=== PATIENT | male | born 1970 | race Hispanic/Latino ===

== ENCOUNTER 2018-06-24 00:13 | Emergency (ER) | payer MEDICARE ==
[~2018-06-24] VITALS: Ht 188 cm; Wt 86.2 kg
--- OUTSIDE RECORDS SUMMARY | 2018-06-24 00:16 | XMS REPORT | Clinical Summary ---
Author Author HUGH [facility] Address Unknown Phone Unavailable Care Team Providers Care Nutritionist Public Health Name Role Phone Guanakito Stone PCP Krishna Grubbs 24 Allergies No Known Allergies Medications End Date Status Medication Sig Dispensed Refills Start Date Active losartan (COZAAR) 100 MG Take 25 mg by 0 tablet mouth daily. 6 Active furosemide (LASIX) 20 MG Take 40 mg by 0 tablet mouth daily . 6 Active glimepiride (AMARYL) 2 MG Take 1 tablet 0 tablet by mouth 6 daily. Active clopidogrel (PLAVIX) 75 Take 1 tablet 0 mg tablet by mouth 6 daily. Active escitalopram oxalate Take 1 tablet 0 (LEXAPRO) 10 MG tablet by mouth 6 daily. Active DIGOX 125 mcg tablet Take 1 tablet 0 by mouth 6 every evening Every other day. Active carvedilol (COREG) 6.25 Take 50 mg by 0 MG tablet mouth 2 (two) 6 times daily . Active TRADJENTA 5 mg Tab Take 1 tablet 0 by mouth 6 daily. Active atorvastatin (LIPITOR) 10 Take 1 tablet 0 MG tablet by mouth 6 daily. Active TANZEUM 30 mg/0.5 mL PnIj Inject 1 each 0 subcutaneousl 6 y once a week. Active gabapentin (NEURONTIN) Take 300 mg 0 300 MG capsule by mouth 2 (two) times daily. Active lisinopril Take 10 mg by 0 (PRINIVIL,ZESTRIL) 5 MG mouth daily . tablet Active aspirin 81 MG EC tablet Take 81 mg by 0 mouth daily. Active amLODIPine (NORVASC) 2.5 Take 2.5 mg 0 MG tablet by mouth daily. Active potassium chloride SA Take 20 mEq 0 (K-DUR,KLOR-CON) 20 MEQ by mouth tablet daily. Active calcium carbonate (TUMS) Take 2 0 500 mg chewable tablet tablets by mouth 3 (three) times daily with meals. 12/14/2017 Discontinued metolazone (ZAROXOLYN) 5 Take 1 tablet 0 MG tablet by mouth Once 6 a week. 12/14/2017 Discontinued BUTRANS 7.5 mcg/hour PTWK Apply 1 patch 0 topically 6 once a week fridays. 01/28/2018 Discontinued rosuvastatin (CRESTOR) 40 Take 40 mg by 0 MG tablet mouth daily. Active Problems Problem Noted Date CAD (coronary artery disease) 01/28/2018 Abnormal cardiovascular stress test 12/14/2017 ESRD (end stage renal disease) on dialysis 02/03/2017 Patient awaiting renal transplant 02/03/2017 Proliferative diabetic retinopathy of both eyes without macular edema 02/03/2017 associated with type 2 diabetes mellitus CKD (chronic kidney disease), stage 5 11/28/2015 Pre-transplant evaluation for chronic kidney disease 11/28/2015 Diabetic nephropathy associated with type 2 diabetes mellitus 11/28/2015 Essential hypertension 11/28/2015 Proliferative diabetic retinopathy without macular edema associated with 11/28/2015 type 2 diabetes mellitus Diabetic polyneuropathy associated with type 2 diabetes mellitus 11/28/2015 Coronary artery disease involving standing rock coronary artery of standing rock heart 11/28/2015 without angina pectoris S/P CABG x 4 11/28/2015 Hyperlipidemia 11/28/2015 Paroxysmal atrial fibrillation 11/28/2015 Encounters Care Team Description Date Type Specialty Christie Abraham Appointment (Reschedule Updates Appt) 05/28/2018 Telephone Transplant Jaquelin Reyna RN Waitlist Maintenance 05/20/2018 Telephone Transplant Christie Abraham Appointment (Updates) 03/20/2018 Telephone Transplant Yu Chacon MD PCI & STENT 01/28/2018 Surgery Yu Chacon MD Abnormal cardiovascular stress test; Coronary artery disease involving standing rock coronary artery of standing rock heart without angina pectoris; ESRD (end stage renal disease) on dialysis (HCC); Paroxysmal atrial fibrillation (HCC); Pre-transplant evaluation for chronic kidney disease; Claudication in peripheral vascular disease (HCC) 01/28/2018 Hospital Cardiology - Encounter 01/29/2018 01/28/2018 Orders Only General Internal Medicine Yu Chacon MD L CATH & PCI 12/14/2017 Surgery Yu Chacon MD Abnormal cardiovascular stress test; Coronary artery disease involving standing rock coronary artery of standing rock heart without angina pectoris; ESRD (end stage renal disease) on dialysis (HCC); Patient awaiting renal transplant; S/P CABG x 4 12/14/2017 Hospital Encounter 12/14/2017 Orders Only General Internal Medicine Mili Varghese MD ESRD (end stage renal disease) on dialysis (HCC); Patient awaiting renal transplant 12/04/2017 Orders Only Transplant Hepatology Jd France MD ESRD (end stage renal disease) on dialysis (HCC); Pre-transplant evaluation for chronic kidney disease; Diabetic nephropathy associated with type 2 diabetes mellitus (HCC); Essential hypertension; S/P CABG x 4; Hyperlipidemia, unspecified hyperlipidemia type; Paroxysmal atrial fibrillation (HCC); Mitral valve insufficiency, unspecified etiology; Coronary artery disease involving standing rock coronary artery of standing rock heart with angina pectoris (HCC) 12/04/2017 Hospital Cardiology Encounter Jd France MD ESRD (end stage renal disease) on dialysis (HCC); Pre-transplant evaluation for chronic kidney disease; Diabetic nephropathy associated with type 2 diabetes mellitus (HCC); Essential hypertension; S/P CABG x 4; Hyperlipidemia, unspecified hyperlipidemia type; Paroxysmal atrial fibrillation (HCC); Mitral valve insufficiency, unspecified etiology; Coronary artery disease involving standing rock coronary artery of standing rock heart with angina pectoris (HCC) 12/04/2017 Hospital Cardiology Encounter Christie Abraham 10/04/2017 Documentation Transplant Christie Abraham 10/03/2017 Documentation Transplant Christie Abraham Appointment (Reschedule Tests) 10/01/2017 Telephone Transplant Jaquelin Reyna RN ESRD (end stage renal disease) on dialysis (HCC) (Primary Dx); Pre-transplant evaluation for chronic kidney disease; Diabetic nephropathy associated with type 2 diabetes mellitus (HCC); Essential hypertension; S/P CABG x 4; Hyperlipidemia, unspecified hyperlipidemia type; Paroxysmal atrial fibrillation (HCC); Mitral valve insufficiency, unspecified etiology; Coronary artery disease involving standing rock coronary artery of standing rock heart with angina pectoris (HCC) 09/26/2017 Orders Only Transplant Jaquelin Reyna RN ESRD (end stage renal disease) on dialysis (HCC) (Primary Dx); Patient awaiting renal transplant 08/21/2017 Orders Only Transplant Yu Chacon MD Canceled (Patient) 07/27/2017 Hospital Cardiology Encounter Jaquelin Reyna RN Waitlist Maintenance 07/25/2017 Telephone Transplant after 06/23/2017 Family History Medical History Relation Name Comments Diabetes Brother Unremarkable Brother Diabetes Father Heart disease Father Hypertension Father Diabetes Mother Heart disease Mother Hypertension Mother Stroke Mother Diabetes Sister Diabetes Sister Relation Name Status Comments Brother Alive Brother Alive Daughter Alive Father Heart attack (Age 63) Mother ESRD, stroke (Age 57) Sister Alive Sister Alive Social History Date Tobacco Use Types Packs/Day Years Used Former Smoker Cigarettes 0.5 30 Smokeless Tobacco: Never Used Comments: 09/28 Alcohol Use Drinks/Week oz/Week Comments No Sex Assigned at Date Recorded Not on file Industry Job Start Date Occupation Not on file Not on file Not on file Travel End Travel History Travel Start No recent travel history available. Last Filed Vital Signs Time Taken Vital Sign Reading 01/29/2018 11:22 AM CDT Blood Pressure 156/78 01/29/2018 11:22 AM CDT Pulse 89 01/29/2018 11:22 AM CDT Temperature 36.8 C (98.3 F) 01/29/2018 4:28 AM CDT Respiratory Rate 18 01/29/2018 4:28 AM CDT Oxygen Saturation 96% - Inhaled Oxygen - Concentration 01/28/2018 7:14 AM CDT Weight 89.2 kg (196 lb 9.6 oz) 01/28/2018 7:14 AM CDT Height 188 cm (6' 2") 01/28/2018 7:14 AM CDT Body Mass Index 25.24 Plan of Treatment Care Team Description Date Type Specialty Mili Varghese MD [address] [address] [phone] 07/18/2018 Orders Only Transplant Hepatology Mili Varghese MD [address] [address] [phone] Jd France MD [address] [place] [address] [phone] 07/18/2018 Evaluation Transplant Health Maintenance Due Date Last Done Comments INFLUENZA VACCINE 05/13/2018 Procedures Comments Procedure Name Priority Date/Time Associated Diagnosis VASCULAR DIAGRAM -SCAN 04/30/2018 12:01 PM CDT VASCULAR DIAGRAM -SCAN 02/07/2018 12:03 PM CDT VASCULAR DIAGRAM -SCAN 02/07/2018 12:03 PM CDT CARDIAC CATH REPORT - 02/01/2018 SCAN 5:20 PM CDT RHYTHM STRIP - SCAN 01/30/2018 11:00 AM CDT VASCULAR DIAGRAM -SCAN 01/30/2018 11:00 AM CDT VASCULAR DIAGRAM -SCAN 01/30/2018 11:00 AM CDT POCT-GLUCOSE METER Routine 01/29/2018 9:33 AM CDT POCT-ACT Routine 01/29/2018 4:28 AM CDT CBC (HEMOGRAM ONLY) Routine 01/29/2018 3:06 AM CDT BASIC METABOLIC PANEL (7) Routine 01/29/2018 3:06 AM CDT POCT-ACT Routine 01/29/2018 3:04 AM CDT POCT-ACT Routine 01/29/2018 1:56 AM CDT POCT-ACT Routine 01/29/2018 12:15 AM CDT POCT-ACT Routine 01/28/2018 10:46 PM CDT POCT-GLUCOSE METER Routine 01/28/2018 9:49 PM CDT POCT-ACT Routine 01/28/2018 8:13 PM CDT POCT-ACT Routine 01/28/2018 7:52 PM CDT POCT-ACT Routine 01/28/2018 6:52 PM CDT PERIPHERAL ANGIOS & IVUS 01/28/2018 Disease of cardiovascular 2:46 PM CDT system PAD (peripheral artery disease) (HCC) Case Notes 5CASE POP6 FFR TO PERALTA/LAD/N O IVUS PCI & STENT 01/28/2018 Disease of cardiovascular 2:46 PM CDT system PAD (peripheral artery disease) (HCC) Case Notes 5CASE POP6 FFR TO PERALTA/LAD/N O IVUS CBC (HEMOGRAM ONLY) Routine 01/28/2018 8:04 AM CDT BASIC METABOLIC PANEL (7) Routine 01/28/2018 8:04 AM CDT ECG 12-LEAD Routine 01/28/2018 7:50 AM CDT Procedure Note - Interface, External Ris In - 01/28/2018 9:01 AM CDT Ventricula r Rate 94 BPM Atrial Rate 94 BPM P-R Interval 172 ms QRS Duration 100 ms Q-T Interval 414 ms QTC Calculatio n(Bazett) 517 ms P Amelia 64 degrees R Amelia 21 degrees T Amelia 153 degrees Normal sinus rhythm Moderate voltage criteria for LVH, may be normal variant ST & T wave abnormalit y, consider inferolate ral ischemia Prolonged QT Abnormal ECG When compared with ECG of 11:51, Premature ventricula r complexes are no longer Present T wave inversion less evident in Anterior leads ECG 12-LEAD Routine 01/28/2018 7:50 AM CDT CARDIAC CATH REPORT - 12/18/2017 SCAN 2:10 PM CDT CARDIAC CATH REPORT - 12/17/2017 SCAN 2:31 PM CDT VASCULAR DIAGRAM -SCAN 12/17/2017 2:31 PM CDT L CATH & PCI 12/14/2017 Abnormal cardiovascular 1:15 PM CDT stress test Case Notes 6T OP, WITH CORONARY ANGIOS ECG 12-LEAD Routine 12/14/2017 11:51 AM CDT Procedure Note - Interface, External Ris In - 12/14/2017 12:18 PM CDT Ventricula r Rate 82 BPM Atrial Rate 82 BPM P-R Interval 178 ms QRS Duration 104 ms Q-T Interval 436 ms QTC Calculatio n(Bazett) 509 ms P Amelia 49 degrees R Amelia 18 degrees T Amelia 199 degrees Sinus rhythm with occasional Premature ventricula r complexes ST & T wave abnormalit y, consider inferior ischemia ST & T wave abnormalit y, consider anterolate ral ischemia Prolonged QT Abnormal ECG When compared with ECG of 6 09:03, Premature ventricula r complexes are now Present Minimal criteria for Septal infarct are no longer Present Borderline criteria for Inferior infarct are no longer Present T wave inversion now evident in Inferior leads ECG 12-LEAD Routine 12/14/2017 11:51 AM CDT PROTHROMBIN TIME/INR STAT 12/14/2017 11:19 AM CDT APTT STAT 12/14/2017 11:19 AM CDT CBC (HEMOGRAM ONLY) STAT 12/14/2017 11:19 AM CDT BASIC METABOLIC PANEL (7) STAT 12/14/2017 11:19 AM CDT ECHOCARDIOGRAM REPORT - 12/04/2017 SCAN 12:20 PM CDT ECHOCARDIOGRAM REPORT - 12/04/2017 SCAN 12:03 PM CDT AB SPECIFICITY CLASS II Routine 12/04/2017 ESRD (end stage renal 10:04 AM CDT disease) on dialysis ([facility]) Patient awaiting renal transplant FLOW PRA CLASS II WITH Routine 12/04/2017 ESRD (end stage renal REFLEX TO ANTIBODY 10:04 AM CDT disease) on dialysis SPECIFICITY ([facility]) Patient awaiting renal transplant FLOW PRA CLASS I WITH Routine 12/04/2017 ESRD (end stage renal REFLEX TO ANTIBODY 10:04 AM CDT disease) on dialysis SPECIFICITY ([facility]) Patient awaiting renal transplant STRESS ECHO Routine 12/04/2017 ESRD (end stage renal 8:50 AM CDT disease) on dialysis ([facility]) Pre-transplant evaluation for chronic kidney disease Diabetic nephropathy associated with type 2 diabetes mellitus ([facility]) Essential hypertension S/P CABG x 4 Hyperlipidemia, unspecified hyperlipidemia type Paroxysmal atrial fibrillation ([facility]) Mitral valve insufficiency, unspecified etiology Coronary artery disease involving standing rock coronary artery of standing rock heart with angina pectoris ([facility]) 2D ECHO W/ DOPPLER Routine 12/04/2017 ESRD (end stage renal (CW/PW/COLOR) 7:57 AM CDT disease) on dialysis (HCC) Pre-transplant evaluation for chronic kidney disease Diabetic nephropathy associated with type 2 diabetes mellitus (HCC) Essential hypertension S/P CABG x 4 Hyperlipidemia, unspecified hyperlipidemia type Paroxysmal atrial fibrillation (HCC) Mitral valve insufficiency, unspecified etiology Coronary artery disease involving standing rock coronary artery of standing rock heart with angina pectoris (HCC) after 06/23/2017 Results * VASCULAR DIAGRAM -SCAN (04/30/2018 12:01 PM CDT) Only the most recent of 6 results within the time period is included. Narrative Performed At * CARDIAC CATH REPORT - SCAN (02/01/2018 5:20 PM CDT) Narrative Performed At * RHYTHM STRIP - SCAN (01/30/2018 11:00 AM CDT) Narrative Performed At * POC-Glucose meter (01/29/2018 9:33 AM CDT) Only the most recent of 2 results within the time period is included. POC-Glucose Meter 214 (H)Comment: TESTED AT 70 - 110 mg/dL [address] [id number] Specimen Blood Performing Organization Address City/[facility]/[place] [address] [facility] * POC ACTIVATED CLOTTING TIME (01/29/2018 4:28 AM CDT) Only the most recent of 8 results within the time period is included. Activated Clotting Time 147Comment: TESTED AT [facility] sec [address] Specimen Blood Performing Organization Address City/State/[place] [address] [facility] * CBC (Hemogram only) (01/29/2018 3:06 AM CDT) Only the most recent of 3 results within the time period is included. WBC 14.1 (H) 3.5 - 10.5 K/L [facility] RBC 3.27 (L) 4.63 - 6.08 M/L [facility] Hemoglobin 9.6 (L) 13.7 - 17.5 GM/DL [facility] Hematocrit 30.3 (L) 40.1 - 51.0 % [facility] MCV 92.7 (H) 79.0 - 92.2 fL [facility] MCH 29.4 25.7 - 32.2 pg [facility] MCHC 31.7 (L) 32.3 - 36.5 GM/DL [facility] RDW 17.0 (H) 11.6 - 14.4 % [facility] Platelets 274 150 - 450 K/CU MM [facility] MPV 10.1 9.4 - 12.4 fL [facility] nRBC 0 0 - 0 /100 WBC [facility] Specimen Blood - Line, Arterial Performing Organization Address City/State/Zipcode Phone Number [facility] [address] [place] [address] [facility] * Basic metabolic panel (01/29/2018 3:06 AM CDT) Only the most recent of 3 results within the time period is included. Sodium 135 (L) 136 - 145 meq/L [facility] Potassium 4.0 3.5 - 5.1 meq/L [facility] Chloride 102 98 - 107 meq/L [facility] CO2 20 (L) 22 - 29 meq/L [facility] BUN 52 (H) 7 - 21 mg/dL [facility] Creatinine 12.47 (H) 0.57 - 1.25 mg/dL [facility] Glucose 213 (H) 70 - 105 mg/dL [facility] Calcium 7.3 (L) 8.4 - 10.2 mg/dL [facility] EGFR Comment: INSUFFICIENT CLINICAL mL/min/1.73 sq m [facility] DATA TO CALCULATE ESTIMATED [facility] GFR. Specimen Blood - Line, Arterial Performing Organization Address City/[facility]/Zipcode Phone Number [facility] [address] [place] [address] [facility] * ECG 12 lead (01/28/2018 7:50 AM CDT) Only the most recent of 2 results within the time period is included. Narrative Performed At Ventricular Rate 94 BPM GE MUSE Atrial Rate 94 BPM P-R Interval 172 ms QRS Duration 100 ms Q-T Interval 414 ms QTC Calculation(Bazett) 517 ms P Amelia 64 degrees R Amelia 21 degrees T Amelia 153 degrees Normal sinus rhythm Moderate voltage criteria for LVH, may be normal variant ST & T wave abnormality, consider inferolateral ischemia Prolonged QT Abnormal ECG When compared with ECG of 14-DEC-2017 11:51, Premature ventricular complexes are no longer Present T wave inversion less evident in Anterior leads Confirmed by Fabian Grover ([id number]) on 01/28/2018 2:01:19 PM Procedure Note Interface, External Ris In - 01/28/2018 2:01 PM CDT Ventricular Rate 94 BPM Atrial Rate 94 BPM P-R Interval 172 ms QRS Duration 100 ms Q-T Interval 414 ms QTC Calculation(Bazett) 517 ms P Amelia 64 degrees R Amelia 21 degrees T Amelia 153 degrees Normal sinus rhythm Moderate voltage criteria for LVH, may be normal variant ST & T wave abnormality, consider inferolateral ischemia Prolonged QT Abnormal ECG When compared with ECG of 14-DEC-2017 11:51, Premature ventricular complexes are no longer Present T wave inversion less evident in Anterior leads Confirmed by Fabian Grover ([id number]) on 01/28/2018 2:01:19 PM Performing Organization Address City/State/Zipcode Phone Number [employer] [facility] * CARDIAC CATH REPORT - SCAN (12/18/2017 2:10 PM CDT) Narrative Performed At * CARDIAC CATH REPORT - SCAN (12/17/2017 2:31 PM CDT) Narrative Performed At * aPTT (12/14/2017 11:19 AM CDT) PTT 35.9 22.5 - 36.0 seconds [facility] Specimen Blood Performing Organization Address City/[facility] Phone Number [facility] [address] [place] [address] [facility] * Prothrombin time/INR (12/14/2017 11:19 AM CDT) Protime 14.8 (H) 11.7 - 14.7 seconds [facility] INR 1.2 <=5.9 [facility] Specimen Blood Narrative Performed At RECOMMENDED COUMADIN/WARFARIN INR THERAPY RANGES [facility] STANDARD DOSE: 2.0 - 3.0 Includes: PROPHYLAXIS for venous thrombosis, [facility] systemic embolization; TREATMENT for venous thrombosis and/or pulmonary embolus. HIGH RISK: Target INR is 2.5-3.5 for patients with mechanical heart valves. Performing Organization Address [facility] Center[facility]n Phone Number [facility] [address] [place] [address] [facility] * ECHOCARDIOGRAM REPORT - SCAN (12/04/2017 12:20 PM CDT) Narrative Performed At * ECHOCARDIOGRAM REPORT - SCAN (12/04/2017 12:03 PM CDT) Narrative Performed At * FLOW PRA CLASS II WITH REFLEX TO ANTIBODY SPECIFICITY (12/04/2017 10:04 AM CDT) Flow Class II Percent 15 [facility] Positive Flow Class Report [facility] Comments Specimen Blood Performing Organization Address [facility] Phone Number [facility] [place], [place]: [id number], [place] [address] CLIA#[id number] CAP#[id number] UNOS#[id number] [facility] [address] [facility] [place], [place]: [id number] [place] [address] * FLOW PRA CLASS I WITH REFLEX TO ANTIBODY SPECIFICITY (12/04/2017 10:04 AM CDT) Flow Class I Percent 0 [facility] Positive Flow Class Report [facility] Comments Specimen Blood Performing Organization Address [facility] Cent[facility] Phone Number [facility] ONE [place] [address], [place]: [id number], [place] [address] CLIA#[id number] CAP#[id number] UNOS#[id number] [facility] [address] [facility] [place], [place]: [id number] [place] [address] * AB SPECIFICITY CLASS II (12/04/2017 10:04 AM CDT) AB Specificity Class II NO CLASS II ANTIBODY DETECTED [facility] WITH MFIs > 4000 AB Specificity Titr Class [facility] Report Specimen Blood Performing Organization Address City/State/Zipcode Phone Number [facility] [address] [facility] [place], [place]: [id number], [place] [address] CLIA#[id number] CAP#[id number] UNOS#[id number] [facility] [place], [place]: [id number] [place] [address] * Stress Echo With Tracing (12/04/2017 8:50 AM CDT) Ejection Fraction [facility] MKCKESSON CPA Narrative Performed At Stress Echocardiography Report [facility] Demographics MKCKESSON CPA Patient NameRICHAR HICKEY of Study12/04/2017 Gender Male Visit [id number] Race Unknown Number Number Date of 1970 ReferringMurtSelect [facility]emg[facility] Physician Gerald Age 47 year(s) SonographerRod SULTANA Interpreting Elizabeth Chase MD Physician FellowADRIANA Rahman Procedure Type of Study Stress procedure:STRESS(TMT)ECHO W/TMT TRACING (Routine) Indications:Pre-surgical evaluation of organ transplant. Clinical History Anemia Coronary Artery Disease Congestive Heart Failure Diabetes ESRD Edema Hypertension Hyperlipidemia Myocardial Infarction S/P CABG 11/13/14 S/P Coronary stent 07/27 S/P Coronary stent 07/28 Contrast Medium: Definity. Height: 72 inches Weight: 88.9 kg (196 lbs) BSA: 2.11 m^2 BMI: 26.58 kg/m^2 HR: 78 bpm BP: 153/86 mmHg Rest ECG Normal sinus rhythm with diffuse T wave inversions. Standing HR:80 bpmStanding BP:153/86 mmHg Stress Peak HR: 153 bpmHR Response: Normal Peak BP: 213/114 mmHg HR BP Product: [id number] Predicted HR: 171 bpm % of predicted HR: 89 Stress EF: 30 % Test Duration: 15:40 min Reason for Termination: Target heart rate Stress Interpretation Indication for test: Pre-transplant evaluation Patient underwent dobutamine stress lasting 15:40 and achieved 89% of maximum predicted heart rate. Resting echo shows akinetic basal and mid inferoseptum, akinetic basal and mid inferior wall. LVEF of 42.9%. Images at peak stress shows akinesis of the basal and mid inferior, basal and mid inferoseptal suggesting scar in this area. With stress, there are new wall motion abnormalties seen in the anterior, anterolateral segments suggesting presence of inducible ischemia in the LAD territory. At peak infusion, the LVEF decreases to 25-29%. Results Global LVEF (rest): Mildly depressed (LVEF 40-50%) Global LVEF (stress): Severely depressed (LVEF <30%) ECG Sinus tachycardia with diffuse T wave inversions and 1-2mm ST depressions in the inferior, anterior and lateral leads . Arrhythmias Occasional PVCs during stress which resolved in recovery Symptoms Mild nausea without chest pain Summary Impression: Dobutamine Stress Echo shows inducible ischemia in the LAD territory. Also suggestion of scar in the RCA territory ( basal and mid inferoseptum/basal and mid inferior segments ). Critical findings communicated with referring provider Dr Oswaldo EID. Previous Study Compared to the prior stud dated 05/24/2016, inducible ischemia in the LAD territory and the suggestion of scar in the RCA territory are both new. Signature Procedure Note Interface, External Ris In - 12/04/2017 11:18 AM CDT Stress Echocardiography Report Demographics Patient Name RICHAR HICKEY Date of Study 12/04/2017 Gender Male Visit Number [id number] Race Unknown Room Number Number Date of 1970 Referring Román Miles Physician Gerald Age 47 year(s) Recruit Instructor Rod Jolly [facility] Interpreting Elizabeth Chase MD Physician Fellow ADRIANA Rahman Procedure Type of Study Stress procedure:STRESS(TMT)ECHO W/TMT TRACING (Routine) Indications:Pre-surgical evaluation of organ transplant. Clinical History Anemia Coronary Artery Disease Congestive Heart Failure Diabetes ESRD Edema Hypertension Hyperlipidemia Myocardial Infarction S/P CABG 11/13/14 S/P Coronary stent 07/27 S/P Coronary stent 07/28 Contrast Medium: Definity. Height: 72 inches Weight: 88.9 kg (196 lbs) BSA: 2.11 m^2 BMI: 26.58 kg/m^2 HR: 78 bpm BP: 153/86 mmHg Rest ECG Normal sinus rhythm with diffuse T wave inversions. Standing HR:80 bpmStanding BP:153/86 mmHg Stress Peak HR: 153 bpm HR Response: Normal Peak BP: 213/114 mmHg HR BP Product: [id number] Predicted HR: 171 bpm % of predicted HR: 89 Stress EF: 30 % Test Duration: 15:40 min Reason for Termination: Target heart rate Stress Interpretation Indication for test: Pre-transplant evaluation Patient underwent dobutamine stress lasting 15:40 and achieved 89% of maximum predicted heart rate. Resting echo shows akinetic basal and mid inferoseptum, akinetic basal and mid inferior wall. LVEF of 42.9%. Images at peak stress shows akinesis of the basal and mid inferior, basal and mid inferoseptal suggesting scar in this area. With stress, there are new wall motion abnormalties seen in the anterior, anterolateral segments suggesting presence of inducible ischemia in the LAD territory. At peak infusion, the LVEF decreases to 25-29%. Results Global LVEF (rest): Mildly depressed (LVEF 40-50%) Global LVEF (stress): Severely depressed (LVEF <30%) ECG Sinus tachycardia with diffuse T wave inversions and 1-2mm ST depressions in the inferior, anterior and lateral leads . Arrhythmias Occasional PVCs during stress which resolved in recovery Symptoms Mild nausea without chest pain Summary Impression: Dobutamine Stress Echo shows inducible ischemia in the LAD territory. Also suggestion of scar in the RCA territory ( basal and mid inferoseptum/basal and mid inferior segments ). Critical findings communicated with referring provider Dr Oswaldo EID. Previous Study Compared to the prior stud dated 05/24/2016, inducible ischemia in the LAD territory and the suggestion of scar in the RCA territory are both new. Signature Performing Organization Address City/State/Zipcode Phone Number [facility] [employer] [email or web address] * 2D Echo W/Doppler(CW/PW/Color) (12/04/2017 7:57 AM CDT) Ejection Fraction [email or web address] Narrative Performed At Transthoracic Echocardiography Report (TTE) [facility] [employer] [facility] Demographics [employer] Patient NameRICHAR HICKEY of Study12/04/2017 Gender Male Visit [id number] Race Unknown Number Number Date of 1970 ReferringMuivet Miles Physician Gerald Age 47 year(s) SonographerRod Jolly [facility] Interpreting Elizabeth Chase MD Physician FellowADRIANA Rahman Procedure Type of Study TTE procedure:2DECHO W DOPPLER(CW/PW/COLOR) (Routine) Indications:Pre-surgical evaluation of organ transplant. Clinical History Anemia Coronary Artery Disease Congestive Heart Failure Diabetes ESRD Edema Hypertension Hyperlipidemia Myocardial Infarction S/P CABG 11/13/14 S/P Coronary stent 07/27 S/P Coronary stent 07/28 Contrast Medium: Definity. Height: 72 inches Weight: 88.9 kg (196 lbs) BSA: 2.11 m^2 BMI: 26.58 kg/m^2 HR: 78 bpm BP: 153/86 mmHg Summary 1. Left ventricular endocardium is incompletely visualized with IV contrast. LV chamber size is mildly enlarged (male - LVED vol 75-89ml/m2). There is no LV hypertrophy. Akinetic basal and mid inferoseptum, basal and mid inferior wall noted. LV systolic function is mildly reduced. Calculated ejection fraction by Escalante's biplane method is mildly reduced (40-44%). Diastolic dysfunction is grade 3 (restrictive). 2. Normal RV size. There is mild systolic dysfunction of the right ventricle. 3. LA size is severely enlarged (>48 ml/m2) . Right atrial size is normal. 4. Mild to moderate posteriorly directed mitral regurgitation. 5. Trace tricuspid regurgitation. Incomplete TR jet. The Pulmonary artery systolic pressure is estimated to be atleast 35-40 mmHg. Estimated right atrial pressure is 5-10 mmHg. 6. No pericardial effusion is visualized. Previous Study In comparison with the prior exam on 05/24/16 the following changes are noted: LVEF is slightly lower. Signature Findings Rhythm/BPNormal sinus rhythm during the exam. Left Ventricle Left ventricular endocardium is incompletely visualized with IV contrast. LV chamber size is mildly enlarged (male - LVED vol 75-89ml/m2). There is no LV hypertrophy. Akinetic basal and mid inferoseptum, basal and mid inferior wall noted. LV systolic function is mildly reduced. Calculated ejection fraction by Escalante's biplane method is mildly reduced (40-44%). Diastolic dysfunction is grade 3 (restrictive). Left AtriumLA is well visualized. LA size is severely enlarged (>48 ml/m2) . Right VentricleNormal RV size. There is mild systolic dysfunction of the right ventricle. RVS' is 7 cm/s. TAPSE is 1.4 cm. FAC is 47%. RV MPI is 0.63. Right Atrium Right atrial size is normal. Atrial SeptumNormal intraatrial septum by available views. Aortic Valve Aortic annulus appears calcified. No aortic stenosis. No aortic regurgitation. Mitral Valve Mild thickening of the mitral leaflets noted. Mild to moderate posteriorly directed mitral regurgitation. Tricuspid ValveTricuspid structure is normal. Trace tricuspid regurgitation. Incomplete TR jet. The Pulmonary artery systolic pressure is estimated to be atleast 35-40 mmHg. Pulmonic Valve Normal pulmonic valve structure. No pulmonic regurgitation. AortaAortic root size (sinus of Valsalva diameter) is normal. Visualized aortic arch is normal. PericardiumNo pericardial effusion is visualized. IVC/SVC/PA/PV/PleuralThe inferior vena cava is adequately visualized. The IVC size is normal without respiratory variation. Estimated right atrial pressure is 5-10 mmHg. Chambers/Structures Left Atrium LA Volume: 108.64 ml LA Area: 27.4 cm^2 LA Vol. Index: 51 ml/m^2 Left Ventricle LVIDd: 5.04 cm LVIDs: 4.18 cm LV Septum Diastolic: 0.97 cm LV Septum Systolic: 1.36 cm LV FS: 17.1 % LV PW Diastolic: 1.44 cm LV PW Systolic: 1.67 cm LVEDVI: 71 ml/m^2 LVEDV Escalante's:149.29 ml LVESVI: 38 ml/m^2 LVESV Escalante's:80.81 ml LVEF Escalante's: 43.5 % LVOT Diameter: 2.08 cm Right Ventricle RV Area Diastolic: 25.83 cm^2 RV Area Systolic: 13.58 cm^2 TAPSE: 1.42 cm Doppler/Quantitative Measurements Mitral Valve MV Peak E-Wave: 1.29 m/s MV Peak A-Wave: 0.38 m/s E/A Ratio: 3.37 Peak Gradient: 6.67 mmHg Deceleration Time: 126 msec MV Angel. Peak: Tissue Doppler E' Septal Velocity: 0.08 m/s E/E': 12 E' Lateral Velocity: 0.11 m/s Aortic Valve Peak Velocity: 1.14 m/sMean Velocity: 0.83 m/s Peak Gradient: 5.19 mmHg Mean Gradient: 3.07 mmHg AV Area (continuity): 2.69 cm^2 AV VTI: 22.77 cm AV DVI: 0.79 LVOT Peak Velocity: 0.94 m/s Peak Gradient: 3.56 mmHg Mean Velocity: 0.63 m/s Mean Gradient: 1.86 mmHg LVOT Diameter: 2.08 cmLVOT VTI: 18.04 cm LVOT Area: 3.4 cm^2 LVOT SV:61.27 ml LVOT CO: 4.78 l/min LVOT CI: 2.27 l/min/m^2 Tricuspid Valve TR Velocity: 2.71 m/s TR Gradient: 29.29 mmHg Procedure Note Interface, External Ris In - 12/04/2017 11:42 AM CDT Transthoracic Echocardiography Report (TTE) Demographics Patient Name RICHAR HICKEY Date of Study 12/04/2017 Gender Male Visit Number [id number] Race Unknown Room Number Number Date of 1970 Referring Román Miles Physician Gerald Age 47 year(s) Recruit Instructor Rod Jolly [employer] Interpreting Elizabeth Chase MD Physician Fellow ADRIANA Rahman Procedure Type of Study TTE procedure:2DECHO W DOPPLER(CW/PW/COLOR) (Routine) Indications:Pre-surgical evaluation of organ transplant. Clinical History Anemia Coronary Artery Disease Congestive Heart Failure Diabetes ESRD Edema Hypertension Hyperlipidemia Myocardial Infarction S/P CABG 11/13/14 S/P Coronary stent 07/27 S/P Coronary stent 07/28 Contrast Medium: Definity. Height: 72 inches Weight: 88.9 kg (196 lbs) BSA: 2.11 m^2 BMI: 26.58 kg/m^2 HR: 78 bpm BP: 153/86 mmHg Summary 1. Left ventricular endocardium is incompletely visualized with IV contrast. LV chamber size is mildly enlarged (male - LVED vol 75-89ml/m2). There is no LV hypertrophy. Akinetic basal and mid inferoseptum, basal and mid inferior wall noted. LV systolic function is mildly reduced. Calculated ejection fraction by Escalante's biplane method is mildly reduced (40-44%). Diastolic dysfunction is grade 3 (restrictive). 2. Normal RV size. There is mild systolic dysfunction of the right ventricle. 3. LA size is severely enlarged (>48 ml/m2) . Right atrial size is normal. 4. Mild to moderate posteriorly directed mitral regurgitation. 5. Trace tricuspid regurgitation. Incomplete TR jet. The Pulmonary artery systolic pressure is estimated to be atleast 35-40 mmHg. Estimated right atrial pressure is 5-10 mmHg. 6. No pericardial effusion is visualized. Previous Study In comparison with the prior exam on 05/24/16 the following changes are noted: LVEF is slightly lower. Signature Findings Rhythm/BP Normal sinus rhythm during the exam. Left Ventricle Left ventricular endocardium is incompletely visualized with IV contrast. LV chamber size is mildly enlarged (male - LVED vol 75-89ml/m2). There is no LV hypertrophy. Akinetic basal and mid inferoseptum, basal and mid inferior wall noted. LV systolic function is mildly reduced. Calculated ejection fraction by Escalante's biplane method is mildly reduced (40-44%). Diastolic dysfunction is grade 3 (restrictive). Left Atrium LA is well visualized. LA size is severely enlarged (>48 ml/m2) . Right Ventricle Normal RV size. There is mild systolic dysfunction of the right ventricle. RVS' is 7 cm/s. TAPSE is 1.4 cm. FAC is 47%. RV MPI is 0.63. Right Atrium Right atrial size is normal. Atrial Septum Normal intraatrial septum by available views. Aortic Valve Aortic annulus appears calcified. No aortic stenosis. No aortic regurgitation. Mitral Valve Mild thickening of the mitral leaflets noted. Mild to moderate posteriorly directed mitral regurgitation. Tricuspid Valve Tricuspid structure is normal. Trace tricuspid regurgitation. Incomplete TR jet. The Pulmonary artery systolic pressure is estimated to be atleast 35-40 mmHg. Pulmonic Valve Normal pulmonic valve structure. No pulmonic regurgitation. Aorta Aortic root size (sinus of Valsalva diameter) is normal. Visualized aortic arch is normal. Pericardium No pericardial effusion is visualized. IVC/SVC/PA/PV/Pleural The inferior vena cava is adequately visualized. The IVC size is normal without respiratory variation. Estimated right atrial pressure is 5-10 mmHg. Chambers/Structures Left Atrium LA Volume: 108.64 ml LA Area: 27.4 cm^2 LA Vol. Index: 51 ml/m^2 Left Ventricle LVIDd: 5.04 cm LVIDs: 4.18 cm LV Septum Diastolic: 0.97 cm LV Septum Systolic: 1.36 cm LV FS: 17.1 % LV PW Diastolic: 1.44 cm LV PW Systolic: 1.67 cm LVEDVI: 71 ml/m^2 LVEDV Escalante's:149.29 ml LVESVI: 38 ml/m^2 LVESV Escalante's:80.81 ml LVEF Escalante's: 43.5 % LVOT Diameter: 2.08 cm Right Ventricle RV Area Diastolic: 25.83 cm^2 RV Area Systolic: 13.58 cm^2 TAPSE: 1.42 cm Doppler/Quantitative Measurements Mitral Valve MV Peak E-Wave: 1.29 m/s MV Peak A-Wave: 0.38 m/s E/A Ratio: 3.37 Peak Gradient: 6.67 mmHg Deceleration Time: 126 msec MV Angel. Peak: Tissue Doppler E' Septal Velocity: 0.08 m/s E/E': 12 E' Lateral Velocity: 0.11 m/s Aortic Valve Peak Velocity: 1.14 m/s Mean Velocity: 0.83 m/s Peak Gradient: 5.19 mmHg Mean Gradient: 3.07 mmHg AV Area (continuity): 2.69 cm^2 AV VTI: 22.77 cm AV DVI: 0.79 LVOT Peak Velocity: 0.94 m/s Peak Gradient: 3.56 mmHg Mean Velocity: 0.63 m/s Mean Gradient: 1.86 mmHg LVOT Diameter: 2.08 cm LVOT VTI: 18.04 cm LVOT Area: 3.4 cm^2 LVOT SV:61.27 ml LVOT CO: 4.78 l/min LVOT CI: 2.27 l/min/m^2 Tricuspid Valve TR Velocity: 2.71 m/s TR Gradient: 29.29 mmHg Performing Organization Address City/State/Zipcode Phone Number [facility] after 06/23/2017 Insurance Payer Benefit Subscriber ID Type Phone Address Plan / Group HUMANA - MEDICARE MGD HUMANA xxxxxxxxx [facility] MEDICARE Contracted ADV Advance Directives For more information, please contact: [facility] [address] [place] [phone] Date Inactivated Comments Code Status Date Activated 01/28/2018 8:42 PM Full Code 01/28/2018 7:36 AM This code status was determined by: Patient 12/14/2017 9:00 PM Full Code 12/14/2017 2:06 PM This code status was determined by: Patient
--- OUTSIDE RECORDS SUMMARY | 2018-06-24 00:16 | XMS REPORT | Continuity of Care Document ---
Author Author [facility] Interface Address Unknown Phone Unavailable Problems Problem Status Onset Date Classification Date Reported Comments Source CHEST PAIN Active 06/15/2018 [facility] SOB Active 08/13/2017 [facility] DYSPNEA Active 10/11/2016 [facility] CAD (<span ID="[id number]">Confirmed</span>) Active Problem 08/19/2017 [facility] CHF (<span ID="[id number]">Confirmed</span>) Active Problem 08/19/2017 [facility] Diabetes Active Problem 08/19/2017 [facility] HTN (<span ID="[id number]">Confirmed</span>) Active Problem 08/19/2017 [facility] Kidney failure Active Problem 08/19/2017 [facility] CHEST PAIN, UNSPECIFIED Active [facility] Medications Medication Details Route Status Patient Instructions Ordering Provider Order Date Source Allergies, Adverse Reactions, Alerts Substance Category Reaction Severity Reaction type Status Date Reported Comments Source Immunizations Immunization Date Given Site Status Last Updated Comments Source influenza virus vaccine, inactivated 07/17/2015 Left deltoid completed English [facility] influenza virus vaccine, inactivated 07/15/2015 Not Given [facility] pneumococcal 23-valent vaccine 10/01/2014 Left deltoid completed Jenniffer [facility] influenza virus vaccine, inactivated 10/01/2014 Left deltoid completed Jenniffer [facility] pneumococcal 23-valent vaccine 02/08/2006 Right arm completed White [facility] Results Order Name Results Value Reference Range Date Interpretation Comments Source Ext Lower Arterial Doppler unilat US Ext Lower Arterial Doppler unilat US PROCEDURE: Right groin ultrasound with Doppler. INDICATION: Clinical concern for possible pseudoaneurysm in the right groin at cardiac catheterization access site. Patient complains of pain in the right groin COMPARISON: None. FINDINGS: No pseudoaneurysm identified. Normal arterial waveform of the right common femoral artery. Normal compressibility the right common femoral vein. No significant fluid collection. IMPRESSION: Negative study. SL: RONALD 06/18/2018 - - Read by: Jose Bueno MD Dictated Date/time: 06/18/18 17:21 Electronically Signed by: Jose Bueno MD 06/18/18 17:26 FINAL REPORT [facility] Brain wo contrast MRI Brain wo contrast MRI Clinical Indication: - confusion, abnormal CT Comparison: CT head dated 06/18/2018, MRI brain dated 09/30/2014 TECHNIQUE: Multiplanar noncontrast enhanced MRI of the brain is performed on a 1.5 Jillian magnet. Contrast: None. FINDINGS: BRAIN PARENCHYMA: The brain parenchyma has normal signal with normal forrest-white junction, sulci, and gyri. A few scattered subcentimeter T2/FLAIR hyperintense foci are noted in the supratentorial white matter, likely representing normal aging white matter changes. There is no mass effect or midline shift. There is no extra-axial fluid collection or intraparenchymal hemorrhage. The corpus callosum appears normal. There is no diffusion weighted imaging or ADC map abnormality to suggest acute/subacute ischemia. There is no magnetic susceptibility to suggest recent or remote intracranial hemorrhage. CEREBELLOPONTINE REGIONS AND SKULL BASE: The cerebellopontine angles appear unremarkable. The skull base, craniocervical junction, and brainstem are normal. The optic chiasm is normal. The sellar and pineal regions are unremarkable. VENTRICLES: The ventricles are normal in size and configuration for age. The basilar cisterns are normal. VESSELS: The venous sinuses are grossly unremarkable. The expected intracranial flow voids are present. ORBITS, VISUALIZED PARANASAL SINUSES AND MASTOIDS: The visualized orbits and paranasal sinuses are unremarkable. Nonspecific mild mucosal thickening in the right mastoid air cells; normal posterior nasopharynx. IMPRESSION: Unremarkable noncontrast MRI of the brain without stroke, hemorrhage or mass. SL: JOSIE 06/18/2018 - - Read by: Braxton Campbell MD Dictated Date/time: 06/19/18 15:47 Electronically Signed by: Braxton Campbell MD 06/19/18 15:50 FINAL REPORT [facility] Brain Stroke wo contrast CT Brain Stroke wo contrast CT Clinical Indication: Confusion - AMS Comparison: CT head dated 09/30/2014 TECHNIQUE: CT images were obtained from the foramen magnum to the vertex without the use of intravenous contrast on a multidetector CT. Coronal and sagittal reconstructions were obtained. CT imaging performed at this location utilizes radiation dose optimization techniques which include one or more of the following: -Automated exposure control -Adjustment of the mA and/or kV according to patient size -Use of iterative reconstruction technique CT Radiation Dose DLP 1873 mGy-cm FINDINGS: BRAIN PARENCHYMA: There is a subtle small wedge-shaped region of hypodensity with possible forrest-white matter junction effacement in the right frontal lobe. No evidence of hemorrhage. Prominence of the arterial vasculature in the venous sinuses is likely related to recent IV contrast administration from heart catheterization. No significant mass effect. Intracranial vascular calcifications are noted. VENTRICLES: The lateral ventricles, third and fourth ventricles appear unremarkable for age. The basilar cisterns are normal. ORBITS, MASTOIDS AND PARANASAL SINUSES: The visualized orbits and paranasal sinuses are unremarkable. The mastoid air cells are clear. SKULL: There are no osseous abnormalities. If there is further concern for intracranial pathology or acute stroke, MRI of the brain may be performed for complete assessment. IMPRESSION: 1. Subtle small region of hypodensity in the right frontal lobe, differential includes artifact from beam hardening (favored) versus infarct. 2. No hemorrhage. 3. Hyperdensity of the arterial vasculature and venous sinuses, likely related to recent IV contrast administration. These findings were discussed with the ordering physician at 9:57 AM on 06/18/2018; she expressed understanding. ----- SL: JOSIE 06/18/2018 - - Read by: Braxton Campbell MD Dictated Date/time: 06/18/18 09:45 Electronically Signed by: Braxton Campbell MD 06/18/18 09:59 FINAL REPORT [facility] 1view DX Chest 1view DX CHEST RADIOGRAPH SINGLE VIEW INDICATION: Chest pain COMPARISON: Chest radiograph 10/23/2016 IMPRESSION: Lungs are underinflated. There are postoperative changes of the cardiomediastinal silhouette and sternum. Cardiac silhouette is grossly normal in size. There appears to be potential mild pulmonary vascular congestion and interstitial pulmonary edema. No consolidation, pleural effusion, or pneumothorax are visible. SL:16 06/16/2018 - - Read by: Robert Boateng MD Dictated Date/time: 06/16/18 01:18 Electronically Signed by: Robert Boateng MD 06/16/18 01:19 FINAL REPORT [facility] 2 views DX Chest 2 views DX Patient Name: RICHAR POTTS : 1970; Age: 46 years Male MR: [id number] Study: Chest 2 views DX Order Time: 10/23/2016 4:47 PM CDT Clinical Indication: dyspnea COMPARISON: None FINDINGS: 2 views of the chest are submitted for evaluation. The sternal wires are intact. The cardiac silhouette is mildly prominent. There is mild edema present. No consolidation. There is a tiny left effusion. No pneumothorax. Visualized osseous structures are unremarkable. IMPRESSION: 1. Mildly prominent cardiac silhouette with some mild edema. 2. Tiny left effusion with no superimposed consolidation. SL: WR1-M 10/23/2016 - - Read by: Jose Hopson MD Dictated Date/time: 10/23/16 16:58 Electronically Signed by: Jose Hopson MD 10/23/16 17:02 FINAL REPORT [facility] Vital Signs Vital Sign Value Date Comments Source Weight 88.636 08/16/2017 [facility] Systolic (mm Hg) 133 08/16/2017 [facility] Diastolic (mm Hg) 73 08/16/2017 [facility] Respitory Rate 18 08/16/2017 [facility] Heart Rate 89 08/16/2017 [facility] Height 187.96 cm 08/16/2017 [facility] BMI Calculated 25.09 08/16/2017 [facility] Temperature Oral (F) 99.9 F 08/16/2017 [facility] Encounters Location Location Details Encounter Type Encounter Number Reason For Visit Attending Provider ADM Date DC Date Status Source [facility] [id number] Ihsanjoyce Rodriguez 10/23/2016 10/24/2016 [facility] [id number] Danyel Machado 08/16/2017 08/17/2017 [facility] Procedures Procedure Code Date Perfomer Comments Source CABG x 4 - Coronary artery bypass grafts x 4 [id number] 10/20/2014 [facility] Bypass [id number] [facility]
--- OUTSIDE RECORDS SUMMARY | 2018-06-24 00:16 | XMS REPORT | Summary of Care ---
Author Author [facility] Organization [facility] Address Unknown Phone Unavailable Encounter HQ Mikal(FIN) [id number] Date(s): 10/23/16 - 10/23/16 [facility] [address] [place] [address]- Discharge Disposition: Home or Self Care Attending Physician: Ihsan Rodriguez MD Vital Signs No data available for this section Problem List Condition Effective Dates Status Health Status Informant CAD (coronary artery Active disease)(Confirmed) CHF (congestive Active heart failure)(Confirmed) Diabetes(Confirmed) Active HTN Active (hypertension)(Confi rmed) Kidney Active failure(Confirmed) Allergies, Adverse Reactions, Alerts Substance Reaction Severity Status NKDA Active Medications No data available for this section Results No data available for this section Immunizations Given and Recorded Vaccine Date Status Refusal Reason influenza virus vaccine, inactivated 07/17/15 Given influenza virus vaccine, inactivated 10/01/14 Given pneumococcal 23-valent vaccine 10/01/14 Given pneumococcal 23-valent vaccine 02/08/06 Given Not Given Vaccine Date Status Refusal Reason influenza virus vaccine, inactivated 07/15/15 Not Given Patient Refuses Procedures Procedure Date Related Diagnosis Body Site CABG x 4 - Coronary artery bypass grafts x 4 10/20/14 Bypass Social History Social History Type Response Substance Abuse Use: None. Alcohol Past Smoking Status Former smoker; Type: Cigarettes; Lives with someone who smokes; Cigarette Smoking Last 365 Days Yes; Reg Smoking Cessation Counseling Yes Assessment and Plan No data available for this section
--- OUTSIDE RECORDS SUMMARY | 2018-06-24 00:16 | XMS REPORT | Summary of Care ---
Author Author [facility] Organization [facility] Address Unknown Phone Unavailable Encounter HQ Mikal(SAHIL) [id number] Date(s): 08/16/17 - 08/16/17 [facility] [address] [place] [address]- Discharge Disposition: [facility] Left B4 Treatment Cmplt-MSE Cmplt Attending Physician: Danyel Machado MD Vital Signs Most recent to 1 oldest [Reference Range]: Height 187.96 cm (08/16/17 4:07 PM) Temperature Oral 99.9 DegF [96.4-99.1 DegF] *HI* (08/16/17 4:07 PM) Blood Pressure 133/73 mmHg [90-140/60-90 mmHg] (08/16/17 4:07 PM) Respiratory Rate 18 BRMIN [14-20 BRMIN] (08/16/17 4:07 PM) Peripheral Pulse 89 bpm Rate [60-100 bpm] (08/16/17 4:07 PM) Weight 88.636 kg (08/16/17 4:07 PM) Body Mass Index 25.09 m2 (08/16/17 4:07 PM) Problem List Condition Effective Dates Status Health [...]
--- OUTSIDE RECORDS SUMMARY | 2018-06-24 00:17 | XMS REPORT ---
Author Author [facility] Address Unknown Phone Unavailable Care Team Providers [facility] Director Name Role Phone HUNG GRANDA Unavailable Unavailable ASHLEYJOANN BHAMIDIPATI Unavailable Unavailable Problems This patient has no known problems. Allergies, Adverse Reactions, Alerts This patient has no known allergies or adverse reactions. Medications This patient has no known medications. Results Test Description Test Time Test Comments Text Results Atomic Results Result Comments POCT-GLUCOSE METER 2018-01-29 11:03:00 POC-GLUCOSE METER (BEAKER) (test puve=6542) 214 mg/dL 70-[address] [facility] [address] [facility] [address] [id number] 04:35:00* Test Item Value Reference Range Comments ACTIVATED CLOTTING TIME (BEAKER) (test buwp=910) [address] [facility] [address] [facility] [address] BASIC METABOLIC [id number] 03:38:00* Test Item Value Reference Range Comments SODIUM (BEAKER) (test desp=008) 135 meq/L 136-145 POTASSIUM (BEAKER) (test kyhc=651) 4.0 meq/L 3.5-5.1 CHLORIDE (BEAKER) (test erks=392) 102 meq/L 98-107 CO2 (BEAKER) (test yuqc=571) 20 meq/L 22-29 BLOOD UREA NITROGEN (BEAKER) (test dmgl=664) 52 mg/dL 7-21 CREATININE (BEAKER) (test wqdk=806) 12.47 mg/dL 0.57-1.25 GLUCOSE RANDOM (BEAKER) (test ykor=664) 213 mg/dL 70-105 CALCIUM (BEAKER) (test vxhs=825) 7.3 mg/dL 8.4-10.2 EGFR (BEAKER) (test rlae=6967) mL/min/1.73 sq m INSUFFICIENT CLINICAL DATA TO CALCULATE ESTIMATED GFR. CBC (HEMOGRAM ONLY)2018-01-29 03:16:00* Test Item Value Reference Range Comments WHITE BLOOD CELL COUNT (BEAKER) (test hrgv=434) 14.1 K/ L 3.5-10.5 RED BLOOD CELL COUNT (BEAKER) (test qcbr=790) 3.27 M/ L 4.63-6.08 HEMOGLOBIN (BEAKER) (test bblx=589) 9.6 GM/DL 13.7-17.5 HEMATOCRIT (BEAKER) (test dyrd=987) 30.3 % 40.1-51.0 MEAN CORPUSCULAR VOLUME (BEAKER) (test rkhb=834) 92.7 fL 79.0-92.2 MEAN CORPUSCULAR HEMOGLOBIN (BEAKER) (test fmnx=398) 29.4 pg 25.7-32.2 MEAN CORPUSCULAR HEMOGLOBIN CONC (BEAKER) (test fylw=224) 31.7 GM/DL 32.3-36.5 RED CELL DISTRIBUTION WIDTH (BEAKER) (test nors=466) 17.0 % 11.6-14.4 PLATELET COUNT (BEAKER) (test amsa=063) 274 K/CU MM 150-450 MEAN PLATELET VOLUME (BEAKER) (test ogph=391) 10.1 fL 9.4-12.4 NUCLEATED RED BLOOD CELLS (BEAKER) (test gyba=523) 0 /100 WBC 0-0 [id number] 03:10:00* Test Item Value Reference Range Comments ACTIVATED CLOTTING TIME (BEAKER) (test lqgt=535) 142 sec TESTED AT [place] [address] [id number] 02:01:00* Test Item Value Reference Range Comments ACTIVATED CLOTTING TIME (BEAKER) (test kvjt=858) 153 sec TESTED AT [place] [id number] 00:24:00* Test Item Value Reference Range Comments ACTIVATED CLOTTING TIME (BEAKER) (test kjlf=245) 153 sec TESTED AT [place] [address] [id number] 22:56:00* Test Item Value Reference Range Comments ACTIVATED CLOTTING TIME (BEAKER) (test xvbu=801) 186 sec TESTED AT [place] [address] POCT-GLUCOSE [id number] 21:50:00* Test Item Value Reference Range Comments POC-GLUCOSE METER (BEAKER) (test vefv=0013) 140 mg/dL 70-110 TESTED AT [place] [id number] 20:34:00* Test Item Value Reference Range Comments ACTIVATED CLOTTING TIME (BEAKER) (test ykww=690) 230 sec TESTED AT [address] [address] [id number] 20:34:00* Test Item Value Reference Range Comments ACTIVATED CLOTTING TIME (BEAKER) (test rvvs=509) 186 sec TESTED AT [place] [address] [id number] 20:34:00* Test Item Value Reference Range Comments ACTIVATED CLOTTING TIME (BEAKER) (test icbs=259) 384 sec TESTED AT [address] [address] BASIC METABOLIC [id number] 08:56:00* Test Item Value Reference Range Comments SODIUM (BEAKER) (test lfwn=988) 137 meq/L 136-145 POTASSIUM (BEAKER) (test rrcu=460) 3.8 meq/L 3.5-5.1 CHLORIDE (BEAKER) (test azra=657) 97 meq/L 98-107 CO2 (BEAKER) (test pghc=933) 27 meq/L 22-29 BLOOD UREA NITROGEN (BEAKER) (test itva=051) 44 mg/dL 7-21 CREATININE (BEAKER) (test ecuc=276) 12.38 mg/dL 0.57-1.25 GLUCOSE RANDOM (BEAKER) (test zwof=640) 283 mg/dL 70-105 CALCIUM (BEAKER) (test wnkz=228) 7.7 mg/dL 8.4-10.2 EGFR (BEAKER) (test zavf=0332) mL/min/1.73 sq m INSUFFICIENT CLINICAL DATA TO CALCULATE ESTIMATED GFR. CBC (HEMOGRAM ONLY)2018-01-28 08:13:00* Test Item Value Reference Range Comments WHITE BLOOD CELL COUNT (BEAKER) (test zwdv=951) 14.9 K/ L 3.5-10.5 RED BLOOD CELL COUNT (BEAKER) (test dtur=872) 3.74 M/ L 4.63-6.08 HEMOGLOBIN (BEAKER) (test kwjj=023) 11.0 GM/DL 13.7-17.5 HEMATOCRIT (BEAKER) (test aala=793) 35.9 % 40.1-51.0 MEAN CORPUSCULAR VOLUME (BEAKER) (test wsns=951) 96.0 fL 79.0-92.2 MEAN CORPUSCULAR HEMOGLOBIN (BEAKER) (test stap=648) 29.4 pg 25.7-32.2 MEAN CORPUSCULAR HEMOGLOBIN CONC (BEAKER) (test jmnb=552) 30.6 GM/DL 32.3-36.5 RED CELL DISTRIBUTION WIDTH (BEAKER) (test focw=336) 17.1 % 11.6-14.4 PLATELET COUNT (BEAKER) (test wtqn=542) 312 K/CU MM 150-450 MEAN PLATELET VOLUME (BEAKER) (test eigh=426) 9.9 fL 9.4-12.4 NUCLEATED RED BLOOD CELLS (BEAKER) (test wokw=872) 0 /100 WBC 0-0 BASIC METABOLIC [id number] 12:14:00* Test Item Value Reference Range Comments SODIUM (BEAKER) (test uasl=864) 140 meq/L 136-145 POTASSIUM (BEAKER) (test iiee=287) 2.9 meq/L 3.5-5.1 CHLORIDE (BEAKER) (test addj=167) 100 meq/L 98-107 CO2 (BEAKER) (test xosf=134) 27 meq/L 22-29 BLOOD UREA NITROGEN (BEAKER) (test rsaz=555) 47 mg/dL 7-21 CREATININE (BEAKER) (test lrhm=494) 10.36 mg/dL 0.57-1.25 GLUCOSE RANDOM (BEAKER) (test wrjl=819) 225 mg/dL 70-105 CALCIUM (BEAKER) (test kjxg=027) 7.6 mg/dL 8.4-10.2 EGFR (BEAKER) (test lcto=7224) mL/min/1.73 sq m INSUFFICIENT CLINICAL DATA TO CALCULATE ESTIMATED GFR. [id number] 11:40:00* Test Item Value Reference Range Comments PARTIAL THROMBOPLASTIN TIME (BEAKER) (test dsyh=744) 35.9 seconds 22.5-36.0 PROTHROMBIN TIME/[id number] 11:38:00* Test Item Value Reference Range Comments PROTIME (BEAKER) (test nkxe=397) 14.8 seconds 11.7-14.7 INR (BEAKER) (test yaey=356) 1.2 <=5.9 RECOMMENDED COUMADIN/WARFARIN INR THERAPY RANGESSTANDARD DOSE: 2.0 - 3.0 Inclu opal: PROPHYLAXIS for venous thrombosis, systemic embolization; TREATMENT for manuel ous thrombosis and/or pulmonary embolus.HIGH RISK: Target INR is 2.5-3.5 for pat ients with mechanical heart valves.CBC (HEMOGRAM ONLY)2017-12-14 11:31:00* Test Item Value Reference Range Comments WHITE BLOOD CELL COUNT (BEAKER) (test ifse=886) 13.6 K/ L 3.5-10.5 RED BLOOD CELL COUNT (BEAKER) (test gzsn=426) 3.51 M/ L 4.63-6.08 HEMOGLOBIN (BEAKER) (test kncm=653) 10.1 GM/DL 13.7-17.5 HEMATOCRIT (BEAKER) (test ryps=642) 31.9 % 40.1-51.0 MEAN CORPUSCULAR VOLUME (BEAKER) (test sfut=877) 90.9 fL 79.0-92.2 MEAN CORPUSCULAR HEMOGLOBIN (BEAKER) (test iqsx=983) 28.8 pg 25.7-32.2 MEAN CORPUSCULAR HEMOGLOBIN CONC (BEAKER) (test pwno=282) 31.7 GM/DL 32.3-36.5 RED CELL DISTRIBUTION WIDTH (BEAKER) (test toyj=247) 15.4 % 11.6-14.4 PLATELET COUNT (BEAKER) (test vmwv=535) 255 K/CU MM 150-450 MEAN PLATELET VOLUME (BEAKER) (test xhjw=818) 9.8 fL 9.4-12.4 NUCLEATED RED BLOOD CELLS (BEAKER) (test gjsq=542) 0 /100 WBC 0-0 AB SPECIFICITY CLASS [id number] 09:26:00* Test Item Value Reference Range Comments DATE OF SERUM (BEAKER) (test ztnl=1670) [id number] SERUM # (BEAKER) (test kdrv=6482) [id number] AB SPECIFICITY CLASS II (BEAKER) (test ggyw=9105) See Scanned Report AB SPECIFICITY CLASS [id number] 09:26:00* Test Item Value Reference Range Comments DATE OF SERUM (BEAKER) (test bfar=6242) [id number] SERUM # (BEAKER) (test sxxk=7978) [id number] AB SPECIFICITY CLASS I (BEAKER) (test bofn=5867) FLOW PRA CLASS I AND [id number] 13:05:00* Test Item Value Reference Range Comments DATE OF SERUM (BEAKER) (test jwip=2124) [id number] SERUM # (BEAKER) (test rncf=3504) [id number] FLOW PRA CLASS I AND II (test eomi=6909) See Scanned Report AB SPECIFICITY CLASS [id number] 13:19:00* Test Item Value Reference Range Comments DATE OF SERUM (BEAKER) (test mruk=2459) [id number] SERUM # (BEAKER) (test yprs=6893) [id number] AB SPECIFICITY CLASS I (BEAKER) (test kohg=6987) See Scanned Report FLOW PRA CLASS I AND [id number] 15:51:00* Test Item Value Reference Range Comments DATE OF SERUM (BEAKER) (test kcqt=0925) [id number] SERUM # (BEAKER) (test uirz=1171) [id number] FLOW PRA CLASS I AND II (test cenw=9003) See Scanned Report AB SPECIFICITY CLASS [id number] 12:29:00* Test Item Value Reference Range Comments DATE OF SERUM (BEAKER) (test hudg=3155) [id number] SERUM # (BEAKER) (test fpcu=1476) [id number] AB SPECIFICITY CLASS II (BEAKER) (test fjtz=7038) See Scanned Report AB SPECIFICITY CLASS [id number] 12:29:00* Test Item Value Reference Range Comments DATE OF SERUM (BEAKER) (test vcis=2354) [id number] SERUM # (BEAKER) (test huvq=6540) [id number] AB SPECIFICITY CLASS I (BEAKER) (test marb=4488) HEPATITIS B SURFACE [id number] 15:23:00* Test Item Value Reference Range Comments HEPATITIS B SURFACE ANTIBODY (BEAKER) (test mnom=861) < mIU/mL <8.0 FLOW PRA CLASS I AND [id number] 11:49:00* Test Item Value Reference Range Comments DATE OF SERUM (BEAKER) (test jnqv=0345) [id number] SERUM # (BEAKER) (test auoj=2957) [id number] FLOW PRA CLASS I AND II (test zbyi=2531) See Scanned Report AB SPECIFICITY CLASS [id number] 10:51:00* Test Item Value Reference Range Comments AB SPECIFICITY CLASS II (BEAKER) (test hqlc=6749) See Scanned Report AB SPECIFICITY CLASS [id number] 10:51:00* Test Item Value Reference Range Comments AB SPECIFICITY CLASS I (BEAKER) (test pawx=3968) See Scanned Report FLOW PRA CLASS I AND [id number] 12:48:00* Test Item Value Reference Range Comments DATE OF SERUM (BEAKER) (test tjjx=9552) [id number] SERUM # (BEAKER) (test yimc=6906) 88164 FLOW PRA CLASS I AND II (test whmu=1620) See Scanned Report FLOW PRA CLASS I AND [id number] 15:31:00* Test Item Value Reference Range Comments DATE OF SERUM (BEAKER) (test fppf=9534) [id number] SERUM # (BEAKER) (test ablc=8384) [id number] FLOW PRA CLASS I AND II (test mvlt=7557) See Scanned Report
[2018-06-24] MEDS ORDERED: ONDANSETRON HCL INJ 2 MG/ML VIAL IV STA (00:49)
[2018-06-24] MEDS ORDERED: SODIUM CHLORIDE 0.9% 500ML 500 ML IV ONE (01:00)
[2018-06-24 01:54] LABS: BASOPHILS # (AUTO) 0.1 (0.0-0.1); BASOPHILS % 0.6 % (0.0-1.0); EOSINOPHILS # (AUTO) 0.7 (0.0-0.4); EOSINOPHILS % 6.9 % (0.0-6.0); HEMATOCRIT 36.2 % (38.2-49.6); HEMOGLOBIN 11.7 g/dL (14.0-18.0); LYMPHOCYTES # (AUTO) 1.4 (1.0-3.2); LYMPHOCYTES % 13.1 % (18.0-39.1); MEAN CORPUSCULAR HGB CONC 32.3 g/dL (31-35); MEAN CORPUSCULAR VOLUME 89.6 fL (81-99); MONOCYTES # (AUTO) 0.7 (0.2-0.8); MONOCYTES % 6.8 % (4.4-11.3); NEUTROPHILS # (AUTO) 7.8 (2.1-6.9); NEUTROPHILS % 72.1 % (38.7-80.0); PLATELET COUNT 386 x10e3/uL (140-360); RED BLOOD COUNT 4.04 x10e6/uL (4.3-5.7); RED CELL DISTRIBUTION WIDTH 16.4 % (11.7-14.4)
[2018-06-24 02:08] LABS: CLARITY,URINE HAZY (CLEAR); COLOR,URINE YELLOW (YELLOW); LEUKOCYTE ESTERASE ,URINE NEGATIVE (NEGATIVE)
[2018-06-24 02:09] LABS: BILIRUBIN,URINE NEGATIVE (NEGATIVE); KETONES,URINE NEGATIVE (NEGATIVE); NITRITE,URINE NEGATIVE (NEGATIVE); PROTEIN,URINE DIPSTICK 2+ (NEGATIVE); URINE UROBILINOGEN 0.2 mg/dL (0.2 - 1)
[2018-06-24 02:16] LABS: ALBUMIN/GLOBULIN RATIO 0.6 (0.8-2.0); ANION GAP 24.1 mmol/L (8-16); CALCIUM 8.7 mg/dL (8.4-10.2); CREATININE, SERUM 18.48 mg/dL (0.72-1.25); POTASSIUM 3.1 mmol/L (3.5-5.1)
[2018-06-24 02:18] LABS: BACTERIA,URINE MANY /HPF; EPITHELIAL CELLS,URINE FEW /LPF; TRANSITIONAL EPI CELLS,URINE FEW; WBC,URINE (MAN) 21-50 /HPF (0-5)
--- NOTE | 2018-06-24 02:20 | Diagnostic Imaging Report ---
EXAMINATION: CHEST SINGLE (PORTABLE) INDICATION: Weakness. COMPARISON: None FINDINGS: AP view TUBES and LINES: None. LUNGS: Lungs are well inflated. Lungs are clear. There is no evidence of pneumonia or pulmonary edema. PLEURA: No pleural effusion or pneumothorax. HEART AND MEDIASTINUM: The cardiomediastinal silhouette is unremarkable. CABG clips. BONES AND SOFT TISSUES: No acute osseous lesion. Median sternotomy wires. Soft tissues are unremarkable. UPPER ABDOMEN: No free air under the diaphragm. IMPRESSION: No acute thoracic abnormality. Signed by: DR. Chris Lowry MD on 06/24/2018 2:17 AM
[2018-06-24 02:41] LABS: CREATINE KINASE MB 2.8 ng/mL (0-5.0)
[2018-06-24] MEDS ORDERED: CEFTRIAXONE SOD 1 GM VIAL IV ONE (02:45)
[2018-06-24 03:28] VITALS: BP 132/68
== END 2018-06-24 03:40 | disposition home or self-care (01) ==
LOC: ER 00:13
DX: R11.2 Nausea with vomiting, unspecified (principal); N30.90 Cystitis, unspecified without hematuria; F17.210 Nicotine dependence, cigarettes, uncomplicated
CPT/HCPCS: 36415; 71045; 80053; 81001; 82550; 82553; 83880; 84484; 85025; 87086; 93005; 99283; J0696; J2405; J7040

== ENCOUNTER 2020-06-11 16:18 | Inpatient (IN) | payer MEDICARE ==
[~2020-06-11] VITALS: Ht 188 cm; Wt 83.3 kg
--- NOTE | 2020-06-11 16:56 | Emergency Department Note ---
History of Present Illnes History of Present Illness Chief Complaint: Extremity Trauma/Pain History of Present Illness This is a 49 year old male here for 2 week infected right toe. Patient is also peritoneal dialysis patient. Patient has been treated with doxycycline over the last week, patient went to see Dr. Regan with podiatry and was told to come here for IV antibiotics since he was not improving Historian: Patient Arrival Mode: Car Onset (how long ago): week(s) (2) Location: R toe Quality: none Radiation: Reports non-radiation Onset quality: gradual Duration (how long): week(s) (2) Timing of current episode: constant Progression: worsening Chronicity: new Context: Reports recent illness Relieving factors: none Exacerbating factors: none Associated symptoms: Reports denies other symptoms Treatments prior to arrival: none Past Medical/Family History Physician Review I have reviewed the patient's past medical and family history. Any updates have been documented here. Past Medical History Recent Fever: No Clinical Suspicion of Infectio: No New/Unexplained Change in Ment: No Past Medical History: Hypertension, Diabetes, CHF, VA, ESRD, Hyperlipedemia, Chronic Back Pain Other Medical History: PD DIALYSIS DIABETIC NEUROPATHY VA X5 CARDIAC ARREST Past Surgical History: CABG, PCI Other Surgery: STENTS X 4 Other Last Tetanus: UNKNOWN Review of Systems Review of Systems Constitutional: Reports no symptoms EENTM: Reports no symptoms Cardiovascular: Reports no symptoms Respiratory: Reports no symptoms Gastrointestinal: Reports no symptoms Genitourinary: Reports no symptoms Musculoskeletal: Reports no symptoms Integumentary: Reports as per HPI Neurological: Reports no symptoms Psychological: Reports no symptoms Endocrine: Reports no symptoms Hematological/Lymphatic: Reports no symptoms Physical Exam Related Data Allergies: Coded Allergies: No Known Allergies (Unverified , 06/24/18) Triage Vital Signs Vital Signs Date Time Temp Pulse Resp B/P (MAP) Pulse Ox O2 Delivery O2 Flow Rate FiO2 06/11/20 16:35 97.8 97 20 123/83 100 Room Air Physical Exam CONSTITUTIONAL Constitutional: Present well-developed, Present well-nourished HENT HENT: Present normocephalic, Present atraumatic, Present oropharynx clear/moist, Present nose normal HENT L/R: Present left ext ear normal, Present right ext ear normal EYES Eyes: Reports PERRL, Reports conjunctivae normal NECK Neck: Present ROM normal PULMONARY Pulmonary: Present effort normal, Present breath sounds normal CARDIOVASCULAR Cardiovascular: Present regular rhythm, Present heart sounds normal, Present capillary refill normal, Present normal rate GASTROINTESTINAL Abdominal: Present soft, Present nontender, Present bowel sounds normal, Present other (PD dialysis ) GENITOURINARY Genitourinary: Present exam deferred SKIN Skin: Present warm, Present dry, Present other (patient with no epidermis from his DIP joint over to the end of his right toe, streaking erythema into his mid foot dorsal aspect.) MUSCULOSKELETAL Musculoskeletal: Present ROM normal NEUROLOGICAL Neurological: Present alert, Present oriented x 3, Present no gross motor or sensory deficits PSYCHOLOGICAL Psychological: Present mood/affect normal, Present judgement normal Assessment & Plan Medical Decision Making MDM Patient's a 49-year-old sent here for IV antibiotics, admission by his skatesman. Assessment & Plan Final Impression: (1) Wound infection (2) Cellulitis Depart Disposition: ADMITTED Last Vital Signs Date Time Temp Pulse Resp B/P (MAP) Pulse Ox O2 Delivery O2 Flow Rate FiO2 10/30/20 16:35 97.8 97 20 123/83 100 Room Air BRIAN BRENNAN MD Jun 11, 2020 16:56
[2020-06-11 17:20] LABS: BASOPHILS # (AUTO) 0.1 (0.0-0.1); BASOPHILS % 0.9 % (0.0-1.0); EOSINOPHILS # (AUTO) 0.3 (0.0-0.4); EOSINOPHILS % 2.8 % (0.0-6.0); HEMATOCRIT 50.2 % (38.2-49.6); HEMOGLOBIN 15.4 g/dL (14.0-18.0); LYMPHOCYTES # (AUTO) 1.1 (1.0-3.2); LYMPHOCYTES % 10.7 % (18.0-39.1); MEAN CORPUSCULAR HEMOGLOBIN 26.8 pg (28-32); MEAN CORPUSCULAR HGB CONC 30.7 g/dL (31-35); MEAN CORPUSCULAR VOLUME 87.5 fL (81-99); MONOCYTES # (AUTO) 0.6 (0.2-0.8); MONOCYTES % 5.6 % (4.4-11.3); NEUTROPHILS # (AUTO) 8.1 (2.1-6.9); NEUTROPHILS % 79.5 % (38.7-80.0); PLATELET COUNT 223 x10e3/uL (140-360); RED BLOOD COUNT 5.74 x10e6/uL (4.3-5.7); RED CELL DISTRIBUTION WIDTH 17.7 % (11.7-14.4)
--- NOTE | 2020-06-11 17:36 | Diagnostic Imaging Report ---
Exam: TOES RIGHT MIN 2 VIEWS History: Infected toe Comparison: None. Findings: No displaced fractures. No acute osseous abnormality, specifically no focal osseous destruction or periosteal reaction. No joint malalignment or dislocation. Mild degenerative changes at the first MTP joint. Diffuse soft tissue swelling of the great toe with subcutaneous emphysema along the plantar surface, may represent wound/ulcer. Impression: 1. No acute osseous abnormality to suggest osteomyelitis. 2. Diffuse soft tissue swelling of the great toe with subcutaneous emphysema along the plantar surface, may represent wound/ulcer. Signed by: Dr. Ruben Gresham M.D. on 06/11/2020 5:33 PM
[2020-06-11 17:39] LABS: ALBUMIN 2.7 g/dL (3.5-5.0); ALBUMIN/GLOBULIN RATIO 0.5 (0.8-2.0); ANION GAP 21.4 mmol/L (8-16); CALCIUM 8.9 mg/dL (8.4-10.2); CREATININE, SERUM 12.33 mg/dL (0.72-1.25); POTASSIUM 5.4 mmol/L (3.5-5.1)
[2020-06-11] MEDS ORDERED: SODIUM CHLORIDE 0.9% IV STA (18:10)
[2020-06-11] MEDS ORDERED: VANCOMYCIN HCL IV STA (18:10)
[2020-06-11] MEDS ORDERED: CEFEPIME HCL 1 GM VIAL IV STA (18:10)
[2020-06-11] MEDS ORDERED: CEFEPIME HCL IV ONE (18:30)
[2020-06-11] MEDS ORDERED: VANCOMYCIN HCL 2 GM in SODIUM CHLORIDE 0.9% 500ML 500 ML IV ONE (18:30)
[2020-06-11] MEDS ORDERED: SODIUM CHLORIDE 0.9% IV ONE (18:30)
[2020-06-11 20:30] VITALS: BP 134/89
[2020-06-11 20:48] VITALS: BP 134/89
[2020-06-11 21:05] VITALS: BP 134/89
[2020-06-11] MEDS ORDERED: ELIQUIS2.5 MG PO (21:18)
[2020-06-11] MEDS ORDERED: LEVEMIR FL100 UNIT/1 SC (21:18)
[2020-06-11] MEDS ORDERED: LYRICA75 MG PO (21:18)
[2020-06-11] MEDS ORDERED: AMIODARONE HCL200 MG PO (21:18)
[2020-06-11] MEDS ORDERED: STOOL SOFTENER50 MG PO (21:18)
[2020-06-11] MEDS ORDERED: PLAVIX75 MG PO (21:18)
[2020-06-11] MEDS ORDERED: DOXYCYCLINE HY100 MG PO (21:18)
[2020-06-11] MEDS ORDERED: FUROSEMIDE40 MG PO (21:18)
[2020-06-11] MEDS ORDERED: RENVELA0.8 GM PO (21:18)
[2020-06-11] MEDS ORDERED: POTASSIUM CHLO10 ME1 PO (21:18)
[2020-06-11] MEDS ORDERED: DEXTROSE 50% SYRINGE 50 ML IV PRN (22:15)
[2020-06-11] MEDS ORDERED: SODIUM CHLORIDE 0.9% 500ML 500 ML ONE (22:39)
[2020-06-11] MEDS: MORPHINE SULFATE 2 MG/ML SYR 1ML IV PRN (22:49)
[2020-06-11] MEDS: PREGABALIN 75 MG CAP PO SCH (22:52)
[2020-06-12] VITALS (8 sets, daily range): BP systolic 99–120; BP diastolic 64–83
[2020-06-12] MEDS: MORPHINE SULFATE 2 MG/ML SYR 1ML IV PRN ×4 (05:34→19:11)
--- NOTE | 2020-06-12 07:43 | NUR ---
Spoke to Dr. Young regarding status. He gave order for inpatient status
[2020-06-12] MEDS ORDERED: INSULIN DETEMIR SC SCH (08:00)
[2020-06-12] MEDS ORDERED: SEVELAMER CARBONATE 800 MG TAB PO SCH (08:00)
[2020-06-12 08:07] LABS: CHOL/HDL RATIO 3.7 (3.9-4.7)
[2020-06-12] MEDS: INSULIN REGULAR, HUMAN 100 UNIT/1 ML 3ML VIAL SQ SCH ×4 (08:07→20:10)
[2020-06-12] MEDS: AMIODARONE HCL 200 MG TAB PO SCH (08:12)
[2020-06-12] MEDS: APIXAB 2.5 MG TABLET PO SCH ×2 (08:13→17:29)
[2020-06-12] MEDS: CLOPIDOGREL BISULFATE 75 MG TAB PO SCH (08:14)
[2020-06-12] MEDS: DOXYCYCLINE HYCLATE TABLET 100 MG TAB PO SCH (08:14)
[2020-06-12] MEDS: INSULIN GLARGINE 100 UNITS/ML VIAL SC SCH ×3 (08:21→17:32)
[2020-06-12] MEDS: FUROSEMIDE 40 MG TAB PO SCH (08:22)
[2020-06-12] MEDS ORDERED: POTASSIUM CHLORIDE 10MEQ EA PO SCH (09:00)
[2020-06-12] MEDS ORDERED: SOD POLYSTYRENE SULFONATE SUSP 15 GM/60 ML BTL PO NR (09:15)
--- NOTE | 2020-06-12 10:58 | NUR ---
Verbal order by Dr. Young to keep holding potassium 10 meq, PO.
--- NOTE | 2020-06-12 11:15 | History and Physical ---
CHIEF COMPLAINT: Right lower extremity pain and tenderness. HISTORY OF PRESENT ILLNESS: This is a 49-year-old gentleman with a history of end-stage renal disease, diabetes with neuropathy, nephropathy, retinopathy and dialysis peritoneal, who was in usual state of health until the patient started to have some right lower extremity pain and erythema, was seen by the nickel plant operator one week course of antibiotic was prescribed. The patient was put on doxycycline. The patient came back and the patient was noted to have some streaking string extending all the way to the mid calf area and ochoa area and the patient was sent to the ER for possible IV antibiotics. The patient arrived and was admitted to hospital with cellulitis of the great toe and lymphangitis. PAST MEDICAL HISTORY: History of diabetes mellitus with end-stage renal disease with nephropathy with retinopathy with neuropathy. The patient also has history of hypertension, hyperlipidemia, chronic back pain, history of coronary artery disease, and history of peripheral arterial disease. PAST SURGICAL HISTORY: History of CABG, quadruple vessel; history of multiple PCIs including a recent balloon in the right lower extremity. The patient also had a stent in the left lower extremity. The patient has a history of cardiac arrest and history of permanent AED placement. The patient also was evaluated recently for a kidney transplant and also heart transplant at which point, the patient apparently coded and rested. The patient was then revived in the ED put in. PAST SURGICAL HISTORY: The patient's surgical history as mentioned above. SOCIAL HISTORY: No EtOH. No IV drug abuse. No history of smoking. No history of IV drug abuse. MEDICATIONS: At home, the patient takes amiodarone 200 mg daily, apixaban 2.5 mg daily, clopidogrel 75 mg daily, docusate 50 mg daily, Lasix 80 mg daily, insulin detemir 3 units subcutaneously t.i.d., potassium chloride 10 mEq daily, pregabalin 75 mg, and Renvela 3 times a day. FAMILY HISTORY: Noncontributory except for diabetes and hypertension and coronary artery disease. REVIEW OF SYSTEMS: Negative for chest pain. No shortness of breath. No nausea, vomiting, or diarrhea. No PND, orthopnea. At this time, positive for tenderness in pain in the right lower extremities. PHYSICAL EXAMINATION: VITAL SIGNS: On arrival, the patient's temperature is 97.7, pulse of 95, respirations of 20, and pulse oximetry of 100% on room air. HEENT: Normocephalic and atraumatic. Pupils are reactive. CVS: S1 and S2. Regular rate. ABDOMEN: Soft and nontender. PD catheter in place. No signs of SBP. EXTREMITIES: Right lower extremity with eschar on the great toe with spreading lymphangitis and chronic venous changes all the way extending to the mid ochoa area and also in the calf area. Positive also eschar on the 2nd toe. Decreased pulses on bilateral lower extremity, especially less on the right lower extremities. LABORATORY VALUES: White count is 10,000, hemoglobin 15.4, and hematocrit 50.2. Chemistry shows sodium 136, potassium 5.4, BUN of 44, creatinine of 12.32 with a glucose of 129. C-reactive protein is pending. Serology; coronavirus is pending. Microbiology is pending. IMAGING STUDIES: Toe x-ray shows no acute osseous abnormalities suggestive of osteomyelitis. Diffuse soft tissue swelling of the great toe subcutaneous emphysema along with plantar surface, may represent wound ulcer. ASSESSMENT: This is Mr. Rivera Hickey with; 1. Lymphangitis and also of the great toe diabetic foot ulcer. 2. PAD. 3. Hypertension. 4. Hyperlipidemia. 5. End-stage renal disease. 6. CAD. 7. History of cardiac arrest. PLAN: 1. Continue telemonitoring. The patient is currently on doxycycline. 2. The patient was given 1 g of vancomycin and cefepime. The patient will be continued on vancomycin on a daily basis. Consult with Dr. Orozco will be done and also consult with Dr. Gentile will be done. We will continue his home medication keep him anticoagulated. Further recommendation per clinical course. Pain medicine will be increased to every 4 hours for pain control and an arterial Doppler of the lower extremities. MD LUIS Olivares/MODL /[id number]
--- NOTE | 2020-06-12 11:25 | Consultation ---
DATE OF CONSULTATION: Renal Consultation HISTORY OF PRESENT ILLNESS: Mr. Hickey is a pleasant 49-year-old male, patient of mine, with end-stage renal disease, on peritoneal dialysis. He is a patient of mine at [facility] under my care. The patient also has a prior history of complicated by diabetes mellitus, previous history of hypertension, although he has been more hypotensive recently, also prior history of peritonitis related to PD catheter, also prior history of coronary artery disease. He is also status post CABG. The patient was admitted to the hospital, looks like cellulitis and subsequently is getting IV antibiotics. He was seen in the PD clinic last week and there was concern that this might be calciphylaxis on his lower part of his leg around his ochoa area. The patient currently has no fever, no chills, no nausea, no vomiting, no diarrhea, no abdominal pain, no other symptoms. Renal consultation has been asked for the management of his dialysis to provide his peritoneal dialysis. PAST MEDICAL HISTORY: As outlined above. MEDICATIONS: He has been on amiodarone, Eliquis, Plavix, furosemide, insulin, sevelamer. REVIEW OF SYSTEMS: See HPI. Otherwise, all systems negative. ALLERGIES: NO KNOWN DRUG ALLERGIES. SOCIAL HISTORY: No tobacco. No alcohol use. FAMILY HISTORY: Noncontributory. PHYSICAL EXAMINATION: VITAL SIGNS: Blood pressure is 118/79, 85 pulse, afebrile, 17 respirations. HEENT: No cervical lymphadenopathy. NECK: Supple without masses. No obvious JVD. Moist appearing oral mucosa. SKIN: Moist with good skin turgor. CHEST WALL: Good expansion. No chest wall tenderness. LUNGS: Clear to auscultation bilaterally. CARDIOVASCULAR: S1 and S2. No obvious gallop, rub, or murmur. ABDOMEN: Soft. Positive bowel sounds. Nontender. EXTREMITIES: No evidence of lower extremity edema. No clubbing. No cyanosis. The patient does have evidence of cellulitis and possibly calciphylactic ulceration and discoloration on his lower leg ochoa area. NEUROLOGICAL: He is awake, alert, and oriented x3. Grossly nonfocal exam. LABORATORY WORKUP: H and H are 15 and 50.2. Sodium 136, potassium 5.4, chloride 93, carbon dioxide 27, BUN 44, creatinine . IMPRESSION AND PLAN: 1. End-stage renal disease. We will continue to provide peritoneal dialysis while he is here and we will continue to monitor closely. 2. Hypertension. Blood pressure is on low side of normal. 3. Anemia of chronic disease. Hemoglobin and hematocrit are actually higher than expected. 4. Mild hyperkalemia. We will give one dose of Kayexalate. 5. We will also start him on the peritoneal dialysis. Leave off any potassium supplementation for now. 6. Cellulitis versus high suspicion for calciphylaxis. The patient has had uncontrolled phosphorus levels in the outpatient setting secondary to noncompliance with phosphorus binders. I will order a skin punch biopsy and I will start him empirically on sodium thiosulfate, which is the appropriate treatment for calciphylactic ulcers. Also, we would recommend to cover him with IV antibiotics for probable cellulitis. Thank you once again for the consultation. We will follow the patient closely and make further recommendation. Krishna Grubbs MD /MODL /[id number] cc: Josemanuel Young MD
--- NOTE | 2020-06-12 12:12 | NUR ---
IMM letter discussed with pt, signed copy placed in chart, original given to the pt
[2020-06-12] MEDS: ONDANSETRON HCL INJ 2MG/ML 2ML 2 MG/ML VIAL IV PRN ×2 (12:19→21:03)
[2020-06-12] MEDS: SEVELAMER CARBONATE 800 MG TAB PO SCH ×2 (12:19→17:29)
--- NOTE | 2020-06-12 13:49 | NUR ---
Mr. Hickey is a pleasant 49-year-old male, patient of mine, with end-stage renal disease, on peritoneal dialysis. He is a patient of mine at [facility] under my care. The patient also has a prior history of complicated by diabetes mellitus, previous history of hypertension, although he has been more hypotensive recently, also prior history of peritonitis related to PD catheter, also prior history of coronary artery disease. He is also status post CABG. The patient was admitted to the hospital, looks like cellulitis and subsequently is getting IV antibiotics. He was seen in the PD clinic last week and there was concern that this might be calciphylaxis on his lower part of his leg around his ochoa area. The patient currently has no fever, no chills, no nausea, no vomiting, no diarrhea, no abdominal pain, no other symptoms. Renal consultation has been asked for the management of his dialysis to provide his peritoneal dialysis. PAST MEDICAL HISTORY: As outlined above. MEDICATIONS: He has been on amiodarone, Eliquis, Plavix, furosemide, insulin, sevelamer. REVIEW OF SYSTEMS: See HPI. Otherwise, all systems negative. ALLERGIES: NO KNOWN DRUG ALLERGIES. SOCIAL HISTORY: No tobacco. No alcohol use. FAMILY HISTORY: Noncontributory.
[2020-06-12] MEDS ORDERED: SODIUM CHLORIDE 0.9% IV SCH (16:00)
[2020-06-12] MEDS ORDERED: SODIUM THIOSULFATE IV SCH (16:00)
[2020-06-12] MEDS: CEFTRIAXONE SOD 1 GM/NS 50 ML 50 ML IV SCH (16:17)
[2020-06-12] MEDS ORDERED: SODIUM CHLORIDE 0.9% 250ML 250 ML ONE (16:21)
[2020-06-12] MEDS: DOCUSATE SODIUM 100 MG CAP PO SCH (18:04)
--- NOTE | 2020-06-12 18:12 | Consultation ---
DATE OF CONSULTATION: REASON FOR CONSULTATION: Osteomyelitis of the right foot. HISTORY OF PRESENT ILLNESS: This patient, who is a 49-year-old very pleasant, who has history of end-stage renal disease on hemodialysis, peritoneal dialysis, congestive heart failure, coronary artery disease, status post CABG, peripheral vascular disease, atherosclerotic disease, on peritoneal dialysis, comes in with redness and swelling of his right foot. The patient does have a black eschar on the big toe, so he came here. PAST MEDICAL HISTORY: As above. PAST SURGICAL HISTORY: As above. ALLERGIES: NKA. SOCIAL HISTORY: There is no smoking, drug abuse, or alcohol abuse. FAMILY HISTORY: Hypertension. LABORATORY DATA: White count 10.19. His creatinine is 12. MEDICATIONS: He is currently on morphine, Renvela, Lasix, . PHYSICAL EXAMINATION: GENERAL: Currently alert and oriented. Does not seem to be in acute distress. VITAL SIGNS: Stable, currently afebrile. HEENT: He is not icteric. NECK: Supple. CHEST: Clear. HEART: S1 and S2. ABDOMEN: Soft. EXTREMITIES: The right big toe, there is gangrene on the dorsal aspect of the toe. IMPRESSION: Cellulitis of the foot, gangrene, concern osteo. The patient has end-stage renal disease, on hemodialysis. We will put the patient on Rocephin 1 g daily. Vancomycin was given for 4 days. Vascular workup is in progress. We will follow. MD CHRISTOFER Trinidad/DEBORAH /[id number]
[2020-06-12] MEDS: PREGABALIN 75 MG CAP PO SCH (20:09)
[2020-06-12] MEDS ORDERED: PREGABALIN 75 MG CAP PO SCH (21:00)
[2020-06-12] MEDS ORDERED: PNEUMOCOCCAL VACCINE POLYVALENT 23 MCG/0.5 ML VIAL IM SCH (21:07)
[2020-06-13] VITALS (8 sets, daily range): BP systolic 109–128; BP diastolic 75–84
[2020-06-13] MEDS: MORPHINE SULFATE 2 MG/ML SYR 1ML IV PRN ×4 (00:06→17:09)
[2020-06-13] MEDS: ONDANSETRON HCL INJ 2MG/ML 2ML 2 MG/ML VIAL IV PRN ×2 (05:58→11:16)
[2020-06-13 06:43] LABS: BASOPHILS # (AUTO) 0.1 (0.0-0.1); BASOPHILS % 1.4 % (0.0-1.0); EOSINOPHILS # (AUTO) 0.5 (0.0-0.4); EOSINOPHILS % 5.4 % (0.0-6.0); HEMATOCRIT 45.7 % (38.2-49.6); HEMOGLOBIN 13.9 g/dL (14.0-18.0); LYMPHOCYTES # (AUTO) 1.4 (1.0-3.2); LYMPHOCYTES % 15.3 % (18.0-39.1); MEAN CORPUSCULAR HEMOGLOBIN 26.9 pg (28-32); MEAN CORPUSCULAR HGB CONC 30.4 g/dL (31-35); MEAN CORPUSCULAR VOLUME 88.4 fL (81-99); MONOCYTES # (AUTO) 0.6 (0.2-0.8); MONOCYTES % 6.1 % (4.4-11.3); NEUTROPHILS # (AUTO) 6.4 (2.1-6.9); NEUTROPHILS % 71.5 % (38.7-80.0); PLATELET COUNT 147 x10e3/uL (140-360); RED BLOOD COUNT 5.17 x10e6/uL (4.3-5.7); RED CELL DISTRIBUTION WIDTH 17.5 % (11.7-14.4)
[2020-06-13 06:54] LABS: INR 1.18; PROTHROMBIN TIME 15.6 seconds (11.9-14.5)
--- NOTE | 2020-06-13 07:02 | NUR ---
Message left to Dr. Emerson for the consult cancellation.
--- NOTE | 2020-06-13 07:10 | NUR ---
Spoke with Dr. Young regarding the biopsy Dr. Grubbs ordered. Dr. Young stated to cancel the biopsy and continue giving Eliquis and to cancel Dr. Emerson consultation.
[2020-06-13 07:13] LABS: ALBUMIN 2.4 g/dL (3.5-5.0); ALBUMIN/GLOBULIN RATIO 0.5 (0.8-2.0); ANION GAP 18.3 mmol/L (8-16); CALCIUM 8.6 mg/dL (8.4-10.2); CREATININE, SERUM 13.01 mg/dL (0.72-1.25); MAGNESIUM 1.8 MG/DL (1.3-2.1); POTASSIUM 3.3 mmol/L (3.5-5.1)
[2020-06-13] MEDS: INSULIN REGULAR, HUMAN 100 UNIT/1 ML 3ML VIAL SQ SCH ×4 (07:30→20:00)
--- NOTE | 2020-06-13 07:32 | NUR ---
LEFT MESSAGE TO ANSWERING SERVICE FOR DR. CARRANZA REGARDING THIS NEW CONSULT.
--- NOTE | 2020-06-13 07:38 | NUR ---
Spoke with Dr. Alegria and acknowledge the consultation.
[2020-06-13] MEDS: SEVELAMER CARBONATE 800 MG TAB PO SCH ×3 (08:00→17:04)
[2020-06-13] MEDS: AMIODARONE HCL 200 MG TAB PO SCH (08:00)
[2020-06-13] MEDS: APIXAB 2.5 MG TABLET PO SCH ×2 (08:00→17:04)
[2020-06-13] MEDS: DOCUSATE SODIUM 100 MG CAP PO SCH ×2 (08:00→17:04)
[2020-06-13] MEDS: INSULIN GLARGINE 100 UNITS/ML VIAL SC SCH ×3 (08:00→17:00)
[2020-06-13] MEDS: DOXYCYCLINE HYCLATE TABLET 100 MG TAB PO SCH (08:01)
[2020-06-13] MEDS: CLOPIDOGREL BISULFATE 75 MG TAB PO SCH (08:01)
[2020-06-13] MEDS ORDERED: POTASSIUM CHLORIDE 20 MEQ TAB CR PO STA (08:28)
[2020-06-13] MEDS: FUROSEMIDE 40 MG TAB PO SCH (08:48)
[2020-06-13] MEDS ORDERED: DOCUSATE SODIUM 100 MG CAP PO SCH (09:00)
[2020-06-13 09:13] LABS: PHOSPHORUS 7.5 MG/DL (2.3-4.7)
--- NOTE | 2020-06-13 09:14 | Progress Note ---
DATE: SUBJECTIVE: The patient is a 49-year-old gentleman who came in with right foot cellulitis and also with history of coronary artery disease and also peripheral arterial disease. The patient is on Apixaban and clopidogrel. Dr. Grubbs wants a biopsy to rule out calcinosis. Currently, the patient is on antibiotic. No chest pain. No shortness of breath. Pain is monitored at this time. OBJECTIVE: VITAL SIGNS: Temperature is 97.3, pulse of 78, respirations of 18, blood pressure is 109/78, pulse oximetry 95% on room air. The patient's pain scale was about 8/10 at this time with morphine pending as of now. HEENT: Normocephalic, atraumatic. Pupils reactive to light and accommodation. CVS: S1 and S2 normal. Regular rate and rhythm. ABDOMEN: Soft, nontender, nondistended. EXTREMITIES: Right lower extremity with decreased pulses. Positive for gangrene. CURRENT MEDICATIONS: Include Rocephin and doxycycline 100 mg p.o. daily. PLAN: 1. Plan is to continue current medication. We will hold back on the biopsy secondary to current infection. 2. We will get a Cardiology consult for iliac disease that was apparently discovered on arterial Doppler. Further recommendation per clinical course. We will continue to monitor the patient. The patient continues to be on PD or peritoneal dialysis for end-stage renal disease. All medicines reviewed. Continue with and end-stage renal disease. Medications include phosphate binders. MD LUIS Olivares/MODL /[id number]
--- NOTE | 2020-06-13 11:05 | Progress Note ---
DATE: 06/13/2020 Renal Progress Note. SUBJECTIVE: Followed for end-stage renal disease, tolerating peritoneal dialysis, has a left foot and lower leg ochoa wound had cellulitis, possible calciphylaxis. No nausea, no vomiting, no shortness of breath, getting IV antibiotics. Tolerating peritoneal dialysis. OBJECTIVE: VITAL SIGNS: Have been noted and are stable. Blood pressure is 112/83, pulse 78 and afebrile. LUNGS: Clear to auscultation bilaterally . CARDIOVASCULAR: S1, S2. No rub. ABDOMEN: Soft and nontender. EXTREMITIES: No edema. LABS: Hemoglobin is 13.9, hematocrit 45.7. Sodium 133, potassium 3.3, CO2 is 24, BUN 52, creatinine 13.0. IMPRESSION AND PLAN: 1. End-stage renal disease, we will continue to provide peritoneal dialysis per his orders. 2. Hypertension, blood pressure is controlled. 3. Mild hypokalemia, replace with 20 mEq of potassium chloride x1. 4. Left foot wound cellulitis versus possible calciphylaxis. Continue IV sodium thiosulfate. The patient tells me that he has had dermatological biopsy done as an outpatient. We will also order another biopsy of his tissue to see whether or not has calciphylaxis. For now empirically, we will cover with sodium thiosulfate, also getting IV antibiotic. MD ILANA Dominguez/MODL /[id number]
--- NOTE | 2020-06-13 13:00 | Consultation ---
DATE OF CONSULTATION: Cardiology Consultation HISTORY OF PRESENT ILLNESS: The patient is seen in the room, examined. Reviewed the chart. Thank you, Dr. Josemanuel Young for this consultation. IMPRESSION: 1. Right toe infection, treated by a asp net mvc developer and the ID. 2. History of a PAD. The patient had a left leg stent put in September of 2019 at [facility]. 3. Type 2 diabetes mellitus. 4. Chronic renal failure on peritoneal dialysis. 5. Hypertension. 6. Coronary artery disease, bypass surgery x4 done at [facility] 4 years ago. 7. History of coronary stent placement done since that time. 8. History of what appears to be cardiac and respiratory arrest after heart catheterization [facility] in September of 2019. At this time, the patient conscious, alert, pleasant gentleman, gives a good detailed history at this time. The patient admitted for the right leg infection, possible osteomyelitis, but I did not look at the MRI report. At this time, patient account specialist and podiatry following the patient along with ID. The patient had duplex scan of bilateral legs shows possible right iliac disease and also some moderate disease in the left leg also and he had stent put in the left leg artery. The patient at this time known subclinical congestive heart failure. The patient has an AICD. The patient has a low ejection fraction less than 25% and the patient has 2-lead AICD. The patient supposed to had a transplantation and he was about to complete in September. They told him that he is not a candidate because significant PAD and also patient on peritoneal dialysis. At this time, he has only medical treatment for the heart issues, luckily, she does not have any significant chest pain. 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 I am going to order a CT of the abdomen and leg arteries tomorrow if he can tolerate it. According to him, he is able to lie down flat and CTA of the abdomen, leg runoff further whether he needs any further intervention of the leg arteries. The patient has a significant cardiac history, supposed to have a cardiac arrest in September after coronary angiogram and leg angiogram and also the patient put a balloon pump in the right leg artery, but at that time they told he did not have significant lesion at the right leg arteries, so I am doing the CTA of the abdomen and leg runoff. After that, we make a decision. I did tell him that he has to take the peritoneal dialysis on regular basis and also, I will get permission from Dr. Grubbs for the CTA of the abdomen and leg runoff can be cleared by the resaw machine operator. Thank you again for this kind consultation. Continue present medications. MD VIRIDIANA Clay/DEBORAH /[id number]
--- NOTE | 2020-06-13 13:35 | NUR ---
PHYSICAL EXAMINATION: GENERAL: Currently alert and oriented. Does not seem to be in acute distress. VITAL SIGNS: Stable, currently afebrile. HEENT: He is not icteric. NECK: Supple. CHEST: Clear. HEART: S1 and S2. ABDOMEN: Soft. EXTREMITIES: The right big toe, there is gangrene on the dorsal aspect of the toe. IMPRESSION: Cellulitis of the foot, gangrene, concern osteo. The patient has end-stage renal disease, on hemodialysis. We will put the patient on Rocephin 1 g daily. Vancomycin was given . Vascular workup is in progress.
--- NOTE | 2020-06-13 14:55 | NUR ---
Patient is transported for CT at this time.
[2020-06-13] MEDS ORDERED: IOPAMIDOL 370 MG/ML 200 ML INFUS..BTL INJ ONE (15:09)
[2020-06-13] MEDS ORDERED: SODIUM CHLORIDE 0.9% 100 ML ONE (15:10)
--- NOTE | 2020-06-13 15:34 | NUR ---
Patient is transported back to the room from CT
[2020-06-13] MEDS: CEFTRIAXONE SOD 1 GM/NS 50 ML 50 ML IV SCH (17:09)
--- NOTE | 2020-06-13 19:02 | NUR ---
Report given to night nurse. Respiration even and unlabored without SOB. Call light in reach. Denies pain at this time.
--- NOTE | 2020-06-13 19:33 | Diagnostic Imaging Report ---
EXAM: CTA Abdomen and Pelvis and Lower Extremity, WITH Contrast. INDICATION: pad COMPARISON: None. TECHNIQUE: Multidetector [address] scanning with 2 mm cuts of the abdomen, pelvis and bilateral thighs after administration of 100 cc IV of Omnipaque 350. Coronal and sagittal multiplanar, MIP thin and thick cuts, and 3-D volume-rendering reformations were obtained. In addition, delay images of the lower extremities below the knee were obtained. IV CONTRAST: 150 mL of Omnipaque 350 ORAL CONTRAST: None COMPLICATIONS: None FINDINGS: Potential study limitations: None. VASCULAR WITH ADVANCED 3-D OFF-LINE POSTPROCESSING: The abdominal aorta is normal in course. There is no acute aortic pathology. No aneurysmal dilatation. Moderate atherosclerotic burden is mild to moderate narrowing of the infrarenal abdominal aorta by circumferential noncalcified plaque. The celiac axis, SMA, and SHAKEEL are patent. Mild to moderate mixed plaque at the distal SMA. Superior pole accessory right renal artery and main right renal artery are patent with moderate atherosclerotic burden. Single left renal artery. Moderate noncalcified plaque. Question linear hypodensity (approximately 2.4 cm) which may represent a dissection flap, possibly chronic. Otherwise, the vessel is patent. PELVIS VESSELS: Bilateral common, external, and internal iliac arteries are patent with associated moderate atherosclerotic calcifications without significant stenosis. RIGHT LOWER EXTREMITY: Right common femoral, profundus femoral, superficial femoral, and popliteal arteries are patent. There is a patent trifurcation with both anterior and posterior tibial arteries supply the foot. LEFT LOWER EXTREMITY: Left common femoral, profundus femoral, superficial femoral, and popliteal arteries are patent. There is a patent trifurcation with both anterior and posterior tibial arteries supply the foot. Peroneal artery demonstrates runoff to the mid calf. NON-VASCULAR FINDINGS: LOWER CHEST: Moderate right pleural effusion with adjacent compressive atelectasis. Trace left pleural effusion. Moderate cardiomegaly with cardiac leads. ABDOMEN: Cholelithiasis without CT evidence of acute cholecystitis. Nonspecific stranding of the perirectal fat. The liver, spleen, and pancreas appear normal. The adrenal glands appear normal. Both kidneys are normal in size, shape, and density. There is no abnormal mass or hydronephrosis. PELVIS: There is no significant retroperitoneal adenopathy. No free fluid or free air within the abdomen or pelvis. The urinary bladder appears normal. BONES: No acute osseous abnormalities. IMPRESSION: 1. Left peroneal artery with runoff to the mid calf. Otherwise left anterior and posterior tibial arteries patent with runoff to the foot. 2. Patent 3 vessel runoff of the right lower extremity. 3. Moderate mixed plaque the left renal artery with a apparent linear hypodensity which may represent undermined plaque versus dissection, possibly chronic. 4. Diffuse atherosclerosis. No aneurysmal dilatation of the abdominal aorta. 5. Moderate right pleural effusion with compressive atelectasis. 6. No definite erosive changes of the left great toe, but evaluation is limited due to technique. Consider MRI for further evaluation if clinical concern for osteomyelitis. Signed by: Deonte Mancera MD on 06/13/2020 7:30 PM
[2020-06-13] MEDS: PREGABALIN 75 MG CAP PO SCH (20:27)
[2020-06-14] VITALS (8 sets, daily range): BP systolic 95–121; BP diastolic 65–82
--- NOTE | 2020-06-14 02:42 | NUR ---
Bp rehecked 120/73 MMHG.
[2020-06-14] MEDS: MORPHINE SULFATE 2 MG/ML SYR 1ML IV PRN ×4 (02:52→20:00)
[2020-06-14] MEDS: ONDANSETRON HCL INJ 2MG/ML 2ML 2 MG/ML VIAL IV PRN ×3 (02:52→15:38)
[2020-06-14 05:48] LABS: BASOPHILS # (AUTO) 0.1 (0.0-0.1); BASOPHILS % 1.1 % (0.0-1.0); EOSINOPHILS # (AUTO) 0.4 (0.0-0.4); EOSINOPHILS % 4.5 % (0.0-6.0); HEMATOCRIT 44.1 % (38.2-49.6); HEMOGLOBIN 13.5 g/dL (14.0-18.0); LYMPHOCYTES # (AUTO) 0.9 (1.0-3.2); LYMPHOCYTES % 10.3 % (18.0-39.1); MEAN CORPUSCULAR HEMOGLOBIN 26.8 pg (28-32); MEAN CORPUSCULAR HGB CONC 30.6 g/dL (31-35); MEAN CORPUSCULAR VOLUME 87.7 fL (81-99); MONOCYTES # (AUTO) 0.5 (0.2-0.8); MONOCYTES % 6.3 % (4.4-11.3); NEUTROPHILS # (AUTO) 6.4 (2.1-6.9); NEUTROPHILS % 77.6 % (38.7-80.0); PLATELET COUNT 142 x10e3/uL (140-360); RED BLOOD COUNT 5.03 x10e6/uL (4.3-5.7); RED CELL DISTRIBUTION WIDTH 17.4 % (11.7-14.4)
[2020-06-14 06:27] LABS: ALBUMIN 2.3 g/dL (3.5-5.0); ALBUMIN/GLOBULIN RATIO 0.5 (0.8-2.0); CREATININE, SERUM 12.71 mg/dL (0.72-1.25); MAGNESIUM 1.9 MG/DL (1.3-2.1); PHOSPHORUS 8.1 MG/DL (2.3-4.7)
[2020-06-14] MEDS: INSULIN REGULAR, HUMAN 100 UNIT/1 ML 3ML VIAL SQ SCH ×4 (07:30→20:20)
--- NOTE | 2020-06-14 08:27 | Progress Note ---
DATE: SUBJECTIVE: The patient is a 49-year-old gentleman who came in with right foot cellulitis. The patient has been currently on Rocephin and also on doxycycline, getting his insulin treatment. The patient also has end-stage renal disease and is having PD done. Currently, no chest pain. No shortness of breath. Pain is still present. Gets his morphine every 4 hours at 4 mg. continues to be at 8/10 when its worst and 2/10 when its best. OBJECTIVE: VITAL SIGNS: Temperature is 97.2, pulse of 79, respirations of 22, blood pressure is 96/65, pulse oximeter 95%. HEENT: Normocephalic and atraumatic. Pupils reactive. CVS: S1 and S2 normal, regular rate and rhythm. ABDOMEN: Soft, nontender, nondistended. EXTREMITIES: Positive for tenderness and pain and erythema in the right lower extremity. LABORATORY VALUES: Today's white count is 8.27, hemoglobin of 13.5, hematocrit of 44. Chemistries are pending today. IMAGING STUDY: We did a CT angiogram with runoff of the abdominal aorta shows left peroneal artery with runoff to mid calf, patent three-vessel runoff in the right lower extremity, moderate mixed block left renal artery with apparent linear hyperdensity, diffuse atherosclerosis, moderate right pleural effusion. No definite erosive changes of the left great toe. Evaluation is limited. ASSESSMENT AND PLAN: 1. Cellulitis of the right lower extremity. 2. Peripheral arterial disease. 3. Coronary artery disease. 4. End-stage renal disease. 5. Hyperkalemia. 6. Hypertension. PLAN: Continue with current medication. Continue with antibiotics and biopsy has been withheld so far secondary to infectious processes. is suspecting calciphylaxis, which can be done as an outpatient basis. For further information, look in the chart. Plan IV antibiotic and if it is better, patient can be discharged home on IV antibiotics if okay with ID and follow up with Cardiology as an outpatient for revascularization and also for vascular processes procedures. MD LUIS Olivares/DEBORAH /[id number]
[2020-06-14] MEDS: SEVELAMER CARBONATE 800 MG TAB PO SCH ×3 (08:48→17:14)
[2020-06-14] MEDS: AMIODARONE HCL 200 MG TAB PO SCH (08:49)
[2020-06-14] MEDS: DOCUSATE SODIUM 100 MG CAP PO SCH ×2 (08:49→17:14)
[2020-06-14] MEDS: APIXAB 2.5 MG TABLET PO SCH ×2 (08:50→17:14)
[2020-06-14] MEDS: CLOPIDOGREL BISULFATE 75 MG TAB PO SCH (08:50)
[2020-06-14] MEDS: DOXYCYCLINE HYCLATE TABLET 100 MG TAB PO SCH (08:50)
[2020-06-14] MEDS: INSULIN GLARGINE 100 UNITS/ML VIAL SC SCH ×3 (08:52→16:56)
[2020-06-14] MEDS: FUROSEMIDE 40 MG TAB PO SCH (08:56)
--- NOTE | 2020-06-14 09:17 | Progress Note ---
DATE: 06/14/2020 Renal Progress Note SUBJECTIVE: Followed for end-stage renal disease, tolerating peritoneal dialysis without problems. No nausea. No vomiting. No shortness of breath. Has left foot and ochoa cellulitis, came in for this. He is on IV antibiotics. My suspicion is he could also have calciphylaxis. His distributor cleaner in the outpatient setting that I had referred him to has already done a biopsy and I am waiting the results of that from the outpatient setting. From now, we will continue the empiric sodium thiosulfate treatment. No nausea. No vomiting. No shortness of breath. OBJECTIVE: VITAL SIGNS: Have been noted. Blood pressure 112/78, 81 pulse, and 18 respirations. LUNGS: Clear to auscultation bilaterally. CARDIOVASCULAR: S1 and S2. No rub. ABDOMEN: Soft and nontender. EXTREMITIES: No edema. LABORATORY DATA: Sodium 135, potassium 4, chloride 92, CO2 28, BUN 51, and creatinine 12.7. IMPRESSION AND PLAN: 1. End-stage renal disease. We will continue peritoneal dialysis per orders as yesterday. 2. Hypertension. Blood pressure is controlled. 3. Possible calciphylaxis versus cellulitis, now empiric IV antibiotics. Infectious Disease recommendations and we will continue IV sodium thiosulfate. We will await the results his biopsy on his wound that was done in the outpatient setting by Dermatology. MD ILANA Dominguez/MODL /[id number]
--- NOTE | 2020-06-14 12:44 | NUR ---
INFECTIOUS DISEASE PROGRESS NOTE DR. KYLE JONES HISTORY OF PRESENT ILLNESS: This patient, who is a 49-year-old very pleasant, who has history of end-stage renal disease on hemodialysis, peritoneal dialysis, congestive heart failure, coronary artery disease, status post CABG, peripheral vascular disease, atherosclerotic disease, on peritoneal dialysis, comes in with redness and swelling of his right foot. The patient does have a black eschar on the big toe, so he came here. PAST MEDICAL HISTORY: As above. ALLERGIES: NKA. LABORATORY DATA: reviewed RADIOLOGY: reviewed PHYSICAL EXAMINATION: GENERAL: Currently alert and oriented. Does not seem to be in acute distress. VITAL SIGNS: Stable, currently afebrile. HEENT: He is not icteric. normocephalic NECK: Supple. no JVD CHEST: diminshed, symmetric expansion HEART: S1 and S2. no s3., s4 ABDOMEN: Soft. non-tender EXTREMITIES: The right big toe, there is gangrene on the dorsal aspect of the toe. IMPRESSION: Cellulitis of the foot, gangrene, concern osteo. end-stage renal disease, on hemodialysis. PLAN: Rocephin 1 g daily, on Doxy Vascular workup is in progress Emily Ramirez MSN, PHOTOGRAPHIC PLATEMAKER, AGACNP-BC discussed with Dr. Kyle Jones
--- NOTE | 2020-06-14 13:09 | Progress Note ---
DATE: Cardiology Progress Note. SUBJECTIVE: The patient is seen in the room. The patient is awake and alert. The patient does not have any major cardiac complaints, but he got significant cardiac issues. The patient with: 1. Ischemic cardiomyopathy. 2. AICD. 3. Significant LV dysfunction, EF 20% to 25%. The patient has significant shortness of breath, but hemodynamically stable at this time. The patient underwent of the bilateral runoff studies. At this time the patient's runoff studies has cardiac disease in both right and left arteries, but at this time we would treat this only with medical treatment and the patient is in no need for any peripheral arterial intervention and the patient infection of the foot is and infectious disease. At this time, my point of view on medical treatment patient is a significant patient with ischemic cardiomyopathy, bypass surgery. In September of this year the patient developed significant complications including a cardiac arrest after doing arteriogram of the leg arteries, that is the reason I order CTA of the leg arteries. At this time patient in stable condition. The patient also undergoing peritoneal dialysis for renal failure. The patient is to continue all his present medication. At this time, no further cardiac or peripheral arterial or vascular tests are necessary at this time and the patient at this time is in stable condition. Continue present medications. Thank you, Dr. Young for this consultation. MD VIRIDIANA Clay/DEBORAH /[id number]
--- NOTE | 2020-06-14 13:27 | NUR ---
WOUND CARE CONSULT 49 YO MALE HX OF RT LOWER EXTREMITY CELLULITIS MARCO A 20 0N CONSERVATIVE PUP STATUS AND INTERVENTIONS VISCO SURFACE LABS: WBC- 8.27 HGB- 13.5 GLUCOSE-126 HEAD TO TOE SKIN ASSESSMENT COMPLETE PATIENT PRESENTS WITH DIABETIC WOUNDS RIGHT GREAT TOE NECROSIS 2.5CM X5CM X ESCHAR RIGHT SECOND TOE ESCHAR 0.8CM X0.8CM RIGHT 4TH AND 5TH TOES DARK AND SLOW TO OMEGA LEFT FOOT HAS CLOSED CALLUS FORMATION AT 1ST MET HEAD PATIENT HAS PENDING VASCULAR STUDY RESULTS AND IN FUTURE PATIENT MAY BENEFIT FROM WOUND CARE CLINIC AND HYPERBARIC CONSULTATION RECOMMENDATIONS: NURSING TO CONTINUE TO MONITOR PATIENT AND KEEP SKIN CLEAN AND FREE FROM LOOSE STOOL OR IRRITATING MOISTURE AND CONTINUE TO FOLLOW CONSERVATIVE PUP STATUS INTERVENTIONS NURSING TO CONTINUE TO GET PATIENT OUT OF BED FOR MEALS AND MUCH TOLERATED NURSING TO CLEAN DIABETIC WOUNDS RIGHT GREAT TOE NECROSIS ESCHAR AND RIGHT SECOND TOE ESCHAR WITH NORMAL SALINE DAILY AND APPLY BETADINE 4X4 DRESSINGS Addendum: 06/14/20 at 1339 by Jg Skelton RN Amended: Links added.
[2020-06-14] MEDS: CEFTRIAXONE SOD 1 GM/NS 50 ML 50 ML IV SCH (15:32)
[2020-06-14] MEDS ORDERED: PROMETHAZINE 25MG/ NS 50ML (IV) IV ONE (19:55)
[2020-06-14] MEDS: PREGABALIN 75 MG CAP PO SCH (20:20)
--- NOTE | 2020-06-14 22:57 | Consultation ---
DATE OF CONSULTATION: 06/14/2020 Cardiology Consult Note REASON FOR CONSULT: Lower extremity wound. CHIEF COMPLAINT: Right lower extremity toe wound and cellulitis. HISTORY OF PRESENT ILLNESS: The patient is a 49-year-old man, history of coronary artery disease, status post CABG in the past, chronic systolic CHF, history of cardiac arrest status post ICD placement in the past, end-stage renal disease, diabetes, hypertension, hyperlipidemia, who presents with right lower extremity ulceration and wound on his right toe with extending cellulitis of his foot. He says it is now getting better with antibiotics. Denies any claudication with walking. Says he has been told in the past that he has poor circulation in his legs. REVIEW OF SYSTEMS: As per HPI, otherwise negative. PAST MEDICAL HISTORY: As described in HPI. Also has history of atrial fibrillation. SOCIAL HISTORY: Does not smoke, drink, or abuse drugs. FAMILY HISTORY: Noncontributory. OUTPATIENT MEDICATIONS: Reviewed. ALLERGIES: NO KNOWN DRUG ALLERGIES. PHYSICAL EXAMINATION: VITAL SIGNS: Temperature afebrile, pulse 85, respiratory rate 18, blood pressure 114/73, saturating 97% on nasal cannula. GENERAL: Well-developed, well-nourished, in no acute distress. CARDIOVASCULAR: Regular rate and rhythm. No murmurs, rubs, or gallops. LUNGS: Clear to auscultation bilaterally. ABDOMEN: Soft, nontender, and nondistended. NEURO AND PSYCH: Alert and oriented to person, place, and time. Normal affect. INPATIENT MEDICATIONS: Reviewed. LABORATORY DATA: Reviewed. IMAGING DATA: Reviewed. CT of abdominal aorta with runoff showed three-vessel patent runoff to right lower extremity and diffuse arthrosclerosis without aneurysmal dilation of abdominal aorta. ASSESSMENT/PLAN: 1. Nonobstructive peripheral artery disease. 2. History of coronary artery disease, status post coronary artery bypass grafting. 3. History of chronic systolic congestive heart failure, status post AICD placement. 4. End-stage renal disease. 5. Hypertension. 6. Hyperlipidemia. PLAN: Based on the CTA, there is no need for peripheral angiography or intervention at this time. There is good runoff to the right foot as he has trouble healing his wounds despite good wound care and antibiotics, then may consider doing an angiogram to perform pedal arch intervention. Continue other cardiovascular medications, otherwise. Thank you for this consult. We will continue to follow. MD ALBERTO Marie/DEBORAH /[id number]
[2020-06-15] VITALS (7 sets, daily range): BP systolic 102–110; BP diastolic 67–75
[2020-06-15] MEDS: ONDANSETRON HCL INJ 2MG/ML 2ML 2 MG/ML VIAL IV PRN ×3 (05:45→21:30)
[2020-06-15] MEDS: MORPHINE SULFATE 2 MG/ML SYR 1ML IV PRN ×4 (05:45→21:30)
[2020-06-15] MEDS: INSULIN REGULAR, HUMAN 100 UNIT/1 ML 3ML VIAL SQ SCH ×4 (07:30→21:00)
[2020-06-15] MEDS: INSULIN GLARGINE 100 UNITS/ML VIAL SC SCH ×3 (08:00→15:54)
[2020-06-15] MEDS: SEVELAMER CARBONATE 800 MG TAB PO SCH ×5 (08:00→17:28)
--- NOTE | 2020-06-15 08:03 | Progress Note ---
DATE: SUBJECTIVE: The patient is a 49-year-old who came in with right lower extremity cellulitis with lymphangitis. The patient is currently getting antibiotic, which are doxycycline and Rocephin, currently, on amiodarone, Reglan, and also Lyrica. The patient is also on binders for his end-stage renal disease, said is taking dialysis peritoneal. OBJECTIVE: GENERAL: The patient is alert and oriented x3. No complaints. VITAL SIGNS: Temperature is 97.7, pulse of 85, respirations of 18, blood pressure is 108/67, pulse oximetry of 98%. HEENT: Normocephalic, atraumatic. Pupils are reactive. CVS: S1 and S2 normal. Regular rate and rhythm. ABDOMEN: Soft, nontender, nondistended. Right lower extremity with lymphangitis, which is decreasing, erythema down and tenderness down. LABORATORY VALUES: White count is normal. Chemistries; BUN is 51, creatinine is 12.7. Dr. Grubbs is on the case. PLAN: Continue with antibiotics, can be discharged on IV antibiotic if it is okay with ID. Further recommendation per clinical course. We will continue to monitor the patient. MD LUIS Olivares/DEBORAH /[id number]
[2020-06-15 08:06] LABS: BASOPHILS % 0.4 % (0.0-1.0); EOSINOPHILS # (AUTO) 0.3 (0.0-0.4); EOSINOPHILS % 4.1 % (0.0-6.0); HEMATOCRIT 43.7 % (38.2-49.6); HEMOGLOBIN 13.3 g/dL (14.0-18.0); LYMPHOCYTES # (AUTO) 0.9 (1.0-3.2); MEAN CORPUSCULAR HEMOGLOBIN 26.8 pg (28-32); MEAN CORPUSCULAR HGB CONC 30.4 g/dL (31-35); MEAN CORPUSCULAR VOLUME 88.1 fL (81-99); MONOCYTES # (AUTO) 0.6 (0.2-0.8); MONOCYTES % 7.6 % (4.4-11.3); NEUTROPHILS # (AUTO) 5.6 (2.1-6.9); NEUTROPHILS % 75.5 % (38.7-80.0); PLATELET COUNT 154 x10e3/uL (140-360); RED BLOOD COUNT 4.96 x10e6/uL (4.3-5.7); RED CELL DISTRIBUTION WIDTH 17.4 % (11.7-14.4)
[2020-06-15 08:25] LABS: ANION GAP 18.5 mmol/L (8-16); CALCIUM 8.5 mg/dL (8.4-10.2); CREATININE, SERUM 12.74 mg/dL (0.72-1.25); POTASSIUM 3.5 mmol/L (3.5-5.1)
[2020-06-15] MEDS: DOCUSATE SODIUM 100 MG CAP PO SCH ×2 (09:04→17:27)
[2020-06-15] MEDS: APIXAB 2.5 MG TABLET PO SCH ×2 (09:04→17:27)
[2020-06-15] MEDS: AMIODARONE HCL 200 MG TAB PO SCH (09:04)
[2020-06-15] MEDS: CLOPIDOGREL BISULFATE 75 MG TAB PO SCH (09:04)
[2020-06-15] MEDS: FUROSEMIDE 40 MG TAB PO SCH (09:04)
[2020-06-15] MEDS: METOCLOPRAMIDE HCL 10 MG TAB PO SCH ×2 (09:04→17:27)
[2020-06-15] MEDS: DOXYCYCLINE HYCLATE TABLET 100 MG TAB PO SCH (09:05)
--- NOTE | 2020-06-15 10:04 | Progress Note ---
DATE: 06/15/2020 Renal Progress Note SUBJECTIVE: The patient is followed for end-stage renal disease, tolerating peritoneal dialysis. The patient also admitted for right foot cellulitis. The patient also being ruled out for calciphylaxis as an outpatient. No nausea. No vomiting. No shortness of breath. OBJECTIVE: VITAL SIGNS: Have been noted and they are stable. Blood pressure 107/71, 83 pulse, afebrile. LUNGS: Clear to auscultation bilaterally. CARDIOVASCULAR: S1 and S2. No rub. ABDOMEN: Soft. Positive bowel sounds. EXTREMITIES: No edema. LABORATORY DATA: Hemoglobin 13.3 and hematocrit 43.7. Chemistries are still pending from today. IMPRESSION AND PLAN: 1. End-stage renal disease. Continue peritoneal dialysis. 2. Hypertension, controlled. 3. Anemia of chronic disease, stable. 4. Right foot cellulitis versus possible calciphylaxis. Continue IV sodium thiosulfate. We will try to get results of his kidney biopsy from the outpatient setting. We will try to get results of his biopsy of his wound from his right lower extremity that was done as an outpatient by his grinder set up operator thread tool to evaluate for calciphylaxis. Continue IV antibiotics for now. We will also continue sodium thiosulfate for now. MD ILANA Dominguez/DEBORAH /[id number]
--- NOTE | 2020-06-15 11:53 | NUR ---
INFECTIOUS DISEASE PROGRESS NOTE DR. KYLE JONES HISTORY OF PRESENT ILLNESS: This patient, who is a 49-year-old very pleasant, who has history of end-stage renal disease on hemodialysis, peritoneal dialysis, congestive heart failure, coronary artery disease, status post CABG, peripheral vascular disease, atherosclerotic disease, on peritoneal dialysis, comes in with redness and swelling of his right foot. The patient does have a black eschar on the big toe, so he came here. PAST MEDICAL HISTORY: As above. ALLERGIES: NKA. LABORATORY DATA: reviewed RADIOLOGY: reviewed PHYSICAL EXAMINATION: GENERAL: Currently alert and oriented. Does not seem to be in acute distress. VITAL SIGNS: Stable, currently afebrile. HEENT: He is not icteric. normocephalic NECK: Supple. no JVD CHEST: diminshed, symmetric expansion HEART: S1 and S2. no s3., s4 ABDOMEN: Soft. non-tender EXTREMITIES: The right big toe, there is gangrene on the dorsal aspect of the toe. IMPRESSION: Cellulitis of the foot, gangrene, concern osteo. end-stage renal disease, on hemodialysis. calciphylaxis suspected PLAN: Rocephin 1 g daily, on Doxy get MRI w/o contrast to r/o OM Emily Ramirez MSN, SURGICAL AIDE, AGACNP-BC discussed with Dr. Kyle Jones
[2020-06-15] MEDS ORDERED: SODIUM CHLORIDE 0.9% 250ML 250 ML ONE (16:03)
[2020-06-15] MEDS: CEFTRIAXONE SOD 1 GM/NS 50 ML 50 ML IV SCH (16:05)
[2020-06-15] MEDS: PREGABALIN 75 MG CAP PO SCH (21:30)
[2020-06-15] MEDS ORDERED: HEPARIN SOD (PORCINE) 5,000 UNIT/ML VIAL ONE (22:23)
[2020-06-16] VITALS (8 sets, daily range): BP systolic 95–113; BP diastolic 62–72
[2020-06-16 05:17] LABS: BASOPHILS % 0.5 % (0.0-1.0); EOSINOPHILS # (AUTO) 0.3 (0.0-0.4); EOSINOPHILS % 4.1 % (0.0-6.0); HEMATOCRIT 42.5 % (38.2-49.6); LYMPHOCYTES # (AUTO) 0.8 (1.0-3.2); LYMPHOCYTES % 12.3 % (18.0-39.1); MEAN CORPUSCULAR HEMOGLOBIN 27.3 pg (28-32); MEAN CORPUSCULAR HGB CONC 30.6 g/dL (31-35); MEAN CORPUSCULAR VOLUME 89.1 fL (81-99); MONOCYTES # (AUTO) 0.5 (0.2-0.8); MONOCYTES % 8.6 % (4.4-11.3); NEUTROPHILS # (AUTO) 4.7 (2.1-6.9); NEUTROPHILS % 74.3 % (38.7-80.0); PLATELET COUNT 136 x10e3/uL (140-360); RED BLOOD COUNT 4.77 x10e6/uL (4.3-5.7); RED CELL DISTRIBUTION WIDTH 17.3 % (11.7-14.4)
[2020-06-16 05:50] LABS: ALBUMIN 2.1 g/dL (3.5-5.0); ALBUMIN/GLOBULIN RATIO 0.5 (0.8-2.0); ANION GAP 18.9 mmol/L (8-16); CALCIUM 8.1 mg/dL (8.4-10.2); CREATININE, SERUM 13.07 mg/dL (0.72-1.25); MAGNESIUM 1.8 MG/DL (1.3-2.1); POTASSIUM 3.9 mmol/L (3.5-5.1)
[2020-06-16] MEDS: MORPHINE SULFATE 2 MG/ML SYR 1ML IV PRN ×3 (06:00→22:36)
[2020-06-16] MEDS: ONDANSETRON HCL INJ 2MG/ML 2ML 2 MG/ML VIAL IV PRN ×2 (06:00→22:36)
[2020-06-16] MEDS: INSULIN REGULAR, HUMAN 100 UNIT/1 ML 3ML VIAL SQ SCH ×4 (07:30→21:41)
[2020-06-16] MEDS: INSULIN GLARGINE 100 UNITS/ML VIAL SC SCH ×3 (08:00→17:00)
[2020-06-16] MEDS: SEVELAMER CARBONATE 800 MG TAB PO SCH ×3 (08:23→17:35)
[2020-06-16] MEDS: APIXAB 2.5 MG TABLET PO SCH ×2 (08:24→17:35)
[2020-06-16] MEDS: DOCUSATE SODIUM 100 MG CAP PO SCH ×2 (08:24→17:35)
[2020-06-16] MEDS: DOXYCYCLINE HYCLATE TABLET 100 MG TAB PO SCH (08:25)
[2020-06-16] MEDS: CLOPIDOGREL BISULFATE 75 MG TAB PO SCH (08:25)
[2020-06-16] MEDS: METOCLOPRAMIDE HCL 10 MG TAB PO SCH ×2 (08:25→17:35)
--- NOTE | 2020-06-16 08:30 | Progress Note ---
DATE: 06/16/2020 SUBJECTIVE: A 49-year-old gentleman, who came in with cellulitis of the right lower extremity. The patient is on IV antibiotics, is taking dialysis, and is currently on PD. The patient's cellulitis is better on antibiotics. No complaints. No chest pain. No shortness of breath. Peripheral arterial disease, CTA was essentially and the patient did not need any intervention at this time. OBJECTIVE: VITAL SIGNS: Temperature is 98, pulse of 92, respirations of 18, blood pressure is 98/62. HEENT: Normocephalic, atraumatic. Pupils reactive. CVS: S1 and S2 normal. Regular rate and rhythm. ABDOMEN: Soft, nontender, nondistended. EXTREMITIES: Right leg with tenderness and erythema; lymphangitis, which is decreased, and erythema around the toes also much better. ASSESSMENT AND PLAN: This is Mr. Rivera Hickey, a 49-year-old gentleman with cellulitis of the right foot, also rule out calciphylaxis. Biopsies can be taken as an outpatient. At this time, the patient can be discharged home if okay with ID. Further recommendation per clinical course. The patient can get his IV antibiotics and/or p.o. antibiotics as an outpatient. MD LUIS Olivares/NOLBERTOL /[id number]
[2020-06-16] MEDS: AMIODARONE HCL 200 MG TAB PO SCH ×2 (09:00→09:28)
--- NOTE | 2020-06-16 09:30 | NUR ---
ASSESSMENT: Spiritual concern Pt worried about family. Pt states his daughter is being rebellious and unappreciative. Pt concerned about possible returning to hospital. Pt states he has had multiple health issues for the past few years. Intervention: Provided hospitality and unhurried empathic listening. Provided prayer. Provided information on how to reach boat camp operator, if needed. Outcome: Pt expressed appreciation for visit. Will follow as able. JAMES SCHMITZ Hedge Fund Accountant Spiritual Care Department O: [phone]
[2020-06-16] MEDS: FUROSEMIDE 40 MG TAB PO SCH (09:50)
--- NOTE | 2020-06-16 10:57 | NUR ---
EDUCATED ABOUT IMM, SIGNED, FILED IN CHART, WITH COPY LEFT WITH FAMILY AT BEDSIDE.
--- NOTE | 2020-06-16 13:32 | Progress Note ---
DATE: 06/16/2020 Cardiology Progress Note SUBJECTIVE: No major events overnight. OBJECTIVE: VITAL SIGNS: Temperature afebrile, pulse 82, respiratory rate 18, blood pressure 100/68, and saturating 99% on room air. GENERAL: Middle-aged man, well developed, well nourished, no acute distress. CARDIOVASCULAR: Regular rate and rhythm. No murmurs, rubs, or gallops. LUNGS: Clear to auscultation anteriorly. ABDOMEN: Soft, nontender, and nondistended. NEURO AND PSYCH: Alert and oriented. INPATIENT MEDICATIONS: Reviewed. LABORATORY DATA: Reviewed. TELEMETRY DATA: Not available. ASSESSMENT AND PLAN: 1. Nonobstructive peripheral arterial disease by CTA. 2. History of coronary artery disease, status post coronary artery bypass grafting. 3. History of chronic systolic congestive heart failure, status post AICD placement. 4. End-stage renal disease. 5. Hypertension. 6. Hyperlipidemia. PLAN: Remains stable from cardiovascular standpoint. Continue his current cardiovascular medications. Volume status per Nephrology, as the patient has end-stage renal. We will continue to monitor closely. Blood pressure remains soft, hold all his blood pressure medication. Continue Plavix and apixaban. Thank you for this consult. We will continue to follow. MD ALBERTO Marie/DEBORAH /[id number]
--- NOTE | 2020-06-16 15:47 | Progress Note ---
DATE: 06/16/2020 Renal Progress Note. SUBJECTIVE: Followed for end-stage renal disease, tolerating peritoneal dialysis without any problems. Did have some issues yesterday with fibrin clots forming. Heparin was added to the peritoneal dialysis bag 500 units/L. The problem appears to have resolved now. No nausea, no vomiting, no shortness of breath, getting treated for the cellulitis of his right lower extremity. OBJECTIVE: VITAL SIGNS: Vital signs noted blood pressure is 100s/60s, 82 pulse, afebrile. LUNGS: Clear to auscultation bilaterally. CARDIOVASCULAR: S1, S2. No rub. ABDOMEN: Soft, nontender. EXTREMITIES: No edema. LABORATORY DATA: Hemoglobin 13. Sodium 134, potassium 3.9, chloride 95, bicarb 24, BUN 52, creatinine 13. IMPRESSION AND PLAN: 1. End-stage renal disease, continue peritoneal dialysis per his orders. 2. Hypertension, blood pressure is currently stable, continue to monitor closely. 3. Anemia of chronic disease, stable H and H. 4. Cellulitis, possibly calciphylaxis, cellulitis is currently being treated with antibiotics. We will await biopsy results from the outpatient setting. For now, we will continue sodium thiosulfate. MD ILANA Dominguez/MODL /[id number]
--- NOTE | 2020-06-16 16:27 | NUR ---
1. Nonobstructive peripheral arterial disease by CTA. 2. History of coronary artery disease, status post coronary artery bypass grafting. 3. History of chronic systolic congestive heart failure, status post AICD placement. 4. End-stage renal disease. 5. Hypertension. 6. Hyperlipidemia.
[2020-06-16] MEDS: CEFTRIAXONE SOD 1 GM/NS 50 ML 50 ML IV SCH (18:21)
--- NOTE | 2020-06-16 18:58 | Progress Note ---
DATE: SUBJECTIVE: Mr. Hickey is doing well. There are no new complaints. REVIEW OF SYSTEMS: Otherwise unremarkable. PHYSICAL EXAMINATION: GENERAL: He is currently alert and oriented. Does not seem to be in acute distress. VITAL SIGNS: Stable, currently afebrile. HEENT: He is not icteric. NECK: Supple. CHEST: Crackles at the bases. HEART: S1 and S2. ABDOMEN: Soft. Bowel sounds present. EXTREMITIES: No edema. SKIN: No rash. LABORATORY DATA: Reviewed. Chart reviewed. IMPRESSION: 1. End-stage renal disease, on peritoneal dialysis. 2. Severe peripheral vascular disease. 3. Anemia. 4. Vascular workup showed there is no obstructive peripheral arterial disease by CTA. We will get an MRI of the foot. Discussed with medical team. We will follow. MD CHRISTOFER Trinidad/DEBORAH /[id number]
[2020-06-16] MEDS: PREGABALIN 75 MG CAP PO SCH (21:40)
--- NOTE | 2020-06-16 21:45 | NUR ---
PATIENT RESTING IN BED IN STABLE CONDITION, NO SIGNS OF DISTRESS NOTED. PATIENT IS CURRENTLY ON PERITONEAL DIALYSIS AND RESTING COMFORTABLY. PATIENT VOICES PAIN AT A LEVEL OF 7, WILL PROMPTLY BE MEDICATED ORDERED. BED IS IN LOWEST POSITION, BOTH SIDE RAILS ARE UP, CALL LIGHT IS WITHIN EASY REACH, WILL CONTINUE TO MONITOR.
[2020-06-17 01:08] VITALS: BP 109/68
[2020-06-17 05:02] VITALS: BP 111/68
[2020-06-17 05:04] LABS: BASOPHILS % 0.6 % (0.0-1.0); EOSINOPHILS # (AUTO) 0.4 (0.0-0.4); EOSINOPHILS % 5.6 % (0.0-6.0); HEMATOCRIT 43.9 % (38.2-49.6); HEMOGLOBIN 13.2 g/dL (14.0-18.0); LYMPHOCYTES # (AUTO) 0.7 (1.0-3.2); LYMPHOCYTES % 10.3 % (18.0-39.1); MEAN CORPUSCULAR HEMOGLOBIN 26.8 pg (28-32); MEAN CORPUSCULAR HGB CONC 30.1 g/dL (31-35); MONOCYTES # (AUTO) 0.7 (0.2-0.8); MONOCYTES % 9.9 % (4.4-11.3); NEUTROPHILS # (AUTO) 5.1 (2.1-6.9); NEUTROPHILS % 73.2 % (38.7-80.0); PLATELET COUNT 143 x10e3/uL (140-360); RED BLOOD COUNT 4.93 x10e6/uL (4.3-5.7); RED CELL DISTRIBUTION WIDTH 17.1 % (11.7-14.4)
[2020-06-17 05:21] LABS: ANION GAP 20.8 mmol/L (8-16); CALCIUM 8.5 mg/dL (8.4-10.2); CREATININE, SERUM 13.25 mg/dL (0.72-1.25); MAGNESIUM 1.9 MG/DL (1.3-2.1); PHOSPHORUS 8.5 MG/DL (2.3-4.7); POTASSIUM 3.8 mmol/L (3.5-5.1)
[2020-06-17] MEDS: INSULIN REGULAR, HUMAN 100 UNIT/1 ML 3ML VIAL SQ SCH ×2 (07:30→11:30)
[2020-06-17 07:56] VITALS: BP 102/67
[2020-06-17] MEDS: INSULIN GLARGINE 100 UNITS/ML VIAL SC SCH ×2 (08:00→12:00)
--- NOTE | 2020-06-17 08:12 | Progress Note ---
DATE: SUBJECTIVE: The patient is a 49-year-old gentleman, who came with cellulitis of the right lower extremity. The patient's aorta with runoff. CTA did not show significant changes enough for a revascularization procedure at this time. The patient is on antibiotic, scheduled to get a CT by Infectious Disease and possible discharge today. PHYSICAL EXAMINATION: VITAL SIGNS: Temperature 97.6, pulse of 81, respirations of 18, blood pressure is 111/68. HEENT: Normocephalic, atraumatic. Pupils reactive. CVS: S1 and S2 normal. Regular rate and rhythm. ABDOMEN: Soft, nontender, nondistended. EXTREMITIES: Right lower extremity with erythema, tenderness, and also increased calor and rubor in the right toe. It is covered at this time. ASSESSMENT AND PLAN: Right foot cellulitis and calciphylaxis. The patient can be discharged today and ID will continue with his p.o. antibiotics. Calciphylaxis can be biopsied as an outpatient. Currently, continue with current medication and discharge depending on ID and antibiotic. For further information, look in the chart. MD LUIS Olivares/NOLBERTOL /[id number]
[2020-06-17 08:24] VITALS: BP 102/67
[2020-06-17] MEDS: SEVELAMER CARBONATE 800 MG TAB PO SCH ×2 (08:55→12:41)
[2020-06-17] MEDS: DOXYCYCLINE HYCLATE TABLET 100 MG TAB PO SCH (08:56)
[2020-06-17] MEDS: APIXAB 2.5 MG TABLET PO SCH (08:56)
[2020-06-17] MEDS: CLOPIDOGREL BISULFATE 75 MG TAB PO SCH (08:56)
[2020-06-17] MEDS: DOCUSATE SODIUM 100 MG CAP PO SCH (08:56)
[2020-06-17] MEDS: AMIODARONE HCL 200 MG TAB PO SCH (08:56)
[2020-06-17] MEDS: METOCLOPRAMIDE HCL 10 MG TAB PO SCH (08:56)
--- NOTE | 2020-06-17 10:22 | Progress Note ---
DATE: 06/17/2020 Renal Progress Note SUBJECTIVE: Followed for end-stage renal disease, on peritoneal dialysis. Tolerating without problems. No nausea. No vomiting. No shortness of breath. The patient also has a right foot cellulitis and wound, which is improving with IV antibiotics. The patient's caramel maker does not think this is a calciphylaxis. The patient's cultures showed bacteria only and apparently, there was no evidence to suggest calciphylaxis. Sodium thiosulfate has been discontinued. The patient is doing well otherwise. No nausea. No vomiting. No shortness of breath. OBJECTIVE: VITAL SIGNS: Have been noted and are stable. Blood pressure is 111/68, 81 pulse, afebrile. LUNGS: Clear to auscultation bilaterally. CARDIOVASCULAR: S1 and S2. No rub. ABDOMEN: Soft and nontender. EXTREMITIES: No edema. LABORATORY DATA: Potassium 3.8, BUN 51, and creatinine 13. Phosphorus is 8.5 and magnesium 1.9. IMPRESSION AND PLAN: 1. End-stage renal disease. Continue to provide peritoneal dialysis on a daily basis. 2. Hypertension. Blood pressure is controlled. 3. Hyperphosphatemia. I have the increased the dose of his Renvela to 3200 mg with each meal 3 times a day. 4. Right foot cellulitis. The patient is improving with IV antibiotics. MD ILANA Dominguez/MODL /[id number]
[2020-06-17 11:37] VITALS: BP 102/68
--- NOTE | 2020-06-17 12:33 | Progress Note ---
DATE: SUBJECTIVE: Mr. Edelmira Stafford is doing well, there are no complaints. The foot is about the same. His vascular workup was negative, we cannot do an MRI because of pacemaker. The patient had CTA runoff, which did not show any bone abnormality. IMPRESSION: Cellulitis of the foot, very slow progress. Peripheral vascular disease, I think it is small vessels. Can be discharged home on doxycycline 100 mg p.o. b.i.d., which he had for 3 weeks. Follow up as an outpatient. MD CHRISTOFER Trinidad/MODL /[id number]
[2020-06-17] MEDS: FUROSEMIDE 40 MG TAB PO SCH (12:41)
[2020-06-17] MEDS ORDERED: PNEUMOCOCCAL VACCINE POLYVALENT 23 MCG/0.5 ML VIAL IM NR (13:00)
--- NOTE | 2020-06-17 13:17 | NUR ---
Discharge education provided. Discharge packet given. Verbalized understanding regarding follow-up appointment with pcp and Dr. Orozco. Respiration even and unlabored without SOB. Patient stated that bean picker will not be here till around 4pm. Call light in reach.
[2020-06-17 15:52] VITALS: BP 107/70
--- NOTE | 2020-06-17 16:36 | NUR ---
PIV to right FA removed, catheter tip intact, pressure applied, occlusive dressing applied, no bleeding noted. Transported via wheelchair to private vehicle with all personal belongings taken.
--- OUTSIDE RECORDS SUMMARY | 2020-06-17 18:08 | XMS REPORT | Clinical Summary ---
Author Author [facility] Address Unknown Phone Unavailable Care Team Providers Care Drafting Detailer Name Role Phone Guanakito Stone PCP Romie, Krishna 24 Allergies No Known Allergies Medications End Date Status Medication Sig Dispensed Refills Start Date Active losartan (COZAAR) 100 MG Take 25 mg by 0 08/23 tablet mouth daily. 6 Active furosemide (LASIX) 20 MG Take 40 mg by 0 11/07 tablet mouth daily . 6 Active glimepiride (AMARYL) 2 MG Take 1 tablet 0 08/13 tablet by mouth 6 daily. Active clopidogrel (PLAVIX) 75 Take 1 tablet 0 201 mg tablet by mouth 6 daily. Active escitalopram oxalate Take 1 tablet 0 (LEXAPRO) 10 MG tablet by mouth 6 daily. Active DIGOX 125 mcg tablet Take 1 tablet 0 by mouth 6 every evening Every other day. Active TRADJENTA 5 mg Tab Take 1 tablet 0 by mouth 6 daily. Active atorvastatin (LIPITOR) 10 Take 1 tablet 0 03/0 4/201 MG tablet by mouth 6 daily. Active TANZEUM 30 mg/0.5 mL PnIj Inject 1 each 0 10/11 subcutaneousl 6 y once a week. Active [...] 20 MEQ by mouth tablet daily. Active carvedilol (COREG) 25 MG Take 25 mg by 0 tablet mouth 2 (two) times daily with breakfast and dinner. Active Problems Problem Noted Date CAD (coronary artery disease) 01/28/2018 Abnormal cardiovascular stress test 12/14/2017 ESRD (end stage renal disease) on dialysis 7 Patient awaiting renal transplant 02/03/2017 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 02/03/2017 associated with type 2 diabetes mellitu s CKD (chronic kidney disease), stage 5 11/28/2015 Pre-transplant evaluation for chronic kidney disease 11/28/2015 Diabetic nephropathy associated with type 2 diabetes mellitus 11/28/2015 Essential hypertension 11/28/2015 Proliferative diabetic retinopathy without macular ed kelsie associated with 11/28/2015 type 2 diabetes mellitus Diabetic polyneuropathy associated with type 2 diabet es mellitus 11/28/2015 Coronary artery disease involving [place] coronary art [place] heart 11/28/2015 without angina pectoris S/P CABG x 4 11/28/2015 Hyperlipidemia 11/28/2015 Paroxysmal atrial fibrillation 11/28/2015 Family History Medical History Relation Name Comments [...] 0.5 30 Smokeless Tobacco: Never Used Comments: 2/16 Drinks/Week oz/Week Comments Alcohol Use No Sex Assigned at Date Recorded Not on file Last Filed Vital Signs Not on file Plan of Treatment Health Maintenance Due Date Last Done Comments COLON CANCER SCREENING 1968 COLONOSCOPY PNEUMOCOCCAL VACCINE 0-64 1974 YRS (1 of 1 - PPSV23) DIABETIC EYE EXAM 1978 DIABETIC FOOT EXAM 1978 URINE MICROALBUMIN 1978 HEMOGLOBIN A1C 11/22/2016 05/24/2016, 01/04/2016 MEDICARE ANNUAL WELLNESS 07/14/2018 (YEAR 2 or FIRST YEAR if no IPPE) INFLUENZA VACCINE (#1) 2020 LIPID PANEL 12/19/2021 12/19/2018, 05/24/2016 Results Not on fileafter 06/11/2019 Insurance Type Payer Benefit Subscriber ID Effective Phone Address Plan / Dates Group Maps Contracted HUMANA - MEDICARE MGD HUMANA [id number] 7- CARE MEDICARE Present ADV [id number] Advance Directives For more information, please contact: [phone] Date Inactivated Comments Code Status Date Activated 01/28/2018 8:42 PM Full Code 01/28/2018 7:36 AM This code status was determined by: Patient 12/14/2017 9:00 PM Full Code 12/14/2017 2:06 PM This code status was determined by: Patient
--- OUTSIDE RECORDS SUMMARY | 2020-06-17 18:08 | XMS REPORT | Clinical Summary ---
Author Author [facility] Organization [facility] Address Unknown Phone Unavailable Care Team Providers Care Service Developer Name Role Phone Juan Cortés MD PCP Allergies No Known Active Allergies Medications End Date Status Medication Sig Dispensed Refills Start Date Active omeprazole (PriLOSEC) 40 0 MG capsule 9 Active sevelamer (RENAGEL) 800 Take 800 mg 0 MG tablet by mouth 3 (three) times a day with meals. Active pregabalin (LYRICA) 75 MG Take 75 mg by 0 capsule mouth daily. 11/10/2020 Active amIODarone (PACERONE) 200 Take 1 tablet 30 tablet 11 MG tablet (200 mg 0 total) by mouth daily. 11/24/2020 Active clopidogreL (PLAVIX) 75 Take 1 tablet 30 tablet 11 mg tablet (75 mg total) 0 by mouth daily. 11/24/2020 Active apixaban (ELIQUIS) 2.5 mg Take 1 tablet 60 tablet 11 tablet (2.5 mg 0 total) by mouth 2 (two) times a day. Active potassium chloride 0 (K-DUR) 20 MEQ CR tablet 0 01/14/2021 Active rosuvastatin (Crestor) 20 Take 1 tablet 90 tablet 3 mg tabletIndications: (20 mg total) 0 Hyperlipidemia, by mouth unspecified daily. hyperlipidemia type 10/02/2019 Discontinued (Discontinued b y another clinician) albiglutide (TANZEUM) 30 Inject 1 each 0 10/21 mg/0.5 mL pen injector under the 6 skin every 7 days. 11/10/2019 Discontinued (Stop Taking at Discharge) aspirin (ECOTRIN) 81 MG Take 81 mg by 0 enteric coated tablet mouth. 06/24/2019 Discontinued (Patient Discha rge) amLODIPine (NORVASC) 5 mg Take 5 mg by 0 09/14 tablet mouth. 9 08/14/2019 Discontinued (Dose adjustmen t) atorvastatin (LIPITOR) 10 Take 1 tablet 0 03/0 MG tablet by mouth. 6 06/24/2019 Discontinued (Med List Clean up) BUMETanide (BUMEX) 2 MG 0 tablet 9 11/10/2019 Discontinued (Stop Taking at Discharge) carvedilol (COREG) 25 MG Take 25 mg by 0 04/01 tablet mouth 2 (two) 9 times a day with meals. 08/14/2019 Discontinued (Patient Report ed) clopidogrel (PLAVIX) 75 Take 75 mg by 0 mg tablet mouth daily. 6 08/14/2019 Discontinued (Patient Report ed) digOXIN (LANOXIN) 125 mcg Take 125 mcg 0 11/11 (0.125 mg) tablet by mouth 6 daily. 11/10/2019 Discontinued (Stop Taking at Discharge) docusate sodium 100 mg Take 100 mg 0 capsule by mouth daily as needed. 08/14/2019 Discontinued (Patient Report ed) escitalopram (LEXAPRO) 10 Take 1 tablet 0 /2 MG tablet by mouth. 6 11/10/2019 Discontinued (Stop Taking at Discharge) furosemide (LASIX) 80 mg Take 80 mg by 0 11/07 tablet mouth daily. 6 09/25/2019 Discontinued (Discontinued b y another clinician) gabapentin (NEURONTIN) Take 400 mg 0 400 mg capsule by mouth 4 (four) times a day. 06/24/2019 Discontinued (Med List Clean up) glimepiride (AMARYL) 2 MG Take 1 tablet 0 08/13 tablet by mouth. 6 01/15/2020 Discontinued (Reorder) insulin ASPART (NovoLOG Inject 5 0 Flexpen U-100 Insulin) Units under 100 unit/mL (3 mL) the skin 3 insulin pen (three) times a day with meals. 01/15/2020 Discontinued (Reorder) LEVEMIR FLEXTOUCH U-100 Inject 5 0 INSULN 100 unit/mL (3 mL) Units under 9 insulin pen the skin daily. 06/24/2019 Discontinued (Med List Clean up) linaGLIPtin (TRADJENTA) 5 Take 1 tablet 0 03/0 mg tablet by mouth. 6 06/24/2019 Discontinued (Dose adjustmen t) lisinopril (PRINIVIL) 10 Take 10 mg by 0 04/17 mg tablet mouth daily. 9 11/10/2019 Discontinued (Stop Taking at Discharge) potassium chloride Take 10 mEq 0 (KLOR-CON) 10 MEQ CR by mouth. tablet 08/14/2019 Discontinued (Patient Report ed) pregabalin (LYRICA) 75 MG Take 75 mg by 0 10/0 capsule mouth daily. 9 08/14/2019 Discontinued (Patient Report ed) ranolazine (RANEXA) 500 0 MG 12 hr ER tablet 9 08/14/2019 Discontinued (Dose adjustmen t) rosuvastatin (CRESTOR) 10 0 MG tablet 9 06/24/2019 Discontinued (Duplicate orde r) RENVELA 800 mg tablet 0 9 08/14/2019 Discontinued (Dose adjustmen t) lisinopril (PRINIVIL) 40 Take 1 tablet 90 tablet 3 mg tabletIndications: (40 mg total) 9 History of chronic CHF by mouth daily. 09/25/2019 Discontinued (Discontinued b y another clinician) lisinopril (PRINIVIL) 10 Take 10 mg by 0 mg tablet mouth daily. 11/25/2019 Discontinued (Reorder) clopidogrel (PLAVIX) 75 Take 75 mg by 0 mg tablet mouth daily. 01/15/2020 Discontinued (Reorder) rosuvastatin (CRESTOR) 20 Take 1 tablet 90 tablet 3 MG tabletIndications: (20 mg total) 0 Hyperlipidemia, by mouth unspecified daily. hyperlipidemia type 11/10/2019 Discontinued (Stop Taking at Discharge) lisinopril (PRINIVIL) 40 Take 1 tablet 30 tablet 11 mg tablet (40 mg total) 0 by mouth daily. 11/25/2019 Discontinued (Reorder) apixaban (ELIQUIS) 2.5 mg Take 1 tablet 60 tablet 11 tablet (2.5 mg 0 total) by mouth 2 (two) times a day. 12/10/2019 midodrine (PROAMATINE) 10 Take 1 tablet 90 tablet 0 MG tablet (10 mg total) 0 by mouth 3 (three) times a day for 30 days. 11/24/2019 bacitracin ointment tube Apply 28 g 0 0 topically 2 0 (two) times a day for 14 days. 12/11/2019 tamsulosin (FLOMAX) 0.4 Take 1 30 capsule 0 mg capsule capsule (0.4 0 mg total) by mouth daily for 30 days. 12/11/2019 sodium bicarbonate 650 mg Take 2 60 tablet 0 tablet tablets 0 (1,300 mg total) by mouth daily for 30 days. 12/10/2019 fludrocortisone Take 1 tablet 30 tablet 0 11/10/19 2 (FLORINEF) 0.1 mg tablet (0.1 mg 0 total) by mouth daily for 30 days. 04/14/2020 insulin ASPART (NovoLOG Inject 5 4.5 mL 2 Flexpen U-100 Insulin) Units under 0 100 unit/mL (3 mL) the skin 3 insulin penIndications: (three) times Type 2 diabetes mellitus a day with with nephropathy (HCC) meals for 90 days. 04/14/2020 Levemir FlexTouch U-100 Inject 5 1.5 mL 2 Insuln 100 unit/mL (3 mL) Units under 0 insulin penIndications: the skin Type 2 diabetes mellitus daily for 90 with nephropathy (HCC) days. 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 08/18/2019 ESRD on peritoneal dialysis 08/18/2019 Encounter for pre-transplant evaluation for heart tra nsplant 08/18/2019 Ischemic cardiomyopathy 08/18/2019 HFrEF (heart failure with reduced ejection fraction) 06/24/2019 Abnormal cardiovascular stress test 12/14/2017 ESRD (end stage renal disease) on dialysis 7 Patient awaiting renal transplant 02/03/2017 Coronary artery disease involving [place] coronary art ashish of [place] heart 11/28/2015 without angina pectoris Diabetic nephropathy associated with type 2 diabetes mellitus 11/28/2015 Diabetic polyneuropathy associated with type 2 diabet es mellitus 11/28/2015 Essential hypertension 11/28/2015 Hyperlipidemia 11/28/2015 Paroxysmal atrial fibrillation 11/28/2015 Pre-transplant evaluation for chronic kidney disease 11/28/2015 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 11/28/2015 associated with type 2 diabetes mellitu s S/P CABG x 4 11/28/2015 Stage 5 chronic kidney disease 11/28/2015 Resolved Problems Problem Noted Date Resolved Date Essential hypertension 10/03/2019 12/11/2019 Encounters Care Team Description Date Type Specialty Evens Castro MA 03/04/2020 Telephone Internal Medicine Nabor Hoffmann MD Atrial fibrillation, unspecified type (H CC); Heart failure, unspecified HF chronicity, unspecified heart failure type (HCC) 01/26/2020 Hospital Procedural Cardiolo gy Encounter Juan Cortés MD Chronic systolic heart failure (HCC) (Pr imary Dx); Hyperlipidemia, unspecified hyperlipidemia type; Type 2 diabetes mellitus with nephropathy (HCC); ESRD (end stage renal disease) on dialysis (HCC) 01/15/2020 Office Visit Internal Medicine 01/15/2020 Travel 01/12/2020 Travel Liz Melgar MA 12/11/2019 Telephone Internal Medicine Howard Cheng MD PhD Biventricular implantable cardioverter-d efibrillator (T, 10/24/2019, Dr More) (Primary Dx); Ischemic cardiomyopathy; Paroxysmal atrial fibrillation (HCC) 12/10/2019 Telemedicine Cardiology Evens Castro MA 12/09/2019 Telephone Internal Medicine Evens Castro MA 12/02/2019 Telephone Internal Medicine 11/26/2019 Travel Jj Sagastume MD Coronary artery disease involving [place] coronary artery of [place] heart without angina pectoris (Primary Dx); Paroxysmal atrial fibrillation (HCC); Acute on chronic systolic heart failure (HCC); Peripheral arterial disease (HCC); Ischemic cardiomyopathy 11/25/2019 Telemedicine Cardiology Provider, Unknown 11/21/2019 Documentation Medical Records Jose Limon NP-C Chronic combined systolic and diastolic congestive heart failure (HCC) (Primary Dx) 11/17/2019 Telemedicine Cardiology Nini Gama MD 11/03/2019 Hospital Rehabilitation Encounter Keysha Gotti NP 10/31/2019 Documentation Cardiology Nabor Hoffmann MD Ep aicd implant single dual bi vent [332 49 (CPT)] 10/24/2019 Surgery Procedural Cardiolo Catalino Godoy 10/17/2019 Anesthesia Cardiothoracic Surg Allie Chaidez MD Encounter for adjustment and management of other part of cardiac pacemaker (Primary Dx) 10/10/2019 Transcribe Cardiology Orders Daljit Bonilla MD Cv selective angiography bypass graft [3 6299 (CPT)] 10/08/2019 Surgery Procedural Cardiolo Bryson Moody MD Cv IABP Placement (NOT removal) [05403 ( CPT)] 10/06/2019 Surgery Procedural Cardiolo Jj Alonso MD Right heart cath [27753 (CPT)] 10/02/2019 Surgery Procedural CardioJj Guerra MD Koch, Stephen M., MD ESRD on peritoneal dialysis (HCC) (Prima ry Dx); Chronic combined systolic and diastolic congestive heart failure (HCC); Acute on chronic systolic heart failure (HCC); Ischemic cardiomyopathy; Cardiomyopathy, unspecified type (HCC); Peripheral arterial disease (HCC) 10/02/2019 Hospital Cardiology - Encounter 11/10/2019 Dee Villegas MA Speak to Coordinator 10/01/2019 Telephone Transplant Joan Cárdenas RN Pre-transplant evaluation for chronic ki dney disease (Primary Dx); PAD (peripheral artery disease) (HCC) 09/30/2019 Orders Only Cardiovascular Joan Cárdenas RN 09/29/2019 Telephone Cardiovascular Quan Daniels MD Trachtenberg, Barry, MD Coronary artery disease involving [place] coronary artery of [place] heart without angina pectoris; Essential hypertension; Paroxysmal atrial fibrillation (HCC); Hyperlipidemia, unspecified hyperlipidemia type; ESRD (end stage renal disease) on dialysis (HCC); Chronic combined systolic and diastolic congestive heart failure (HCC) 09/25/2019 Office Visit Transplant Brian Toribio RN Chronic combined systolic and diastolic congestive heart failure (HCC) (Primary Dx) 09/25/2019 Orders Only Transplant Brian Toribio RN Coronary artery disease involving [place] coronary artery of [place] heart without angina pectoris (Primary Dx); Essential hypertension; Paroxysmal atrial fibrillation (HCC); Hyperlipidemia, unspecified hyperlipidemia type; ESRD (end stage renal disease) on dialysis (HCC); Chronic combined systolic and diastolic congestive heart failure (HCC) 09/24/2019 Orders Only Transplant Brian Toribio RN 09/23/2019 Telephone Transplant Quan Daniels MD 09/17/2019 Social Work Transplant Asked, No Pcp Quan Daniels MD Nassar, George M., MD Pre-transplant evaluation for kidney tra nsplant (Primary Dx) 09/10/2019 Office Visit Transplant Quan Daniels MD 09/08/2019 Social Work Transplant Maykel Ayala MD Chronic combined systolic and diastolic congestive heart failure (HCC) (Primary Dx); Ischemic cardiomyopathy 09/08/2019 Office Visit Cardiovascular Maggie Ramirez MA 09/05/2019 Telephone Cardiovascular Jj Sagastume MD Encounter for pre-transplant evaluation for heart transplant; Ischemic cardiomyopathy; Acute on chronic combined systolic and diastolic congestive heart failure (HCC) 09/03/2019 Hospital Radiology Encounter Jj Sagastume MD Encounter for pre-transplant evaluation for heart transplant; Ischemic cardiomyopathy; Acute on chronic combined systolic and diastolic congestive heart failure (HCC); S/P CABG x 4 09/03/2019 Hospital Radiology Encounter Jj Sagastume MD ESRD (end stage renal disease) on dialys is ([facility]); Encounter for pre-transplant evaluation for heart transplant; Ischemic cardiomyopathy; Acute on chronic combined systolic and diastolic congestive heart failure (HCC) 09/03/2019 Hospital Radiology Encounter Jj Sagastume MD Encounter for pre-transplant evaluation for heart transplant; Ischemic cardiomyopathy; Acute on chronic combined systolic and diastolic congestive heart failure (HCC) 09/03/2019 Hospital Radiology Encounter Jj Sagastume MD Encounter for pre-transplant evaluation for heart transplant; Ischemic cardiomyopathy; Acute on chronic combined systolic and diastolic congestive heart failure (HCC); S/P CABG x 4 09/03/2019 Hospital Radiology Encounter Jj Sagastume MD PAD (peripheral artery disease) ([facility]); Encounter for pre-transplant evaluation for heart transplant; Ischemic cardiomyopathy; Acute on chronic combined systolic and diastolic congestive heart failure (HCC) 09/03/2019 Hospital Procedural Cardiolo gy Encounter Jj Sagastume MD Encounter for pre-transplant evaluation for heart transplant; Ischemic cardiomyopathy; Acute on chronic combined systolic and diastolic congestive heart failure (HCC) 09/03/2019 Hospital Procedural Cardiolo gy Encounter Quan Daniels MD D'Empaire, Inna, MD Sleep disorder due to a general medical condition, insomnia type (Primary Dx); History of posttraumatic stress disorder (PTSD); History of nicotine use 09/02/2019 Office Visit Transplant Quan Daniels MD 09/02/2019 Nutrition Transplant Jj Sagastume MD Encounter for pre-transplant evaluation for heart transplant; Ischemic cardiomyopathy; Acute on chronic combined systolic and diastolic congestive heart failure (HCC); SOB (shortness of breath) 09/02/2019 Hospital Pulmonology Encounter Bette Zavala MA RESCHEDULE 08/28/2019 Telephone Transplant Nicci Baird Itinerary Eval Testing 09/02/2019 08/25/2019 Telephone Transplant Brain Toribio RN 08/20/2019 Orders Only Transplant Brian Toribio RN Chronic combined systolic and diastolic congestive heart failure (HCC) (Primary Dx) 08/19/2019 Orders Only Transplant Quan Daniels MD 08/14/2019 Social Work Transplant Asked, No Pcp Quan Daniels MD Kim, Ju Hyun, MD Chronic combined systolic and diastolic congestive heart failure (HCC) (Primary Dx); ESRD on peritoneal dialysis (HCC); Coronary artery disease involving [place] coronary artery of [place] heart without angina pectoris; Encounter for pre-transplant evaluation for heart transplant; Ischemic cardiomyopathy; Paroxysmal atrial fibrillation (HCC); Hyperlipidemia, unspecified hyperlipidemia type; S/P CABG x 4 08/14/2019 Office Visit Transplant Isis Cardona MA Reschedule Request 08/08/2019 Telephone Transplant Brian Toribio RN Pre-transplant evaluation for chronic ki dney disease (Primary Dx); Pre-transplant evaluation for heart transplant 08/07/2019 Orders Only Transplant Brian Toribio RN Paroxysmal atrial fibrillation (HCC) (Pr imary Dx); Hyperlipidemia, unspecified hyperlipidemia type; ESRD (end stage renal disease) on dialysis (HCC); Diabetic nephropathy associated with type 2 diabetes mellitus (HCC); PAD (peripheral artery disease) (HCC); Type 2 diabetes mellitus with other specified complication, with long-term current use of insulin (HCC); Encounter for pre-transplant evaluation for heart transplant; Encounter for monitoring digoxin therapy; Ischemic cardiomyopathy; Acute on chronic combined systolic and diastolic congestive heart failure (HCC); S/P CABG x 4; Shortness of breath; Fatigue, unspecified type 08/07/2019 Orders Only Transplant Yovany Joannedominic HEART KIDNEY EVAL APPROVAL 07/08/2019 Telephone Transplant Nicci Sommer RN Itinerary (heart day 1 eval itineary) 07/03/2019 Telephone Transplant Nicci Sommer RN Referral - Heart/Kidney 06/30/2019 Telephone Transplant Jj Sagastume MD Abnormal cardiovascular stress test (Chuyita kisha Dx); History of chronic CHF; Chronic systolic heart failure (HCC) 06/24/2019 Office Visit Cardiology Jennifer Barnhart MA 06/24/2019 Orders Only Cardiology after 06/11/2019 Surgical History Surgery Date Site/Laterality Comments STENT RENAL BIOPSY 08/13/2015 - 08/12/2016 CORONARY ARTERY BYPASS 08/13/2014 - X4 GRAFT 08/12/2015 PERITONEAL CATHETER INSERTION ANGIOPLASTY Left left leg CARDIAC CATHETERIZATION 10/02/2019 N/A Proced ure: Right heart cath; Surgeon: Jj Sagastume MD; Location: [facility] Identity Management Consultant Invasive Location; Service: Cardio logy; Laterality: N/A; Medical devices from this surgery are i n the Implants section. CARDIAC CATHETERIZATION 10/02/2019 N/A Proced ure: Cv non tunneled catheter insertion; Surgeon: Jj Sagastume MD; Loca tion: [facility] Identity Management Consultant Invasive Location; Service : Cardiology; Laterality: N/A; trialysi s insertion Medical devices from this surgery are i n the Implants section. CARDIAC CATHETERIZATION 10/08/2019 N/A Proced ure: Cv selective angiography bypass graft; Surgeon: Daljit Bonilla MD; Location : [facility] Identity Management Consultant Invasive Location; Service: C ardiology; Laterality: N/A; Medical devices from this surgery are i n the Implants section. CARDIAC CATHETERIZATION 10/08/2019 N/A Proced ure: Pci percutaneous cardiac angioplasty; Surgeon: Daljit Bonilla MD; Location : [facility] Identity Management Consultant Invasive Location; Service: C ardiology; Laterality: N/A; CX Medical devices from this surgery are i n the Implants section. CARDIAC CATHETERIZATION 10/08/2019 N/A Proced ure: Selective coronary angiography; Surgeon: Daljit Bonilla MD; Location : [facility] Identity Management Consultant Invasive Location; Service: C ardiology; Laterality: N/A; Medical devices from this surgery are i n the Implants section. CARDIAC CATHETERIZATION 10/06/2019 N/A Proced ure: Cv IABP Placement (NOT removal); Surgeon: Bryson Patel MD; Location: [facility] Identity Management Consultant Invasive Location; Service: Cardiovascular; Laterality: N/A; CARDIAC ELECTROPHYSIOLOGY 10/24/2019 N/A Proc edure: Ep aicd implant single dual bi vent; PROCEDURE Surgeon: Justus Hoffmann MD; Location: [facility] Identity Management Consultant Invasive Location; Ser vice: Cardiovascular; Laterality: N/A; ICD BiV -MDT CS venogram Medical devices from this surgery are i n the Implants section. CARDIAC ELECTROPHYSIOLOGY 10/24/2019 N/A Proc edure: Ep aicd evaluation; Surgeon: Nabor Tucker MD ; Location: [facility] Identity Management Consultant Invasive Location; Service: Cardiovascular; Laterality: N/A; Medical devices from this surgery are i n the Implants section. Medical History Medical History Date Comments Hypertension Type 2 diabetes mellitus (HCC) Coronary artery disease CHF (congestive heart failure) (HCC) Hyperlipidemia Arrhythmia Angina pectoris (HCC) Heart attack (HCC) 4 heart attacks after CABG surgery - per patient Atherosclerotic peripheral vascular disease (HCC) Shortness of breath Pneumonia as an infant Constipation Diarrhea history of Cdiff x2 Chronic kidney disease Kidney stone Mental health disorder depression Peripheral neuropathy Edema bilateral ankles Ischemic cardiomyopathy ESRD (end stage renal disease) (HCC) due to diabete s History of posttraumatic stress 09/02/2019 disorder (PTSD) Sleep disorder due to a general 09/02/2019 medical condition, insomnia type History of nicotine use 09/02/2019 Subclinical hypothyroidism 10/03/2019 Family History Medical History Relation Name Comments Diabetes Father Heart attack Father Hypertension Father Diabetes Mother Heart attack Mother Hypertension Mother Relation Name Status Comments Father Mother Social History Date Tobacco Use Types Packs/Day Years Used Quit: 06/27/2019 Former Smoker Cigarettes Smokeless Tobacco: Never Used Drinks/Week oz/Week Comments Alcohol Use Never Alcohol Habits Answer Date Recorded How often do you have a drink containing alcohol? Never 06/24/2019 How many drinks containing alcohol do you have on No t asked a typical day when you are drinking? How often do you have six or more drinks on one Not asked occasion? Sex Assigned at Date Recorded Male 11/25/2019 2:00 PM CDT Last Filed Vital Signs Reading Time Taken Comments Vital Sign 127/77 01/15/2020 9:08 AM CDT Blood Pressure 86 01/15/2020 9:08 AM CDT Pulse 36.2 C (97.1 F) 11/10/2019 12:00 PM CDT Temperature 18 11/10/2019 12:02 PM CDT Respiratory Rate 96% 01/15/2020 9:08 AM CDT Oxygen Saturation - - Inhaled Oxygen Concentration 85.8 kg (189 lb 3.2 oz) 01/15/2020 9:08 AM CDT Weight 188 cm (6' 2") 01/15/2020 9:08 AM CDT Height 24.29 01/15/2020 9:08 AM CDT Body Mass Index Plan of Treatment Health Maintenance Due Date Last Done Comments DIABETES: RETINAL EYE 1978 EXAM DIABETIC FOOT EXAM 1978 COLONOSCOPY SCREENING 2018 SHINGLES VACCINES (#1) 2018 INFLUENZA VACCINE 03/13/2020 Implants Device Identifier Shelf Expiration Date Model / Serial / L ot Implanted Type Area Manufactur er 03/09/2021 [id number] / [id number] / [id number] Claria Mri Quad Crtd - [id number] Cardiac N/A : N/A - [id number] Pacemaker Implanted: Qty: 1 on 10/24/2019 by Generators Nabor Hoffmann MD at [facility] 08/30/2021 [id number] / [id number] / [id number] Lead [id number] Active Sc Ous 17l Cardiac N/A : N/A - [id number] Pacing Implanted: 10/24/2019 at [facility] Leads or HOSPITAL (Quantity not on file) Electrodes or Accessorie s [id number] / / Attain Stability Quad Mri Surescan Cardiac N/A : N/A Lead Pacing L88 Cm - [id number] Pacing Implanted: 10/24/2019 at [facility] Leads or HOSPITAL (Quantity not on file) Electrodes or Accessorie s 08/22/2021 [id number] / [id number] / [id number] Lead, Pacemaker Bipolar Fix Forming Cardiac N/ A: N/A Atrial And Ventricular Steroid Pacing Eluting 52 Centimeter Capsure Fix Leads or Novus - [id number] Electrodes Implanted: 10/24/2019 at [facility] or HOSPITAL (Quantity not on file) Accessorie s 11/13/2021 [id number] / / [id number] Pocket Device Cangaroo Ecm 9.5cm X Cardiovasc N/A : N/A 6.9cm Xl - [id number] ular Implanted: 10/24/2019 at [facility] Implants HOSPITAL (Quantity not on file) [id number] / / Stent Eluting Coronary 3.00mm X Coronary N/A: N/A CH 12mm Rapid-Exchange - [id number] Stents LABOR ATORI Implanted: 10/08/2019 at [facility] (Quantity not on file) 07/12/2020 [id number] / / [id number] Tray Cath Dialys Curved 3lumen 15cm Surgical N/A: N/A CR BARD 13fr Power-Trialysis - [id number] Implants; Implanted: 10/02/2019 at [facility] Expanders; HOSPITAL (Quantity not on file) Extenders; Surgical Wires 11/10/2020 [id number] / / [id number] System Clsr Sut Meditd 6fr Perclose Surgical N/A: N/A CH Proglide - [id number] Implants; VASCULAR Implanted: 10/08/2019 at [facility] Expanders; DEVICES HOSPITAL (Quantity not on file) Extenders; Surgical Wires Procedures Comments Procedure Name Priority Date/Time Associated Diag nosis DURABLE MEDICAL EQUIPMENT Routine 11/10/2019 1:24 PM CDT POC GLUCOSE Routine 11/10/2019 12:01 PM CDT POC GLUCOSE Routine 11/10/2019 7:25 AM CDT ESTIMATED GFR Routine 11/10/2019 3:23 AM CDT MAGNESIUM LEVEL Routine 11/10/2019 3:23 AM CDT BASIC METABOLIC PANEL Routine 11/10/2019 3:23 AM CDT HC COMPLETE BLD COUNT Routine 11/10/2019 W/AUTO DIFF 2:20 AM CDT POC GLUCOSE Routine 11/09/2019 9:04 PM CDT POC GLUCOSE Routine 11/09/2019 5:12 PM CDT CORTISOL LEVEL, RANDOM Routine 11/09/2019 1:24 PM CDT CORTISOL LEVEL, RANDOM Routine 11/09/2019 12:38 PM CDT POC GLUCOSE Routine 11/09/2019 12:10 PM CDT CORTISOL LEVEL, RANDOM Routine 11/09/2019 10:42 AM CDT ADRENOCORTICOTROPIC Routine 11/09/2019 HORMONE 10:42 AM CDT POC GLUCOSE Routine 11/09/2019 7:49 AM CDT ESTIMATED GFR Routine 11/09/2019 4:08 AM CDT CORTISOL LEVEL, AM Routine 11/09/2019 4:08 AM CDT HC COMPLETE BLD COUNT Routine 11/09/2019 W/AUTO DIFF 4:08 AM CDT MAGNESIUM LEVEL Routine 11/09/2019 4:08 AM CDT BASIC METABOLIC PANEL Routine 11/09/2019 4:08 AM CDT POC GLUCOSE Routine 11/08/2019 9:06 PM CDT POC GLUCOSE Routine 11/08/2019 6:25 PM CDT POC GLUCOSE Routine 11/08/2019 12:41 PM CDT ESTIMATED GFR Routine 11/08/2019 9:10 AM CDT HC COMPLETE BLD COUNT Routine 11/08/2019 W/AUTO DIFF 9:10 AM CDT MAGNESIUM LEVEL Routine 11/08/2019 9:10 AM CDT BASIC METABOLIC PANEL Routine 11/08/2019 9:10 AM CDT POC GLUCOSE Routine 11/08/2019 8:22 AM CDT URINE CULTURE Routine 11/08/2019 5:26 AM CDT URINALYSIS SCREEN AND Routine 11/08/2019 MICROSCOPY, WITH REFLEX 4:10 AM CDT TO CULTURE POC GLUCOSE Routine 11/07/2019 9:42 PM CDT POC GLUCOSE Routine 11/07/2019 6:07 PM CDT TTE LIMITED, WO CONTRAST, Today 11/07/2019 W DOPPLER ([id number]) 3:35 PM CDT POC GLUCOSE Routine 11/07/2019 2:00 PM CDT POC GLUCOSE Routine 11/07/2019 7:56 AM CDT ESTIMATED GFR Routine 11/07/2019 2:55 AM CDT HC COMPLETE BLD COUNT Routine 11/07/2019 W/AUTO DIFF 2:55 AM CDT BASIC METABOLIC PANEL Routine 11/07/2019 2:55 AM CDT POC GLUCOSE Routine 11/06/2019 9:10 PM CDT POC GLUCOSE Routine 11/06/2019 5:26 PM CDT POC GLUCOSE Routine 11/06/2019 12:09 PM CDT POC GLUCOSE Routine 11/06/2019 8:34 AM CDT ESTIMATED GFR Routine 11/06/2019 4:00 AM CDT HEPATIC FUNCTION PANEL Routine 11/06/2019 4:00 AM CDT BASIC METABOLIC PANEL Routine 11/06/2019 4:00 AM CDT HC COMPLETE BLD COUNT Routine 11/06/2019 W/AUTO DIFF 2:10 AM CDT POC GLUCOSE Routine 11/05/2019 9:08 PM CDT POC GLUCOSE Routine 11/05/2019 6:18 PM CDT POC GLUCOSE Routine 11/05/2019 6:15 PM CDT POC GLUCOSE Routine 11/05/2019 11:40 AM CDT POC GLUCOSE Routine 11/05/2019 7:56 AM CDT ESTIMATED GFR Routine 11/05/2019 3:26 AM CDT BASIC METABOLIC PANEL Routine 11/05/2019 3:26 AM CDT HC COMPLETE BLD COUNT Routine 11/05/2019 W/AUTO DIFF 1:35 AM CDT POC GLUCOSE Routine 11/04/2019 9:28 PM CDT POC GLUCOSE Routine 11/04/2019 5:41 PM CDT POC GLUCOSE Routine 11/04/2019 4:01 PM CDT POC GLUCOSE Routine 11/04/2019 11:38 AM CDT POC GLUCOSE Routine 11/04/2019 7:34 AM CDT ESTIMATED GFR Routine 11/04/2019 4:00 AM CDT MAGNESIUM LEVEL Routine 11/04/2019 4:00 AM CDT COMPREHENSIVE METABOLIC Routine 11/04/2019 PANEL 4:00 AM CDT HC COMPLETE BLD COUNT Routine 11/04/2019 W/AUTO DIFF 2:25 AM CDT POC GLUCOSE Routine 11/03/2019 9:01 PM CDT POC GLUCOSE Routine 11/03/2019 5:29 PM CDT POC GLUCOSE Routine 11/03/2019 12:13 PM CDT POC GLUCOSE Routine 11/03/2019 7:39 AM CDT ESTIMATED GFR Routine 11/03/2019 4:00 AM CDT MAGNESIUM LEVEL Routine 11/03/2019 4:00 AM CDT COMPREHENSIVE METABOLIC Routine 11/03/2019 PANEL 4:00 AM CDT HC COMPLETE BLD COUNT Routine 11/03/2019 W/AUTO DIFF 3:10 AM CDT POC GLUCOSE Routine 11/02/2019 9:15 PM CDT POC GLUCOSE Routine 11/02/2019 5:22 PM CDT POC GLUCOSE Routine 11/02/2019 11:22 AM CDT POC GLUCOSE Routine 11/02/2019 8:13 AM CDT HC COMPLETE BLD COUNT Routine 11/02/2019 W/AUTO DIFF 5:40 AM CDT ESTIMATED GFR Routine 11/02/2019 4:00 AM CDT MAGNESIUM LEVEL Routine 11/02/2019 4:00 AM CDT COMPREHENSIVE METABOLIC Routine 11/02/2019 PANEL 4:00 AM CDT HEPATITIS B SURFACE Routine 11/02/2019 ANTIGEN 4:00 AM CDT POC GLUCOSE Routine 11/01/2019 9:05 PM CDT POC GLUCOSE Routine 11/01/2019 5:41 PM CDT POC GLUCOSE Routine 11/01/2019 12:21 PM CDT POC GLUCOSE Routine 11/01/2019 7:56 AM CDT ESTIMATED GFR Routine 11/01/2019 3:45 AM CDT MAGNESIUM LEVEL Routine 11/01/2019 3:45 AM CDT COMPREHENSIVE METABOLIC Routine 11/01/2019 PANEL 3:45 AM CDT CBC WITH PLATELET AND Routine 11/01/2019 DIFFERENTIAL 3:45 AM CDT POC GLUCOSE Routine 10/31/2019 9:48 PM CDT POC GLUCOSE Routine 10/31/2019 9:06 PM CDT POC GLUCOSE Routine 10/31/2019 5:03 PM CDT POC GLUCOSE Routine 10/31/2019 1:11 PM CDT POC GLUCOSE Routine 10/31/2019 8:02 AM CDT CBC WITH PLATELET AND Routine 10/31/2019 DIFFERENTIAL 5:00 AM CDT ESTIMATED GFR Routine 10/31/2019 4:00 AM CDT COMPREHENSIVE METABOLIC Routine 10/31/2019 PANEL 4:00 AM CDT DIGOXIN LEVEL Routine 10/31/2019 4:00 AM CDT MAGNESIUM LEVEL Routine 10/31/2019 4:00 AM CDT POC GLUCOSE Routine 10/30/2019 9:18 PM CDT POC GLUCOSE Routine 10/30/2019 6:[address] ABDOMEN PELVIS W WO STAT 10/30/2019 CONTRAST 4:05 PM CDT LIPASE LEVEL STAT 10/30/2019 1:51 PM CDT AMYLASE LEVEL STAT 10/30/2019 1:51 PM CDT LACTIC ACID LEVEL STAT 10/30/2019 1:51 PM CDT POC GLUCOSE Routine 10/30/2019 12:22 PM CDT POC GLUCOSE Routine 10/30/2019 8:12 AM CDT HEPATIC FUNCTION PANEL Routine 10/30/2019 3:11 AM CDT ESTIMATED GFR Routine 10/30/2019 3:11 AM CDT MAGNESIUM LEVEL Routine 10/30/2019 3:11 AM CDT BASIC METABOLIC PANEL Routine 10/30/2019 3:11 AM CDT HC COMPLETE BLD COUNT Routine 10/30/2019 W/AUTO DIFF 2:40 AM CDT POC GLUCOSE Routine 10/29/2019 8:28 PM CDT POC GLUCOSE Routine 10/29/2019 4:58 PM CDT POC GLUCOSE Routine 10/29/2019 12:57 PM CDT POC GLUCOSE Routine 10/29/2019 10:22 AM CDT POC GLUCOSE Routine 10/29/2019 8:18 AM CDT ESTIMATED GFR Routine 10/29/2019 4:00 AM CDT PHOSPHORUS LEVEL Routine 10/29/2019 4:00 AM CDT DIGOXIN LEVEL Routine 10/29/2019 4:00 AM CDT MAGNESIUM LEVEL Routine 10/29/2019 4:00 AM CDT COMPREHENSIVE METABOLIC Routine 10/29/2019 PANEL 4:00 AM CDT STRONGYLOIDES AB IGG Routine 10/29/2019 KENNETH 2:30 AM CDT HC COMPLETE BLD COUNT Routine 10/29/2019 W/AUTO DIFF 2:30 AM CDT POC GLUCOSE Routine 10/28/2019 9:13 PM CDT POC GLUCOSE Routine 10/28/2019 6:42 PM CDT POC GLUCOSE Routine 10/28/2019 4:44 PM CDT POC GLUCOSE Routine 10/28/2019 12:[address] HEAD WO CONTRAST Routine 10/28/2019 10:39 AM CDT BLOOD CULTURE, AEROBIC & Routine 10/28/2019 ANAEROBIC 8:40 AM CDT POC GLUCOSE Routine 10/28/2019 8:39 AM CDT HEMOGLOBIN & HEMATOCRIT STAT 10/28/2019 8:20 AM CDT BLOOD CULTURE, AEROBIC & Routine 10/28/2019 ANAEROBIC 8:20 AM CDT ESTIMATED GFR Routine 10/28/2019 4:00 AM CDT MAGNESIUM LEVEL Routine 10/28/2019 4:00 AM CDT COMPREHENSIVE METABOLIC Routine 10/28/2019 PANEL 4:00 AM CDT HC COMPLETE BLD COUNT Routine 10/28/2019 W/AUTO DIFF 2:05 AM CDT EEG AWAKE/ASLEEP LESS Routine 10/27/2019 THAN 41 MIN 10:09 PM CDT POC GLUCOSE Routine 10/27/2019 9:13 PM CDT POC GLUCOSE Routine 10/27/2019 6:16 PM CDT NM HEPATOBILIARY Routine 10/27/2019 6:[address] ANGIOGRAM NECK W WO Routine 10/27/2019 CONTRAST 3:[address] ANGIOGRAM HEAD W WO STAT 10/27/2019 CONTRAST 3:[address] STROKE BRAIN WO STAT 10/27/2019 CONTRAST 2:58 PM CDT POC GLUCOSE Routine 10/27/2019 11:28 AM CDT POC GLUCOSE Routine 10/27/2019 7:47 AM CDT ESTIMATED GFR Routine 10/27/2019 3:50 AM CDT MAGNESIUM LEVEL Routine 10/27/2019 3:50 AM CDT COMPREHENSIVE METABOLIC Routine 10/27/2019 PANEL 3:50 AM CDT HC COMPLETE BLD COUNT Routine 10/27/2019 W/AUTO DIFF 3:50 AM CDT POC GLUCOSE Routine 10/26/2019 9:20 PM CDT POC GLUCOSE Routine 10/26/2019 6:13 PM CDT POC GLUCOSE Routine 10/26/2019 3:00 PM CDT POC GLUCOSE Routine 10/26/2019 12:31 PM CDT POC GLUCOSE Routine 10/26/2019 8:26 AM CDT ESTIMATED GFR Routine 10/26/2019 4:06 AM CDT BASIC METABOLIC PANEL Routine 10/26/2019 4:06 AM CDT HC COMPLETE BLD COUNT Routine 10/26/2019 W/AUTO DIFF 3:25 AM CDT POC GLUCOSE Routine 10/25/2019 9:27 PM CDT POC GLUCOSE Routine 10/25/2019 6:26 PM CDT POC GLUCOSE Routine 10/25/2019 12:10 PM CDT POC GLUCOSE Routine 10/25/2019 9:24 AM CDT POC GLUCOSE Routine 10/25/2019 8:06 AM CDT ECG PRE/POST OP Routine 10/25/2019 6:52 AM CDT ESTIMATED GFR Routine 10/25/2019 3:30 AM CDT HC COMPLETE BLD COUNT Routine 10/25/2019 W/AUTO DIFF 3:30 AM CDT COMPREHENSIVE METABOLIC Routine 10/25/2019 PANEL 3:30 AM CDT POC GLUCOSE Routine 10/24/2019 9:36 PM CDT POC GLUCOSE Routine 10/24/2019 6:42 PM CDT XR CHEST 1 VW PORTABLE Routine 10/24/2019 3:42 PM CDT POC GLUCOSE Routine 10/24/2019 3:38 PM CDT ECG PRE/POST OP STAT 10/24/2019 3:21 PM CDT EP AICD EVALUATION Routine 10/24/2019 3:03 PM CDT EP AICD IMPLANT SINGLE Routine 10/24/2019 DUAL BI VENT 3:03 PM CDT AST (SGOT) Routine 10/24/2019 8:16 AM CDT POTASSIUM LEVEL Routine 10/24/2019 8:16 AM CDT ESTIMATED GFR STAT 10/24/2019 7:57 AM CDT BASIC METABOLIC PANEL STAT 10/24/2019 7:57 AM CDT POC PANEL Routine 10/24/2019 7:53 AM CDT ESTIMATED GFR Routine 10/24/2019 7:53 AM CDT MANUAL DIFFERENTIAL Routine 10/24/2019 3:10 AM CDT ESTIMATED GFR Routine 10/24/2019 3:10 AM CDT CBC WITH PLATELET AND Routine 10/24/2019 DIFFERENTIAL 3:10 AM CDT MAGNESIUM LEVEL Routine 10/24/2019 3:10 AM CDT COMPREHENSIVE METABOLIC Routine 10/24/2019 PANEL 3:10 AM CDT POC GLUCOSE Routine 10/23/2019 9:28 PM CDT POC GLUCOSE Routine 10/23/2019 5:14 PM CDT POC GLUCOSE Routine 10/23/2019 11:27 AM CDT POC GLUCOSE Routine 10/23/2019 7:53 AM CDT ESTIMATED GFR Routine 10/23/2019 3:09 AM CDT PHOSPHORUS LEVEL Routine 10/23/2019 3:09 AM CDT HC COMPLETE BLD COUNT Routine 10/23/2019 W/AUTO DIFF 3:09 AM CDT MAGNESIUM LEVEL Routine 10/23/2019 3:09 AM CDT COMPREHENSIVE METABOLIC Routine 10/23/2019 PANEL 3:09 AM CDT POC GLUCOSE Routine 10/22/2019 8:58 PM CDT POC GLUCOSE Routine 10/22/2019 5:32 PM CDT POC GLUCOSE Routine 10/22/2019 11:17 AM CDT POC GLUCOSE Routine 10/22/2019 7:42 AM CDT ESTIMATED GFR Routine 10/22/2019 2:51 AM CDT MAGNESIUM LEVEL Routine 10/22/2019 2:51 AM CDT COMPREHENSIVE METABOLIC Routine 10/22/2019 PANEL 2:51 AM CDT HC COMPLETE BLD COUNT Routine 10/22/2019 W/AUTO DIFF 2:30 AM CDT PARTIAL THROMBOPLASTIN Routine 10/22/2019 TIME (PTT) 2:30 AM CDT POC GLUCOSE Routine 10/21/2019 7:50 PM CDT POC GLUCOSE Routine 10/21/2019 5:25 PM CDT POC GLUCOSE Routine 10/21/2019 11:58 AM CDT MANUAL DIFFERENTIAL Routine 10/21/2019 10:55 AM CDT CBC WITH PLATELET AND Routine 10/21/2019 DIFFERENTIAL 10:55 AM CDT ESTIMATED GFR Routine 10/21/2019 10:50 AM CDT MAGNESIUM LEVEL Routine 10/21/2019 10:50 AM CDT COMPREHENSIVE METABOLIC Routine 10/21/2019 PANEL 10:50 AM CDT POC GLUCOSE Routine 10/21/2019 7:55 AM CDT PARTIAL THROMBOPLASTIN Routine 10/21/2019 TIME (PTT) 2:50 AM CDT POC GLUCOSE Routine 10/20/2019 8:42 PM CDT MRI CHOLANGIOGRAM WO Routine 10/20/2019 CONTRAST 7:12 PM CDT POC GLUCOSE Routine 10/20/2019 5:12 PM CDT LINE/DRAIN REMOVAL Routine 10/20/2019 ESRD on per itoneal 2:36 PM CDT dialysis (HCC) TTE LIMITED W CONTRAST, W Today 10/20/2019 DOPPLER ([id number]) 1:30 PM CDT POC GLUCOSE Routine 10/20/2019 10:55 AM CDT POC GLUCOSE Routine 10/20/2019 7:09 AM CDT HEPATIC FUNCTION PANEL Routine 10/20/2019 4:00 AM CDT MANUAL DIFFERENTIAL Routine 10/20/2019 4:00 AM CDT ESTIMATED GFR Routine 10/20/2019 4:00 AM CDT PHOSPHORUS LEVEL Routine 10/20/2019 4:00 AM CDT MAGNESIUM LEVEL Routine 10/20/2019 4:00 AM CDT BASIC METABOLIC PANEL Routine 10/20/2019 4:00 AM CDT CBC WITH PLATELET AND Routine 10/20/2019 DIFFERENTIAL 4:00 AM CDT PARTIAL THROMBOPLASTIN Routine 10/20/2019 TIME (PTT) 4:00 AM CDT POC GLUCOSE Routine 10/19/2019 8:46 PM CDT POC GLUCOSE Routine 10/19/2019 4:52 PM CDT POC GLUCOSE Routine 10/19/2019 10:53 AM CDT PARTIAL THROMBOPLASTIN Routine 10/19/2019 TIME (PTT) 7:10 AM CDT POC GLUCOSE Routine 10/19/2019 7:06 AM CDT ESTIMATED GFR Routine 10/19/2019 4:50 AM CDT DIGOXIN LEVEL Routine 10/19/2019 4:50 AM CDT PARTIAL THROMBOPLASTIN Routine 10/19/2019 TIME (PTT) 4:50 AM CDT PHOSPHORUS LEVEL Routine 10/19/2019 4:50 AM CDT MAGNESIUM LEVEL Routine 10/19/2019 4:50 AM CDT COMPREHENSIVE METABOLIC Routine 10/19/2019 PANEL 4:50 AM CDT CBC WITH PLATELET AND Routine 10/19/2019 DIFFERENTIAL 4:50 AM CDT POC GLUCOSE Routine 10/18/2019 9:06 PM COAL WHEELER POC GLUCOSE Routine 10/18/2019 5:23 PM COAL WHEELER POC GLUCOSE Routine 10/18/2019 10:41 AM COAL WHEELER POC GLUCOSE Routine 10/18/2019 7:02 AM COAL WHEELER ESTIMATED GFR Routine 10/18/2019 4:00 AM COAL WHEELER PARTIAL THROMBOPLASTIN Routine 10/18/2019 TIME (PTT) 4:00 AM COAL WHEELER PHOSPHORUS LEVEL Routine 10/18/2019 4:00 AM COAL WHEELER MAGNESIUM LEVEL Routine 10/18/2019 4:00 AM COAL WHEELER CBC WITH PLATELET AND Routine 10/18/2019 DIFFERENTIAL 4:00 AM COAL WHEELER COMPREHENSIVE METABOLIC Routine 10/18/2019 PANEL 4:00 AM COAL WHEELER POC GLUCOSE Routine 10/17/2019 8:57 PM COAL WHEELER POC GLUCOSE Routine 10/17/2019 4:38 PM COAL WHEELER POC GLUCOSE Routine 10/17/2019 11:32 AM COAL WHEELER POC GLUCOSE Routine 10/17/2019 7:10 AM COAL WHEELER TYPE AND SCREEN Routine 10/17/2019 4:30 AM COAL WHEELER ESTIMATED GFR Routine 10/17/2019 4:00 AM COAL WHEELER VANCOMYCIN LEVEL, RANDOM Routine 10/17/2019 4:00 AM COAL WHEELER PHOSPHORUS LEVEL Routine 10/17/2019 4:00 AM COAL WHEELER MAGNESIUM LEVEL Routine 10/17/2019 4:00 AM COAL WHEELER COMPREHENSIVE METABOLIC Routine 10/17/2019 PANEL 4:00 AM COAL WHEELER VENOUS BLOOD GAS Routine 10/17/2019 3:30 AM COAL WHEELER CBC WITH PLATELET AND Routine 10/17/2019 DIFFERENTIAL 3:30 AM COAL WHEELER PARTIAL THROMBOPLASTIN Routine 10/17/2019 TIME (PTT) 3:30 AM COAL WHEELER POC GLUCOSE Routine 10/16/2019 9:01 PM COAL WHEELER POC GLUCOSE Routine 10/16/2019 4:30 PM COAL WHEELER IONIZED CALCIUM Routine 10/16/2019 4:26 PM COAL WHEELER ESTIMATED GFR Routine 10/16/2019 4:26 PM COAL WHEELER BASIC METABOLIC PANEL Routine 10/16/2019 4:26 PM COAL WHEELER HEMOGLOBIN & HEMATOCRIT Timed 10/16/2019 4:26 PM COAL WHEELER HEMODIALYSIS Routine 10/16/2019 11:33 AM COAL WHEELER US HEPATIC Routine 10/16/2019 11:00 AM COAL WHEELER POC GLUCOSE Routine 10/16/2019 10:42 AM COAL WHEELER POC GLUCOSE Routine 10/16/2019 7:21 AM COAL WHEELER ESTIMATED GFR Routine 10/16/2019 4:00 AM COAL WHEELER PHOSPHORUS LEVEL Routine 10/16/2019 4:00 AM COAL WHEELER MAGNESIUM LEVEL Routine 10/16/2019 4:00 AM COAL WHEELER COMPREHENSIVE METABOLIC Routine 10/16/2019 PANEL 4:00 AM COAL WHEELER PARTIAL THROMBOPLASTIN Routine 10/16/2019 TIME (PTT) 3:55 AM COAL WHEELER O2 SATURATION, VENOUS Routine 10/16/2019 3:55 AM COAL WHEELER HC COMPLETE BLD COUNT Routine 10/16/2019 W/AUTO DIFF 3:55 AM COAL WHEELER POC GLUCOSE Routine 10/15/2019 8:29 PM COAL WHEELER PARTIAL THROMBOPLASTIN Routine 10/15/2019 TIME (PTT) 6:08 PM COAL WHEELER POC GLUCOSE Routine 10/15/2019 4:49 PM COAL WHEELER PARTIAL THROMBOPLASTIN Routine 10/15/2019 TIME (PTT) 12:15 PM COAL WHEELER BLOOD CULTURE, AEROBIC & Routine 10/15/2019 ANAEROBIC 10:45 AM COAL WHEELER POC GLUCOSE Routine 10/15/2019 10:40 AM COAL WHEELER BLOOD CULTURE, AEROBIC & Routine 10/15/2019 ANAEROBIC 10:14 AM COAL WHEELER POC GLUCOSE Routine 10/15/2019 7:13 AM COAL WHEELER XR CHEST 1 VW PORTABLE Routine 10/15/2019 5:12 AM COAL WHEELER TROPONIN Timed 10/15/2019 5:02 AM COAL WHEELER SMEAR REVIEW Routine 10/15/2019 4:45 AM COAL WHEELER PARTIAL THROMBOPLASTIN Routine 10/15/2019 TIME (PTT) 4:45 AM COAL WHEELER O2 SATURATION, VENOUS Routine 10/15/2019 4:45 AM COAL WHEELER HC COMPLETE BLD COUNT Routine 10/15/2019 W/AUTO DIFF 4:45 AM COAL WHEELER ESTIMATED GFR Routine 10/15/2019 4:00 AM COAL WHEELER LDH Routine 10/15/2019 4:00 AM COAL WHEELER PHOSPHORUS LEVEL Routine 10/15/2019 4:00 AM COAL WHEELER MAGNESIUM LEVEL Routine 10/15/2019 4:00 AM COAL WHEELER COMPREHENSIVE METABOLIC Routine 10/15/2019 PANEL 4:00 AM COAL WHEELER O2 SATURATION, VENOUS Routine 10/14/2019 8:50 PM COAL WHEELER ESTIMATED GFR Timed 10/14/2019 8:50 PM COAL WHEELER B NATRIURETIC PEPTIDE Timed 10/14/2019 8:50 PM COAL WHEELER BASIC METABOLIC PANEL Timed 10/14/2019 8:50 PM COAL WHEELER LACTIC ACID LEVEL Timed 10/14/2019 8:50 PM COAL WHEELER TROPONIN Timed 10/14/2019 8:50 PM COAL WHEELER ECG 12-LEAD Routine 10/14/2019 8:45 PM COAL WHEELER ESTIMATED GFR Routine 10/14/2019 6:33 PM COAL WHEELER PHOSPHORUS LEVEL Routine 10/14/2019 6:33 PM COAL WHEELER MAGNESIUM LEVEL Routine 10/14/2019 6:33 PM COAL WHEELER IONIZED CALCIUM Routine 10/14/2019 6:33 PM COAL WHEELER BASIC METABOLIC PANEL Routine 10/14/2019 6:33 PM COAL WHEELER POC GLUCOSE Routine 10/14/2019 5:01 PM COAL WHEELER POC GLUCOSE Routine 10/14/2019 10:46 AM COAL WHEELER POC GLUCOSE Routine 10/14/2019 7:13 AM COAL WHEELER XR CHEST 1 VW PORTABLE Routine 10/14/2019 5:39 AM COAL WHEELER ESTIMATED GFR Routine 10/14/2019 4:30 AM COAL WHEELER O2 SATURATION, VENOUS Routine 10/14/2019 4:30 AM COAL WHEELER LDH Routine 10/14/2019 4:30 AM COAL WHEELER PHOSPHORUS LEVEL Routine 10/14/2019 4:30 AM COAL WHEELER MAGNESIUM LEVEL Routine 10/14/2019 4:30 AM COAL WHEELER COMPREHENSIVE METABOLIC Routine 10/14/2019 PANEL 4:30 AM COAL WHEELER HC COMPLETE BLD COUNT Routine 10/14/2019 W/AUTO DIFF 4:30 AM COAL WHEELER PARTIAL THROMBOPLASTIN Routine 10/14/2019 TIME (PTT) 4:30 AM COAL WHEELER POC GLUCOSE Routine 10/13/2019 9:06 PM COAL WHEELER IONIZED CALCIUM Routine 10/13/2019 6:20 PM COAL WHEELER POC GLUCOSE Routine 10/13/2019 4:48 PM COAL WHEELER IONIZED CALCIUM Routine 10/13/2019 4:25 PM COAL WHEELER ESTIMATED GFR Routine 10/13/2019 4:25 PM COAL WHEELER PHOSPHORUS LEVEL Routine 10/13/2019 4:25 PM COAL WHEELER MAGNESIUM LEVEL Routine 10/13/2019 4:25 PM COAL WHEELER BASIC METABOLIC PANEL Routine 10/13/2019 4:25 PM COAL WHEELER HEMOGLOBIN & HEMATOCRIT STAT 10/13/2019 3:00 PM COAL WHEELER POC GLUCOSE Routine 10/13/2019 10:51 AM COAL WHEELER XR CHEST 1 VW PORTABLE Routine 10/13/2019 9:20 AM COAL WHEELER POC GLUCOSE Routine 10/13/2019 7:24 AM COAL WHEELER O2 SATURATION, VENOUS Routine 10/13/2019 4:00 AM COAL WHEELER HC COMPLETE BLD COUNT Routine 10/13/2019 W/AUTO DIFF 4:00 AM COAL WHEELER PARTIAL THROMBOPLASTIN Routine 10/13/2019 TIME (PTT) 4:00 AM COAL WHEELER IONIZED CALCIUM Routine 10/13/2019 3:18 AM COAL WHEELER ESTIMATED GFR Routine 10/13/2019 3:17 AM COAL WHEELER PHOSPHORUS LEVEL Routine 10/13/2019 3:17 AM COAL WHEELER MAGNESIUM LEVEL Routine 10/13/2019 3:17 AM COAL WHEELER BASIC METABOLIC PANEL Routine 10/13/2019 3:17 AM COAL WHEELER POC GLUCOSE Routine 10/12/2019 9:01 PM COAL WHEELER ESTIMATED GFR STAT 10/12/2019 5:00 PM COAL WHEELER HC COMPLETE BLD COUNT STAT 10/12/2019 W/AUTO DIFF 5:00 PM COAL WHEELER BASIC METABOLIC PANEL STAT 10/12/2019 5:00 PM COAL WHEELER PHOSPHORUS LEVEL Routine 10/12/2019 5:00 PM COAL WHEELER MAGNESIUM LEVEL Routine 10/12/2019 5:00 PM COAL WHEELER POTASSIUM LEVEL Routine 10/12/2019 5:00 PM COAL WHEELER IONIZED CALCIUM Routine 10/12/2019 5:00 PM COAL WHEELER POC GLUCOSE Routine 10/12/2019 10:42 AM COAL WHEELER POC GLUCOSE Routine 10/12/2019 7:16 AM COAL WHEELER XR CHEST 1 VW PORTABLE Routine 10/12/2019 6:10 AM COAL WHEELER IONIZED CALCIUM Routine 10/12/2019 4:00 AM COAL WHEELER BILIRUBIN DIRECT Routine 10/12/2019 4:00 AM COAL WHEELER ESTIMATED GFR Routine 10/12/2019 4:00 AM COAL WHEELER PROTHROMBIN TIME WITH INR Routine 10/12/2019 4:00 AM COAL WHEELER PARTIAL THROMBOPLASTIN Routine 10/12/2019 TIME (PTT) 4:00 AM COAL WHEELER PHOSPHORUS LEVEL Routine 10/12/2019 4:00 AM COAL WHEELER MAGNESIUM LEVEL Routine 10/12/2019 4:00 AM COAL WHEELER LDH Routine 10/12/2019 4:00 AM COAL WHEELER IONIZED CALCIUM Routine 10/12/2019 4:00 AM COAL WHEELER COMPREHENSIVE METABOLIC Routine 10/12/2019 PANEL 4:00 AM COAL WHEELER O2 SATURATION, VENOUS Routine 10/12/2019 3:50 AM COAL WHEELER HC COMPLETE BLD COUNT Routine 10/12/2019 W/AUTO DIFF 3:50 AM COAL WHEELER PARTIAL THROMBOPLASTIN Routine 10/11/2019 TIME (PTT) 11:15 PM COAL WHEELER POC GLUCOSE Routine 10/11/2019 8:59 PM COAL WHEELER POC GLUCOSE Routine 10/11/2019 5:01 PM COAL WHEELER HC COMPLETE BLD COUNT STAT 10/11/2019 W/AUTO DIFF 5:00 PM COAL WHEELER ESTIMATED GFR STAT 10/11/2019 4:52 PM COAL WHEELER BASIC METABOLIC PANEL STAT 10/11/2019 4:52 PM COAL WHEELER PHOSPHORUS LEVEL Routine 10/11/2019 4:52 PM COAL WHEELER MAGNESIUM LEVEL Routine 10/11/2019 4:52 PM COAL WHEELER POTASSIUM LEVEL Routine 10/11/2019 4:52 PM COAL WHEELER IONIZED CALCIUM Routine 10/11/2019 4:52 PM COAL WHEELER POC GLUCOSE Routine 10/11/2019 10:31 AM COAL WHEELER POC GLUCOSE Routine 10/11/2019 7:15 AM COAL WHEELER XR CHEST 1 VW PORTABLE Routine 10/11/2019 6:15 AM COAL WHEELER BILIRUBIN DIRECT Routine 10/11/2019 3:35 AM COAL WHEELER ESTIMATED GFR Routine 10/11/2019 3:35 AM COAL WHEELER O2 SATURATION, VENOUS Routine 10/11/2019 3:35 AM COAL WHEELER PARTIAL THROMBOPLASTIN Routine 10/11/2019 TIME (PTT) 3:35 AM COAL WHEELER PHOSPHORUS LEVEL Routine 10/11/2019 3:35 AM COAL WHEELER MAGNESIUM LEVEL Routine 10/11/2019 3:35 AM COAL WHEELER LDH Routine 10/11/2019 3:35 AM COAL WHEELER IONIZED CALCIUM Routine 10/11/2019 3:35 AM COAL WHEELER COMPREHENSIVE METABOLIC Routine 10/11/2019 PANEL 3:35 AM COAL WHEELER HC COMPLETE BLD COUNT Routine 10/11/2019 W/AUTO DIFF 3:35 AM COAL WHEELER POC GLUCOSE Routine 10/10/2019 8:52 PM COAL WHEELER ESTIMATED GFR Routine 10/10/2019 4:20 PM COAL WHEELER IONIZED CALCIUM Routine 10/10/2019 4:20 PM COAL WHEELER MAGNESIUM LEVEL Routine 10/10/2019 4:20 PM COAL WHEELER PHOSPHORUS LEVEL Routine 10/10/2019 4:20 PM COAL WHEELER BASIC METABOLIC PANEL Routine 10/10/2019 4:20 PM COAL WHEELER POC GLUCOSE Routine 10/10/2019 4:06 PM COAL WHEELER POC GLUCOSE Routine 10/10/2019 10:31 AM COAL WHEELER O2 SATURATION, VENOUS Routine 10/10/2019 9:00 AM COAL WHEELER POC GLUCOSE Routine 10/10/2019 7:06 AM COAL WHEELER XR CHEST 1 VW PORTABLE Routine 10/10/2019 5:25 AM COAL WHEELER BILIRUBIN DIRECT Routine 10/10/2019 3:30 AM COAL WHEELER ESTIMATED GFR Routine 10/10/2019 3:30 AM COAL WHEELER PHOSPHORUS LEVEL Routine 10/10/2019 3:30 AM COAL WHEELER MAGNESIUM LEVEL Routine 10/10/2019 3:30 AM COAL WHEELER LDH Routine 10/10/2019 3:30 AM COAL WHEELER IONIZED CALCIUM Routine 10/10/2019 3:30 AM COAL WHEELER COMPREHENSIVE METABOLIC Routine 10/10/2019 PANEL 3:30 AM COAL WHEELER HC COMPLETE BLD COUNT Routine 10/10/2019 W/AUTO DIFF 3:30 AM COAL WHEELER PARTIAL THROMBOPLASTIN Routine 10/10/2019 TIME (PTT) 3:30 AM COAL WHEELER ESTIMATED GFR Routine 10/09/2019 9:26 PM COAL WHEELER IONIZED CALCIUM Routine 10/09/2019 9:26 PM COAL WHEELER PHOSPHORUS LEVEL Routine 10/09/2019 9:26 PM COAL WHEELER MAGNESIUM LEVEL Routine 10/09/2019 9:26 PM COAL WHEELER BASIC METABOLIC PANEL Routine 10/09/2019 9:26 PM COAL WHEELER PARTIAL THROMBOPLASTIN Routine 10/09/2019 TIME (PTT) 9:19 PM COAL WHEELER POC GLUCOSE Routine 10/09/2019 8:53 PM COAL WHEELER POC GLUCOSE Routine 10/09/2019 5:01 PM COAL WHEELER O2 SATURATION, VENOUS Routine 10/09/2019 4:20 PM COAL WHEELER POC GLUCOSE Routine 10/09/2019 1:10 PM COAL WHEELER ESTIMATED GFR Routine 10/09/2019 12:10 PM COAL WHEELER IONIZED CALCIUM Routine 10/09/2019 12:10 PM COAL WHEELER PHOSPHORUS LEVEL Routine 10/09/2019 12:10 PM COAL WHEELER MAGNESIUM LEVEL Routine 10/09/2019 12:10 PM COAL WHEELER BASIC METABOLIC PANEL Routine 10/09/2019 12:10 PM COAL WHEELER POC GLUCOSE Routine 10/09/2019 10:39 AM COAL WHEELER PARTIAL THROMBOPLASTIN Timed 10/09/2019 TIME (PTT) 8:30 AM COAL WHEELER POC GLUCOSE Routine 10/09/2019 7:25 AM COAL WHEELER XR CHEST 1 VW PORTABLE Routine 10/09/2019 5:48 AM COAL WHEELER O2 SATURATION, VENOUS Routine 10/09/2019 3:20 AM COAL WHEELER BILIRUBIN DIRECT Routine 10/09/2019 3:20 AM COAL WHEELER ESTIMATED GFR Routine 10/09/2019 3:20 AM COAL WHEELER IONIZED CALCIUM Routine 10/09/2019 3:20 AM COAL WHEELER PHOSPHORUS LEVEL Routine 10/09/2019 3:20 AM COAL WHEELER MAGNESIUM LEVEL Routine 10/09/2019 3:20 AM COAL WHEELER LDH Routine 10/09/2019 3:20 AM COAL WHEELER COMPREHENSIVE METABOLIC Routine 10/09/2019 PANEL 3:20 AM COAL WHEELER HC COMPLETE BLD COUNT Routine 10/09/2019 W/AUTO DIFF 3:20 AM COAL WHEELER POC GLUCOSE Routine 10/08/2019 9:22 PM COAL WHEELER ECG PRE/POST OP Routine 10/08/2019 8:33 PM COAL WHEELER CV SELECTIVE CORONARY Routine 10/08/2019 Cardiomy opathy, ANGIOGRAPHY 7:49 PM COAL WHEELER unspecified type (H CC) CV PCI Routine 10/08/2019 Cardiomyopathy, 7:49 PM COAL WHEELER unspecified type (HCC) CV SELECTIVE ANGIOGRAPHY Routine 10/08/2019 Cardi omyopathy, BYPASS GRAFT 7:49 PM COAL WHEELER unspecified type (H CC) ACTIVATED CLOTTING TIME Routine 10/08/2019 7:18 PM COAL WHEELER POC GLUCOSE Routine 10/08/2019 4:25 PM COAL WHEELER ESTIMATED GFR Routine 10/08/2019 11:40 AM COAL WHEELER IONIZED CALCIUM Routine 10/08/2019 11:40 AM COAL WHEELER PHOSPHORUS LEVEL Routine 10/08/2019 11:40 AM COAL WHEELER MAGNESIUM LEVEL Routine 10/08/2019 11:40 AM COAL WHEELER BASIC METABOLIC PANEL Routine 10/08/2019 11:40 AM COAL WHEELER POC GLUCOSE Routine 10/08/2019 10:38 AM COAL WHEELER POC GLUCOSE Routine 10/08/2019 7:16 AM COAL WHEELER XR CHEST 1 VW PORTABLE Routine 10/08/2019 6:15 AM COAL WHEELER O2 SATURATION, VENOUS Routine 10/08/2019 4:00 AM COAL WHEELER BILIRUBIN DIRECT Routine 10/08/2019 3:45 AM COAL WHEELER ESTIMATED GFR Routine 10/08/2019 3:45 AM COAL WHEELER IONIZED CALCIUM Routine 10/08/2019 3:45 AM COAL WHEELER PHOSPHORUS LEVEL Routine 10/08/2019 3:45 AM COAL WHEELER MAGNESIUM LEVEL Routine 10/08/2019 3:45 AM COAL WHEELER LDH Routine 10/08/2019 3:45 AM COAL WHEELER COMPREHENSIVE METABOLIC Routine 10/08/2019 PANEL 3:45 AM COAL WHEELER HC COMPLETE BLD COUNT Routine 10/08/2019 W/AUTO DIFF 3:25 AM COAL WHEELER PARTIAL THROMBOPLASTIN Timed 10/08/2019 TIME (PTT) 3:25 AM COAL WHEELER O2 SATURATION, VENOUS Routine 10/08/2019 3:25 AM COAL WHEELER PARTIAL THROMBOPLASTIN Timed 10/07/2019 TIME (PTT) 9:50 PM COAL WHEELER POC GLUCOSE Routine 10/07/2019 8:42 PM COAL WHEELER POC GLUCOSE Routine 10/07/2019 4:38 PM COAL WHEELER PARTIAL THROMBOPLASTIN Timed 10/07/2019 TIME (PTT) 12:35 PM COAL WHEELER O2 SATURATION, VENOUS Routine 10/07/2019 12:35 PM COAL WHEELER ESTIMATED GFR Timed 10/07/2019 12:35 PM COAL WHEELER PHOSPHORUS LEVEL Timed 10/07/2019 12:35 PM COAL WHEELER MAGNESIUM LEVEL Timed 10/07/2019 12:35 PM COAL WHEELER IONIZED CALCIUM Timed 10/07/2019 12:35 PM COAL WHEELER BASIC METABOLIC PANEL Timed 10/07/2019 12:35 PM COAL WHEELER POC GLUCOSE Routine 10/07/2019 11:09 AM COAL WHEELER TROPONIN Routine 10/07/2019 9:34 AM COAL WHEELER XR CHEST 1 VW PORTABLE STAT 10/07/2019 8:29 AM COAL WHEELER POC GLUCOSE Routine 10/07/2019 7:13 AM COAL WHEELER PARTIAL THROMBOPLASTIN Timed 10/07/2019 TIME (PTT) 6:42 AM COAL WHEELER HEPATIC FUNCTION PANEL Routine 10/07/2019 4:00 AM COAL WHEELER ESTIMATED GFR Routine 10/07/2019 4:00 AM COAL WHEELER PARTIAL THROMBOPLASTIN Routine 10/07/2019 TIME (PTT) 4:00 AM COAL WHEELER PHOSPHORUS LEVEL Routine 10/07/2019 4:00 AM COAL WHEELER MAGNESIUM LEVEL Routine 10/07/2019 4:00 AM COAL WHEELER BASIC METABOLIC PANEL Routine 10/07/2019 4:00 AM COAL WHEELER VANCOMYCIN LEVEL, RANDOM Routine 10/07/2019 4:00 AM COAL WHEELER O2 SATURATION, VENOUS Routine 10/07/2019 3:45 AM COAL WHEELER PROTHROMBIN TIME WITH INR Routine 10/07/2019 3:45 AM COAL WHEELER HC COMPLETE BLD COUNT Routine 10/07/2019 W/AUTO DIFF 3:45 AM COAL WHEELER TTE COMPLETE, WO STAT 10/07/2019 CONTRAST, W DOPPLER 2:55 AM COAL WHEELER ([id number]) GRAM STAIN Routine 10/06/2019 11:50 PM COAL WHEELER ANAEROBIC CULTURE Routine 10/06/2019 11:50 PM COAL WHEELER AEROBIC CULTURE Routine 10/06/2019 11:50 PM COAL WHEELER TROPONIN Routine 10/06/2019 11:00 PM COAL WHEELER PH, MISC FLUID Routine 10/06/2019 11:00 PM COAL WHEELER CELL COUNT AND Routine 10/06/2019 DIFFERENTIAL, BODY FLUID 11:00 PM COAL WHEELER LDH, MISC FLUID Routine 10/06/2019 11:00 PM COAL WHEELER PROTEIN, MISC FLUID Routine 10/06/2019 11:00 PM COAL WHEELER PROTEIN, TOTAL Routine 10/06/2019 11:00 PM COAL WHEELER LDH Routine 10/06/2019 11:00 PM COAL WHEELER ARTERIAL BLOOD GAS Routine 10/06/2019 11:00 PM COAL WHEELER XR CHEST 1 VW PORTABLE STAT 10/06/2019 10:55 PM COAL WHEELER THORACENTESIS Routine 10/06/2019 Chronic combine d systolic 10:46 PM COAL WHEELER and diastolic congestive heart failure (HCC) XR CHEST 1 VW PORTABLE STAT 10/06/2019 8:37 PM COAL WHEELER TROPONIN Routine 10/06/2019 8:04 PM COAL WHEELER ESTIMATED GFR Routine 10/06/2019 8:04 PM COAL WHEELER PARTIAL THROMBOPLASTIN Routine 10/06/2019 TIME (PTT) 8:04 PM COAL WHEELER PROTHROMBIN TIME WITH INR Routine 10/06/2019 8:04 PM COAL WHEELER LACTIC ACID LEVEL Routine 10/06/2019 8:04 PM COAL WHEELER IONIZED CALCIUM Routine 10/06/2019 8:04 PM COAL WHEELER PHOSPHORUS LEVEL Routine 10/06/2019 8:04 PM COAL WHEELER MAGNESIUM LEVEL Routine 10/06/2019 8:04 PM COAL WHEELER COMPREHENSIVE METABOLIC Routine 10/06/2019 PANEL 8:04 PM COAL WHEELER HC COMPLETE BLD COUNT Routine 10/06/2019 W/AUTO DIFF 8:04 PM COAL WHEELER O2 SATURATION, VENOUS Routine 10/06/2019 8:04 PM COAL WHEELER POC GLUCOSE Routine 10/06/2019 8:01 PM COAL WHEELER ECG 12-LEAD STAT 10/06/2019 7:57 PM COAL WHEELER CV INTRA AORTIC BALLOON Routine 10/06/2019 PUMP REMOVAL 6:05 PM COAL WHEELER POC GLUCOSE Routine 10/06/2019 5:01 PM COAL WHEELER AL INSERT Routine 10/06/2019 Chronic combine d systolic CATH,ART,PERCUT,SHORTTERM 4:36 PM COAL WHEELER and diastol ic congestive heart failure (HCC) TROPONIN Timed 10/06/2019 3:42 PM COAL WHEELER HEMOGLOBIN & HEMATOCRIT Routine 10/06/2019 3:42 PM COAL WHEELER O2 SATURATION, VENOUS Routine 10/06/2019 3:42 PM COAL WHEELER LACTIC ACID LEVEL, SEPSIS Timed 10/06/2019 - NOW AND REPEAT 2X EVERY 3:42 PM COAL WHEELER 3 HOURS INSERT LINE Routine 10/06/2019 Acute on chroni c systolic 3:05 PM COAL WHEELER heart failure (HCC) Ischemic cardiomyopathy LACTIC ACID LEVEL, SEPSIS Timed 10/06/2019 - NOW AND REPEAT 2X EVERY 1:26 PM COAL WHEELER 3 HOURS POC GLUCOSE Routine 10/06/2019 12:58 PM COAL WHEELER US GALLBLADDER Routine 10/06/2019 12:04 PM COAL WHEELER O2 SATURATION, VENOUS STAT 10/06/2019 11:36 AM COAL WHEELER PROTHROMBIN TIME WITH INR Routine 10/06/2019 11:35 AM COAL WHEELER TROPONIN STAT 10/06/2019 11:34 AM COAL WHEELER THYROID STIMULATING Routine 10/06/2019 HORMONE 11:33 AM COAL WHEELER HEPATIC FUNCTION PANEL Routine 10/06/2019 11:33 AM COAL WHEELER DIGOXIN LEVEL Routine 10/06/2019 11:33 AM COAL WHEELER LACTIC ACID LEVEL, SEPSIS STAT 10/06/2019 - NOW AND REPEAT 2X EVERY 11:33 AM COAL WHEELER 3 HOURS TROPONIN STAT 10/06/2019 11:33 AM COAL WHEELER XR CHEST 1 VW PORTABLE STAT 10/06/2019 11:20 AM COAL WHEELER ECG 12-LEAD STAT 10/06/2019 10:16 AM COAL WHEELER POC GLUCOSE Routine 10/06/2019 10:[address] ABDOMEN PELVIS WO STAT 10/06/2019 CONTRAST 9:35 AM COAL WHEELER RESPIRATORY PATHOGEN Routine 10/06/2019 PANEL 9:00 AM COAL WHEELER BLOOD CULTURE, AEROBIC & Routine 10/06/2019 ANAEROBIC 8:57 AM COAL WHEELER CELL COUNT AND Routine 10/06/2019 DIFFERENTIAL, BODY FLUID 8:55 AM COAL WHEELER BLOOD CULTURE, AEROBIC & Routine 10/06/2019 ANAEROBIC 8:55 AM COAL WHEELER GRAM STAIN Routine 10/06/2019 8:55 AM COAL WHEELER XR CHEST 1 VW PORTABLE STAT 10/06/2019 8:45 AM COAL WHEELER BLOOD CULTURE, AEROBIC & Routine 10/06/2019 ANAEROBIC 8:45 AM COAL WHEELER POC GLUCOSE Routine 10/06/2019 8:32 AM COAL WHEELER ECG 12-LEAD Routine 10/06/2019 8:23 AM COAL WHEELER ARTERIAL BLOOD GAS STAT 10/06/2019 8:20 AM COAL WHEELER POC GLUCOSE Routine 10/06/2019 7:37 AM COAL WHEELER LACTIC ACID LEVEL STAT 10/06/2019 6:46 AM COAL WHEELER POC GLUCOSE Routine 10/06/2019 6:14 AM COAL WHEELER ECG 12-LEAD Routine 10/06/2019 6:09 AM COAL WHEELER POC GLUCOSE Routine 10/06/2019 4:01 AM COAL WHEELER MAGNESIUM LEVEL Routine 10/06/2019 4:00 AM COAL WHEELER T4, FREE Routine 10/06/2019 4:00 AM COAL WHEELER ESTIMATED GFR Routine 10/06/2019 4:00 AM COAL WHEELER CBC HEMOGRAM Routine 10/06/2019 4:00 AM COAL WHEELER THYROID STIMULATING Routine 10/06/2019 HORMONE 4:00 AM COAL WHEELER BASIC METABOLIC PANEL Routine 10/06/2019 4:00 AM COAL WHEELER HEPATIC FUNCTION PANEL Routine 10/06/2019 4:00 AM COAL WHEELER VITAMIN D 25 HYDROXY Routine 10/06/2019 LEVEL 4:00 AM COAL WHEELER POC GLUCOSE Routine 10/06/2019 12:29 AM COAL WHEELER XR ABDOMEN 1 VW PORTABLE STAT 10/05/2019 11:31 PM COAL WHEELER POC GLUCOSE Routine 10/05/2019 8:39 PM COAL WHEELER POC GLUCOSE Routine 10/05/2019 5:59 PM COAL WHEELER POC GLUCOSE Routine 10/05/2019 11:25 AM COAL WHEELER POC GLUCOSE Routine 10/05/2019 7:54 AM COAL WHEELER MANUAL DIFFERENTIAL Routine 10/05/2019 6:15 AM COAL WHEELER CBC WITH PLATELET AND Routine 10/05/2019 DIFFERENTIAL 6:15 AM COAL WHEELER ESTIMATED GFR Routine 10/05/2019 4:00 AM COAL WHEELER PHOSPHORUS LEVEL Routine 10/05/2019 4:00 AM COAL WHEELER MAGNESIUM LEVEL Routine 10/05/2019 4:00 AM COAL WHEELER BASIC METABOLIC PANEL Routine 10/05/2019 4:00 AM COAL WHEELER POC GLUCOSE Routine 10/04/2019 9:06 PM COAL WHEELER POC GLUCOSE Routine 10/04/2019 4:45 PM COAL WHEELER POC GLUCOSE Routine 10/04/2019 11:53 AM COAL WHEELER POC GLUCOSE Routine 10/04/2019 8:18 AM COAL WHEELER THYROID STIMULATING Routine 10/04/2019 HORMONE 5:45 AM COAL WHEELER T4, FREE Routine 10/04/2019 5:45 AM COAL WHEELER ESTIMATED GFR Routine 10/04/2019 5:45 AM COAL WHEELER HC COMPLETE BLD COUNT Routine 10/04/2019 W/AUTO DIFF 5:45 AM COAL WHEELER PHOSPHORUS LEVEL Routine 10/04/2019 5:45 AM COAL WHEELER MAGNESIUM LEVEL Routine 10/04/2019 5:45 AM COAL WHEELER BASIC METABOLIC PANEL Routine 10/04/2019 5:45 AM COAL WHEELER VITAMIN D 25 HYDROXY Routine 10/04/2019 LEVEL 12:[address] ANGIOGRAM ABDOMINAL Routine 10/03/2019 AORTA AND BILATERAL 10:14 PM COAL WHEELER ILIOFEMORAL RUNOFF W WO CONTRAST POC GLUCOSE Routine 10/03/2019 9:03 PM COAL WHEELER ECG 12-LEAD Routine 10/03/2019 8:52 PM COAL WHEELER POC GLUCOSE Routine 10/03/2019 5:37 PM COAL WHEELER NICOTINE AND COTININE, Routine 10/03/2019 SERUM 11:32 AM COAL WHEELER POC GLUCOSE Routine 10/03/2019 11:09 AM COAL WHEELER HEMODIALYSIS Routine 10/03/2019 9:52 AM COAL WHEELER POC GLUCOSE Routine 10/03/2019 7:53 AM COAL WHEELER B NATRIURETIC PEPTIDE Routine 10/03/2019 5:30 AM COAL WHEELER HC COMPLETE BLD COUNT Routine 10/03/2019 W/AUTO DIFF 5:30 AM COAL WHEELER ESTIMATED GFR Routine 10/03/2019 4:00 AM COAL WHEELER PHOSPHORUS LEVEL Routine 10/03/2019 4:00 AM COAL WHEELER MAGNESIUM LEVEL Routine 10/03/2019 4:00 AM COAL WHEELER BASIC METABOLIC PANEL Routine 10/03/2019 4:00 AM COAL WHEELER POC GLUCOSE Routine 10/02/2019 8:00 PM COAL WHEELER ECG 12-LEAD Routine 10/02/2019 1:53 PM COAL WHEELER HEPATITIS B SURFACE STAT 10/02/2019 ANTIGEN 1:43 PM COAL WHEELER HEMODIALYSIS Routine 10/02/2019 12:40 PM COAL WHEELER XR CHEST 1 VW PORTABLE STAT 10/02/2019 12:39 PM COAL WHEELER POC GLUCOSE Routine 10/02/2019 11:41 AM COAL WHEELER CV NON TUNNELED CATHETER Routine 10/02/2019 Chron ic combined systolic INSERTION 10:55 AM COAL WHEELER and diastolic conge stive heart failure (HCC) CV RIGHT HEART CATH Routine 10/02/2019 Chronic co mbined systolic 10:55 AM COAL WHEELER and diastolic congestive heart failure (HCC) POC PANEL Routine 10/02/2019 7:47 AM COAL WHEELER ESTIMATED GFR Routine 10/02/2019 7:47 AM COAL WHEELER ECG 12-LEAD Routine 09/25/2019 Coronary artery disease 9:02 AM COAL WHEELER involving [place] coronary artery of [place] heart without angina pectoris Essential hypertension Paroxysmal atrial fibrillation (HCC) Hyperlipidemia, unspecified hyperlipidemia type ESRD (end stage renal disease) on dialysis (HCC) Chronic combined systolic and diastolic congestive heart failure (HCC) ESTIMATED GFR Routine 09/25/2019 8:34 AM COAL WHEELER MAGNESIUM LEVEL Routine 09/25/2019 Coronary arter y disease 8:34 AM COAL WHEELER involving [place] coronary artery of [place] heart without angina pectoris Essential hypertension Paroxysmal atrial fibrillation (HCC) Hyperlipidemia, unspecified hyperlipidemia type ESRD (end stage renal disease) on dialysis (HCC) Chronic combined systolic and diastolic congestive heart failure (HCC) URIC ACID LEVEL Routine 09/25/2019 Coronary arter y disease 8:34 AM COAL WHEELER involving [place] coronary artery of [place] heart without angina pectoris Essential hypertension Paroxysmal atrial fibrillation (HCC) Hyperlipidemia, unspecified hyperlipidemia type ESRD (end stage renal disease) on dialysis (HCC) Chronic combined systolic and diastolic congestive heart failure (HCC) LIPID PANEL Routine 09/25/2019 Coronary artery disease 8:34 AM COAL WHEELER involving [place] coronary artery of [place] heart without angina pectoris Essential hypertension Paroxysmal atrial fibrillation (HCC) Hyperlipidemia, unspecified hyperlipidemia type ESRD (end stage renal disease) on dialysis (HCC) Chronic combined systolic and diastolic congestive heart failure (HCC) B NATRIURETIC PEPTIDE Routine 09/25/2019 Coronary artery disease 8:34 AM COAL WHEELER involving [place] coronary artery of [place] heart without angina pectoris Essential hypertension Paroxysmal atrial fibrillation (HCC) Hyperlipidemia, unspecified hyperlipidemia type ESRD (end stage renal disease) on dialysis (HCC) Chronic combined systolic and diastolic congestive heart failure (HCC) COMPREHENSIVE METABOLIC Routine 09/25/2019 [place] artery disease PANEL 8:34 AM COAL WHEELER involving [place] co ronary artery of [place] heart without angina pectoris Essential hypertension Paroxysmal atrial fibrillation (HCC) Hyperlipidemia, unspecified hyperlipidemia type ESRD (end stage renal disease) on dialysis (HCC) Chronic combined systolic and diastolic congestive heart failure (HCC) HC COMPLETE BLD COUNT Routine 09/25/2019 Coronary artery disease W/AUTO DIFF 8:34 AM COAL WHEELER involving [place] co ronary artery of [place] heart without angina pectoris Essential hypertension Paroxysmal atrial fibrillation (HCC) Hyperlipidemia, unspecified hyperlipidemia type ESRD (end stage renal disease) on dialysis ([facility]) Chronic combined systolic and diastolic congestive heart failure (HCC) CV TREADMILL STRESS TEST Routine 09/03/2019 Chron ic combined systolic 3:06 PM COAL WHEELER and diastolic congestive heart failure (HCC) CT HEAD WO CONTRAST Routine 09/03/2019 Encounter for 1:13 PM COAL WHEELER pre-transplant evaluation for heart transplant Ischemic cardiomyopathy Acute on chronic combined systolic and diastolic congestive heart failure ([facility]) CT CHEST WO CONTRAST Routine 09/03/2019 Encounter for ABDOMEN WO CONTRAST 1:13 PM COAL WHEELER pre-transplant ev aluation PELVIS WO CONTRAST for heart transplant Ischemic cardiomyopathy Acute on chronic combined systolic and diastolic congestive heart failure (HCC) S/P CABG x 4 US RENAL Routine 09/03/2019 ESRD (end stage renal 11:17 AM COAL WHEELER disease) on dialysis ([facility]) Encounter for pre-transplant evaluation for heart transplant Ischemic cardiomyopathy Acute on chronic combined systolic and diastolic congestive heart failure ([facility]) XR CHEST 2 VW Routine 09/03/2019 Encounter for 10:36 AM COAL WHEELER pre-transplant evaluation for heart transplant Ischemic cardiomyopathy Acute on chronic combined systolic and diastolic congestive heart failure (HCC) S/P CABG x 4 XR PANOREX Routine 09/03/2019 Encounter for 10:35 AM COAL WHEELER pre-transplant evaluation for heart transplant Ischemic cardiomyopathy Acute on chronic combined systolic and diastolic congestive heart failure ([facility]) US CAROTID DUPLEX Routine 09/03/2019 Encounter fo r BILATERAL 10:00 AM COAL WHEELER pre-transplant eval uation for heart transplant Ischemic cardiomyopathy Acute on chronic combined systolic and diastolic congestive heart failure ([facility]) PV PHYSIOLOGIC ARTERIAL Routine 09/03/2019 PAD (p eripheral artery LOWER EXTREMITY COMPLETE 9:00 AM COAL WHEELER disease) (HC C) Encounter for pre-transplant evaluation for heart transplant Ischemic cardiomyopathy Acute on chronic combined systolic and diastolic congestive heart failure ([facility]) SIX MINUTE WALK W/ PULSE Routine 09/02/2019 SOB ( shortness of breath) OXIMETRY 8:36 AM COAL WHEELER SPIROMETRY, DIFFUSION Routine 09/02/2019 SOB (mare rtness of breath) 7:56 AM COAL WHEELER ECG 12-LEAD Routine 08/14/2019 Paroxysmal atri al 8:20 AM COAL WHEELER fibrillation ([facility]) Encounter for pre-transplant evaluation for heart transplant Ischemic cardiomyopathy Chronic combined systolic and diastolic congestive heart failure ([facility]) ABORH - TRANSPLANT Routine 08/14/2019 Encounter f or 8:10 AM COAL WHEELER pre-transplant evaluation for heart transplant Ischemic cardiomyopathy Acute on chronic combined systolic and diastolic congestive heart failure ([facility]) HLA AUTOLOGOUS CROSSMATCH Routine 08/14/2019 7:55 AM COAL WHEELER SINGLE ANTIGEN BEADS Routine 08/14/2019 7:55 AM COAL WHEELER LOW RESOLUTION FULL Routine 08/14/2019 TYPING BY SSO 7:55 AM COAL WHEELER PROTEIN, URINE, RANDOM Routine 08/14/2019 7:55 AM COAL WHEELER ESTIMATED GFR Routine 08/14/2019 7:55 AM COAL WHEELER DRUG GUARDADO 9, SER/RAMO, SCRN Routine 08/14/2019 Pre- transplant evaluation W/RFLX TO CONF 7:55 AM COAL WHEELER for heart transplan t NICOTINE AND COTININE, Routine 08/14/2019 Pre-tra nsplant evaluation SERUM 7:55 AM COAL WHEELER for heart transplan t DIGOXIN LEVEL Routine 08/14/2019 Encounter for 7:55 AM COAL WHEELER pre-transplant evaluation for heart transplant Encounter for monitoring digoxin therapy Ischemic cardiomyopathy Acute on chronic combined systolic and diastolic congestive heart failure ([facility]) HIV AG/AB COMBINATION Routine 08/14/2019 Encounte r for 7:55 AM COAL WHEELER pre-transplant evaluation for heart transplant Ischemic cardiomyopathy Acute on chronic combined systolic and diastolic congestive heart failure ([facility]) SHONDA-SAHU VIRUS Routine 08/14/2019 Encounter f or ANTIBODY TEST 7:55 AM COAL WHEELER pre-transplant eval uation for heart transplant Ischemic cardiomyopathy Acute on chronic combined systolic and diastolic congestive heart failure (HCC) TYPE AND SCREEN Routine 08/14/2019 Encounter for 7:55 AM COAL WHEELER pre-transplant evaluation for heart transplant Ischemic cardiomyopathy Acute on chronic combined systolic and diastolic congestive heart failure (HCC) URINALYSIS SCREEN AND Routine 08/14/2019 Encounte r for MICROSCOPY, WITH REFLEX 7:55 AM COAL WHEELER pre-transplan t evaluation TO CULTURE for heart transplant Ischemic cardiomyopathy Acute on chronic combined systolic and diastolic congestive heart failure (HCC) MICROALBUMIN, URINE, Routine 08/14/2019 Encounter for RANDOM 7:55 AM COAL WHEELER pre-transplant eval uation for heart transplant Ischemic cardiomyopathy Acute on chronic combined systolic and diastolic congestive heart failure (HCC) PROSTATE SPECIFIC ANTIGEN Routine 08/14/2019 Enco unter for 7:55 AM COAL WHEELER pre-transplant evaluation for heart transplant Ischemic cardiomyopathy Acute on chronic combined systolic and diastolic congestive heart failure (HCC) FERRITIN LEVEL Routine 08/14/2019 Encounter for 7:55 AM COAL WHEELER pre-transplant evaluation for heart transplant Ischemic cardiomyopathy Acute on chronic combined systolic and diastolic congestive heart failure (HCC) TB T-SPOT Routine 08/14/2019 Encounter for 7:55 AM COAL WHEELER pre-transplant evaluation for heart transplant Ischemic cardiomyopathy Acute on chronic combined systolic and diastolic congestive heart failure (HCC) TOXOPLASMA IGM AB Routine 08/14/2019 Encounter fo r 7:55 AM COAL WHEELER pre-transplant evaluation for heart transplant Ischemic cardiomyopathy Acute on chronic combined systolic and diastolic congestive heart failure (HCC) TOXOPLASMA GONDII Routine 08/14/2019 Encounter fo r ANTIBODY, IGG 7:55 AM COAL WHEELER pre-transplant eval uation for heart transplant Ischemic cardiomyopathy Acute on chronic combined systolic and diastolic congestive heart failure (HCC) CYTOMEGALOVIRUS AB, IGM Routine 08/14/[address] for 7:55 AM COAL WHEELER pre-transplant evaluation for heart transplant Ischemic cardiomyopathy Acute on chronic combined systolic and diastolic congestive heart failure (HCC) CYTOMEGALOVIRUS AB, IGG Routine 08/14/[address] for 7:55 AM COAL WHEELER pre-transplant evaluation for heart transplant Ischemic cardiomyopathy Acute on chronic combined systolic and diastolic congestive heart failure (HCC) HEPATITIS A ANTIBODY Routine 08/14/2019 Encounter for TOTAL 7:55 AM COAL WHEELER pre-transplant eval uation for heart transplant Ischemic cardiomyopathy Acute on chronic combined systolic and diastolic congestive heart failure (HCC) HEPATITIS B CORE ANTIBODY Routine 08/14/2019 [place] unter for TOTAL 7:55 AM COAL WHEELER pre-transplant eval uation for heart transplant Ischemic cardiomyopathy Acute on chronic combined systolic and diastolic congestive heart failure (HCC) HEPATITIS B SURFACE Routine 08/14/2019 Encounter for ANTIBODY 7:55 AM COAL WHEELER pre-transplant eval uation for heart transplant Ischemic cardiomyopathy Acute on chronic combined systolic and diastolic congestive heart failure (HCC) HEPATITIS ACUTE PANEL Routine 08/14/2019 Encounte r for 7:55 AM COAL WHEELER pre-transplant evaluation for heart transplant Ischemic cardiomyopathy Acute on chronic combined systolic and diastolic congestive heart failure (HCC) LDH Routine 08/14/2019 Encounter for 7:55 AM COAL WHEELER pre-transplant evaluation for heart transplant Ischemic cardiomyopathy Acute on chronic combined systolic and diastolic congestive heart failure (HCC) URIC ACID LEVEL Routine 08/14/2019 Encounter for 7:55 AM COAL WHEELER pre-transplant evaluation for heart transplant Ischemic cardiomyopathy Acute on chronic combined systolic and diastolic congestive heart failure (HCC) PHOSPHORUS LEVEL Routine 08/14/2019 Encounter for 7:55 AM COAL WHEELER pre-transplant evaluation for heart transplant Ischemic cardiomyopathy Acute on chronic combined systolic and diastolic congestive heart failure (HCC) MAGNESIUM LEVEL Routine 08/14/2019 Encounter for 7:55 AM COAL WHEELER pre-transplant evaluation for heart transplant Ischemic cardiomyopathy Acute on chronic combined systolic and diastolic congestive heart failure (HCC) PREALBUMIN LEVEL Routine 08/14/2019 Encounter for 7:55 AM COAL WHEELER pre-transplant evaluation for heart transplant Ischemic cardiomyopathy Acute on chronic combined systolic and diastolic congestive heart failure (HCC) SYPHILIS TOTAL ANTIBODY Routine 08/14/[address] for 7:55 AM COAL WHEELER pre-transplant evaluation for heart transplant Ischemic cardiomyopathy Acute on chronic combined systolic and diastolic congestive heart failure (HCC) T4, FREE Routine 08/14/2019 Encounter for 7:55 AM COAL WHEELER pre-transplant evaluation for heart transplant Ischemic cardiomyopathy Acute on chronic combined systolic and diastolic congestive heart failure (HCC) Fatigue, unspecified type T4 Routine 08/14/2019 Encounter for 7:55 AM COAL WHEELER pre-transplant evaluation for heart transplant Ischemic cardiomyopathy Acute on chronic combined systolic and diastolic congestive heart failure (HCC) Fatigue, unspecified type T3 Routine 08/14/2019 Encounter for 7:55 AM COAL WHEELER pre-transplant evaluation for heart transplant Ischemic cardiomyopathy Acute on chronic combined systolic and diastolic congestive heart failure (HCC) Fatigue, unspecified type THYROID STIMULATING Routine 08/14/2019 Encounter for HORMONE 7:55 AM COAL WHEELER pre-transplant eval uation for heart transplant Ischemic cardiomyopathy Acute on chronic combined systolic and diastolic congestive heart failure (HCC) Fatigue, unspecified type PARTIAL THROMBOPLASTIN Routine 08/14/2019 Encount er for TIME (PTT) 7:55 AM COAL WHEELER pre-transplant eval uation for heart transplant Ischemic cardiomyopathy Acute on chronic combined systolic and diastolic congestive heart failure (HCC) PROTHROMBIN TIME WITH INR Routine 08/14/2019 En[place] unter for 7:55 AM COAL WHEELER pre-transplant evaluation for heart transplant Ischemic cardiomyopathy Acute on chronic combined systolic and diastolic congestive heart failure (HCC) LIPID PANEL Routine 08/14/2019 Hyperlipidemia, 7:55 AM COAL WHEELER unspecified hyperlipidemia type Encounter for pre-transplant evaluation for heart transplant Ischemic cardiomyopathy Acute on chronic combined systolic and diastolic congestive heart failure (HCC) HEMOGLOBIN A1C Routine 08/14/2019 Type 2 diabetes mellitus 7:55 AM COAL WHEELER with other specified complication, with long-term current use of insulin (HCC) Encounter for pre-transplant evaluation for heart transplant Ischemic cardiomyopathy Acute on chronic combined systolic and diastolic congestive heart failure (HCC) B NATRIURETIC PEPTIDE Routine 08/14/2019 Encounte r for 7:55 AM COAL WHEELER pre-transplant evaluation for heart transplant Ischemic cardiomyopathy Acute on chronic combined systolic and diastolic congestive heart failure (HCC) Shortness of breath COMPREHENSIVE METABOLIC Routine 08/14/2019 ESRD ( end stage renal PANEL 7:55 AM COAL WHEELER disease) on dialysi s ([facility]) Encounter for pre-transplant evaluation for heart transplant Ischemic cardiomyopathy Acute on chronic combined systolic and diastolic congestive heart failure (HCC) CBC WITH PLATELET AND Routine 08/14/2019 ESRD (en d stage renal DIFFERENTIAL 7:55 AM COAL WHEELER disease) on dialysi s (HCC) Encounter for pre-transplant evaluation for heart transplant Ischemic cardiomyopathy Acute on chronic combined systolic and diastolic congestive heart failure (HCC) Fatigue, unspecified type URINE CULTURE Routine 08/14/2019 7:55 AM COAL WHEELER TTE COMPLETE, WO Routine 07/04/2019 History of ch ronic CHF CONTRAST, W DOPPLER 4:00 PM COAL WHEELER ([id number]) ECG 12-LEAD Routine 06/24/2019 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 1:55 PM COAL WHEELER after 06/11/2019 Results * Wheelchair Armests, Adjustable Height, Desk Length (11/10/2019 1:24 PM CDT) SUPPLIER NAME [employer] SUPPLIER PHONE [phone] [employer] ORDER STATUS Delivery Successful [employer] DELIVERY NOTE [employer] REQUESTED 11/10/2019 [employer] DELIVEY DATE HEALTH ITEM Wheelchair Armests, Adjustable HM PAR ACHUTE DESCRIPTION Height, Desk LengthComment: HEALTH Qty: 2 ITEM Wheelchair Armests, Adjustable HM PAR ACHUTE DESCRIPTION Height, Desk LengthComment: HEALTH Qty: 2 ITEM Wheelchair Seat Cushion, 18 HM PARACH CHITIMACHA DESCRIPTION in, General UseComment: Qty: 1 HEALTH ITEM Wheelchair Back Cushion, 18 HM PARACH CHITIMACHA DESCRIPTION inComment: Qty: 1 HEALTH ACTUAL DELIVERY 11/10/2019 [employer] DATE HEALTH ITEM Swing-Away Foot RestsComment: PARA CHUTE DESCRIPTION Qty: 1 HEALTH Specimen Performing Organization Address City/State/ZIP Code P adis Number [employer] * POC glucose (11/10/2019 12:01 PM CDT) Only the most recent of 166 results within the time period is included. POC glucose 103 (H) 65 - 99 mg/dL [facility] Comment: BUDDHIST Bilingual Customer Service Specialist Name: [facility] Sylwia Device ID: [id number] Chartable: [facility] Notified RN Specimen Blood Performing Organization Address City/State/ZIP Code P adis Number [facility] [place] [address] PATHOLOGY [facility] MEDICINE [address] * Estimated GFR (11/10/2019 3:23 AM CDT) Only the most recent of 56 results within the time period is included. Pathologist [facility] Estimated GFR 6 (A) mL/min/1.73 m2 [facility] Comment: BUDDHIST [facility] Interpretation G1 >=90 Normal or high G2 60-89 Mildly decreased G3a 45-59 Mildly to moderately decreased G3b 30-44 Moderately to severely decreased G4 15-29 Severely decreased G5 <15 Kidney failure The eGFR was calculated using the Chronic Kidney Disease Epidemiology Collaboration (CKD-EPI) equation. Interpretation is based on recommendations of the National Kidney Foundation-Kidney Disease Outcomes Quality Initiative (NKF-KDOQI) published in 2014. Specimen Performing Organization Address City/[facility]/ZIP Code P adis Number [facility] [place] [address] PATHOLOGY AND [facility] MEDICINE [address] * Magnesium level (11/10/2019 3:23 AM CDT) Only the most recent of 46 results within the time period is included. Magnesium 2.3 1.6 - 2.6 mg/dL [facility] Specimen Blood Performing Organization Address City/[facility]/ZIP Code P adis Number [facility] [place] [address] PATHOLOGY AND GENOMIC MEDICINE [address] * Basic metabolic panel (11/10/2019 3:23 AM CDT) Only the most recent of 27 results within the time period is included. Pathologist [facility] Sodium 138 135 - 148 mEq/L [facility] Potassium 3.8 3.5 - 5.0 mEq/L [facility] Chloride 97 (L) 98 - 112 mEq/L [facility] CO2 30 24 - 31 mEq/L [facility] Anion gap 11@ANIO 7 - 15 mEq/L [facility] BUN 35 (H) 6 - 20 mg/dL [facility] Creatinine 9.71 (H) 0.70 - 1.20 mg/dL [facility] Glucose 179 (H) 65 - 99 mg/dL [facility] Calcium 8.6 8.3 - 10.2 mg/dL [facility] Specimen Blood Performing Organization Address City/State/ZIP Code P adis Number [facility] DEPARTMENT OF [address] [place] [address] PATHOLOGY AND GENOMIC MEDICINE [address] * CBC with platelet and differential (11/10/2019 2:20 AM CDT) Only the most recent of 43 results within the time period is included. [facility] WBC 11.17 (H) 4.50 - 11.00 k/uL [facility] RBC 3.05 (L) 4.40 - 6.00 m/uL [facility] HGB 9.0 (L) 14.0 - 18.0 g/dL [facility] HCT 30.1 (L) 41.0 - 51.0 % [facility] MCV 98.7 82.0 - 100.0 fL [facility] MCH 29.5 27.0 - 34.0 pg [facility] MCHC 29.9 (L) 31.0 - 37.0 g/dL [facility] RDW - SD 63.6 (H) 37.0 - 55.0 fL [facility] MPV 11.0 8.8 - 13.2 fL [facility] Platelet count 173 150 - 400 k/uL [facility] Nucleated RBC 0.00 /100 WBC [facility] Neutrophils 73.4 (H) 39.0 - 69.0 % [facility] Lymphocytes 14.1 (L) 25.0 - 45.0 % [facility] Monocytes 7.3 0.0 - 10.0 % [facility] Eosinophils 4.1 0.0 - 5.0 % [facility] Basophils 0.5 0.0 - 1.0 % [facility] Immature 0.6Comment: "Immature 0.0 - 1.0 % [facility] granulocytes granulocytes" (promyelocytes, METHOD IST myelocytes, metamyelocytes) HOSPITAL Specimen Blood Performing Organization Address City/[facility]/ZIP Code P adis Number [facility] [place] [address] PATHOLOGY AND GENOMIC MEDICINE [address] * Cortisol level, random (11/09/2019 1:24 PM CDT) Only the most recent of 3 results within the time period is included. Cortisol, 19 ug/dL [facility] random Comment: BUDDHIST Reference Ranges are not HOSPITAL established for non-timed Cortisol levels. Reference Range for Timed Cortisol: 6 - 10 AM 6 - 18 ug/dl 4 - 8 PM 3 - 11 ug/dl Specimen Performing Organization Address City/[facility] P adis Number [facility] [place] [address] PATHOLOGY [address] * Adrenocorticotropic hormone (11/09/2019 10:42 AM CDT) Adrenocorticotr 35.3 7.2 - 63.3 pg/mL [facility] Specimen Blood Performing Organization Address City/[facility]/ZIP Code P adis Number [facility] [place] [address] PATHOLOGY AND [facility] MEDICINE [address] * Cortisol level, AM (11/09/2019 4:08 AM CDT) Cortisol, AM 5 (L) 6 - 18 ug/dL [facility] Specimen Blood Performing Organization Address City/[facility]/ZIP [facility] [place] [address] PATHOLOGY AND [facility] MEDICINE [address] * Urine culture (11/08/2019 5:26 AM CDT) Only the most recent of 2 results within the time period is included. Urine culture No growth after 24 hours [facility] isolate Comment: BUDDHIST Specimen Information HOSPITAL Specimen Source: Urine Specimen Site: Catheterized Specimen Urine - Catheterized Performing Organization Address [facility] P adis Number [facility] DEPARTMENT OF [address] [place] [address] PATHOLOGY AND GENOMIC MEDICINE [address] * Urinalysis screen and microscopy, with reflex to culture (11/08/2019 4:10 AM CDT) Only the most recent of 2 results within the time period is included. Specimen site Catheterized [facility] Color, UA Dark Yellow [facility] Appearance, UA Clear [facility] Specific 1.013 1.001 - 1.035 [facility] gravity, [facility] pH, UA 8.0 5.0 - 8.5 [facility] Protein, UA 2+ (A) Negative [facility] Glucose, UA 2+ (A) Negative [facility] Ketones, UA Negative Negative [facility] Bilirubin, UA Negative Negative [facility] Blood, UA Small (A) Negative [facility] Nitrite, UA Negative Negative [facility] Urobilinogen, <2.0 <2.0 [facility] Leukocyte Trace (A) Negative [facility] WBC, UA 16 (H) 0 - 1 /HPF [facility] RBC, UA 6 (H) 0 - 5 /HPF [facility] Bacteria, UA Few None seen [facility] Yeast, UA Few (A) [facility] Yeast with None seen [facility] Sperm, UA Moderate (A) [facility] Specimen Urine Performing Organization Address [facility] Code P adis Number [facility] DEPARTMENT OF [address] [place] [address] PATHOLOGY AND GENOMIC MEDICINE [address] * Transthoracic Echocardiogram Limited or Follow Up (w Contrast if needed) (11/07/2019 3:35 PM CDT) Specimen Narrative Performed At [facility] Echo cardiography Report [address] [place] [address] Pat.Name: RICHAR POTTS Pat.ID: [id number] St.Date: 11/07/2019 Refer.MD: YENNIFER SOLORZANO MD E xam Time: 3:34:00 PM Study Type:Routine Echo Height: 74in Weight: 164lb BSA: 2 m2 Age: 2 1970,49Y Sex: MALE BP: 108/70 HR: 89 bpm Sonogrphr: KAYY Neal. Stat.:Inpatient Room: [id number] Study Status:Final Echo Event ID:[id number] Order ID: [id number] Reason for Study:LVEF History / Clinical:Arrhythmias, Congest thiago Heart Failure, Coronary Artery Disease, Diabetes, Hyperlipidemi a, Hypertension, Shortness of Breath Procedures: Portable, 2D Echo,Colorflow Doppler Limited Race: C SUMMARY: Technically limited study (consider ult rasound enhancing agent). Mild-moderate LV systolic dysfunction w ith regional wall motion abnormalities present. Low normal RV systolic function. LVEF appears improved compared with chuyita or study dated October 20, 2019. FINDINGS: LV: LV size is enlarged grossl y. LV EF is mild to moderately depressed. Septal motion is paradoxical secondary to cardiac surgery. Regional wall mo tion abnormalities present. Estimated EF is 40-44%. RV: RV size is normal. A pacem kate wire is seen in the RV. RV systolic function is lowe r limits of normal. LA: LA volume is moderately en larged. RA: RA volume is normal. A pac emaker wire is seen. AO: Aortic root diameter is no rmal. QUINTON: No pericardial effusion. AV: Aortic valve not well seen . MV: Mild mitral annular calcif ication. A trace of mitral regurgitation. PV: Pulmonic valve not well se en. TV: No structural TV abnormali ties noted. A trace of tricuspid regurgitation Other: Insufficient TR jet to rao mate PA systolic pressure. MEASUREMENTS: 2D [facility] Ao An 2.4 cm LA Ds 4.6 cm Ao Rtd 3.3 cm Index 1.7 cm/m2 RWT 0.32 IVSd 1.1 cm LV Mass 201 g (122-1 74) LVIDd 5.4 cm Index 2.7 cm/m2 LVM Index 100 g/m LVPWd 0.86 cm LVOT 2 cm LA Sng Plane LA Area 24 cm (8.8-2 3.4) LA Vol 87 ml Index 44 ml/m2 LA LngAx 5.7 cm RA Sng Plane RA Vol 38 ml Index 19 ml/m2 RA LngAx 5 cm RA Area 15 cm (8.3-1 9.5) LVOT LVOT Area 3.1 cm DOPPLER LVOT Stroke Vol LVOT TVI 21 cm HR 135 bpm LVOT LVOT SV 66 ml LVOT CO 8.9 l/min SVi 33 ml/m LVOT CI 4.4 l/m/m WALL MOTION: RESTING WALL MOTION: Basal Inferoseptal, Basal Inferior wall s are akinetic. Basal Inferolateral, Mid Inferoseptal, Mid In ferior, Mid Inferolateral martinez are hypokinetic. Apical Septal, Apica l Inferior martinez are mildly hypokinetic. Normal wall motion in a ll other martinez. Wall Index = 1.5 Signed 11/07/2019 04:57 PM Zulma Osborne MD Procedure Note Interface, Radiology Results In - 11/07/2019 4:58 PM CDT Echocardiography Report [address] [address], [place] [address] Pat.Name: RICHAR POTTS Veda.ID: [id number] .Date: 11/07/2019 Refer.MD: YENNIFER SOLORZANO MD Exam Time: 3:34:00 PM Study Type:Routine Echo Height: 74in Weight: 164lb BSA: 2 m2 Age: 2 1970,49Y Sex: MALE BP: 108/70 HR: 89 bpm Sonogrphr: KAYY Neal Pat. Stat.:Inpatient Room: [address] Study Status:Final Echo Event ID:[id number] Order ID: [id number] Reason for Study:LVEF History / Clinical:Arrhythmias, Congestive Heart Failure, Coronary Artery Disease, Diabetes, Hyperlipidemia, Hypertension, Shortness of Breath Procedures: Portable, 2D Echo,Colorflow Doppler Limited Race: C SUMMARY: Technically limited study (consider ultrasound enhancing agent). Mild-moderate LV systolic dysfunction with regional wall motion abnormalities present. Low normal RV systolic function. LVEF appears improved compared with prior study dated October 20, 2019. FINDINGS: LV: LV size is enlarged grossly. LV EF is mild to moderately depressed. Septal motion is paradoxical secondary to cardiac surgery. Regional wall motion abnormalities present. Estimated EF is 40-44%. RV: RV size is normal. A pacemaker wire is seen in the RV. RV systolic function is lower limits of normal. LA: LA volume is moderately enlarged. RA: RA volume is normal. A pacemaker wire is seen. AO: Aortic root diameter is normal. QUINTON: No pericardial effusion. AV: Aortic valve not well seen. MV: Mild mitral annular calcification. A trace of mitral regurgitation. PV: Pulmonic valve not well seen. TV: No structural TV abnormalities noted. A trace of tricuspid regurgitation Other: Insufficient TR jet to estimate PA systolic pressure. MEASUREMENTS: 2D [facility] Ao An 2.4 cm LA Ds 4.6 cm Ao Rtd 3.3 cm Index 1.7 cm/m2 RWT 0.32 IVSd 1.1 cm LV Mass 201 g (122-174) LVIDd 5.4 cm Index 2.7 cm/m2 LVM Index 100 g/m LVPWd 0.86 cm LVOT 2 cm LA Sng Plane LA Area 24 cm (8.8-23.4) LA Vol 87 ml Index 44 ml/m2 LA LngAx 5.7 cm RA Sng Plane RA Vol 38 ml Index 19 ml/m2 RA LngAx 5 cm RA Area 15 cm (8.3-19.5) LVOT LVOT Area 3.1 cm DOPPLER LVOT Stroke Vol LVOT TVI 21 cm HR 135 bpm LVOT LVOT SV 66 ml LVOT CO 8.9 l/min SVi 33 ml/m LVOT CI 4.4 l/m/m WALL MOTION: RESTING WALL MOTION: Basal Inferoseptal, Basal Inferior martinez are akinetic. Basal Inferolateral, Mid Inferoseptal, Mid Inferior, Mid Inferolateral martinez are hypokinetic. Apical Septal, Apical Inferior martinez are mildly hypokinetic. Normal wall motion in all other martinez. Wall Index = 1.5 Signed 11/07/2019 04:57 PM Zulma Osborne MD Performing Organization Address City/State/ZIP Code P adis Number [facility] [address] [place] [address] * Hepatic function panel (11/06/2019 4:00 AM CDT) Only the most recent of 6 results within the time period is included. Albumin 1.6 (L) 3.5 - 5.0 g/dL [facility] Total bilirubin 0.5 0.0 - 1.2 mg/dL [facility] Bilirubin 0.3 0.0 - 0.3 mg/dL [facility] direct [facility] Alkaline 179 (H) 40 - 129 U/L [facility] phosphatase [facility] Protein 6.3 6.3 - 8.3 g/dL [facility] Comment: [facility] [place] 4.6-7.0 g/dL 1 week 4.4-7.6 g/dL 7 months-1year 5.1-7.3 g/dL 1-2 years 5.6-7.5 g/dL >3 years 6.0-8.0 g/dL 18-150 6.3-8.3 g/dL ALT 24 5 - 50 U/L [facility] AST 38 10 - 50 U/L [facility] Specimen Blood Performing Organization Address City/State/ZIP Code P adis Number [facility] DEPARTMENT OF [address] [place] [address] PATHOLOGY AND GENOMIC MEDICINE [address] * Comprehensive metabolic panel (11/04/2019 4:00 AM CDT) Only the most recent of 27 results within the time period is included. [facility] Sodium 137 135 - 148 mEq/L [facility] Potassium 3.2 (L) 3.5 - 5.0 mEq/L [facility] Chloride 96 (L) 98 - 112 mEq/L [facility] CO2 27 24 - 31 mEq/L [facility] Anion gap 14@ANIO 7 - 15 mEq/L [facility] BUN 34 (H) 6 - 20 mg/dL [facility] Creatinine 10.11 (H) 0.70 - 1.20 mg/dL [facility] Glucose 178 (H) 65 - 99 mg/dL [facility] Calcium 8.7 8.3 - 10.2 mg/dL [facility] Protein 6.6 6.3 - 8.3 g/dL [facility] Comment: [facility] [place] 4.6-7.0 g/dL 1 week 4.4-7.6 g/dL 7 months-1year 5.1-7.3 g/dL 1-2 years 5.6-7.5 g/dL >3 years 6.0-8.0 g/dL 18-150 6.3-8.3 g/dL Albumin 1.7 (L) 3.5 - 5.0 g/dL [facility] A/G ratio 0.3 (L) 0.7 - 3.8 [facility] Alkaline 198 (H) 40 - 129 U/L [facility] phosphatase [facility] AST 35 10 - 50 U/L [facility] ALT 19 5 - 50 U/L [facility] Total bilirubin 0.6 0.0 - 1.2 mg/dL [facility] Specimen Blood Performing Organization Address [facility] P adis Number [facility] [place] [address] PATHOLOGY AND [facility] MEDICINE [address] * Hepatitis B surface antigen (11/02/2019 4:00 AM CDT) Only the most recent of 2 results within the time period is included. Pathologist [facility] Hepatitis B Non-reactive Non-reactive [facility] surface Ag [facility] Specimen Blood Performing Organization Address City/[facility] P adis Number [facility] [place] [place] [address] PATHOLOGY AND GENOMIC MEDICINE [address] * Digoxin level (10/31/2019 4:00 AM CDT) Only the most recent of 5 results within the time period is included. Pathologist [facility] Digoxin 1.2 0.8 - 2.0 ng/mL [facility] Comment: BUDDHIST For valid Digoxin results, at HOSPITAL least 6 hours should elapse between time of last dose and collection of blood. Otherwise, result may be false high. Therapeutic Range: 0.8 - 2.0 ng/mL Specimen Blood Performing Organization Address [facility] P adis Number [facility] [place] [address] PATHOLOGY AND [facility] MEDICINE [address] * CT Abdomen Pelvis W Wo Contrast (10/30/2019 4:05 PM CDT) Specimen Narrative Performed At EXAMINATION: CT ABDOMEN PELVIS W WO CONTRAST RA DIANT CLINICAL HISTORY: Nausea vomiting TECHNIQUE: Helical CT of the abdomen and pelvis was obtained pre- and post administration of iodinated contrast. Sagittal and coronal computerized reformatted images were also obtained. CT scans are performed using radiation dose reduction techniques. Technical factors are evaluated and adj usted to ensure appropriate moderation of exposure. Automated dose management technology is applied to adjust radiation exposure while achieving a diagnostic q uality image. COMPARISON: October 06, 2019, HIDA sca n dated October 27, 2019. IMPRESSION: Lower Chest: Small right pleural effusi on and bibasilar atelectasis. Abdomen: Liver: There is small volume perihepati c ascites. Liver is normal in contour without mass. Gallbladder/Biliary: There is cholelith iasis with gallbladder wall thickening and pericholecystic inflammatory change compatible with acute cholecystitis as was demonstrated on the prior HIDA scan . Spleen: Normal in size. Pancreas: Unremarkable. Adrenal Glands: There is a 1.3 cm right adrenal myelolipoma. Kidneys: Unremarkable. Vascular: The abdominal aorta is normal in caliber. Nodes: No regional adenopathy. Bowel: Peritoneal catheter is present w ithout associated fluid collection. Moderate rectosigmoid stool burden. [place] el is unobstructed. Appendix is normal in appearance. Ascites/fluid collections: None. Pelvis: Lymphovascular: No pelvic adenopathy. Reproductive organs: Unremarkable. Bladder: Unremarkable Other: None. Musculoskeletal: No suspicious osseous lesions. SUMMARY: 1.Acute cholecystitis. [facility]-[id number] Procedure Note [facility], Radiology Results Incoming - 10/30/2019 5:55 PM CDT EXAMINATION: CT ABDOMEN PELVIS W WO CONTRAST CLINICAL HISTORY: Nausea vomiting TECHNIQUE: Helical CT of the abdomen and pelvis was obtained pre- and post administration of iodinated contrast. Sagittal and coronal computerized reformatted images were also obtained. CT scans are performed using radiation dose reduction techniques. Technical factors are evaluated and adjusted to ensure appropriate moderation of exposure. Automated dose management technology is applied to adjust radiation exposure while achieving a diagnostic quality image. COMPARISON: October 06, 2019, HIDA scan dated October 27, 2019. IMPRESSION: Lower Chest: Small right pleural effusion and bibasilar atelectasis. Abdomen: Liver: There is small volume perihepatic ascites. Liver is normal in contour without mass. Gallbladder/Biliary: There is cholelithiasis with gallbladder wall thickening and pericholecystic inflammatory change compatible with acute cholecystitis as was demonstrated on the prior HIDA scan. Spleen: Normal in size. Pancreas: Unremarkable. Adrenal Glands: There is a 1.3 cm right adrenal myelolipoma. Kidneys: Unremarkable. Vascular: The abdominal aorta is normal in caliber. Nodes: No regional adenopathy. Bowel: Peritoneal catheter is present without associated fluid collection. Moderate rectosigmoid stool burden. Bowel is unobstructed. Appendix is normal in appearance. Ascites/fluid collections: None. Pelvis: Lymphovascular: No pelvic adenopathy. Reproductive organs: Unremarkable. Bladder: Unremarkable Other: None. Musculoskeletal: No suspicious osseous lesions. SUMMARY: 1.Acute cholecystitis. [facility]-[id number] Performing Organization Address City/[facility]/ZIP Code P adis Number [facility] [address] [place] [address] * Lipase level (10/30/2019 1:51 PM CDT) Lipase 40 13 - 60 U/L [facility] Specimen Blood Performing Organization Address [facility] P adis Number [facility] [place] [address] PATHOLOGY AND [facility] MEDICINE [address] * Lactic acid level (10/30/2019 1:51 PM CDT) Only the most recent of 4 results within the time period is included. Lactic acid 1.0 0.5 - 2.2 mmol/L [facility] Specimen Blood Performing Organization Address [facility] [place] [address] PATHOLOGY AND [facility] MEDICINE [address] * Amylase level (10/30/2019 1:51 PM CDT) Amylase 44 28 - 100 U/L [facility] Specimen Blood Performing Organization Address City/[facility] P adis Number [facility] [place] [address] PATHOLOGY AND [facility] MEDICINE [address] * Phosphorus level (10/29/2019 4:00 AM CDT) Only the most recent of 30 results within the time period is included. Phosphorus 6.2 (H) 2.4 - 4.5 mg/dL [facility] Specimen Blood Performing Organization Address City/[facility]/ZIP Code P adis Number [facility] DEPARTMENT OF [address] [place] [address] PATHOLOGY AND GENOMIC MEDICINE [facility] BUDDHIST [address] [place] [address] HOSPITAL * Strongyloides Ab IgG KENNETH (10/29/2019 2:30 AM CDT) Strongyloides 0.8 <=0.9 IV [facility] Ab Comment: INTERPRETIVE INFORMATION: Strongyloides Ab, IgG by KENNETH 0.9 IV or less....... Negative - No significant level of Strongyloides IgG antibody detected. 1.0 IV................Equivocal - The Strongyloides IgG antibody result is borderline and therefore inconclusive. Recommend retesting the patient in 2-4 weeks, if clinically indicated. 1.1 IV or greater ... Positive - IgG antibodies to Strongyloides detected, which may suggest current or past infection. False-positive results may occur with prior exposure to other helminth infections. Testing low-prevalence populations may also result in false-positive results. Performed by [facility], [address] [place] [id number] [email or web address], Ashok Moreno MD, Lab. Director Specimen Serum Performing Organization Address City/State/ZIP Code P adis Number [facility] [address] [id number] [facility] [address] [place] [id number] * CT Head Wo Contrast (10/28/2019 10:39 AM CDT) Only the most recent of 2 results within the time period is included. Specimen Narrative Performed At EXAMINATION: CT HEAD WO CONTRAST RADIANT CLINICAL HISTORY: Neuro deficit(s) floyd bacute, acute CVA suspected. Follow-up COMPARISON: CT brain from yesterday. TECHNIQUE: Noncontrast enhanced images of the brain were obtained from the skull base to the vertex. Both soft tissue an d bone reconstruction algorithms were performed. CT scans are performed usi ng radiation dose reduction techniques. Technical factors are evaluated and adjusted to ensure ap propriate moderation of exposure. Automated dose management technology is applied to adjust radiation exposure while achieving a diagnostic quality im age. FINDINGS: Artifacts obscure some details. There are no new areas of cytotoxic or vasogenic edema to suggest recent infarct. There is no evidence of acute hyperdense hemorrhage. The brain and extra axial region are stable. There is calcification in the martinez of some of the arteries. There are minimal nonspecific white matter change s. There is nonspecific increased bone den sity. IMPRESSION: No definite acute intracranial abnormal ity identified. [id number] Procedure Note Hm Interface, Radiology Results Incoming - 10/28/2019 10:47 AM CDT EXAMINATION: CT HEAD WO CONTRAST CLINICAL HISTORY: Neuro deficit(s) subacute, acute CVA suspected. Follow-up COMPARISON: CT brain from yesterday. TECHNIQUE: Noncontrast enhanced images of the brain were obtained from the skull base to the vertex. Both soft tissue and bone reconstruction algorithms were performed. CT scans are performed using radiation dose reduction techniques. Technical factors are evaluated and adjusted to ensure appropriate moderation of exposure. Automated dose management technology is applied to adjust radiation exposure while achieving a diagnostic quality image. FINDINGS: Artifacts obscure some details. There are no new areas of cytotoxic or vasogenic edema to suggest recent infarct. There is no evidence of acute hyperdense hemorrhage. The brain and extra axial region are stable. There is calcification in the martinez of some of the arteries. There are minimal nonspecific white matter changes. There is nonspecific increased bone density. IMPRESSION: No definite acute intracranial abnormality identified. [id number] Performing Organization Address City/[facility]/ZIP Code P adis Number [facility] [address] [place] [address] * Blood culture, aerobic & anaerobic (10/28/2019 8:40 AM CDT) Only the most recent of 7 results within the time period is included. [facility] Blood culture No growth after 5 days of ACKERLY isolate incubation. BUDDHIST Comment: HOSPITAL Specimen Information Specimen Source: Blood Specimen Site: Antecubital, right Specimen Blood - Antecubital, right Performing Organization Address City/[facility]/ZIP Code P adis Number [facility] DEPARTMENT OF [address] [place] [id number] PATHOLOGY [place] [address] HOSPITAL * Hemoglobin & hematocrit (10/28/2019 8:20 AM CDT) Only the most recent of 4 results within the time period is included. [facility] HGB 9.9 (L) 14.0 - 18.0 g/dL [facility] HCT 32.8 (L) 41.0 - 51.0 % [facility] Specimen Blood Performing Organization Address City/State/ZIP Code P adis Number [facility] DEPARTMENT OF [address] [place] [address] PATHOLOGY AND GENOMIC MEDICINE [facility] [address] [place] [address] [facility] * EEG (routine) (10/27/2019 10:09 PM CDT) Narrative Performed At This result has an attachment that is n ot available. EEG RECORDING SLEEP/COMA Date of Service:10/27/19 Awake Recordings: There is no well defi katy occipital dominant rhythm.18-22 Hz activity was present in all regions. 1.5-3 Hz and 5-6 Hz activity was present in all regions. Diphasic and Tr iphasic sharp wave discharges were recorded over the fronto-central region s. Sleep Recording: No sleep was recorde d. Hyperventilation: Was not performed. Photic Stimulation: No abnormality elic ited. Impression: The findings are consistent with a diffuse disturbance in brain function which is most likely met abolic or ischemic hypoxic in etiology. No seizures occurred. ICD-10 Code: R56.9 Gabe Gary MD Fellow, Clinical Neurophysiology I reviewed the entire EEG and agree wit h the above findings. Luis F Whitaker MD * NM Hepatobiliary (HIDA Scan) (10/27/2019 6:01 PM CDT) Specimen Narrative Performed At PROCEDURE: NM HEPATOBILIARY (HIDA SCAN) [facility] INDICATION: Abdominal pain. TECHNIQUE: The patient was injected wit h 5 mCi of Tc-99m Choletec, IV. Dynamic planar images of the abdomen were acqui red for 1 hour. Post morphine imaging was obtained, per protocol. FINDINGS: Tracer is seen within small bowel by one hour. The gallbladder was not visualized. IMPRESSION: 1. Acute cholecystitis and/or cystic duct obstruction. 2. Patent common bile duct. [facility]-[id number] Procedure Note Interface, Radiology Results Incoming - 10/27/2019 6:06 PM CDT PROCEDURE: NM HEPATOBILIARY (HIDA SCAN) INDICATION: Abdominal pain. TECHNIQUE: The patient was injected with 5 mCi of Tc-99m Choletec, IV. Dynamic planar images of the abdomen were acquired for 1 hour. Post morphine imaging was obtained, per protocol. FINDINGS: Tracer is seen within small bowel by one hour. The gallbladder was not visualized. IMPRESSION: 1. Acute cholecystitis and/or cystic du ct obstruction. 2. Patent common bile duct. [facility]-[id number] Performing Organization Address City/State/ZIP Code P adis Number [facility] [address] [place] [address] * CTA Neck W Wo Contrast (10/27/2019 3:17 PM CDT) Specimen Narrative Performed At EXAMINATION: CT ANGIOGRAM NECK W WO CONTRAST RA [facility]EN CLINICAL HISTORY: stroke COMPARISON: None. TECHNIQUE: Neck CTA with multi-planar MIP and volu metric rendering (3D) after bolus intravenous iodinated contrast administ ration was performed. All CT images were acquired using low-d ose technique with automated exposure control. FINDINGS: Postsurgical changes related to CABG. A rteriosclerosis of the aortic arch and proximal great vessels. Patency of a le ft subclavian artery stent. Suspected moderate to high-grade narrowing of the origin of the left vertebral artery which arises from the stented region of the left subclavian a rtery. Mild narrowing of the proximal left common carotid artery although thi s may be exaggerated by adjacent streak artifact. Occlusion of the V1 segment o f the right vertebral artery with distal reconstitution at the V1 and V2 junction. Dominant left v ertebral artery. Arteriosclerosis of the right carotid b ifurcation resulting in approximately 25% narrowing by NASCET criteria. Arteriosclerosis of the left carotid bi furcation proximal left internal carotid artery resulting in approximately 40% n arrowing of the distal left common carotid artery and approximately 25% na rrowing of the proximal left internal carotid artery. Poor dentition with multiple absent saadia th and dental caries. Limited evaluation of the neck demonstrates no evidence of abnormal mass or collection. No suspicious osseous lesion. See dedicated CTA head report for intra cranial findings. IMPRESSION: 1. 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 2. Arteriosclerosis of the bilateral ca rotid bifurcations and proximal internal carotid arteries, advanced for age, wit hout hemodynamically significant stenosis. 3. Patency of the left subclavian arter y stent. [id number] Procedure Note Interface, Radiology Results Incoming - 10/27/2019 3:32 PM CDT EXAMINATION: CT ANGIOGRAM NECK W WO CONTRAST CLINICAL HISTORY: stroke COMPARISON: None. TECHNIQUE: Neck CTA with multi-planar MIP and volumetric rendering (3D) after bolus intravenous iodinated contrast administration was performed. All CT images were acquired using low-dose technique with automated exposure control. FINDINGS: Postsurgical changes related to CABG. Arteriosclerosis of the aortic arch and proximal great vessels. Patency of a left subclavian artery stent. Suspected moderate to high-grade narrowing of the origin of the left vertebral artery which arises from the stented region of the left subclavian artery. Mild narrowing of the proximal left common carotid artery although this may be exaggerated by adjacent streak artifact. Occlusion of the V1 segment of the right vertebral artery with distal reconstitution at the V1 and V2 junction. Dominant left vertebral artery. Arteriosclerosis of the right carotid bifurcation resulting in approximately 25% narrowing by NASCET criteria. Arteriosclerosis of the left carotid bifurcation proximal left internal carotid artery resulting in approximately 40% narrowing of the distal left common carotid artery and approximately 25% narrowing of the proximal left internal carotid artery. Poor dentition with multiple absent teeth and dental caries. Limited evaluation of the neck demonstrates no evidence of abnormal mass or collection. No suspicious osseous lesion. See dedicated CTA head report for intracranial findings. IMPRESSION: 1. 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 2. Arteriosclerosis of the bilateral car otid bifurcations and proximal internal carotid arteries, advanced for age, without hemodynamically significant stenosis. 3. Patency of the left subclavian artery stent. [id number] Performing Organization Address City/State/ZIP Code P adis Number [facility] [address] [place] [address] * CTA Head W Wo Contrast (10/27/2019 3:16 PM CDT) Specimen Narrative Performed At EXAMINATION: CT ANGIOGRAM HEAD W WO CONTRAST [facility] CLINICAL HISTORY: stroke COMPARISON: CT brain dated October 27, 2019 TECHNIQUE: Imaging of the intracrania l circulation was obtained from the skull base to the vertex during the arterial phase of enhancement. Postprocessing was performed with MIP multiplanar and 3D r econstructed images. CT imaging was performed with iterative reconstruction technique and/ or automated exposure control to reduce radiation dose. FINDINGS: There are no gross brain parenchymal ab normalities. There is no midline shift, hydrocephalus or extra-axial fluid gagan ection. The right transverse and sigmoid sinuse s are hypoplastic. Soft tissue shows no evidence of lacera tion or hematoma. The left vertebral artery is dominant. The right vertebral artery is hypoplastic with multifocal moderate stenosis. Ther e is moderate narrowing of the bilateral posterior cerebral arteries, distally. The middle cerebral arteries are patent with focal moderate narrowing of the proximal left superior M2 segment. Ther e is mild narrowing of the right middle cerebral artery. No severe narrowing or occlusion. The anterior cerebral arteries are patent. There is a patent anterior communicatin g artery. There are some calcifications in the ca rotid siphons of mild narrowing, bilaterally. There is no air-fluid level in the sinu ses. Osseous calvarium is intact. IMPRESSION: There is multifocal atherosclerosis wit h mild to moderate stenoses as detailed above. No severe narrowing or major ves stalin occlusion identified. [facility]-[id number] Procedure Note Hm Interface, Radiology Results Incoming - 10/27/2019 3:38 PM CDT EXAMINATION: CT ANGIOGRAM HEAD W WO CONTRAST CLINICAL HISTORY: stroke COMPARISON: CT brain dated October 27, 2019 TECHNIQUE: Imaging of the intracranial circulation was obtained from the skull base to the vertex during the arterial phase of enhancement. Postprocessing was performed with MIP multiplanar and 3D reconstructed images. CT imaging was performed with iterative reconstruction technique and/or automated exposure control to reduce radiation dose. FINDINGS: There are no gross brain parenchymal abnormalities. There is no midline shift, hydrocephalus or extra-axial fluid collection. The right transverse and sigmoid sinuses are hypoplastic. Soft tissue shows no evidence of laceration or hematoma. The left vertebral artery is dominant. The right vertebral artery is hypoplastic with multifocal moderate stenosis. There is moderate narrowing of the bilateral posterior cerebral arteries, distally. The middle cerebral arteries are patent with focal moderate narrowing of the proximal left superior M2 segment. There is mild narrowing of the right middle cerebral artery. No severe narrowing or occlusion. The anterior cerebral arteries are patent. There is a patent anterior communicating artery. There are some calcifications in the carotid siphons of mild narrowing, bilaterally. There is no air-fluid level in the sinuses. Osseous calvarium is intact. IMPRESSION: There is multifocal atherosclerosis with mild to moderate stenoses as detailed above. No severe narrowing or major vessel occlusion identified. [id number] Performing Organization Address City/State/ZIP Code P adis Number [facility] [address] [place] [address] * CT Stroke Brain Wo Contrast (10/27/2019 2:58 PM CDT) Specimen Narrative Performed At EXAMINATION: CT STROKE BRAIN WO CONTRAST [facility] CLINICAL HISTORY: stroke COMPARISON: CT head dated September 03, 2019 TECHNIQUE: Noncontrast head CT performe d using radiation dose reduction techniques. Technical factors are nanda luated and adjusted to ensure appropriate moderation of exposure. Automated dos e management technology is applied to adjust radiation exposure while achieving a diagnostic quality im age. FINDINGS: No evidence of hemorrhage, mass lesion, or midline shift. Weldon-white matter differentiation is preserved with no ev idence of acute territorial infarction. Ventricles, sulci, and cisterns are age -appropriate in size and configuration. No extra-axial fluid collection. Visualized paranasal sinuses and mastoi d air cells are clear. Bones, orbits, and soft tissues are unremarkable. IMPRESSION: Unremarkable head CT with no acute intr acranial abnormality. These findings were discussed with Clay Ritchie at 3:05 P.M. on 10/27/2019, who verbalized understanding. [id number] Dictated and approved by radiology resi dent/fellow: Rock Peralta M.D. I, Jose Mike MD, personally reviewed the images and resident's/fellow's findings and agree with the final repor t. Procedure Note Hm Interface, Radiology Results Incoming - 10/27/2019 3:12 PM CDT EXAMINATION: CT STROKE BRAIN WO CONTRAST CLINICAL HISTORY: stroke COMPARISON: CT head dated September 03, 2019 TECHNIQUE: Noncontrast head CT performed using radiation dose reduction techniques. Technical factors are evaluated and adjusted to ensure appropriate moderation of exposure. Automated dose management technology is applied to adjust radiation exposure while achieving a diagnostic quality image. FINDINGS: No evidence of hemorrhage, mass lesion, or midline shift. Weldon-white matter differentiation is preserved with no evidence of acute territorial infarction. Ventricles, sulci, and cisterns are age-appropriate in size and configuration. No extra-axial fluid collection. Visualized paranasal sinuses and mastoid air cells are clear. Bones, orbits, and soft tissues are unremarkable. IMPRESSION: Unremarkable head CT with no acute intracranial abnormality. These findings were discussed with Nurse Ritchie at 3:05 P.M. on 10/27/2019, who verbalized understanding. [id number] Dictated and approved by vice president consulting services/fellow: Rock Peralta M.D. I, Jose Mike MD, personally reviewed the images and resident's/fellow's findings and agree with the final report. Performing Organization Address City/State/ZIP Code P adis Number [facility] [address] [place] [address] * ECG Pre/Post Op-Tomorrow (10/25/2019 6:52 AM CDT) Only the most recent of 3 results within the time period is included. Ventricular 87 [facility] rate Atrial rate 87 [facility] AL interval 178 [facility] QRSD interval 136 [facility] QT interval 404 [facility] QTC interval 486 [facility] P axis 1 35 [facility] QRS axis 1 33 [facility] T wave axis 31 [facility] EKG impression Atrial-sensed [facility]USE ventricular-paced rhythm-Abnormal ECG-In automated comparison with ECG of 24-OCT-2019 15:21,-Vent. rate has increased BY 11 BPM- Specimen Narrative Performed At This result has an attachment that is n ot available. Performing Organization Address City/[facility] P adis Number [facility] MUSE [address] [place] [address] * XR Chest 1 Vw Portable (10/24/2019 3:42 PM CDT) Only the most recent of 15 results within the time period is included. Specimen Narrative Performed At EXAMINATION: XR CHEST 1 VW PORTABLE [facility] CLINICAL HISTORY: pneumothorax COMPARISON: Single view chest from 10/15/2019 IMPRESSION: An AP radiograph of the chest was submi tted for interpretation. Interval placement of a left-sided AICD . There is no evidence of left-sided pneumothorax. Pulmonary edema. Low lung volumes and b ibasilar atelectasis. Trace bilateral pleural effusions. No new focal areas of consolidation. No midline shift. The mediastinal contours and cardiac si lhouette are unchanged. Mild cardiomegaly. The patient is status pos t median sternotomy. Osteopenia. A vascular stent is seen superior to th e aortic knob. Interval removal of a Edmond-Darcy catheter and right-sided non tunneled central venous catheter. [facility]-[id number] Procedure Note Hm Interface, Radiology Results Incoming - 10/24/2019 3:48 PM CDT EXAMINATION: XR CHEST 1 VW PORTABLE CLINICAL HISTORY: pneumothorax COMPARISON: Single view chest from 10/15/2019 IMPRESSION: An AP radiograph of the chest was submitted for interpretation. Interval placement of a left-sided AICD. There is no evidence of left-sided pneumothorax. Pulmonary edema. Low lung volumes and bibasilar atelectasis. Trace bilateral pleural effusions. No new focal areas of consolidation. No midline shift. The mediastinal contours and cardiac silhouette are unchanged. Mild cardiomegaly. The patient is status post median sternotomy. Osteopenia. A vascular stent is seen superior to the aortic knob. Interval removal of a Edmond-Darcy catheter and right-sided non tunneled central venous catheter. [id number] Performing Organization Address City/State/ZIP Code P adis Number [facility] [address] [place] [address] * Electrophysiology procedure (10/24/2019 3:03 PM CDT) Specimen Narrative Performed At [facility] REPORT PREPROCEDURE DIAGNOSES: 1. Ischemic cardiomyopathy, LVEF 30%, Q RS 152ms 2. S/P VT/VF arrest 3. ESRD, peritoneal dialysis POSTPROCEDURE DIAGNOSIS: 1. Status post successful implant of a resynchronized implantable cardioverter-defibrillator pacemaker an d leads. TITLE OF PROCEDURES: 1. Implant of a resynchronized implanta ble cardioverter-defibrillator and leads 2. Coronary sinus venography. 3. LV lead placement via the coronary s inus. 4. Conscious sedation. ATTENDING SURGEON: Dr. Nabor Galindo ano ASSISTING SURGEON: Dr. Beltran Guerra, [facility] Cardiac Electrophysiology fellow ANESTHESIA: Conscious sedation COMPLICATIONS: None. INDICATIONS: The patient is a 49 y.o. male with hist ory of ICMP, s/p CABG X 4 (2014), ESRD on PD, hypertension, diabetes jama itus II. LVEF 30%, QRS was 152ms. Patient had a VT arrest with external d efibrillation 10/06/2019. Referred for implant of a VAULT INSTALLER-D for prevention o f sudden cardiac arrest. The patient has been on guideline-directed medical therapy at maximally tolerated doses for over 3 months. DOCUMENTATION OF INFORMED CONSENT: Prior to the procedure we had discussed in detail the risks, benefits, and alternatives to implant of an implantab le cardioverter-defibrillator and leads and leads. In particular, the r isks discussed included but were not limited to the risks of , bleeding , perforation, infection, pain, painful shocks, inappropriate shocks, l ead dislodgement, device or lead malfunction, failure or recall as well as the need for future battery change surgeries. All questions were fu lly answered and they wished to proceed. DETAILS: After written informed consent was obta ined in the fasting, non-sedated state, the [facility] The patient was prepped and draped in t he usual sterile fashion. The patient was given routine IV sedation u sing Versed and fentanyl. Intravenous antibiotics were administer ed prior to the incision. The delto-pectoral incision site was infilt rated with 1% lidocaine. The skin was incised with a #10 scalpel. Blunt a nd electrosurgical dissection was carried out to the level of the pre-pec lorenzo fascia with careful attention paid to hemostasis. Once adequate hemos tasis was confirmed within the pocket, venous access was obtained. The cephalic vein was accessed via cut down technique and one puncture of the Subclavian vein outside the ribcage was made using a modified Salinger technique and guided by fluoroscopy. Th rough these, three J-tipped wires were introduced and their course throug h the venous system was confirmed by their presence under fluoroscopy in the inferior vena. Using peel-away sheaths, we delivered f irst a right ventricle lead, second CS lead and then a right atrial lead. RV VENTRICULAR?LEAD: A 7 Tu[place]uan peel away sheath was brought to the field and placed into the venous system via over the wire technStage I Diagnostics ue. The right ventricular lead was placed into the RV apical location. Lesley quate sensing and threshold parameters were obtained. The lead was attached via active fixation. There was no evidence of diaphragmatic stimul ation at 10 V output. The peel away sheath was removed, and the lead collar was advanced to the pectoral muscle and sutured with Ethibond suture . Tug testing of this lead confirmed stability of the lead and the length of the lead's slack was assessed as optimal with fluoroscopy. CS LEAD The coronary sinus was now cannulated w ith the coronary sinus outer guide sheath over an AL2 inner guide over the Glidewire. Once cannulated, a balloon catheter was advanced into the coronary sinus and occlusive balloon angiography was performed in e JANET and MILLER projections. This demonstrated the optimal vein branch. The active fixation quadripolar pacing lead was delivered over Whisper wire to the optimal location within this branch. Lead characteristics at this location were confirmed. High-output pacing was used to determin e the diaphragmatic capture threshold. The sheath was peeled away without dislodging lead. Lead characteristics were reconfirmed. Kassidy d was sutured to the pectoralis fascia with 0 Ethibond suture. RIGHT ATRIAL LEAD: A 7 Tu[place]uan peel away sheath was brought to the field and placed into the venous system via over the wire [employer]Stage [employer] ue. The right atrial lead was placed via this sheath into the RA appe ndage location. Adequate sensing and threshold parameters were obtained. The lead was attached via active fixation. There was no evidence of diap hragmatic stimulation at 10 V output. The peel away sheath was remove d, and the lead collar was advanced to the pectoral muscle and sutured with Ethibond suture. Tug testing of this lead confirmed stability of the le ad and the length of the lead's slack was assessed as optimal with fluo roscopy. ?? A submuscular pocket was formed above t he Pectoralis major muscle. The pocket was copiously irrigated with ant ibiotic-containing solution. The lead tips for all leads were cleaned an d dried thoroughly. The leads were attached to the appropriate ports on [facility] pulse generator. Tug testing was performed on all connections. The devic e and leads were placed within an antibacterial envelope (Cangaru@) and t hen in the pocket such that the coiled redundant leads were posterior t o the pulse generator. At that point we did a DFT test: Defibrillation threshold testing was no w performed. A 20J shock on the peak of the T-wave after a drivetrain o f 8 beats at 360ms failed to induce VF. Shock impedence 49 ohms. We noticed the the CS lead was dislodge d and had to reposition the lead. After repositioning the CS lead the poc ket was copiously irrigated with antibiotic-containing solution again an d the lead was reconnected to appropriate port on the generator. The device and leads were placed within an antibacterial envelope (Cangaru@) an d then in the pocket such that the coiled redundant leads were posterior t o the pulse generator. The pocket was closed with 2 layers of continuous suture using 2-0 Vicryl. Dermabond was applied to the wound foll owed by a pressure dressing. ESTIMATED BLOOD LOSS: 20 ml. IMPLANTED MATERIALS: FINAL DIAGNOSIS: Status post successful implant of a res ynchronized implantable cardioverter-defibrillator pacemaker an d leads. PLAN: The patient will receive routine post-p rocedure chest x-ray, 12-lead EKG, and intravenous antibiotics. The device will be interrogated in the morning and patient will be enrolled in remote monitoring. INabor, was present and personally performed the entire procedure. Performing Organization Address City/[facility]/ZIP Code P adis Number [facility] [address] [place] [address], * AST (SGOT) (10/24/2019 8:16 AM CDT) AST 36 10 - 50 U/L [facility] Specimen Performing Organization Address City/[facility] P adis Number [facility] DEPARTMENT OF [address] [place] [address] PATHOLOGY AND GENOMIC MEDICINE [address] * Potassium level (10/24/2019 8:16 AM CDT) Only the most recent of 3 results within the time period is included. Potassium 3.6 3.5 - 5.0 mEq/L [facility] Specimen Performing Organization Address [facility] P adis Number [facility] DEPARTMENT OF [address] [place] [address] PATHOLOGY AND GENOMIC MEDICINE [address] * POC panel (10/24/2019 7:53 AM CDT) Only the most recent of 2 results within the time period is included. POC sodium 137 135 - 148 mmol/L [facility] POC potassium 3.5 3.5 - 5.0 mmol/L [facility] POC chloride 98 (L) 99 - 109 mmol/L [facility] POC CO2 27 24 - 31 mmol/L [facility] POC glucose 163 (H) 65 - 99 mg/dL [facility] POC BUN 30 (H) 8 - 24 mg/dL [facility] POC creatinine 10.2 (H) 0.7 - 1.2 mg/dl [facility] POC hematocrit 40 (L) 41 - 51 % [facility] POC anion gap 16 8 - 20 mmol/L [facility] Comment: BUDDHIST Bilingual Customer Service Specialist Name: [facility] Device ID: [id number] Specimen Performing Organization Address City/[facility]/ZIP Code P adis Number [facility] DEPARTMENT OF [address] [place] [address] PATHOLOGY AND GENOMIC MEDICINE [address] * Manual differential (10/24/2019 3:10 AM CDT) Only the most recent of 4 results within the time period is included. Manual PERFORMED ACKERLY differential [facility] Neutrophils 71.0 (H) 39.0 - 69.0 % [facility] Lymphocytes 13.0 (L) 25.0 - 45.0 % [facility] Monocytes 7.0 0.0 - 10.0 % [facility] Eosinophils 7.0 (H) 0.0 - 5.0 % [facility] Basophils 0.0 0.0 - 1.0 % [facility] Metamyelocytes 1 % [facility] Myelocytes 1 % [facility] Promyelocytes 0 % [facility] Platelet slide Mamie adequate [facility] Anisocytosis Moderate [facility] Polychromasia Moderate [facility] Ovalocytes Moderate [facility] [place] cells Moderate (A) [facility] Specimen Narrative Performed At Unable to perform testing, specimen is HEMOLYZED. R ecollect [facility] DEPARTMENT OF requested for K,AST (tests). NOTIFIED CAIN GAN/Linda9Rigo 10/24/2019 07:00 PATHOLOGY AND BY DB. GENOMIC MEDICINE Performing Organization Address City/[facility]/ZIP Code P adis Number [facility] DEPARTMENT OF [address] [place] [address] PATHOLOGY AND GENOMIC MEDICINE [address] * Partial thromboplastin time, activated (10/22/2019 2:30 AM CDT) Only the most recent of 26 results within the time period is included. PTT 41.2 (H) 23.0 - 36.0 sec [facility] Comment: BUDDHIST PTT therapeutic range for HOSPITAL unfractionated heparin is 61.0-112.0 seconds which corresponds to Anti-Xa 0.3-0.7 U/ml. Specimen Blood Performing Organization Address City/State/ZIP Code P adis Number [facility] DEPARTMENT OF [address] [place] [address] PATHOLOGY AND GENOMIC MEDICINE ACKERLY BUDDHIST [address] [place] [address] HOSPITAL * MRI Cholangiogram wo contrast (10/20/2019 7:12 PM CDT) Specimen Narrative Performed At [facility] EXAMINATION: MRI CHOLANGIOGRAM WO CON TRAST CLINICAL HISTORY: abnormal liver test evaluate CBD for stone TECHNIQUE: Multiplanar multisequence MR images of the abdomen were obtained without contrast. The lack of intraveno us contrast reduces the sensitivity of detecting solid organ disease. MRCP i mages were obtained with 3-D reconstructions on the acquisition scanner under concurrent floyd pervision. COMPARISON: Ultrasound of the liver f rom 10/16/[address] from 10/06/2019 IMPRESSION: Liver: Liver demonstrates relative decr eased T2 signal suggesting iron deposition. Unenhanced liver is otherwi se unremarkable. No mass is identified in the unenhanced liver. Gallbladder/Biliary: Gallbladder is dis tended with wall thickening and intraluminal irregularity likely from c holecystitis. Gallbladder malignancy is not excluded. Common bile duct is not dilated measuring 4 mm. There is no evidence of choledocholithiasis. Spleen: The spleen is not enlarged. Pancreas: Pancreas is mildly atrophic. Adrenal Glands: The adrenal glands are unremarkable. Kidneys: No hydronephrosis or nephrolit hiasis. Vascular: The abdominal aorta is nonane urysmal. Nodes: No enlarged retroperitoneal or m esenteric lymphadenopathy. Bowel: No bowel obstruction or inflamma tory changes. Ascites/fluid collections: There is sma ll upper abdominal ascites. Bone marrow:No suspicious marrow signal abnormality identified. Other: There is onfqa-zm-bhfzvbxm right pleural effusion. Summary: 1.No evidence of choledocholithiasis. C ommon bile duct is not dilated measuring 4 mm. 2.Cholelithiasis. Moderate gallbladder wall thickening and intraluminal irregularity, which may be related to c hronic cholecystitis. Surgical consultation is advised. 3.Additional findings as noted above. [facility]-[id number] [facility]-[id number] Procedure Note Interface, Radiology Results Incoming - 10/20/2019 8:20 PM CDT EXAMINATION: MRI CHOLANGIOGRAM WO CONTRAST CLINICAL HISTORY: abnormal liver test evaluate CBD for stone TECHNIQUE: Multiplanar multisequence MR images of the abdomen were obtained without contrast. The lack of intravenous contrast reduces the sensitivity of detecting solid organ disease. MRCP images were obtained with 3-D reconstructions on the acquisition scanner under concurrent supervision. COMPARISON: Ultrasound of the liver from 10/16/[address] from 10/06/2019 IMPRESSION: Liver: Liver demonstrates relative decreased T2 signal suggesting iron deposition. Unenhanced liver is otherwise unremarkable. No mass is identified in the unenhanced liver. Gallbladder/Biliary: Gallbladder is distended with wall thickening and intraluminal irregularity likely from cholecystitis. Gallbladder malignancy is not excluded. Common bile duct is not dilated measuring 4 mm. There is no evidence of choledocholithiasis. Spleen: The spleen is not enlarged. Pancreas: Pancreas is mildly atrophic. Adrenal Glands: The adrenal glands are unremarkable. Kidneys: No hydronephrosis or nephrolithiasis. Vascular: The abdominal aorta is nonaneurysmal. Nodes: No enlarged retroperitoneal or mesenteric lymphadenopathy. Bowel: No bowel obstruction or inflammatory changes. Ascites/fluid collections: There is small upper abdominal ascites. Bone marrow:No suspicious marrow signal abnormality identified. Other: There is nwsbn-gg-gmhcbtkb right pleural effusion. Summary: 1.No evidence of choledocholithiasis. Co mmon bile duct is not dilated measuring 4 mm. 2.Cholelithiasis. Moderate gallbladder w all thickening and intraluminal irregularity, which may be related to chronic cholecystitis. Surgical consultation is advised. 3.Additional findings as noted above. [facility]-[id number] [facility]-[id number] Performing Organization Address City/State/ZIP Code P [facility] Number [facility] [address] [place] [address] * Line/Drain Removal (10/20/2019 2:36 PM CDT) Narrative Performed At Umang Maguire 10/20/2019 2:38 PM Line/Drain Removal Date/Time: 10/20/2019 2:37 PM Performed by: Umang Maguire Authorized by: Jj Sagastume MD Pre-procedure details: Line or drain removed: Dialysis cat heter Indication(s) for removal: Treatmen t completed Patient position: Trendelenburg Removal procedure: Number of people performing procedure : 2 Catheter intact?: Yes Insertion site: No redness Breath held: Yes Valsalva performed: performed Pressure applied to site?: Yes Number of minutes pressure applied: 10 Dressing applied:: Adhesive bandage and 4x4 sterile gauze Estimated blood loss (mL): 0 Specimen(s): None Complications: None Attending physician: Jamir Jiang man Resident performing procedure: Jhon Maguire Patient tolerance of procedure: Mildred muñoz tolerated the procedure well with no immediate complications * Transthoracic Echocardiogram Limited or Follow Up (w Contrast if needed) (10/20/2019 1:30 PM CDT) Specimen Narrative Performed At [facility] Echo cardiography Report [address] [place] [address] Pat.Name: RICHAR POTTS Pat.ID: [id number] .Date: 10/20/2019 Refer.MD: JAMIR ROSS MD Exam Time: 12:04:00 PM Study Type:Routine Echo Height: 74in Weight: 175lb BSA: 2.06 m2 Age: 2 1970,49Y Sex: MALE BP: 110/56 HR: 79 bpm Sonogrphr: Catalina Stewart RDCS Pat. Stat.:Inpatient Room: JP3651-E Study Status:Final Echo Event ID:[id number] Order ID: [id number] Reason for Study:Follow up EF after PCI History / Clinical:Arrhythmias, Congest thiago Heart Failure, Coronary Artery Disease, Diabetes, Hyperlipidemi a, Hypertension, Shortness of Breath Procedures: Portable, Intravenous Lumas on Contrast, 2D Echo,Colorflow Doppler Limited Race: C SUMMARY: Moderate to severe LV systolic dysfunct ion. Mild RV systolic function. Elevated LV filling pressure. LVEF is slightly improved compared with study from October 07, 2019. FINDINGS: LV: LV size is veoapsbb-hi-erj erely enlarged (indexed LVEDV). Biplane LV ejection fra ction= 32% LV EF is moderately to severely depressed. Sep cayden motion is paradoxical secondary to cardiac surgery. Bas al Inferoseptal, Basal Inferior, Mid Inferior, Mid Inferolat eral, Apical Inferior, Apical Lateral martinez are akine tic. Basal Anterior, Basal Anteroseptal, Basal Inf erolateral, Basal Anterolateral, Mid Anterior, Mid Anterosep cayden, Mid Inferoseptal, Mid Anterolateral, Apical A nterior, Apical Septal, Apical martinez are hypokinetic. Region al wall motion abnormalities present. RV: RV size is normal. RV syst olic function is mildly depressed. LA: LA volume is mildly enlarg ed. RA: RA size is normal. AO: Aortic root diameter is no rmal. QUINTON: No pericardial effusion. SVn: Inferior vena cava is norm al. Normal collapse of IVC during inspiration is consiste nt with normal RA pressure. AV: No structural AV abnormali ties noted. MV: No structural MV abnormali ties noted. Mild mitral regurgitation. PV: Pulmonic valve not well se en. TV: Tricuspid valve not well s een. Tsai: LV filling pressure is elev ated. Other: Insufficient TR jet to rao mate PA systolic pressure. MEASUREMENTS: 2D [facility] Ao An 2 cm LVPWd 0.95 cm Ao Rtd 3.3 cm Index 1.6 cm/m2 LA Ds 4.1 cm IVSd 0.88 cm RWT 0.37 LVIDd 5.1 cm Index 2.5 cm/m2 LV Mass 167 g (122-1 74) LVIDs 4.1 cm LVM Index 81 g/m LV%fs 20 % LVOT 2 cm LV EF Biplane LVEDV 211 ml (65-19 3) Index 102 ml/m2 LV CI 2.3 l/m/m LVESV 144 ml Index 70 ml/m2 LV SV 67 ml LV EF 32 % (63-7 7) HR 70 bpm LV CO 4.7 l/min LA Sng Plane LA Area 22 cm (8.8-2 3.4) LA Vol 75 ml Index 37 ml/m2 LA LngAx 6 cm LVOT LVOT Area 3.1 cm WALL MOTION: RESTING WALL MOTION: Basal Inferoseptal, Basal Inferior, Mid Inferior, Mid Inferolateral, Apical Inferior, Apical Lateral martinez a re akinetic. Basal Anterior, Basal Anteroseptal, Basal Inferolateral , Basal Anterolateral, Mid Anterior, Mid Anteroseptal, Mid Inferos eptal, Mid Anterolateral, Apical Anterior, Apical Septal, Apical martinez are hypokinetic. Wall Index = 2.4 Signed 10/20/2019 05:42 PM Bruce Langley M.D. Procedure Note Interface, Radiology Results In - 10/20/2019 5:43 PM CDT Echocardiography Report [address] [place] [address] Pat.Name: RICHAR POTTS.ID: [id number] .Date: 10/20/2019 Refer.MD: JAMIR ROSS MD Exam Time: 12:04:00 PM Study Type:Routine Echo Height: 74in Weight: 175lb BSA: 2.06 m2 Age: 2 1970,49Y Sex: MALE BP: 110/56 HR: 79 bpm Sonogrphr: Catalina Stewart RDCS Pat. Stat.:Inpatient Room: [address] Study Status:Final Echo Event ID:[id number] Order ID: [id number] Reason for Study:Follow up EF after PCI History / Clinical:Arrhythmias, Congestive Heart Failure, Coronary Artery Disease, Diabetes, Hyperlipidemia, Hypertension, Shortness of Breath Procedures: Portable, Intravenous Lumason Contrast, 2D Echo,Colorflow Doppler Limited Race: C SUMMARY: Moderate to severe LV systolic dysfunction. Mild RV systolic function. Elevated LV filling pressure. LVEF is slightly improved compared with study from October 07, 2019. FINDINGS: LV: LV size is jmwvgqsu-jk-auumxciz enlarged (indexed LVEDV). Biplane LV ejection fraction= 32% LV EF is moderately to severely depressed. Septal motion is paradoxical secondary to cardiac surgery. Basal Inferoseptal, Basal Inferior, Mid Inferior, Mid Inferolateral, Apical Inferior, Apical Lateral martinez are akinetic. Basal Anterior, Basal Anteroseptal, Basal Inferolateral, Basal Anterolateral, Mid Anterior, Mid Anteroseptal, Mid Inferoseptal, Mid Anterolateral, Apical Anterior, Apical Septal, Apical martinez are hypokinetic. Regional wall motion abnormalities present. RV: RV size is normal. RV systolic function is mildly depressed. LA: LA volume is mildly enlarged. RA: RA size is normal. AO: Aortic root diameter is normal. QUINTON: No pericardial effusion. SVn: Inferior vena cava is normal. Normal collapse of IVC during inspiration is consistent with normal RA pressure. AV: No structural AV abnormalities noted. MV: No structural MV abnormalities noted. Mild mitral regurgitation. PV: Pulmonic valve not well seen. TV: Tricuspid valve not well seen. Tsai: LV filling pressure is elevated. Other: Insufficient TR jet to estimate PA systolic pressure. MEASUREMENTS: 2D [facility] Ao An 2 cm LVPWd 0.95 cm Ao Rtd 3.3 cm Index 1.6 cm/m2 LA Ds 4.1 cm IVSd 0.88 cm RWT 0.37 LVIDd 5.1 cm Index 2.5 cm/m2 LV Mass 167 g (122-174) LVIDs 4.1 cm LVM Index 81 g/m LV%fs 20 % LVOT 2 cm LV EF Biplane LVEDV 211 ml (65-193) Index 102 ml/m2 LV CI 2.3 l/m/m LVESV 144 ml Index 70 ml/m2 LV SV 67 ml LV EF 32 % (63-77) HR 70 bpm LV CO 4.7 l/min LA Sng Plane LA Area 22 cm (8.8-23.4) LA Vol 75 ml Index 37 ml/m2 LA LngAx 6 cm LVOT LVOT Area 3.1 cm WALL MOTION: RESTING WALL MOTION: Basal Inferoseptal, Basal Inferior, Mid Inferior, Mid Inferolateral, Apical Inferior, Apical Lateral martinez are akinetic. Basal Anterior, Basal Anteroseptal, Basal Inferolateral, Basal Anterolateral, Mid Anterior, Mid Anteroseptal, Mid Inferoseptal, Mid Anterolateral, Apical Anterior, Apical Septal, Apical martinez are hypokinetic. Wall Index = 2.4 Signed 10/20/2019 05:42 PM Bruce Langley M.D. Performing Organization Address City/[facility]/ZIP Code P adis Number [facility] [address] [place] [address] * Type and screen (10/17/2019 4:30 AM COAL WHEELER) Only the most recent of 2 results within the time period is included. ABO grouping A [facility] Rh type POS [facility] Antibody screen NEG ACKERLY (gel) [facility] Specimen Blood Performing Organization Address City/State/ZIP Code P aids Number [facility] DEPARTMENT OF [address] [place] [address] PATHOLOGY AND GENOMIC MEDICINE [address] * Vancomycin level, random (10/17/2019 4:00 AM COAL WHEELER) Only the most recent of 2 results within the time period is included. Vancomycin, 18.9 ug/mL [facility] Specimen Serum Performing Organization Address City/[facility]/[place] [address] PATHOLOGY AND [facility] MEDICINE [address] * Venous blood gas (10/17/2019 3:30 AM COAL WHEELER) pH, venous 7.36 7.32 - 7.42 [facility] pCO2, venous 39 (L) 45 - 51 mmHg [facility] pO2, venous 65 (H) 25 - 40 mmHg [facility] Base excess, -3 (L) -2 - 2 meq/L [facility] O2 saturation, 92 (H) 40 - 70 % [facility] Bicarbonate, 21.5 21.0 - 28.0 mmol/L [facility] Specimen Blood Performing Organization Address City/[facility] [place] [address] PATHOLOGY [address] * Ionized calcium (10/16/2019 4:26 PM COAL WHEELER) Only the most recent of 19 results within the time period is included. pH 7.39 [facility] Ionized calcium 1.03 (L) 1.11 - 1.32 mmol/L [facility] Specimen Plasma specimen Performing Organization Address City/[facility]/[place] [address] PATHOLOGY AND [facility] MEDICINE [address] * US Hepatic (10/16/2019 11:00 AM COAL WHEELER) Specimen Narrative Performed At EXAMINATION: US HEPATIC HM [facility] CLINICAL HISTORY: elevated LFTs COMPARISON: 10/06/2019 FINDINGS: IMPRESSION: Liver echotexture is within normal limi ts. Numerous gallstones are seen in the gallbladder. The gallbladder wall is th ickened to at least 4 cm. In the appropriate clinical setting, findings would be compatible with acute cholecystitis. Common bile duct is 6 mm. Flow in the main portal vein i s patent and hepatopetal. [facility]-[id number] Procedure Note Interface, Radiology Results Incoming - 10/16/2019 2:21 PM COAL WHEELER EXAMINATION: US HEPATIC CLINICAL HISTORY: elevated LFTs COMPARISON: 10/06/2019 FINDINGS: IMPRESSION: Liver echotexture is within normal limits. Numerous gallstones are seen in the gallbladder. The gallbladder wall is thickened to at least 4 cm. In the appropriate clinical setting, findings would be compatible with acute cholecystitis. Common bile duct is 6 mm. Flow in the main portal vein is patent and hepatopetal. [facility]-[id number] Performing Organization Address [facility] P adis Number [facility] [address] [place] [address] * O2 saturation, venous (10/16/2019 3:55 AM COAL WHEELER) Only the most recent of 17 results within the time period is included. Pathologist [facility] Hemoglobin, 11.4 (L) 14.0 - 18.0 g/dL ACKERLY venous, syringe [facility] O2 saturation, 79 (H) 40 - 70 % ACKERLY venous [facility] Specimen Blood Performing Organization Address [facility] P adis Number [facility] DEPARTMENT OF [address] [place] [address] PATHOLOGY AND GENOMIC MEDICINE [address] * Troponin (10/15/2019 5:02 AM COAL WHEELER) Only the most recent of 8 results within the time period is included. Troponin 0.704 (H) 0.000 - 0.040 ng/mL [facility] Comment: BUDDHIST In patients suspected of HOSPITAL having a myocardial infarction, along with all other appropriate clinical measures and actions including ECG and other diagnostics as appropriate, measure Ultra TnI at 0 hrs and at 3 hrs. Myocardial infarction VERY LIKELY The 0 hr TnI level is > 0.10 ng/mL Myocardial infarction LIKELY The 0 hr TnI level is > 0.04 ng/mL and 3 hr level is increased or decreased by at least 0.020 ng/mL Myocardial infarction VERY UNLIKELY Both the 0 hr and 3 hr TnI levels <= 0.04 ng/mL(within normal limits) OR 0 hr is > 0.04 ng/mL and 3 hr is increased OR decreased by less than 0.020 ng/mL Specimen Plasma specimen Performing Organization Address [facility] [place] [address] PATHOLOGY AND [facility] MEDICINE [address] * Smear review (10/15/2019 4:45 AM COAL WHEELER) Platelet slide Mkd decreased (A) [facility] Anisocytosis Moderate [facility] Polychromasia Moderate [facility] Specimen Performing Organization Address [facility] [place] [address] PATHOLOGY AND [facility] MEDICINE [address] * LDH (10/15/2019 4:00 AM COAL WHEELER) Only the most recent of 9 results within the time period is included. LDH 376 (H) 87 - 225 U/L [facility] Specimen Plasma specimen Performing Organization Address [facility] P adis Number [facility] [place] [address] PATHOLOGY AND [facility] MEDICINE [address] * B natriuretic peptide (10/14/2019 8:50 PM COAL WHEELER) Only the most recent of 4 results within the time period is included. BNP 3,506 (H) 0 - 100 pg/mL [facility] Specimen Blood Performing Organization Address [facility] [place] [address] PATHOLOGY AND [facility] MEDICINE [address] * ECG 12 lead (10/14/2019 8:45 PM COAL WHEELER) Only the most recent of 10 results within the time period is included. Ventricular 97 [facility] rate Atrial rate 97 [facility] AL interval 174 [facility] QRSD interval 132 [facility] QT interval 392 [facility] QTC interval 497 [facility] P axis 1 39 [facility] QRS axis 1 -38 [facility] T wave axis 128 [facility] EKG impression Normal sinus [facility] MUSE rhythm-Nonspecific intraventricular block- Specimen Narrative Performed At This result has an attachment that is n ot available. Performing Organization Address City/[facility]/ZIP Code P adis Number [facility] MUSE [address] [place] [address] * Prothrombin time with INR (10/12/2019 4:00 AM COAL WHEELER) Only the most recent of 5 results within the time period is included. Pathologist [facility] Prothrombin 15.3 (H) 11.5 - 14.5 sec [facility] INR 1.2 ACKERLY Comment: [facility] International Normalized HOSPITAL Ratio (INR) is a therapeutic monitoring tool for patients who are stable on oral anticoagulant therapy. An INR of 2.0-3.0 is suggested for deep vein thrombosis/pulmonary embolism. Specimen Blood Performing Organization Address City/[facility] [place] [address] PATHOLOGY AND [facility] MEDICINE [address] * Bilirubin direct (10/12/2019 4:00 AM COAL WHEELER) Only the most recent of 5 results within the time period is included. Bilirubin 0.6 (H) 0.0 - 0.3 mg/dL [facility] Specimen Plasma specimen Performing Organization Address City/State/[facility] P adis Number [facility] [place] [address] PATHOLOGY AND [facility] MEDICINE [address] * earth science laboratory technician procedure (10/08/2019 7:49 PM COAL WHEELER) Specimen Narrative Performed At [facility] PCI to the LM-LCx with 3.0 x 12 mm X ience ISAÍAS, proximally dilated to 3.25 mm. POBA of the ISR segment of the mid L Cx. Patent PERALTA-LAD and SVG-RCA. FINDINGS: LM: Distal LM 30% lesion. LAD: Proximal occlusion 100% LCx: Proximal LCX lesion 90%, mid LCX 8 0% ISR RCA: Diffuse disease with complete occl usion. Grafts: PERALTA - LAD: Patent SVG-RCA: Patent with diffuse disease an d luminal irregularities Radial-OM: 100% occluded Last SVG graft : 100% occluded Subclavian stent patent CONCLUSION: - Total of four grafts: Patent PERALTA-LAD and SVG-RCA. Two other grafts occluded - Patent Subclavian stent without jaili ng of the PERALTA. - Proximal LCX lesion stented , PTCA of mid LCX stent ISR. See full op report for details. PROCEDURE DETAILS: ATTENDING: Dr. Bonilla EQUIPMENT/ANTICOAGULATION: Left Common Femoral Artery 4Fr Sheath 6Fr Sheath JL4 Catheter JR4 Catheter Chicho Blue coronary wire XB 3.5 Guide catheter PROCEDURAL DETAILS: The patient was brought to the cardiac catheterization laboratory in a fasting state. Informed consent was obt ained prior to procedure. Left groin was prepped and draped in the usu al sterile fashion. Intravenous Midazolam and Fentanyl were administere d for conscious sedation. Skin was infiltrated with 1% lidocaine for local anesthesia. Arterial access was obtained using modified Seldinger techn ique. 4Fr. sheath was inserted into the Left common femoral artery. Selecti ve coronary angiogram was performed thereafter in a standard fashion using JL4 and JR4 catheters. We identified a new lesion in the LM-pr oximal LCx as well as significant ISR in the mid LCx. Attending: Dr. Daljit Bonilla Interventional Fellow: Ramez King MD EQUIPMENT/ANTICOAGULATION: Left Common Femoral Artery 6F Sheath XB 3.5 Guide Catheter Chicho Blue coronary wire Anticoagulation: Angiomax bolus and I nfusion with ACT >250 sec prior to procedure PROCEDURAL DETAILS: The LMT was engaged with the XB 3.5 G uide Catheter and a Chicho Blue coronary wire was advanced into the dis cayden LCx. The lesion in the proximal and mid LCx was pre-dilated with a 2.5 x 12 mm semi-compliant balloon at 14 brielle and we then stented the LM-prox LCx with a 3.0 x 12 mm Xience ISAÍAS. We used the SDS of this to further perf orm angioplasty of the ISR segment of the mid LCx. We then post-dilated th e LM portion of the stent with a 3.25 mm NC balloon. Final angiography r evealed no evidence of dissection or perforation; there was SETH 3 flow a nd 10% residual stenosis. HEMOSTASIS: Proglide Closure Device ADDITIONAL POST-PROCEDURE MEDICATIONS: PLAN: 1. ASA 81mg daily 2. Clopidogrel 75mg daily . 3. Cardiac medical therapy and aggressi ve risk factor modification. Cardiac rehabilitation. 4. Transferred in stable condition 5. If eventually put on oral anticoagul ant then d/c the aspirin and continue oral anticoagulant and plavix. Performing Organization Address [facility]/ZIP Code P adis Number [facility] [address] [place] [address], * Activated clotting time (10/08/2019 7:18 PM COAL WHEELER) Activated 393 (H) 96 - 152 sec ACKERLY clotting time Comment: BUDDHIST Bilingual Customer Service Specialist Name: [facility] Device ID: [id number] Specimen Performing Organization Address [facility] P adis Number [facility] DEPARTMENT OF [address] [place] [address] PATHOLOGY AND GENOMIC MEDICINE ACKERLY BUDDHIST [address] [place] [address] * Echocardiogram complete w contrast and 3D if needed (10/07/2019 2:55 AM COAL WHEELER) Specimen Narrative Performed At [facility] Echo cardiography Report [address] [place] [address] 9, [address]Name: RICHAR POTTS Pat.ID: [id number] .Date: 10/07/2019 Refer.MD: JJ SAGASTUME MD Exam Time: 1:50:00 AM Study Type:Routine Echo Height: 74in Weight: 195lb BSA: 2.15 m2 Age: 2 1970,49Y Sex: MALE BP: 124/67 HR: 100 bpm Sonogrphr: Shirley Arreola RDCS Pat. Stat.:Inpatient Room: [address] Study Status:Final Echo Event ID:[id number] Order ID: [id number] Reason for Study:r/o cardiogenic shock Procedures: 2D Echo, Colorflow Doppler, Portable, Stat Race: C SUMMARY: LV EF is severely depressed and appears worse than last dated 06/2019 Possible new posterior wall motion abno rmality FINDINGS: LV: LV size is mildly enlarged . LV EF is severely depressed. Septal motion is parado xical secondary to LBBB or conduction abnormality. Estimated EF is 25-29%. Basal Inferoseptal, Basal Inf erolateral, Mid Inferoseptal, Mid Inferolateral martinez are akinetic. Basal Anterior, Basal Anteroseptal, Basal Inf erior, Basal Anterolateral, Mid Anterior, Mid Anterosep cayden, Mid Inferior, Mid Anterolateral, Apical A nterior, Apical Septal, Apical Inferior, Apical Latera l, Apical martinez are hypokinetic. RV: RV size is mildly enlarged . A pacemaker wire is seen in the RV. RV systolic functio n is moderately depressed. LA: LA volume is mild to moder ately enlarged. RA: RA size is normal. AO: Aortic root diameter is no rmal. QUINTON: No pericardial effusion. AV: No structural AV abnormali ties noted. MV: Dilated annulus with poor coaptation. Mild mitral regurgitation. PV: Pulmonic valve not well se en. TV: No structural TV abnormali ties noted. Mild tricuspid regurgitation Tsai: Diastolic dysfunction Grade II (Moderate): Impaired relaxation with elevate d LV filling pressures. Other: Estimated PA systolic press ure is 55-60 mmHg, assuming a mean RAP of 10-15 mmH g. MEASUREMENTS: 2D [facility] Ao An 2.1 cm LVPWd 0.72 cm Ao Rtd 3.1 cm Index 1.5 cm/m2 RWT 0.25 IVSd 0.97 cm LV Mass 184 g (122-1 74) LVIDd 5.7 cm Index 2.7 cm/m2 LVM Index 86 g/m LVIDs 4.7 cm LVOT 2.1 cm LV%fs 18 % LA Sng Plane LA Area 24 cm (8.8-2 3.4) LA Vol 81 ml Index 38 ml/m2 LA LngAx 5.8 cm LVOT LVOT Area 3.4 cm WALL MOTION: RESTING WALL MOTION: Basal Inferoseptal, Basal Inferolateral , Mid Inferoseptal, Mid Inferolateral martinez are akinetic. Bas al Anterior, Basal Anteroseptal, Basal Inferior, Basal Anterolateral, Mi d Anterior, Mid Anteroseptal, Mid Inferior, Mid Anterolateral, Apical Anterior, Apical Septal, Apical Inferior, Apical Lateral, Apical martinez are hypokinetic. Wall Index = 2.2 Signed 10/07/2019 01:37 PM Julianna Vogt M.D. Procedure Note Interface, Radiology Results In - 10/07/2019 1:38 PM COAL WHEELER Echocardiography Report [address] [place] [address] Pat.Name: RICHAR POTTS Pat.ID: [id number] .Date: 10/07/2019 Refer.MD: JJ SAGASTUME MD Exam Time: 1:50:00 AM Study Type:Routine Echo Height: 74in Weight: 195lb BSA: 2.15 m2 Age: 2 1970,49Y Sex: MALE BP: 124/67 HR: 100 bpm Sonogrphr: Shirley Arreola RDCS Pat. Stat.:Inpatient Room: [address] Study Status:Final Echo Event ID:[id number] Order ID: [id number] Reason for Study:r/o cardiogenic shock Procedures: 2D Echo, Colorflow Doppler, Portable, Stat Race: C SUMMARY: LV EF is severely depressed and appears worse than last dated 06/2019 Possible new posterior wall motion abnormality FINDINGS: LV: LV size is mildly enlarged. LV EF is severely depressed. Septal motion is paradoxical secondary to LBBB or conduction abnormality. Estimated EF is 25-29%. Basal Inferoseptal, Basal Inferolateral, Mid Inferoseptal, Mid Inferolateral martinez are akinetic. Basal Anterior, Basal Anteroseptal, Basal Inferior, Basal Anterolateral, Mid Anterior, Mid Anteroseptal, Mid Inferior, Mid Anterolateral, Apical Anterior, Apical Septal, Apical Inferior, Apical Lateral, Apical martinez are hypokinetic. RV: RV size is mildly enlarged. A pacemaker wire is seen in the RV. RV systolic function is moderately depressed. LA: LA volume is mild to moderately enlarged. RA: RA size is normal. AO: Aortic root diameter is normal. QUINTON: No pericardial effusion. AV: No structural AV abnormalities noted. MV: Dilated annulus with poor coaptation. Mild mitral regurgitation. PV: Pulmonic valve not well seen. TV: No structural TV abnormalities noted. Mild tricuspid regurgitation Tsai: Diastolic dysfunction Grade II (Moderate): Impaired relaxation with elevated LV filling pressures. Other: Estimated PA systolic pressure is 55-60 mmHg, assuming a mean RAP of 10-15 mmHg. MEASUREMENTS: 2D [facility] Ao An 2.1 cm LVPWd 0.72 cm Ao Rtd 3.1 cm Index 1.5 cm/m2 RWT 0.25 IVSd 0.97 cm LV Mass 184 g (122-174) LVIDd 5.7 cm Index 2.7 cm/m2 LVM Index 86 g/m LVIDs 4.7 cm LVOT 2.1 cm LV%fs 18 % LA Sng Plane LA Area 24 cm (8.8-23.4) LA Vol 81 ml Index 38 ml/m2 LA LngAx 5.8 cm LVOT LVOT Area 3.4 cm WALL MOTION: RESTING WALL MOTION: Basal Inferoseptal, Basal Inferolateral, Mid Inferoseptal, Mid Inferolateral martinez are akinetic. Basal Anterior, Basal Anteroseptal, Basal Inferior, Basal Anterolateral, Mid Anterior, Mid Anteroseptal, Mid Inferior, Mid Anterolateral, Apical Anterior, Apical Septal, Apical Inferior, Apical Lateral, Apical martinez are hypokinetic. Wall Index = 2.2 Signed 10/07/2019 01:37 PM Julianna Vogt M.D. Performing Organization Address City/[facility]/ZIP Code P adis Number [facility] [address] [place] [address] * Aerobic culture (10/06/2019 11:50 PM COAL WHEELER) Aerobic culture No growth after 3 days. ACKERLY isolate Comment: BUDDHIST Specimen Information HOSPITAL Specimen Source: Pleural fluid Specimen Site: Pleural Specimen Pleural fluid - Pleural Performing Organization Address City/State/ZIP Code P adis Number [facility] [place] [address] PATHOLOGY AND GENOMIC MEDICINE [address] * Gram stain (10/06/2019 11:50 PM COAL WHEELER) Only the most recent of 2 results within the time period is included. Gram stain Occasional WBC's ACKERLY isolate No organisms seen BUDDHIST Comment: HOSPITAL Specimen Information Specimen Source: Pleural fluid Specimen Site: Pleural Specimen Pleural fluid - Pleural Performing Organization Address City/State/ZIP Code P adis Number [facility] DEPARTMENT OF [address] [place] [address] PATHOLOGY AND [facility] MEDICINE [address] * Anaerobic culture (10/06/2019 11:50 PM COAL WHEELER) Pathologist [facility] Anaerobic No anaerobic organisms ACKERLY culture isolate isolated. BUDDHIST Comment: HOSPITAL Specimen Information Specimen Source: Pleural fluid Specimen Site: Pleural Specimen Pleural fluid - Pleural Performing Organization Address City/State/ZIP Code P adis Number [facility] [place] [address] PATHOLOGY AND [facility] MEDICINE [address] * Cell count and differential, body fluid (10/06/2019 11:00 PM COAL WHEELER) Only the most recent of 2 results within the time period is included. [facility] Misc fluid type Pleural [facility] Color, fluid Pale yellow [facility] Appearance, Slightly hazy [facility] RBC, fluid SEE COMMENTComment: 1+ (0 - /CMM HO USTON 500 RBC/CMM) [facility] Nucleated 89 /CMM ACKERLY cells[facility] Fluid See Diff ACKERLY mononuclear [facility] Neutrophils, 62 % [facility] Lymphocytes, 26 % [facility] Mesothelial 3 % ACKERLY cellsMichael E. [facility] Macrophages, 8 % [facility] Plasma cells, 1 % [facility] Specimen Fluid Performing Organization Address City/[facility] P adis Number [facility] [place] [address] PATHOLOGY AND [facility] MEDICINE [address] * Protein, misc fluid (10/06/2019 11:00 PM COAL WHEELER) Fluid type Pleural [facility] Protein, fluid 1.3 g/dL ACKERLY Comment: BUDDHIST The reference interval(s) and HOSPITAL other method performance specifications have not been established for this body fluid. The test results must be integrated into the clinical context for interpretation. This test has been modified from the manufacturers instructions. The performance characteristics were determined by [facility] in a manner consistent with CLIA requirements. This test has not been cleared or approved by the U.S. Food and Drug Administration. Specimen Fluid Narrative Performed At [facility] results called to and read back by JUDI WHYTE/Austin NORIEGAT1Bertin at 10/07/2019 [facility] DEPARTMENT OF 00:45 by [facility]. PATHOLOGY AND GENOMIC MEDICINE Performing Organization Address City/[facility] [place] [address] PATHOLOGY AND GENOMIC MEDICINE [address] * LDH, misc fluid (10/06/2019 11:00 PM COAL WHEELER) Fluid type Pleural [facility] LDH, fluid 60 U/L ACKERLY Comment: BUDDHIST The reference interval(s) and HOSPITAL other method performance specifications have not been established for this body fluid. The test results must be integrated into the clinical context for interpretation. This test has been modified from the manufacturers instructions. The performance characteristics were determined by [facility] in a manner consistent with CLIA requirements. This test has not been cleared or approved by the U.S. Food and Drug Administration. Specimen Fluid Performing Organization Address [facility] [place] [address] PATHOLOGY AND GENOMIC MEDICINE [address] * Protein, total (10/06/2019 11:00 PM COAL WHEELER) [facility] Protein 6.3 6.3 - 8.3 g/dL ACKERLY Comment: BUDDHIST Yivaijy9500.6-7.0 g/dL HOSPITAL 1 tmsu8727.4-7.6 g/dL 7 months-7oqho869.1-7.3 g/dL 1-2 nyhjc658.6-7.5 g/dL >3 yynnr033.0-8.0 g/dL 18-1736420.3-8.3 g/dL Specimen Plasma specimen Performing Organization Address City/[facility]/ZIP [facility] [place] [address] PATHOLOGY AND GENOMIC MEDICINE [address] * pH, misc fluid (10/06/2019 11:00 PM COAL WHEELER) Fluid type Pleural [facility] pH, fluid 8.00Comment: Reference ranges MELGAR are not established for BUDDHIST Miscellanous specimens. HOSPITAL Specimen Fluid Performing Organization Address City/[facility]/ZIP Code P adis Number [facility] DEPARTMENT OF [address] [place] [address] PATHOLOGY AND GENOMIC MEDICINE [address] * Arterial blood gas (10/06/2019 11:00 PM COAL WHEELER) Only the most recent of 2 results within the time period is included. pH, arterial 7.38 7.35 - 7.45 [facility] pCO2, arterial 38 35 - 45 mmHg [facility] pO2, arterial 151 (H) 80 - 90 mmHg [facility] Bicarbonate, 21.9 21.0 - 28.0 mmol/L [facility] Base excess, -2 -2 - 2 mEq/L [facility] O2 saturation, 99 95 - 100 % [facility] Specimen Blood Performing Organization Address City/[facility] [place] [address] PATHOLOGY AND GENOMIC MEDICINE [address] * Thoracentesis (10/06/2019 10:46 PM COAL WHEELER) Narrative Performed At Solo Browning MD 10/06/2019 1 0:47 PM Thoracentesis Date/Time: 10/06/2019 10:46 PM Performed by: Solo Browning MD Authorized by: Solo Browning MD Consent: Consent obtained: Written Consent given by: Spouse Risks discussed: Bleeding Alternatives discussed: No treatmen t Joy protocol: Procedure explained and questions ans wered to patient or proxy's satisfaction: yes Patient identity confirmed: Verball y with patient Sedation: Sedation type: Narcotic Anesthesia (see MAR for exact dosages): Anesthesia method: Local infiltrati on Local anesthetic: Lidocaine 1% w/o epi Procedure details: Patient position: L lateral decubit us Location: R lateral Intercostal space: 7th Puncture method: Kxzv-nlb-sbmowy ca theter Ultrasound guidance: yes Indwelling catheter placed: no Needle gauge: 14 Catheter size: 8 Fr Number of attempts: 1 Fluid removed amount: 1100 cc Fluid sent for: Aerobic, anaerobic, pH, LDH and cell count and differential Drainage characteristics: Clear Post-procedure details: Chest x-ray performed: yes Patient tolerance of procedure: Anna erated well, no immediate complications * earth science laboratory technician procedure (10/06/2019 6:05 PM COAL WHEELER) Specimen Narrative Performed At [facility] Successful placement of femoral IABP. Performing Organization Address City/State/ZIP Code P adis Number [facility] [address] [place] [address], * Arterial Line Insertion (10/06/2019 4:36 PM COAL WHEELER) Narrative Performed At Stevan Suárez MD 10/06/2019 4:38 PM Arterial Line Insertion Date/Time: 10/06/2019 4:36 PM Performed by: Stevan Suárez MD Authorized by: Nawaf Padgett MD Consent: Consent obtained: Verbal Consent given by: Patient Risks discussed: Bleeding, pain, in fection and repeat procedure Indications: Indications: hemodynamic monitoring Pre-procedure details: Skin preparation: 2% Chlorhexidine Sedation: Sedation type: Moderate (conscious) sedation Anesthesia (see MAR for exact dosages): Anesthesia method: Local infiltrati on Local anesthetic: Lidocaine 1% w/o epi Procedure details: Location: R femoral Needle gauge: 20 G Placement technique: Seldinger Ultrasound guidance: yes Number of attempts: 5 or more Post-procedure details: CMS: Normal Comments: Due to bad vasculature unable to pas s the guidewire. No post procedure complications * Lactic acid level, SEPSIS - Now and repeat 2x every 3 hours (10/06/2019 3:42 PM COAL WHEELER) Only the most recent of 3 results within the time period is included. Lactic acid 1.6 0.5 - 2.2 mmol/L [facility] Specimen Blood Performing Organization Address City/[facility]/ZIP Code P adis Number [facility] DEPARTMENT OF [address] [place] [address] PATHOLOGY AND GENOMIC MEDICINE [address] * PA Catheter (10/06/2019 3:05 PM COAL WHEELER) Narrative Performed At Sha Yanez MD 10/06/2019 3:13 PM PA Catheter Date/Time: 10/06/2019 3:08 PM Performed by: Sha Yanez MD Authorized by: Nawaf Padgett MD Consent: Written consent obtained. Risks and benefits: risks, benefits and alternatives were discussed Consent given by: spouse Patient understanding: patient states u nderstanding of the procedure being performed Patient consent: the patient's understa nding of the procedure matches consent given Procedure consent: procedure consent ma tches procedure scheduled Relevant documents: relevant documents present and verified Test results: test results available an d properly labeled Site marked: the operative site was herberth arriaza Imaging studies: imaging studies availa ble Required items: required blood products , implants, devices, and special equipment available Patient identity confirmed: arm band an d hospital-assigned identification number Time out: Immediately prior to procedur e a "time out" was called to verify the correct patient, procedure, equipme nt, business support specialist and site/side marked as required. Preparation: Patient was prepped and dr german in the usual sterile fashion. Indications: hemodynamic monitoring Location: Left internal jugular vein. Anesthesia: local infiltration Anesthesia: Local Anesthetic: lidocaine 1% without epinephrine Anesthetic total: 3 mL Sedation: Patient sedated: no Needle gauge: 20 Seldinger technique: Seldinger techniqu e used Number of attempts: 1 Post-procedure: line sutured and dressi ng applied Post-procedure CMS: unchanged and roya l Patient tolerance: Patient tolerated th e procedure well with no immediate complications Comments: Procedure led by Dr. Dayron lauren was present at all times. * US Gallbladder (10/06/2019 12:04 PM COAL WHEELER) Specimen Narrative Performed At EXAMINATION: US GALLBLADDER [facility] CLINICAL HISTORY: 49 years Male r o cholecystitis COMPARISON: None. FINDINGS: Gallbladder: Multiple small gallstones and sludge in the gallbladder. No gallbladder wall thickening or perichol ecystic fluid. CBD: 0.5 cm Portal vein: The portal vein demonstrat es normal hepatopedal flow. The portal vein measures 1.5 cm. IMPRESSION: Cholelithiasis without sonographic evid ence of cholecystitis. [facility]-[id number] Procedure Note Interface, Radiology Results Incoming - 10/06/2019 12:09 PM COAL WHEELER EXAMINATION: US GALLBLADDER CLINICAL HISTORY: 49 years Male r o cholecystitis COMPARISON: None. FINDINGS: Gallbladder: Multiple small gallstones and sludge in the gallbladder. No gallbladder wall thickening or pericholecystic fluid. CBD: 0.5 cm Portal vein: The portal vein demonstrates normal hepatopedal flow. The portal vein measures 1.5 cm. IMPRESSION: Cholelithiasis without sonographic evidence of cholecystitis. [facility]-[id number] Performing Organization Address City/State/ZIP Code P adis Number [facility] [address] [place] [address] * Thyroid stimulating hormone (10/06/2019 11:33 AM COAL WHEELER) Only the most recent of 4 results within the time period is included. TSH 4.13 0.27 - 4.20 uIU/mL [facility] Specimen Plasma specimen Performing Organization Address City/State/ZIP Code P adis Number [facility] DEPARTMENT OF [address] [place] [address] PATHOLOGY AND GENOMIC MEDICINE [facility] [address] [place] [address] [facility] * CT Abdomen Pelvis Wo Contrast (10/06/2019 9:35 AM COAL WHEELER) Specimen Narrative Performed At EXAMINATION: CT ABDOMEN PELVIS WO CONTRAST [facility] CLINICAL HISTORY: Abd pain fever abscess suspected COMPARISON: 10/03/2019 TECHNIQUE: Multiple axial CT images of the Abdomen and pelvis were obtained Without IV contrast limiting evaluation . Sagittal and coronal reconstructions were done. Radiation dose reduction alicia hnique used for this study. CT imaging was performed with iterative reconstruction technique and/or automated exposure control to reduce ra diation dose. FINDINGS: HEPATOBILIARY: No acute focal abnorma lity. GALLBLADDER: Cholelithiasis with stable gallbladder wall thickening and small amount of gallbladder air. SPLEEN: No splenomegaly. PANCREAS: Unremarkable within the ortiz itations of a noncontrast exam. ADRENALS: No adrenal nodules. KIDNEYS: No stones or hydronephrosis. PERITONEUM/RETROPERITONEUM: Peritonea l catheter in stable position. Trace free fluid present likely related to periton eal dialysis. No free air or loculated fluid collections. No hematoma ABDOMINAL AORTA/IVC: Severe atheroscler osis of the abdominal aorta and its branches without aneurysm. GI TRACT: The bowel demonstrate no distention or wall thickening. There are no signs of appendicitis.No signs of di verticulitis. PELVIC ORGANS/BLADDER: Contrast prese nt within the urinary bladder. Other pelvic organs without acute abnormality . BONES AND SOFT TISSUES: No acute abno rmality. VISUALIZED LOWER CHEST: Stable moderate right and trace left pleural effusion with some atelectasis of the right lowe r lobe. Heart is enlarged with significant atherosclerosis of coronary arteries. IMPRESSION: No loculated fluid collections to sugge st abscess. Small amount of free fluid in the abdom en and pelvis. Gallbladder findings similar to the chuyita or exam. [facility]-[id number] Procedure Note Interface, Radiology Results Incoming - 10/06/2019 9:47 AM COAL WHEELER EXAMINATION: CT ABDOMEN PELVIS WO CONTRAST CLINICAL HISTORY: Abd pain fever abscess suspected COMPARISON: 10/03/2019 TECHNIQUE: Multiple axial CT images of the Abdomen and pelvis were obtained Without IV contrast limiting evaluation . Sagittal and coronal reconstructions were done. Radiation dose reduction technique used for this study. CT imaging was performed with iterative reconstruction technique and/or automated exposure control to reduce radiation dose. FINDINGS: HEPATOBILIARY: No acute focal abnormality. GALLBLADDER: Cholelithiasis with stable gallbladder wall thickening and small amount of gallbladder air. SPLEEN: No splenomegaly. PANCREAS: Unremarkable within the limitations of a noncontrast exam. ADRENALS: No adrenal nodules. KIDNEYS: No stones or hydronephrosis. PERITONEUM/RETROPERITONEUM: Peritoneal catheter in stable position. Trace free fluid present likely related to peritoneal dialysis. No free air or loculated fluid collections. No hematoma ABDOMINAL AORTA/IVC: Severe atherosclerosis of the abdominal aorta and its branches without aneurysm. GI TRACT: The bowel demonstrate no distention or wall thickening. There are no signs of appendicitis.No signs of diverticulitis. PELVIC ORGANS/BLADDER: Contrast present within the urinary bladder. Other pelvic organs without acute abnormality. BONES AND SOFT TISSUES: No acute abnormality. VISUALIZED LOWER CHEST: Stable moderate right and trace left pleural effusion with some atelectasis of the right lower lobe. Heart is enlarged with significant atherosclerosis of coronary arteries. IMPRESSION: No loculated fluid collections to suggest abscess. Small amount of free fluid in the abdomen and pelvis. Gallbladder findings similar to the prior exam. [facility]-[id number] Performing Organization Address City/State/ZIP Code P [facility] Number [facility] [address] [place] [address] * Respiratory pathogen panel (10/06/2019 9:00 AM COAL WHEELER) [facility] Respiratory Negative for all pathogens [facility] pathogen panel tested: BUDDHIST Negative for Adenovirus HOSPITAL Negative for Coronavirus HKU1 Negative for Coronavirus NL63 Negative for Coronavirus 229E Negative for Coronavirus OC43 Negative for Human Metapneumovirus Negative for Rhinovirus/Enterovirus Negative for Influenza A Negative for Influenza A/H1 Negative for Influenza A/H3 Negative for Influenza A/H1-2009 Negative for Influenza B Negative for Parainfluenza Virus 1 Negative for Parainfluenza Virus 2 Negative for Parainfluenza Virus 3 Negative for Parainfluenza Virus 4 Negative for Respiratory Syncytial Virus Negative for Bordetella pertussis Negative for Chlamydophila pneumoniae Negative for Mycoplasma pneumoniae This real-time PCR assay detects the presence of nucleic acids (RNA or DNA) for the respiratory pathogens listed. A result of "Not-detected" does not exclude the possibility of the presence of one or more pathogens at concentrations less than the detectable limits of the assay. Comment: Specimen Information Specimen Source: Nares Specimen Site: Not specified Specimen Nares - Not specified Performing Organization Address [facility] [place] [address] PATHOLOGY [facility] MEDICINE [address] * Vitamin D 25 hydroxy level (10/06/2019 4:00 AM COAL WHEELER) Only the most recent of 2 results within the time period is included. [facility] Vitamin D, 10.7 (L) 30.0 - 150.0 ng/mL [facility] 25-hydroxy Comment: BUDDHIST This assay reports the sum of HOSPITAL 25-hydroxy vitamin D3 and 25-hydroxy vitamin D2. Reference range: 0-17 years: Deficiency: less than 20ng/mL Optimum level: greater than or equal to 20 ng/mL. 18 years and older: Deficiency: less than 20ng/mL Insufficiency: 20-29 ng/mL Optimum Level: 30-80 ng/mL The assay reportable range is 3.4 155.9 ng/mL. Levels higher than 150 ng/mL may be associated with toxicity. If toxicity is clinically suspected and the reported result is >155.9 ng/mL,contact lab for alternative methods to obtain a definitive level. If separate quantitation of 25-hydroxy vitamin D3 and 25-hydroxy vitamin D2 is needed, please contact lab for alternative methods. Specimen Blood Performing Organization Address City/[facility] [place] [address] PATHOLOGY AND [facility] MEDICINE [address] * CBC hemogram (10/06/2019 4:00 AM COAL WHEELER) [facility] WBC 9.17 4.50 - 11.00 k/uL [facility] RBC 3.92 (L) 4.40 - 6.00 m/uL [facility] HGB 11.7 (L) 14.0 - 18.0 g/dL [facility] HCT 39.1 (L) 41.0 - 51.0 % [facility] MCV 99.7 82.0 - 100.0 fL [facility] MCH 29.8 27.0 - 34.0 pg [facility] MCHC 29.9 (L) 31.0 - 37.0 g/dL [facility] RDW - SD 57.3 (H) 37.0 - 55.0 fL [facility] MPV 11.2 8.8 - 13.2 fL [facility] Platelet count 149 (L) 150 - 400 k/uL [facility] Nucleated RBC 0.00 /100 WBC [facility] Specimen Performing Organization Address [facility] P adis Number [facility] [place] [address] PATHOLOGY AND GENOMIC MEDICINE [address] * T4, free (10/06/2019 4:00 AM COAL WHEELER) Only the most recent of 3 results within the time period is included. T4, free 1.1 0.9 - 1.7 ng/dL [facility] Specimen Plasma specimen Performing Organization Address [facility] P adis Number [facility] [place] [address] PATHOLOGY AND GENOMIC MEDICINE [address] * XR Abdomen 1 Vw Portable (10/05/2019 11:31 PM COAL WHEELER) Specimen Narrative Performed At EXAMINATION: XR ABDOMEN 1 VW PORTABLE RADIANT CLINICAL HISTORY: Nausea vomiting COMPARISON: No priors IMPRESSION: 1.Pelvic catheter noted. Bowel gas vibha ruma nonspecific. Right pleural effusion. [facility]-[id number] Procedure Note Interface, Radiology Results Incoming - 10/05/2019 11:59 PM COAL WHEELER EXAMINATION: XR ABDOMEN 1 VW PORTABLE CLINICAL HISTORY: Nausea vomiting COMPARISON: No priors IMPRESSION: 1.Pelvic catheter noted. Bowel gas patte rn nonspecific. Right pleural effusion. [facility]-[id number] Performing Organization Address [facility] [place] [address] * CTA Abdominal Aorta And Bilateral Iliofemoral Runoff W Wo Contrast (10/03/2019 10:14 PM COAL WHEELER) Specimen Narrative Performed At EXAMINATION: CT ANGIOGRAM ABDOMINAL AORTA AND BILAT ERAL ILIOFEMORAL RUNOFF W HM RADI[facility] WO CONTRAST CLINICAL HISTORY: eval for aortoiliac disease TECHNIQUE: Multiple CT angiographic leana ges of the abdomen, pelvis, and bilateral lower extremities were obtained during intravenous administration of iodinated contrast. Multiple computerized reforma tted images as well as 3-D volume rendered images were also obtained. Precontrast images of th e abdomen were also obtained.Automatic exposure control or iterative reconstru ction techniques used to reduce dose. COMPARISON: 09/03/2019 IMPRESSION: Abdomen: Moderate right and small left pleural e ffusions with compressive atelectasis. There is also interlobular septal thick ening and mild groundglass suggesting edema. Due to CTA technique, solid organs of u pper abdomen are not fully assessed. Large gallstone is noted measuring 2.5 cm. Circumferential enhancement of the gallbladder wall with wall thickening, with small amount of air in the gallbladder as well as pneumobilia. Ascites is also seen. Find ings are nonspecific although if indicated, ultrasound may be useful for further assessment of the gallbladder. Pelvis: Bowel gas pattern nonobstructive. CTA: Aortoiliac segments contain extensive c alcified plaques. No significant aortic stenosis. Left common iliac artery prox imal [id number] stenosis noted. Extensive plaques along the external il iac arteries which are patent. Celiac axis and SMA appear patent proxi jing. Small caliber and stenotic right renal artery proximally. Left renal art ashish also appear to show extensive disease in its midportion. Bilateral lower extremity runoff: Right lower extremity: Common femoral artery and profunda femo ral artery are patent. SFA show multiple tandem stenoses especially in the Rachell r's canal segment, where high-grade stenosis could be seen just above the p opliteal segment which appears to receive prominent collaterals. The trifurcation is patent although prominent calcified plaques involving the posterior tibial artery i s noted throughout. There is three-vessel runoff into the distal calf. Left lower extremity: Common femoral artery and profunda fe moral artery are patent. SFA show multiple tandem stenoses especially in the Shaun's canal segment, where moderate stenosis could be seen just ab ove the popliteal segment. Several tendon stenoses are also seen in the proximal popliteal artery. The trif urcation is patent although prominent calcified plaques involving the posteri or tibial artery is noted throughout. There is three-vessel runoff into the d istal calf. SUMMARY: Extensive peripheral artery disease. In the right lower extremity there is high-grade stenosis of the SFA at Rachell r's canal segment. In the left lower extremity and there are tandem stenoses that are moderate grade involving the distal SFA and proximal popliteal artery. Other vascular abnormalities involving renal arteries are as noted. Gallbladder wall thickening and gallsto ne with pneumobilia presumably from prior sphincterotomy. However finding should be correlated clinically and if indicated ultrasound may be useful for further as sessment. [facility]-[id number] Procedure Note [facility], Radiology Results Incoming - 10/03/2019 10:56 PM COAL WHEELER EXAMINATION: CT ANGIOGRAM ABDOMINAL AORTA AND BILATERAL ILIOFEMORAL RUNOFF W WO CONTRAST CLINICAL HISTORY: eval for aortoiliac disease TECHNIQUE: Multiple CT angiographic images of the abdomen, pelvis, and bilateral lower extremities were obtained during intravenous administration of iodinated contrast. Multiple computerized reformatted images as well as 3-D volume rendered images were also obtained. Precontrast images of the abdomen were also obtained.Automatic exposure control or iterative reconstruction techniques used to reduce dose. COMPARISON: 09/03/2019 IMPRESSION: Abdomen: Moderate right and small left pleural effusions with compressive atelectasis. There is also interlobular septal thickening and mild groundglass suggesting edema. Due to CTA technique, solid organs of upper abdomen are not fully assessed. Large gallstone is noted measuring 2.5 cm. Circumferential enhancement of the gallbladder wall with wall thickening, with small amount of air in the gallbladder as well as pneumobilia. Ascites is also seen. Findings are nonspecific although if indicated, ultrasound may be useful for further assessment of the gallbladder. Pelvis: Bowel gas pattern nonobstructive. CTA: Aortoiliac segments contain extensive calcified plaques. No significant aortic stenosis. Left common iliac artery proximal [id number] stenosis noted. Extensive plaques along the external iliac arteries which are patent. Celiac axis and SMA appear patent proximally. Small caliber and stenotic right renal artery proximally. Left renal artery also appear to show extensive disease in its midportion. Bilateral lower extremity runoff: Right lower extremity: Common femoral artery and profunda femoral artery are patent. SFA show multiple tandem stenoses especially in the Shaun's canal segment, where high-grade stenosis could be seen just above the popliteal segment which appears to receive prominent collaterals. The trifurcation is patent although prominent calcified plaques involving the posterior tibial artery is noted throughout. There is three-vessel runoff into the distal calf. Left lower extremity: Common femoral artery and profunda femoral artery are patent. SFA show multiple tandem stenoses especially in the Shaun's canal segment, where moderate stenosis could be seen just above the popliteal segment. Several tendon stenoses are also seen in the proximal popliteal artery. The trifurcation is patent although prominent calcified plaques involving the posterior tibial artery is noted throughout. There is three-vessel runoff into the distal calf. SUMMARY: Extensive peripheral artery disease. In the right lower extremity there is high- grade stenosis of the SFA at Shaun's canal segment. In the left lower extremity and there are tandem stenoses that are moderate grade involving the distal SFA and proximal popliteal artery. Other vascular abnormalities involving renal arteries are as noted. Gallbladder wall thickening and gallstone with pneumobilia presumably from prior sphincterotomy. However finding should be correlated clinically and if indicated ultrasound may be useful for further assessment. [facility]-[id number] Performing Organization Address City/State/ZIP [place] [address] * Nicotine and cotinine, serum (10/03/2019 11:32 AM COAL WHEELER) Only the most recent of 2 results within the time period is included. Nicotine <2.0 0.0 - 1.9 ng/mL [facility] Cotinine <2.0 0.0 - 1.9 ng/mL [facility] Comment: BUDDHIST This test was developed and HOSPITAL its performance characteristics determined by the Department of Pathology and Genomic Medicine, [facility]. Serum nicotine and metabolite cotinine are tested by HPLC tandem mass spectrometry. It has not been cleared or approved by FDA. The laboratory is regulated under CLIA as qualified to perform high-complexity testing. This test is used for clinical purposes. It should not be regarded as investigational or for research. Specimen Blood Performing Organization Address City/State/ZIP Code P adis Number [facility] [place] [address] PATHOLOGY AND GENOMIC MEDICINE [address] * Cv invasive peripheral vascular procedure (10/02/2019 10:55 AM COAL WHEELER) Specimen Narrative Performed At [facility] has an attachment that is not available. [facility] Hemodynamics: 1. Elevated right sided pressure with mRA 20 mmHg. 2. Elevated pulmonary artery pressure with mPA 58 mmHg, PCWP 34 mmHg, TPG 24 mmHg, DPG 16 mmHg 3. Reduced CO (3.1 & 3.5 L/min) and C I (1.4 & 1.6 L/min/m2) via Thermo and Ishmael, respectively. 4. SVR 2006 Dynesseccm?? at BP 12 0/86 (MAP 97 mmHg). Conclusion: 1. Elevated right and left sided fillin gs pressures with pre-and post-capillary pulmonary hypertension a nd reduced cardiac index. 2. R IJ Trialysis catheter secured at 1 2 cm. Recommendation: 1. Aggressive volume removal with HD an d medical optimization. Performing Organization Address [facility] Code P adis Number [facility] [id number] [place] [address], * earth science laboratory technician procedure (10/02/2019 10:55 AM COAL WHEELER) Specimen Narrative Performed At [facility] Hemodynamics: 1. Elevated right sided pressure with mRA 20 mmHg. 2. Elevated pulmonary artery pressure with mPA 58 mmHg, PCWP 34 mmHg, TPG 24 mmHg, DPG 16 mmHg 3. Reduced CO (3.1 & 3.5 L/min) and C I (1.4 & 1.6 L/min/m2) via Thermo and Ishmael, respectively. 4. SVR 2005 Dynesseccm?? at BP 12 0/86 (MAP 97 mmHg). Conclusion: 1. Elevated right and left sided fillin gs pressures with pre-and post-capillary pulmonary hypertension a nd reduced cardiac index. 2. R IJ Trialysis catheter secured at 1 2 cm. Recommendation: 1. Aggressive volume removal with HD an d medical optimization. Performing Organization Address City/[facility]/ZIP Code P adis Number [facility] [address] [place] [address], * Uric acid level (09/25/2019 8:34 AM COAL WHEELER) Only the most recent of 2 results within the time period is included. Uric acid 8.5 (H) 3.4 - 7.0 mg/dL [facility] Specimen Plasma specimen Performing Organization Address City/State/ZIP Code P adis Number [facility] DEPARTMENT OF [address] [place] [id number] PATHOLOGY AND GENOMIC MEDICINE [address] * Lipid panel (09/25/2019 8:34 AM COAL WHEELER) Only the most recent of 2 results within the time period is included. Cholesterol 139 <200 mg/dL [facility] Triglycerides 225 (H) <150 mg/dL [facility] HDL cholesterol 24 (L) >40 mg/dL [facility] LDL cholesterol 77Comment: Result obtained by <100 mg/dL [facility] direct LDL measurement [facility] Lipid panel SeeBelow [facility] interpretation Comment: BUDDHIST Total Cholesterol (mg/dL) [facility] <200 Desirable 200-239 Borderline-high >=240 High Triglycerides (mg/dL) <150 Normal 150-199 Borderline-high 200-499 High >=500 Very high HDL Cholesterol (mg/dL) <40 Low (male) <40 Low (female) LDL Cholesterol (mg/dL) <100 Optimal 100-129 Near or above optimal 130-159 Borderline-high 160-189 High >=190 Very high Risk Catergories that modify LDL goals. Risk Catergories LDL goal (mg/dL) CHD and CHD risk equivalent <100 (10-year risk >20%) Multiple (2+) risk factors <130 (10-year risk =<20%) 0-1 risk factors <160 (<10-year risk) Defining levels of lipids in metabolic syndrome Triglycerides >=150 mg/dL HDL Cholesterol Men <40 mg/dL Women <40 mg/dL Non-HDL cholesterol is a second target for therapy in persons with high triglycerides (>=200 mg/dL) Specimen Plasma specimen Performing Organization Address City/State/ZIP Code P adis Number [facility] DEPARTMENT OF [address] [place] [address] PATHOLOGY AND GENOMIC MEDICINE [address] * Cv stress test (09/03/2019 3:06 PM COAL WHEELER) Resting HR 89 [facility] MUSE Resting BP 119 [facility] Peak MET 2.1 [facility] MUSE Achieved Protocol Name Bike_cpx [facility] MUSE Time in 00:03:27 [facility] M[facility] Exercise Phase Max Systolic BP 123 [facility] Max Diastolic 75 [facility] MUSE BP Max Heart Rate 100 [facility] MUSE Max Predicted 170 [facility] MUSE Heart Rate Target HR (220 - Age)*85% [facility] MUSE Formula Test Indication CHF [facility] MUSE Arrhy During Ex [facility] ECG Interp [facility] Before EX ECG Interp [facility] During Ex Ex Summary [facility] Comment Overall HR [facility] Response to Exercise Overall BP [facility] Response To Exercise Reason for Leg discomfort,SOB [facility] Termination Stress Test Waveform interpreted in report [facility] MU SE Impression associated with image study . No interpretation is provided as part of this Stress ECG report.--Electronically Signed By Tiffany EID, Siva Naik ([id number]), sports editor Krystian Campbell ([id number]) on 09/11/2019 10:41:02 AM Specimen Narrative Performed At This result has an attachment that is n ot available. Performing Organization Address City/State/ZIP Code P adis Number [facility] MUSE [address] [place] [address] * CT Chest Wo Contrast Abdomen Wo Contrast Pelvis Wo Contrast (09/03/2019 1:13 PM COAL WHEELER) Specimen Narrative Performed At EXAMINATION: CT CHEST WO CONTRAST ABDOMEN WO CONTRA ST PELVIS WO CONTRAST HM [facility]IANT CLINICAL HISTORY: Z01.818 Encounter f or other preprocedural examination, I25.5 Ischemic cardiomyopathy, heart transpla nt eval TECHNIQUE: Multiple axial images of t he chest, abdomen, and pelvis were obtained without intravenous contrast. The lack of intravenous contrast reduces the sensitivity of detecting solid orga n disease. CT imaging was performed with iterative reconstruction technique and/or automat ed exposure control to reduce radiation dose. COMPARISON: None FINDINGS: CHEST: Lungs and airways: No acute airspace di sease or suspicious pulmonary nodules. Minimal atelectasis is present in the d ependent lungs. There is mild interlobular septal thickening. Pleura: Trace left and moderate right p leural effusions are present. Mediastinum and lymph nodes: No lymphad enopathy. Cardiovascular: Prior coronary artery b ypass grafting. A left subclavian stent is in place. There are multifocal vascu lar calcifications. Four-chamber cardiomegaly. ABDOMEN: Liver: The liver is normal. No focal ma ss. Gallbladder: Cholelithiasis without CT evidence of acute cholecystitis. Spleen: The spleen is not enlarged. Pancreas: The pancreas is unremarkable. Adrenal Glands: A right adrenal myeloli brandi measures 1.5 cm. Kidneys: There is a prominent lobulatio n versus partially exophytic lesion measuring 2.6 cm with solid attenuation involving the upper pole of the left kidney (see for example image 128 serie s 2). Renal cortical thinning is present. Vascular: Moderate aortic and branch ve ssel irregular calcifications are present. Nodes: No enlarged retroperitoneal or m esenteric lymphadenopathy. Bowel: No bowel obstruction or acute in flammatory changes. The appendix is normal. Ascites/fluid collections: A small amou nt of ascites is present. A peritoneal catheter is in place. PELVIS: Free fluid extends into the pelvis. MUSCULOSKELETAL: Scattered degenerative osseous changes are present. Prior median sternotomy. IMPRESSION: 1.Mild pulmonary edema with trace left and moderate right pleural effusions. 2.Four-chamber cardiomegaly with extens thiago vascular calcifications and prior coronary artery bypass grafting. 3.Prominent lobulation versus renal mas s involves the upper pole of the left kidney. Recommend renal ultrasound, chun al mass protocol CT, or abdominal MRI with and without contrast material for further evaluation. 4.Small ascites with peritoneal cathete r in place. 5.Additional chronic and incidental fin dings as detailed above. [facility]-[id number] Procedure Note Interface, Radiology Results Incoming - 09/03/2019 1:38 PM COAL WHEELER EXAMINATION: CT CHEST WO CONTRAST ABDOMEN WO CONTRAST PELVIS WO CONTRAST CLINICAL HISTORY: Z01.818 Encounter for other preprocedural examination, I25.5 Ischemic cardiomyopathy, heart transplant eval TECHNIQUE: Multiple axial images of the chest, abdomen, and pelvis were obtained without intravenous contrast. The lack of intravenous contrast reduces the sensitivity of detecting solid organ disease. CT imaging was performed with iterative reconstruction technique and/or automated exposure control to reduce radiation dose. COMPARISON: None FINDINGS: CHEST: Lungs and airways: No acute airspace disease or suspicious pulmonary nodules. Minimal atelectasis is present in the dependent lungs. There is mild interlobular septal thickening. Pleura: Trace left and moderate right pleural effusions are present. Mediastinum and lymph nodes: No lymphadenopathy. Cardiovascular: Prior coronary artery bypass grafting. A left subclavian stent is in place. There are multifocal vascular calcifications. Four-chamber cardiomegaly. ABDOMEN: Liver: The liver is normal. No focal mass. Gallbladder: Cholelithiasis without CT evidence of acute cholecystitis. Spleen: The spleen is not enlarged. Pancreas: The pancreas is unremarkable. Adrenal Glands: A right adrenal myelolipoma measures 1.5 cm. Kidneys: There is a prominent lobulation versus partially exophytic lesion measuring 2.6 cm with solid attenuation involving the upper pole of the left kidney (see for example image 128 series 2). Renal cortical thinning is present. Vascular: Moderate aortic and branch vessel irregular calcifications are present. Nodes: No enlarged retroperitoneal or mesenteric lymphadenopathy. Bowel: No bowel obstruction or acute inflammatory changes. The appendix is normal. Ascites/fluid collections: A small amount of ascites is present. A peritoneal catheter is in place. PELVIS: Free fluid extends into the pelvis. MUSCULOSKELETAL: Scattered degenerative osseous changes are present. Prior median sternotomy. IMPRESSION: 1.Mild pulmonary edema with trace left a nd moderate right pleural effusions. 2.Four-chamber cardiomegaly with extensi ve vascular calcifications and prior coronary artery bypass grafting. 3.Prominent lobulation versus renal mass involves the upper pole of the left kidney. Recommend renal ultrasound, renal mass protocol CT, or abdominal MRI with and without contrast material for further evaluation. 4.Small ascites with peritoneal catheter in place. 5.Additional chronic and incidental find ings as detailed above. [facility]-[id number] Performing Organization Address City/State/ZIP Code P adis Number [facility] [address] [place] [address] * US Renal (09/03/2019 11:17 AM COAL WHEELER) Specimen Narrative Performed At EXAMINATION: US RENAL [facility] CLINICAL HISTORY: N18.6 End stage chun al disease, Z99.2 Dependence on renal dialysis, Renal failure chronic (kidn ey disease) COMPARISON: None. IMPRESSION: The kidneys are normal in size and demo nstrate increased echogenicity compatible with renal parenchymal disease. There i s no evidence of renal mass, calculi, or hydronephrosis. The right kidney measures 12.0 x 5.2 x 5.5 cm. The left kidney measures 12.8 x 4.9 x 4.6 cm. The urinary bladder is underdistended. There is a moderate amount of ascites a djacent to the bladder. There is also a right pleural effusion. [facility]-[id number] Dictated and approved by radiology resi dent/fellow: Janna Kelley M.D. I, Rosie Marion MD, personally revie wed the images and resident's/fellow's findings and agree with the final repor t. Procedure Note Interface, Radiology Results Incoming - 09/03/2019 2:21 PM COAL [facility]ELER EXAMINATION: US RENAL CLINICAL HISTORY: N18.6 End stage renal disease, Z99.2 Dependence on renal dialysis, Renal failure chronic (kidney disease) COMPARISON: None. IMPRESSION: The kidneys are normal in size and demonstrate increased echogenicity compatible with renal parenchymal disease. There is no evidence of renal mass, calculi, or hydronephrosis. The right kidney measures 12.0 x 5.2 x 5.5 cm. The left kidney measures 12.8 x 4.9 x 4.6 cm. The urinary bladder is underdistended. There is a moderate amount of ascites adjacent to the bladder. There is also a right pleural effusion. [id number] Dictated and approved by vice president consulting services/fellow: Janna Kelley M.D. I, Rosie Marion MD, personally reviewed the images and resident's/fellow's findings and agree with the final report. Performing Organization Address City/State/ZIP Code [facility] Number [facility] [address] [place] [address] * XR Chest 2 Vw (09/03/2019 10:36 AM COAL WHEELER) Specimen Narrative Performed At EXAMINATION: XR CHEST 2 VW [facility] CLINICAL HISTORY: Z01.818 Encounter f or other preprocedural examination, I25.5 Ischemic cardiomyopathy, Shortness of b reath COMPARISON: None. IMPRESSION: 1.Lungs are clear. 2.Normal heart size. Poststernotomy. 3.No acute osseous abnormality. [id number] Procedure Note Interface, Radiology Results Incoming - 09/03/2019 10:40 AM COAL WHEELER EXAMINATION: XR CHEST 2 VW CLINICAL HISTORY: Z01.818 Encounter for other preprocedural examination, I25.5 Ischemic cardiomyopathy, Shortness of breath COMPARISON: None. IMPRESSION: 1.Lungs are clear. 2.Normal heart size. Poststernotomy. 3.No acute osseous abnormality. [facility]-[id number] Performing Organization Address City/State/ZIP Code P adis Number [facility] [address] [place] [address] * XR Panorex (09/03/2019 10:35 AM COAL WHEELER) Specimen Narrative Performed At EXAMINATION: XR PANOREX [facility] CLINICAL HISTORY: Z01.818 Encounter for other preprocedural examination, I25.5 Ischemic cardiomyopathy, heart transpla nt eval COMPARISON: None IMPRESSION: Single Panorex view provided. Patient is partially edentulous. Large dental cavities are noted along t he remaining mandibular premolars bilaterally, including possible small p eriapical lucency on the left. If further care differentiation is clinically ike red, macular facial CT could be performed for additional diagnostic detail. Several dental restorations are noted a long the left maxillary incisors and right maxillary first molar. Temporal mandibular joints are in roya l osseous anatomic alignment. [id number] Procedure Note Hm Interface, Radiology Results Incoming - 09/03/2019 10:46 AM COAL WHEELER EXAMINATION: XR PANOREX CLINICAL HISTORY: Z01.818 Encounter for other preprocedural examination, I25.5 Ischemic cardiomyopathy, heart transplant eval COMPARISON: None IMPRESSION: Single Panorex view provided. Patient is partially edentulous. Large dental cavities are noted along the remaining mandibular premolars bilaterally, including possible small periapical lucency on the left. If further care differentiation is clinically desired, macular facial CT could be performed for additional diagnostic detail. Several dental restorations are noted along the left maxillary incisors and right maxillary first molar. Temporal mandibular joints are in normal osseous anatomic alignment. [facility]-[id number] Performing Organization Address City/State/[facility] Code P adis Number [facility] [address] [place] [address] * Us carotid duplex (09/03/2019 10:00 AM COAL WHEELER) Specimen Narrative Performed At [facility] Vascular U ltrasound Laboratory Carotid A rtery Duplex Report [address] [facility], [facility] [address], [place] [address] For lead quality control technician purposes, the cat egorization of the degree of the stenosis of this exam is based on criteria descr ibed in the IAC carotid stenosis grading white paper( www.intersocietal.org/Vasc ular) and Nick E.Corrie., Krishna CJorgeB., et al. Carotid artery stenosis: weldon-scale and Doppler US diagnosis--Society of Radiologists in Ultrasound Consensus Conference. Radiol ogy. 2003 Nov; 229(2):340-6. Pat.Name: RICHAR POTTS.ID: [id number] St.Date: 09/03/2019 Refer.MD: JJ SAGASTUME MD Exam Time: 8:22:00 AM Study Type:Carotid Height: 74in Weight: 190lb BSA: 2.13 m2 Age: 2 1970,48Y Sex: MALE Sonogrphr: Doloresbe Pineda RVT Pat. Stat.:Outpatient Tape Vol: SHER CPT - 4: 70215 Echo Event ID:[id number] Order ID: [id number] Reason for Study:Heart transplant evalu ation. History of diabetes, ESRD and HTN. Procedures: Colorflow, Grayscale/2D, Pu lsed wave Doppler Race: C SUMMARY: PHYSICAL ASSESSMENT Blood Pulses Carotid Pressure Carotid Temporal Br uit Right 119/79 + + 0 Left 124/81 + + 0 CAROTID ARTERY SCAN RIGHT: There is hard plaque in the di stal common carotid artery. There is irregular, hard and calcified plaque noted in the bulb extending into the proximal internal an d external carotid artery. Colorflow is mildly disturbed in the pr oximal internal and external carotid arteries. Vertebral artery flow is antegrade. LEFT: There is scattered hard plaque in the common carotid artery. There is irregular, hard and calcified plaque noted in the bulb extending into the proximal internal an d external carotid artery. Colorflow is mildly disturbed in the pr oximal internal carotid artery. Vertebral artery flow is antegrade. PRELIMINARY FINDINGS 1. <50% stenosis of the right bulb and internal carotid artery. 2. 50-69% stenosis of the left bulb and internal carotid artery with ratio of 2.3. 3. >50% stenosis of the right external carotid artery. 4. Antegrade vertebral artery flow, lay aterally. PHYSICIAN INTERPRETATION Bilateral carotid duplex examination de monstrated atherosclerotic plaques in the bulbs/ CCAs. 50-69% stenosis of the left bulb and in ternal carotid artery with ratio of 2.3. <50% stenosis of the right bulb and int ernal carotid artery. >50% stenosis of the right external car otid artery. FINDINGS: Carotid Findings: Right Left Verteb.Flw Antegrade Antegrade Subclavian Biphasic Biphasic MEASUREMENTS: DOPPLER Left CCA Dist CCA Dist PSV 56.6 cm/s CCA Dist EDV 19.6 cm/s Left CCA Prox CCA Prox PSV 60.1 cm/s CCA Prox EDV 18.5 cm/s Left ICA Dist ICA Dist PSV 80.3 cm/s ICA Dist EDV 37.5 cm/s Left ICA Mid ICA Mid PSV 86.8 cm/s ICA Mid EDV 38.7 cm/s Left ICA Prox ICA Prox PSV 123 cm/s ICA Prox EDV 44.8 cm/s Left ECA Prox ECA Prox PSV 130 cm/s ECA Prox EDV 17.3 cm/s Left SCA Prox SCA Prox PSV 133 cm/s Left Vertebral Vertebral PSV 28.3 cm/s Vertebral EDV 12.1 cm/s Right CCA Dist CCA Dist PSV 56.6 cm/s CCA Dist EDV 19.3 cm/s Right CCA Mid CCA Mid PSV 60.4 cm/s CCA Mid EDV 19.9 cm/s Right CCA Prox CCA Prox PSV 67.4 cm/s CCA Prox EDV 11.7 cm/s Right ICA Dist ICA Dist PSV 71.5 cm/s ICA Dist EDV 32.8 cm/s Right ICA Mid ICA Mid PSV 90.4 cm/s ICA Mid EDV 27.5 cm/s Right ICA Prox ICA Prox PSV 99.2 cm/s ICA Prox EDV 41.3 cm/s Right ECA Prox ECA Prox PSV 192 cm/s ECA Prox EDV 39.3 cm/s Right SCA Prox SCA Prox PSV 88.8 cm/s Right Vertebral Vertebral PSV 21.7 cm/s Vertebral EDV 5.48 cm/s Left CCA Mid CCA Mid PSV 53.8 cm/s CCA Mid EDV 14.9 cm/s Right ICA/CCA Ratio ICA/CCA PSV 1.64 Left ICA/CCA Ratio ICA/CCA PSV 2.29 Signed 09/03/2019 12:12 PM Yves Malloy MD, RPVI Procedure Note Interface, Radiology Results In - 09/03/2019 12:13 PM [facility] Vascular Ultrasound Laboratory Carotid Artery Duplex Report [address] [place] [address] For lead quality control technician purposes, the categorization of the degree of the stenosis of this exam is based on criteria described in the IAC carotid stenosis grading white paper( www.intersocietal.org/Vascular) and Lashay Romero., Kathy Keller, et al. Carotid artery stenosis: weldon-scale and Doppler US diagnosis--Society of Radiologists in Ultrasound Consensus Conference. Radiology. 2003 Nov; 229(2):340-6. Pat.Name: RICHAR POTTS Pat.ID: [id number] St.Date: 09/03/2019 Refer.MD: JJ SAGASTUME MD Exam Time: 8:22:00 AM Study Type:Carotid Height: 74in Weight: 190lb BSA: 2.13 m2 Age: 2 1970,48Y Sex: MALE Sonogrphr: Dolores Pineda RVT Pat. Stat.:Outpatient Tape Vol: SHER, CPT - 4: 21921 Echo Event ID:[id number] Order ID: [id number] Reason for Study:Heart transplant evaluation. History of diabetes, ESRD and HTN. Procedures: Colorflow, Grayscale/2D, Pulsed wave Doppler Race: C SUMMARY: PHYSICAL ASSESSMENT Blood Pulses Carotid Pressure Carotid Temporal Bruit Right 119/79 + + 0 Left 124/81 + + 0 CAROTID ARTERY SCAN RIGHT: There is hard plaque in the distal common carotid artery. There is irregular, hard and calcified plaque noted in the bulb extending into the proximal internal and external carotid artery. Colorflow is mildly disturbed in the proximal internal and external carotid arteries. Vertebral artery flow is antegrade. LEFT: There is scattered hard plaque in the common carotid artery. There is irregular, hard and calcified plaque noted in the bulb extending into the proximal internal and external carotid artery. Colorflow is mildly disturbed in the proximal internal carotid artery. Vertebral artery flow is antegrade. PRELIMINARY FINDINGS 1. <50% stenosis of the right bulb and i nternal carotid artery. 2. 50-69% stenosis of the left bulb and internal carotid artery with ratio of 2.3. 3. >50% stenosis of the right external c arotid artery. 4. Antegrade vertebral artery flow, bila terally. PHYSICIAN INTERPRETATION Bilateral carotid duplex examination demonstrated atherosclerotic plaques in the bulbs/ CCAs. 50-69% stenosis of the left bulb and int ernal carotid artery with ratio of 2.3. <50% stenosis of the right bulb and internal carotid artery. >50% stenosis of the right external carotid artery. FINDINGS: Carotid Findings: Right Left Verteb.Flw Antegrade Antegrade Subclavian Biphasic Biphasic MEASUREMENTS: DOPPLER Left CCA Dist CCA Dist PSV 56.6 cm/s CCA Dist EDV 19.6 cm/s Left CCA Prox CCA Prox PSV 60.1 cm/s CCA Prox EDV 18.5 cm/s Left ICA Dist ICA Dist PSV 80.3 cm/s ICA Dist EDV 37.5 cm/s Left ICA Mid ICA Mid PSV 86.8 cm/s ICA Mid EDV 38.7 cm/s Left ICA Prox ICA Prox PSV 123 cm/s ICA Prox EDV 44.8 cm/s Left ECA Prox ECA Prox PSV 130 cm/s ECA Prox EDV 17.3 cm/s Left SCA Prox SCA Prox PSV 133 cm/s Left Vertebral Vertebral PSV 28.3 cm/s Vertebral EDV 12.1 cm/s Right CCA Dist CCA Dist PSV 56.6 cm/s CCA Dist EDV 19.3 cm/s Right CCA Mid CCA Mid PSV 60.4 cm/s CCA Mid EDV 19.9 cm/s Right CCA Prox CCA Prox PSV 67.4 cm/s CCA Prox EDV 11.7 cm/s Right ICA Dist ICA Dist PSV 71.5 cm/s ICA Dist EDV 32.8 cm/s Right ICA Mid ICA Mid PSV 90.4 cm/s ICA Mid EDV 27.5 cm/s Right ICA Prox ICA Prox PSV 99.2 cm/s ICA Prox EDV 41.3 cm/s Right ECA Prox ECA Prox PSV 192 cm/s ECA Prox EDV 39.3 cm/s Right SCA Prox SCA Prox PSV 88.8 cm/s Right Vertebral Vertebral PSV 21.7 cm/s Vertebral EDV 5.48 cm/s Left CCA Mid CCA Mid PSV 53.8 cm/s CCA Mid EDV 14.9 cm/s Right ICA/CCA Ratio ICA/CCA PSV 1.64 Left ICA/CCA Ratio ICA/CCA PSV 2.29 Signed 09/03/2019 12:12 PM Yves Malloy MD, RPVI Performing Organization Address City/[facility]/ZIP Code [facility] Number [facility] [address] [place] [address] * Pv physiologic arterial lower extremity complete w veronica (09/03/2019 9:00 AM COAL WHEELER) Specimen Narrative Performed At [facility] Vascular D iagnostic Laboratory Physiologi c Arterial Leg Report [address] [place] [address] Pat.Name: RICHAR POTTS Pat.ID: [id number] .Date: 09/03/2019 Refer.MD: JJ SAGASTUME MD Exam Time: 7:30:00 AM Study Type:Physiologic Leg H eight: 74in Weight: 190lb BSA: 2.13 m2 Age: 2 1970,48Y Sex: MALE Sonogrphr: Dolores Pineda RVT Pat. Stat.:Outpatient Tape Vol: SHER, CPT - 4: 21062 Echo Event ID:[id number] Order ID: [id number] Reason for Study:Heart transplant evalu ation. History of diabetes, ESRD and HTN. Procedures: Ankle/brachial pressures, D igit pressures, Non-imaging continuous wave Doppler, PPG waveform t racing, Segmental pressures Race: C SUMMARY: DOPPLER SIGNALS: DOPPLER SIGNALS ARTERY RIGHT LEFT Common Femoral Abnormal Abnormal Superficial Femoral Abnormal Abnormal Popliteal Abnormal Abnormal Posterior Tibial Abnormal Abnormal Dorsalis Pedis Abnormal Abnormal SEGMENTAL PRESSURE (mmHg): RIGHT LEFT Brachial 119 124 High Thigh Unable to tolerate Unab le to tolerate Low Thigh Non-compressible Non-compre ssible Calf Non-compressible Non-compress ible Ankle DP 88 103 Ankle PT 170 Non-compressible Great Toe 60 73 ANKLE/BRACHIAL INDEX: RIGHT LEFT Dorsalis Pedis 0.71 0.83 Posterior Tibial 1.37 Non-Compressi ble TOE/BRACHIAL INDEX: RIGHT LEFT 0.48 0.59 PRELIMINARY FINDINGS: 1. Analog waveforms are abnormal sugges tive of bilateral aorto-iliac disease. 2. Ankle/brachial indices on the right is suggestive of arterial wall calcinosis and the left were unable to be obtained due to non-compressible arteries. 3. Toe/brachial indices fall into the m ild category, bilaterally. PHYSICIAN INTERPRETATION: 1. Analog waveforms are abnormal sugges tive of bilateral aorto-iliac disease. 2. Ankle/brachial indices on the right is suggestive of arterial wall calcinosis and the left were unable to be obtained due to non-compressible arteries. 3. Toe/brachial indices fall into the m ild category, bilaterally. FINDINGS: Signed 09/04/2019 12:44 AM Yves Malloy MD, RPVI Procedure Note Interface, Radiology Results In - 09/04/2019 12:44 AM [facility] Vascular Diagnostic Laboratory Physiologic Arterial Leg Report [id number] [address] Pat.Name: RICHAR POTTS Pat.ID: [id number] .Date: 09/03/2019 Refer.MD: JJ SAGASTUME MD Exam Time: 7:30:00 AM Study Type:Physiologic Leg Height: 74in Weight: 190lb BSA: 2.13 m2 Age: 2 1970,48Y Sex: MALE Sonogrphr: Dolores Pineda RVT Pat. Stat.:Outpatient Tape Vol: SHER, CPT - 4: 31362 Echo Event ID:[id number] Order ID: [id number] Reason for Study:Heart transplant evaluation. History of diabetes, ESRD and HTN. Procedures: Ankle/brachial pressures, Digit pressures, Non-imaging continuous wave Doppler, PPG waveform tracing, Segmental pressures Race: C SUMMARY: DOPPLER SIGNALS: DOPPLER SIGNALS ARTERY RIGHT LEFT Common Femoral Abnormal Abnormal Superficial Femoral Abnormal Abnormal Popliteal Abnormal Abnormal Posterior Tibial Abnormal Abnormal Dorsalis Pedis Abnormal Abnormal SEGMENTAL PRESSURE (mmHg): RIGHT LEFT Brachial 119 124 High Thigh Unable to tolerate Unable to tolerate Low Thigh Non-compressible Non-compressible Calf Non-compressible Non-compressible Ankle DP 88 103 Ankle PT 170 Non-compressible Great Toe 60 73 ANKLE/BRACHIAL INDEX: RIGHT LEFT Dorsalis Pedis 0.71 0.83 Posterior Tibial 1.37 Non-Compressible TOE/BRACHIAL INDEX: RIGHT LEFT 0.48 0.59 PRELIMINARY FINDINGS: 1. Analog waveforms are abnormal suggest thiago of bilateral aorto-iliac disease. 2. Ankle/brachial indices on the right i s suggestive of arterial wall calcinosis and the left were unable to be obtained due to non-compressible arteries. 3. Toe/brachial indices fall into the mi ld category, bilaterally. PHYSICIAN INTERPRETATION: 1. Analog waveforms are abnormal suggest thiago of bilateral aorto-iliac disease. 2. Ankle/brachial indices on the right i s suggestive of arterial wall calcinosis and the left were unable to be obtained due to non-compressible arteries. 3. Toe/brachial indices fall into the mi ld category, bilaterally. FINDINGS: Signed 09/04/2019 12:44 AM Yves Malloy MD, RPVI Performing Organization Address City/State/ZIP Code P adis Number [facility] [address] [place] [address] * Six minute walk w/ pulse oximetry (09/02/2019 8:36 AM COAL WHEELER) Heart Rate at 89.00 1/min [facility] Rest SPO2 at Rest 97.00 % [facility] Supplemental O2 0.00 L/min [facility] at Rest Heart Rate 94.00 1/min [facility] after 1 minute SPO2 after 1 98.00 % [facility] minute Supplemental O2 0.00 L/min [facility] after 1 minute Heart Rate 97.00 1/min [facility] after 2 minutes SPO2 after 2 95.00 % [facility] minutes Supplemental O2 0.00 L/min [facility] after 2 minutes Heart Rate 101.00 1/min [facility] after 3 minutes SPO2 after 3 92.00 % [facility] minutes Supplemental O2 0.00 L/min [facility] after 3 minutes Heart Rate 102.00 1/min [facility] after 4 minutes SPO2 after 4 93.00 % [facility] minutes Supplemental O2 0.00 L/min [facility] after 4 minutes Heart Rate 113.00 1/min [facility] after 5 minutes SPO2 after 5 97.00 % [facility] minutes Supplemental O2 0.00 L/min [facility] after 5 minutes Six Minute Walk 392.00 538.95 - 844.95 m [facility] ON Distance in m Heart Rate 105.00 1/min [facility] after 6 minutes Highest Heart 113.00 1/min [facility] Rate SPO2 after 6 93.00 % [facility] minutes Lowest SpO2 89.00 % [facility] BP Systolic 101.00 mmHg [facility] after 6 minutes BP Diastolic 61.00 mmHg [facility] after 6 minutes Supplemental O2 0.00 L/min [facility] after 6 minutes Lap Count 9.00 [facility] Six Minute Walk 692 [facility] Distance Predicted Specimen Narrative Performed At This result has an attachment that is n ot available. Performing Organization Address City/State/ZIP Code P adis Number [facility] [address] [place] [address] * Spirometry, diffusion (09/02/2019 7:56 AM COAL WHEELER) FEV1 Pre 1.84 3.46 - 5.18 L [facility] FEV1/FVC % Pre 73.73 68.06 - 87.41 % [facility] FVC Pre 2.50 4.56 - 6.59 L [facility] PEF Pre 7.02 8.00 - 13.04 L/s [facility] FEF 25-75% Pre 1.30 2.02 - 5.50 L/s [facility] DLCO Pre 7.90 24.02 - 39.95 [facility] ml/(min*mmHg) DL/VA Pre 2.82 3.18 - 5.58 [facility] ml/(min*mmHg*L) VA SB Pre 2.80 6.03 - 8.76 L [facility] DLCOc Pre 8.89 24.02 - 39.95 [facility] ml/(min*mmHg) KCOc SB Pre 3.17 3.18 - 5.58 [facility] ml/(min*mmHg*L) Hb Pre 11.20 g(Hb)/dL [facility] R0.5IN Pre 1.83 3.06 - 3.06 [facility] cmH2O*s/L FRCpl Pre 2.21 2.71 - 4.69 L [facility] RV Pre 1.51 1.62 - 2.97 L [facility] TLC Pre 4.10 6.58 - 8.89 L [facility] RV % TLC Pre 36.81 24.48 - 42.44 % [facility] VC Pre 2.59 4.56 - 6.59 L [facility] ERV Pre 0.70 1.40 - 1.40 L [facility] IC Pre 1.89 3.86 - 3.86 L [facility] sR0.5IN Pre 4.69 cmH2O*s [facility] Raw Pre 2.53 3.06 - 3.06 [facility] cmH2O*s/L sGaw Predicted 0.15 0.08 - 0.08 [facility] 1/(cmH2O*s) FEV1 Predicted 4.32 [facility] FEV1 LLN 3.46 [facility] FEV1 % Pre of 42.7 % [facility] Predicted FVC Predicted 5.58 [facility] FVC LLN 4.56 [facility] FVC % Pre of 44.9 % [facility] Predicted FEV1/FVC % 78 [facility] Predicted FEV1/FVC % LLN 68 [facility] FEV1/FVC % Pre 94.8 % [facility] of Predicted FEF 25-75% 3.76 [facility] Predicted FEF 25-75% LLN 2.02 [facility] FEF 25-75% % 34.7 % [facility] Pre of Predicted PEF Predicted 10.52 [facility] PEF LLN 8.00 [facility] PEF % Pre of 66.8 % [facility] Predicted VC Predicted 5.58 [facility] VC LLN 4.56 [facility] VC % Pre of 46.5 % [facility] Predicted ERV Predicted 1.40 [facility] ERV LLN 1.40 [facility] ERV % Pre of 50.1 % [facility] Predicted FRCpl % 3.70 [facility] Predicted FRCpl % LLN 2.71 [facility] FRCpl % Pre of 59.7 % [facility] Predicted IC Predicted 3.86 [facility] IC LLN 3.86 [facility] IC % Pre of 48.9 % [facility] Predicted RV Predicted 2.30 [facility] RV LLN 1.62 [facility] RV % Pre of 65.6 % [facility] Predicted RV % TLC 33 [facility] Predicted RV % TLC LLN 24 [facility] RV % TLC % Pre 110.0 % [facility] of Predicted TLC Predicted 7.74 [facility] TLC LLN 6.58 [facility] TLC % Pre of 53.0 % [facility] Predicted Raw Predicted 3.06 [facility] Raw LLN 3.06 [facility] Raw % Pre of 82.7 % [facility] Predicted R0.5IN 3.06 [facility] Predicted R0.5IN LLN 3.06 [facility] R0.5IN % Pre of 59.9 % [facility] Predicted sGaw Predicted 0.08 [facility] sGaw LLN 0.08 [facility] sGaw % Pre of 185.0 % [facility] Predicted DLCO Predicted 31.99 [facility] DLCO LLN 24.02 [facility] DLCO % Pre of 24.7 % [facility] Predicted DLCOc Predicted 31.99 [facility] DLCOc LLN 24.02 [facility] DLCOc % Pre of 27.8 % [facility] Predicted DL/VA Predicted 4.38 [facility] DL/VA LLN 3.18 [facility] DL/VA % Pre of 64.3 % [facility] Predicted KCOc SB 4.38 [facility] Predicted KCOc SB LLN 3.18 [facility] KCOc SB % Pre 72.4 % [facility] of Predicted VA SB Predicted 7.40 [facility] VA SB LLN 6.03 [facility] VA SB % Pre of 37.9 % [facility] Predicted Specimen Narrative Performed At This result has an attachment that is n ot available. Performing Organization Address City/[facility]/[place] [address] * ABORh - transplant (08/14/2019 8:10 AM COAL WHEELER) Pathologist [facility] ABO grouping A [facility] Rh type POS [facility] Specimen Blood Performing Organization Address City/[facility] Code P adis Number [facility] DEPARTMENT OF [address] [place] [address] PATHOLOGY AND GENOMIC MEDICINE [address] * Low resolution full typing by SSO (08/14/2019 7:55 AM COAL WHEELER) Pathologist [facility] Interpretation Note: HLA typing was performed [place] by PCR-SSO DNA based [facility] procedures. HOSPITAL Note: The serological phenotype is an interpretation based on molecular typing data. Cannot exclude [id number] [facility] Low resolution See link below for PDF Lab ACKERLY full typing by Report [facility] Specimen Blood Performing Organization Address [facility] Code P adis Number [facility] DEPARTMENT OF [address] [place] [address] PATHOLOGY AND GENOMIC MEDICINE [address] * Syphilis total antibody (08/14/2019 7:55 AM COAL WHEELER) Pathologist [facility] Syphilis total Non-reactiveComment: No Non-reactive [place] antibody serological evidence of [facility] syphilis infection. HOSPITAL Specimen Serum Performing Organization Address City/[facility]/ZIP Code P adis Number [facility] [place] [address] PATHOLOGY [address] * Microalbumin, urine, random (08/14/2019 7:55 AM COAL WHEELER) Pathologist [facility] Total volume, No volume mL ACKERLY urine [facility] Urine 93 mg/dL ACK[facility]LY creatinine [facility] concentration [facility] Urine 50.0 mg/dL ACKERLY microalbumin [facility]UDDHIST concentration [facility] Urine 538 (H) 0 - 30 mg/g ACKERLY microalbumin/cr [facility] eatinine ratio HOSPITAL Specimen Urine Performing Organization Address [facility] P adis Number [facility] [place] [address] PATHOLOGY AND [facility] MEDICINE [address] * Shonda-Sahu virus antibody test (08/14/2019 7:55 AM COAL WHEELER) Pathologist [facility] EBV Ab to viral Positive (A) Negative ACKERLY capsid Ag, IgG [facility] EBV Ab to viral Negative Negative ACKERLY capsid Ag, IgM [facility] EBV Ab to Positive (A) Negative ACKERLY nuclear Ag, IgG [facility] EBV Ab to early Negative Negative ACKERLY (D) Ag, IgG [facility] Shonda-Sahu SEE COMMENTComment: Infection ACKERLY virus antibody Status: Results may suggest BUDDHIST interpretation past EBV infection. HOSPITAL Specimen Serum Performing Organization Address [facility] P adis Number [facility] [place] [address] PATHOLOGY AND [facility] MEDICINE [address] * HIV Ag/Ab combination (08/14/2019 7:55 AM COAL WHEELER) HIV Ag/Ab Non-reactive Non-reactive [facility] Specimen Serum Performing Organization Address City/[facility]/ZIP Code P adis Number [facility] [place] [address] PATHOLOGY AND [facility] MEDICINE [address] * TB T-SPOT (08/14/2019 7:55 AM COAL WHEELER) Pathologist [facility] TB T-SPOT See note [facility] Comment: REF LAB T-SPOT TUBERCULOSIS Nil Control: 0 Panel A: 1 Panel B: 5 Positive Control: sat Result: BORDERLINE NOTE: TMTC INDICATES TOO MANY SPOTS TO COUNT SAT INDICATES THE WELL WAS SATURATED RESULTS INTERPRETATION: RESULTS ARE NEGATIVE WHEN (PANEL A-NIL) OR (PANEL B-NIL) <= 4 SPOTS, INCLUDING VALUES LESS THAN ZERO. RESULTS ARE POSITIVE WHEN (PANEL A-NIL) OR (PANEL B-NIL) >= 8 SPOTS RESULTS ARE BORDERELINE WHEN EITHER (PANEL A-NIL) OR (PANEL B-NIL) = 5,6,0R 7. THE TEST IS INVALID WHEN EITHER OF THE FOLLOWING CONDITIONS IS MET: 1.) THE NIL CONTROL HAS >10 SPOTS 2.) THE MITOGEN (POSITIVE CONTROL) HAS <20 SPOTS AND BOTH (PANEL A-NIL) AND (PANEL B-NIL) <= 4 SPOTS. M. TUBERCULOSIS INFECTION UNLIKELY, BUT CANNOT BE EXCLUDED ESPECIALLY WHEN: 1. ANY ILLNESS IS CONSISTENT WITH TB DISEASE. 2. LIKELIHOOD OF PROGRESSION TO DISEASE (e.g. DUE TO IMMUNOSUPPRESSION) IS INCREASED. LIMITATIONS: DIAGNOSING OR EXCLUDING TUBERCULOSIS DISEASE, AND ASSESSING THE PROBABILITY OF LTBI, REQUIRES A COMBINATION OF EPIDEMIOLOGICAL, HISTORICAL, MEDICAL, AND DIAGNOSTIC FINDINGS THAT SHOULD BE TAKEN INTO ACCOUNT WHEN INTERPRETING T-SPOT.TB REFER TO THE MOST RECENT CDC GUIDANCE (HTTP: //WWW.CDC.GOV/NCHSTP/TB) FOR DETAILED RECOMMENDATIONS ABOUT DIAGNOSING TB INFECTION (INCLUDING DISEASE) AND SELECTING PERSONS FOR TESTING. 1.) A FALSE NEGATIVE RESULT CAN BE CAUSED BY INCORRECT BLOOD SAMPLE COLLECTION OR IMPROPER HANDLING OF THE SPECIMEN, AFFECTING LYMPHOCYTE FUNCTION 2.) THE PERFORMANCE OF T-SPOT.TB HAS NOT BEEN ADEQUATELY EVALUATED WITH SPECIMENS FROM INDIVIDUALS YOUNGER THAN AGE 17 YEARS, IN WOMEN, AND IN PATIENTS WITH HEMOPHILIA. 3-) A FALSE POSITIVE RESULT WAS OBTAINED FOR T-SPOT.TB WHEN TESTED IN SUBJECTS WITH M. XENOPI, M. KANSASII, AND M. GORDONAE. WHILE ESAT-6 AND CFP-10 ANTIGENS ARE ABSENT FROM BCG STRAINS OF M. BOVIS AND FROM MOST ENVIRONMENTAL MYCOBACTERIA, IT IS POSSIBLE THAT A POSITIVE T-SPOT.TB RESULT MAY BE DUE TO INFECTION WITH M. KANSASII, M. SZULGAI, M. GORDONAE, OR M. MARINUM. ALTERNATIVE TESTS WOULD BE REQUIRED IF THESE INFECTIONS ARE SUSPECTED. 4.) A NEGATIVE TEST RESULT DOES NOT EXCLUDE THE POSSIBILITY OF EXPOSURE TO, OR INFECTION WITH, M. TUBERCULOSIS. PATIENTS WITH RECENT EXPOSURE TO TB INFECTED INDIVIDUALS EXHIBITING A NEGATIVE T-SPOT.TB RESULT SHOULD BE CONSIDERED FOR RETESTING WITHIN 6 WEEKS OR IF OTHER RELEVANT CLINICAL SYMPTOMS INDICATE POSSIBLE INFECTION. 5.) A POSITIVE TEST RESULT DOES NOT RULE IN ACTIVE TB DISEASE; OTHER TESTS SHOULD BE PERFORMED TO CONFIRM THE DIAGNOSIS OF ACTIVE TB DISEASE SUCH SPUTUM SMEAR AND CULTURE, PCR AND CHEST RADIOGRAPHY. 6.) T-SPOT.TB TEST HAS NOT BEEN EVALUATED IN SUBJECTS WHO HAVE RECEIVED >1 MONTH OF ANTI-TB THERAPY. 7. ) REFRIGERATED AND FROZEN SAMPLES ARE NOT RECOMMENDED FOR USE WITH T=SPOT.TB TEST. Performed by: [facility] Molecular Tuberculosis Laboratory [facility] ([id number]) [place] [address] Specimen Blood Performing Organization Address City/[facility] P adis Number [facility] [place] [address] PATHOLOGY AND GENOMIC MEDICINE [facility] * Single antigen beads (08/14/2019 7:55 AM COAL WHEELER) SAB serum ID [id number] [facility] SAB serum 08/14/2019 07:55 AM ACKERLY collection D&T [facility] SAB class I Negative [facility] SAB cPRA class 0 [facility] SAB class II DR7 [facility] SAB cPRA class 22 [facility] Single antigen See link below for PDF Lab ACKERLY beads Report [facility] Specimen Blood Performing Organization Address [facility] P adis Number [facility] [place] [address] PATHOLOGY AND GENOMIC MEDICINE [address] * HLA autologous crossmatch (08/14/2019 7:55 AM COAL WHEELER) AXMHL source Peripheral Blood [facility] AXL current [id number] ACKERLY serum ID [facility] AXL serum 08/14/2019 07:55 AM ACKERLY collection D&T [facility] AXL flow XM T Negative ACKERLY cell result, [facility] AXL flow XM B Negative ACKERLY cell result, [facility] HLA autologous See link below for PDF Lab ACKERLY crossmatch Report [facility] Specimen Blood Performing Organization Address City/[facility] P adis Number [facility] [place] [address] PATHOLOGY AND [facility] MEDICINE [address] * Cytomegalovirus Ab, IgM (08/14/2019 7:55 AM COAL WHEELER) Cytomegalovirus Negative Negative ACKERLY Ab, IgM [facility] Specimen Serum Performing Organization Address City/[facility] P adis Number [facility] [place] [address] PATHOLOGY AND [facility] MEDICINE [address] * Hepatitis A antibody total (08/14/2019 7:55 AM COAL WHEELER) Pathologist [facility] Hepatitis A Non-reactive Non-reactive ACKERLY total Ab [facility] Specimen Serum Performing Organization Address City/[facility] P adis Number [facility] [place] [address] PATHOLOGY [address] * Drug guardado 9, ser/ramo, scrn w/rflx to conf (08/14/2019 7:55 AM COAL WHEELER) Pathologist [facility] Amphetamines, Negative Cutoff 30 ng/mL [facility] REF LA B s/p, screen Methamphetamine Negative Cutoff 30 ng/mL [facility] REF L AB , s/p, screen Barbiturates, Negative Cutoff 75 ng/mL [facility] RE[facility] LA B s/p, screen Benzodiazepines Negative Cutoff 75 ng/mL [facility] REF L AB , s/p, screen Cocaine, s/p, Negative Cutoff 30 ng/mL [facility] RE[facility] LA B screen Methadone, s/p, Negative Cutoff 40 ng/mL [facility] REF L AB screen Opiates, s/p, Negative Cutoff 30 ng/mL [facility] RE[facility] LA B screen Oxycodone, s/p, Negative Cutoff 30 ng/mL [facility] RE[facility] L AB screen Phencyclidine, Negative Cutoff 15 ng/mL [facility] RE[facility] LA B s/p, screen Cannabinoids, Negative Cutoff 30 ng/mL [facility] RE[facility] LA B s/p, screen Drug screen See Note [facility] REF LAB comments, serum Comment: INTERPRETIVE INFORMATION: Drug Screen 9 Panel, Serum or Plasma - Immunoassay Screen with Reflex to Mass Spectrometry Confirmation/Quantitation 1. Methodology: Qualitative Immunoassay Screen 2. Drugs/Drug classes reported as "Positive" are automatically reflexed to mass spectrometry confirmation/quantitation testing. An immunoassay unconfirmed positive screen result may be useful for medical purposes but does not meet forensic standards. 3. The absence of expected drug(s) and/or drug metabolite(s) may indicate non-compliance, inappropriate timing of specimen collection relative to drug administration, poor drug absorption, or limitations of testing. The concentration at which the screening test can detect a drug or metabolite varies within a drug class. Specimens for which drugs or drug classes are detected by the screen are automatically reflexed to a second, more specific technology (mass spectrometry). The concentration value must be greater than or equal to the cutoff to be reported as positive. Interpretive questions should be directed to the laboratory. 4. For medical purposes only; not valid for forensic use. Test developed and characteristics determined by [facility]. See Compliance Statement B: [facility] Performed by [facility], [address] [place] [address] [email or web address], Ashok Moreno MD, Lab. Director Specimen Blood Performing Organization Address City/[facility] P adis Number [facility] [address] [place] [address] REF [address] [place] [address] * Toxoplasma IgM Ab (08/14/2019 7:55 AM COAL WHEELER) Pathologist [facility] Toxoplasma IgM Negative Negative [facility] Specimen Blood Performing Organization Address City/[facility] [place] [address] PATHOLOGY AND GENOMIC MEDICINE [address] * Hepatitis acute panel (08/14/2019 7:55 AM COAL WHEELER) Hepatitis A IgM Non-reactive Non-reactive [facility] Hepatitis B Non-reactive Non-reactive ACKERLY core IgM [facility] Hepatitis B Non-reactive Non-reactive ACK[facility] surface Ag [facility] Hepatitis C Ab Non-reactive Non-reactive [facility] Specimen Serum Performing Organization Address [facility] [place] [address] PATHOLOGY AND GENOMIC MEDICINE [address] * Hepatitis B core antibody total (08/14/2019 7:55 AM COAL WHEELER) Pathologist [facility] Hepatitis B Non-reactive Non-reactive ACKERLY core total Ab [facility] Specimen Serum Performing Organization Address City/State/ZIP Code P adis Number [facility] [place] [address] PATHOLOGY AND [facility] MEDICINE [address] * Protein, urine, random (08/14/2019 7:55 AM COAL WHEELER) [facility] Protein, urine 132 mg/dL ACKERLY random [facility] Specimen Urine Performing Organization Address City/[facility] P adis Number [facility] [place] [address] * Toxoplasma gondii antibody, IgG (08/14/2019 7:55 AM COAL WHEELER) [facility] Toxoplasma <3 0 - 9 IU/mL ACKERLY gondii Ab, IgG Comment: BUDDHIST Equal or less than 9 IU/mL HOSPITAL Negative; No previous T. gonii infection Specimen Serum Performing Organization Address City/[facility] Code P adis Number [facility] [place] [address] PATHOLOGY [address] * Hepatitis B surface antibody (08/14/2019 7:55 AM COAL WHEELER) Pathologist [facility] Hepatitis B Non-reactive Non-reactive ACKERLY surface Ab [facility] Specimen Serum Performing Organization Address City/[facility]/ZIP [facility] P adis Number [facility] [place] [address] PATHOLOGY AND [facility] MEDICINE [address] * Cytomegalovirus Ab, IgG (08/14/2019 7:55 AM COAL WHEELER) Pathologist [facility] Cytomegalovirus Positive (A) Negative [facility] Ab, IgG Comment: BUDDHIST Positive; IgG antibody to CMV HOSPITAL detected which may indicate exposure to CMV infection. Specimen Serum Performing Organization Address City/[facility]/ZIP Code P adis Number [facility] [place] [place] [address] PATHOLOGY AND [facility] MEDICINE [address] * T3 (08/14/2019 7:55 AM COAL WHEELER) [facility] T3 76 (L) 80 - 200 ng/dL [facility] Specimen Plasma specimen Performing Organization Address [facility] P adis Number [facility] [place] [place] [address] PATHOLOGY AND [facility] MEDICINE [address] * T4 (08/14/2019 7:55 AM COAL WHEELER) T4 5.9 4.5 - 11.7 ug/dL [facility] Specimen Plasma specimen Performing Organization Address [facility] P adis Number [facility] [place] [place] [address] PATHOLOGY AND [facility] MEDICINE [address] * Prostate specific antigen (08/14/2019 7:55 AM COAL WHEELER) Pathologist [facility] PSA 1.0 0.0 - 4.0 ng/mL ACKERLY Comment: BUDDHIST The ERIN 8000 PSA immunoassay HOSPITAL was used. Results obtained with different assay methods or kits should not be used interchangeably and may be different. Specimen Plasma specimen Performing Organization Address [facility] P adis Number [facility] [place] [address] PATHOLOGY AND [facility] MEDICINE [address] * Prealbumin level (08/14/2019 7:55 AM COAL WHEELER) Pathologist [facility] Prealbumin 27 16 - 32 mg/dL [facility] Specimen Serum Performing Organization Address [facility] P adis Number [facility] [place] [place] [address] PATHOLOGY AND [facility] MEDICINE [address] * Hemoglobin A1c (08/14/2019 7:55 AM COAL WHEELER) Hemoglobin A1C 8.5 (H) 4.0 - 5.6 % ACKERLY Comment: BUDDHIST HbA1c cutoffs for diagnosing HOSPITAL diabetes: 4.0% - 5.6% = normal 5.7% - 6.4% = increased risk for diabetes (prediabetes)9 >=6.5% = diabetes9 Goals for glycemic control (ADA 2016) < 7.0% Target for non adults with diabetes. More or less stringent targets may be appropriate for individual patients. <7.5% Target for Children and adolescents with type 1 diabetes. Specimen Blood Performing Organization Address [facility]/ZIP Code P adis Number [facility] DEPARTMENT OF [address] [place] [address] PATHOLOGY AND GENOMIC MEDICINE [address] * Ferritin level (08/14/2019 7:55 AM COAL WHEELER) Ferritin level 642 (H) 30 - 400 ng/mL [facility] Specimen Plasma specimen Performing Organization Address [facility] Code P adis Number [facility] DEPARTMENT OF [address] [place] [address] PATHOLOGY AND GENOMIC MEDICINE [address] * Echocardiogram complete w contrast and 3D if needed (07/04/2019 4:00 PM COAL WHEELER) Specimen Narrative Performed At [facility] Echo cardiography Report Pat.Name: RICHAR POTTS Pat.ID: [id number] .Date: 07/04/2019 Refer.MD: JJ SAGASTUME MD Exam Time: 2:59:00 PM Study Type:Routine Echo Height: 74in Weight: 190lb BSA: 2.13 m2 Age: 2 1970,48Y Sex: MALE BP: 137/85 HR: 82 bpm Sonogrphr: Kumuthavally Veerasamy, RDCS , RVS Pat. Stat.:Outpatient Room: [address] Vol: MDCA, ICD - 9: Z86 Study Status:Final Echo Event ID:[id number] Order ID: [id number] Reason for Study:History of Chronic Con gestive Heart Failure {Z86.79 (ICD-10-CM)} Procedures: 2D Echo, Colorflow Doppler, Strain, Intravenous Definity Contrast Race: SUMMARY: LV size is upper limits of normal. Reduced average LV global longitudinal strain at -7.4%. LV EF is moderately to severely depressed. Global hypokinesis. Estimated EF is 30- 34%. RV systolic function is normal. Mild to moderate mitral regurgitation. Diastolic dysfunction Grade III (Severe ): Impaired relaxation with restrictive LV filling pressures. Insufficient TR jet to estimate PA syst olic pressure. FINDINGS: LV: LV size is upper limits of normal. Reduced average LV global longitudinal strain at -7.4%. LV EF is moderately to severely depressed. Jess bal hypokinesis. Estimated EF is 30-34%. RV: RV size is normal. RV syst olic function is normal. LA: LA volume is moderately en larged. RA: RA size is normal. AO: Aortic root diameter is no rmal. QUINTON: No pericardial effusion. AV: No structural AV abnormali ties noted. MV: No structural MV abnormali ties noted. Mild to moderate mitral regurgitation. PV: No structural PV abnormali ties noted. TV: No structural TV abnormali ties noted. Tsai: Diastolic dysfunction Grade III (Severe): Impaired relaxation with restric tive LV filling pressures. Other: Insufficient TR jet to rao mate PA systolic pressure. MEASUREMENTS: 2D [facility] Ao An 2.3 cm LVPWd 1 cm Ao Rtd 2.5 cm Index 1.2 cm/m2 LA Ds 4.1 cm IVSd 1.3 cm RWT 0.4 LVIDd 5.5 cm Index 2.6 cm/m2 LV Mass 257 g (122-1 74) LVIDs 4.6 cm LVM Index 120.7 g/m LV%fs 16.4 % LVOT 2.3 cm LA Sng Plane LA Area 25.6 cm (8.8-23 .4) LA Vol 89.4 ml Index 42 ml/m2 LA LngAx 5.8 cm LVOT LVOT Area 4.2 cm DOPPLER LVOT Stroke Vol LVOT TVI 13.2 cm LVOT LVOT SV 55.1 ml SVi 25.9 ml/m Signed 07/07/2019 04:33 PM Nabor Gonzalez M.D. Procedure Note Interface, Radiology Results In - 07/07/2019 4:34 PM COAL WHEELER [facility] Echocardiography Report Pat.Name: RICHAR POTTS Pat.ID: [id number] St.Date: 07/04/2019 Refer.MD: JJ SAGASTUME MD Exam Time: 2:59:00 PM Study Type:Routine Echo Height: 74in Weight: 190lb BSA: 2.13 m2 Age: 2 1970,48Y Sex: MALE BP: 137/85 HR: 82 bpm Sonogrphr: Olman Aguero RDCS, RVS Pat. Stat.:Outpatient Room: [address] Vol: [facility], ICD - 9: Z86 Study Status:Final Echo Event ID:[id number] Order ID: [id number] Reason for Study:History of Chronic Congestive Heart Failure {Z86.79 (ICD-10-CM)} Procedures: 2D Echo, Colorflow Doppler, Strain, Intravenous Definity Contrast Race: SUMMARY: LV size is upper limits of normal. Reduced average LV global longitudinal strain at -7.4%. LV EF is moderately to severely depressed. Global hypokinesis. Estimated EF is 30-34%. RV systolic function is normal. Mild to moderate mitral regurgitation. Diastolic dysfunction Grade III (Severe): Impaired relaxation with restrictive LV filling pressures. Insufficient TR jet to estimate PA systolic pressure. FINDINGS: LV: LV size is upper limits of normal. Reduced average LV global longitudinal strain at -7.4%. LV EF is moderately to severely depressed. Global hypokinesis. Estimated EF is 30-34%. RV: RV size is normal. RV systolic function is normal. LA: LA volume is moderately enlarged. RA: RA size is normal. AO: Aortic root diameter is normal. QUINTON: No pericardial effusion. AV: No structural AV abnormalities noted. MV: No structural MV abnormalities noted. Mild to moderate mitral regurgitation. PV: No structural PV abnormalities noted. TV: No structural TV abnormalities noted. Tsai: Diastolic dysfunction Grade III (Severe): Impaired relaxation with restrictive LV filling pressures. Other: Insufficient TR jet to estimate PA systolic pressure. MEASUREMENTS: 2D [facility] Ao An 2.3 cm LVPWd 1 cm Ao Rtd 2.5 cm Index 1.2 cm/m2 LA Ds 4.1 cm IVSd 1.3 cm RWT 0.4 LVIDd 5.5 cm Index 2.6 cm/m2 LV Mass 257 g (122-174) LVIDs 4.6 cm LVM Index 120.7 g/m LV%fs 16.4 % LVOT 2.3 cm LA Sng Plane LA Area 25.6 cm (8.8-23.4) LA Vol 89.4 ml Index 42 ml/m2 LA LngAx 5.8 cm LVOT LVOT Area 4.2 cm DOPPLER LVOT Stroke Vol LVOT TVI 13.2 cm LVOT LVOT SV 55.1 ml SVi 25.9 ml/m Signed 07/07/2019 04:33 PM Nabor Gonzalez M.D. Performing Organization Address City/State/ZIP Code [facility] Number [facility] [address] [place] [address] after 06/11/2019 Insurance Type Payer Benefit Subscriber ID Effective Phone Address Plan / Dates Group HMO HUMANA MEDICARE HUMANA HMO [id number] [id number] TONYA prado MEDICARE [id number] (Home) [place] [address] Advance Directives For more information, please contact: [phone] Patient Public Health Registrar Explanation Type Date Recorded Advance Directives, Living Will and Medical Power of Packing Machine Feeder [facility] Advance Directives, 11/06/2019 12:00 AM Living Will and Medical Power of Packing Machine Feeder
--- OUTSIDE RECORDS SUMMARY | 2020-06-17 18:09 | XMS REPORT | Continuity of Care Document ---
Author Author [facility] Organization [facility] Address [address] [place] [address] Phone Unavailable Care Team Providers Care Radial Router Operator Name Role Phone BerthaBlayne clarkder PCP Jayy STAPLES Attphys Unavailable Gloria OLIVAREZ, Evens Attphys Unavailable Shun EID, Bryce Tomlin Attphys [phone] Loi Cortés MD Attphys Ophir Rey OLIVAREZ Attphys Unavailable Prosper EID PhD, SJorge Lawrence Attphys Landon EID, Jj Attphys Provider, Unknown Attphys Unavailable Ashly WELDING MACHINE OPERATOR ELECTRON BEAM-C, Corinne Garcia Attphys [phone] Carloz Solorzano MD Attphys Lanette EID, Bryce Terrazas Attphys Salena Pineda NP, Kirsten Chopra Attphys [phone] Catalino Coleman Attphys Unavailable Calrk EID, Aslam Attphys Chad EID, RJorge Daljit Attphys Amanda EID, Bryson Attphys Nelly OLIVAREZ, Dee Attphys Unavailable Avi FARIA, Joan Attphys Unavailable Frances EID, Quan Attphys Catarino RN, Brian Attphys Unavailable Asked, Pcp No Attphys Unavailable Trini EID, Carloz Marshall Attphys Jamie EID, Ron Brar Attphys James OLIVAREZ, Maggie Attphys Unavailable Eli EID, Genevieve Attphys Austin Zavala MA Attphys Unavailable Misty Baird Attphys Unavailable Shelli EID, Sofi Ray Attphys Brendan OLIVAREZ, Isis Attphys Unavailable Isaac Pedroza Attphys Unavailable Kemal FARIA, Nicci Attphys Unavailable Rey Barnhart MA Attphys Unavailable Kalee EID, Suryboob Attphys TRIP DIAZ Attphys Unavailable Francisco OLVERA Attphys Unavailable KALEE, MAHBOOB Attphys Unavailable JOANN RAMIREZAMIDIPATI Attphys Unavailable Jayy STAPLES Admphys Unavailable JJ SAGASTUME Admphys Unavailable ALAM, MAHBOOB Admphys Unavailable Payers Payer Name Policy Type Policy Number Effective Date Expiration Date S arlen HUMANXavi MEDICAREHUMANA O GOLD PLUS [id number] 9-PresentO [id number] 2018 00:00:00 [facility] Problems Condition Name Condition Details Condition Category Status Onset Date Resolution Date Last Treatment Date Treating Clinician Comments Source Biventricular implantable cardioverter-defibrillator ( T, 10/24/2019, Dr More) Biventricular implantable cardioverter-defibrillator (T, 10/24/2019, Dr More) Disease Active 2019-12-11 00:00:00 [facility] Type 2 diabetes mellitus with nephropathy Type 2 diabe polo mellitus with nephropathy Disease Active 2019-10-03 00:00:00 [facility] Subclinical hypothyroidism Subclinical hypothyroidism Disease Active 2019-10-03 00:00:00 [place] Other hyperlipidemia Other hyperlipidemia Disease Active 00:00:00 [facility] Peripheral arterial disease Peripheral arterial disease Disease Active 2019-09-25 00:00:00 Overview: Ad ded automatically from request for surgery [id number] [facility] History of posttraumatic stress disorder (PTSD) Histor y of posttraumatic stress disorder (PTSD) Disease Active 2019-09-02 00:00:00 [facility] Sleep disorder due to a general medical condition, 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, insomnia type Disease Active 2019-09-02 00:00:00 [facility] [place] History of nicotine use History of nicotine use Disease Active 2019-09-02 00:00:00 [facility] 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 Chronic combined systolic and diastolic congestive heart failure Disease Act thiago 2019-08-18 00:00:00 [facility] ESRD on peritoneal dialysis ESRD on peritoneal dialysis Disease Active 2019-08-18 00:00:00 [facility]very Encounter for pre-transplant evaluation for heart vasquez splant Encounter for pre- transplant evaluation for heart transplant Disease Active 2019-08-18 00:00:00 [facility] Ischemic cardiomyopathy Ischemic cardiomyopathy Disease Active 2019-08-18 00:00:00 [facility] HFrEF (heart failure with reduced ejection fraction) H FrEF (heart failure with reduced ejection fraction) Disease Active 2019-06-24 00:00:00 [facility]ón Avery CAD (coronary artery disease) CAD (coronary artery disease) Disease Active 2018-01-28 00:00:00 [facility] Abnormal cardiovascular stress test Abnormal cardiovascular stre ss test Disease Active 2017-12-14 00:00:00 Godwin Avery 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 with type 2 diabetes mellitus Disease Active 2017-02-03 00:00:00 [facility] ESRD (end stage renal disease) on dialysis ESRD (end s tage renal disease) on dialysis Disease Active 2017-02-03 00:00:00 John ston [facility] Patient awaiting renal transplant Patient awaiting renal transpl ant Disease Active 2017-02-03 00:00:00 [facility] Deeist Proliferative diabetic retinopathy witho ut macular edema associated with type 2 diabetes mellitus Proliferative diabetic retinopathy witho ut macular edema associated with type 2 diabetes mellitus Disease Active 2015-11-28 00:00: 00 [facility] Coron[facility] artery disease involving [place] coronary artery of [place] heart without angina pectoris Coronary artery disease involving [place] coronary artery of [place] heart without angina pectoris Disease Active 2015-11-28 00:00:00 [facility]very Diabetic nephropathy associated with type 2 diabetes m ellitus Diabetic nephropathy associated with type 2 diabetes mellitus Disease Active 2015-11-28 00:00:[address] Diabetic polyneuropathy associated with type 2 diabete s mellitus Diabetic polyneuropathy associated with type 2 diabetes mellitus Disease Acti ve 2015-11-28 00:00:00 [facility] Essential hypertension Essential hypertension Disease Active 2015-11-28 00:00:00 [place] Hyperlipidemia Hyperlipidemia Disease Active 2015-11-28 00:00:00 [facility] Avery Paroxysmal atrial fibrillation Paroxysmal atrial fibrillation Disea se Active 2015-11-28 00:00:00 [facility] Pre-transplant evaluation for chronic kidney disease P re-transplant evaluation for chronic kidney disease Disease Active 2015-11-28 00:00:00 [facility] 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 with type 2 diabetes mellitus Disease Active 2015-11-28 00:00:00 [facility] S/P CABG x 4 S/P CABG x 4 Disease Active 2015-11-28 00:00:00 [facility] Stage 5 chronic kidney disease Stage 5 chronic kidney disease Disea se Active 2015-11-28 00:00:00 [facility] History of Past Illness Condition Name Condition Details Condition Category Status Onset Date Resolution Date Last Treatment Date Treating Clinician Comments Source Essential hypertension Essential hypertension Disease Resolved 2019-10-03 00:00:00 2019-12-11 00:00:00 2019-12-11 11:26:19 [facility] tova Avery Allergies, Adverse Reactions, Alerts Allergy Name Allergy Type Status Severity Reaction(s) Onset Date Inacti ve Date Treating Clinician Comments Source No Known Allergies DA Active U 2016-05-19 00:00:00 [facility] Family History Family Member Diagnosis Comments Start Date Stop Date Source Natural brother Diabetes [facility] Natural brother Unremarkable [facility] Natural father Diabetes [facility] Natural father Heart disease [facility] Natural father Hypertension [facility] Natural father Diabetes [facility] Natural father Heart attack [facility] Natural father Hypertension [facility] Natural mother Diabetes [facility] Natural mother Heart disease [facility] Natural mother Hypertension [facility] Natural mother Stroke [facility] Natural mother Diabetes [facility] Natural mother Heart attack Ophir [facility] Natural mother Hypertension Ophir [facility] Natural sister Diabetes [facility] Social History Social Habit Start Date Stop Date Quantity Comments Source History SDOH Alcohol Std Drinks O[facility]ir [facility] History SDOH Alcohol Binge Ophir [facility] Sex [facility]igned [facility] Tobacco use and exposure 2020-01-15 00:00:00 2020-01-15 00:00:00 Genie ma used O[facility]ir [facility] Alcohol intake 2020-01-15 00:00:00 2020-01-15 00:00:00 Lifetime non-drinker (finding) [facility] History of tobacco use 2019-06-27 00:00:00 Current smoker O[facility]ir [facility] History SDOH Alcohol Frequency 2019-06-24 00:00:00 2019-06-24 00:00:0 0 1 [facility] Cigarettes smoked current (pack per day) - Reported 00:00:00 2018-11-13 00:00:00 [facility] Cigarette pack-years 2018-11-13 00:00:00 2018-11-13 00:00:00 [facility] Tobacco Comment 2016-12-07 00:00:00 2016-12-07 00:00:00 09/28 [facility] Smoking Status Start Date Stop Date Source Former smoker 2020-01-15 00:00:00 2020-01-15 [facility] Ordered Medication Name Filled Medication Name Start Date Stop Da te Current Medication? Ordering Clinician Indication Dosage Frequency Signature (SIG) Comments Components Source insulin ASPART (NovoLOG Flexpen U-100 Insulin) 100 unit/mL ( 3 mL) insulin pen 2020-01-15 11:07:06 2020-01-15 00:00:00 No 5U [id number] Inject 5 Units under the skin 3 (three) times a day with meals. [facility]ón Avery sevelamer (RENAGEL) 800 MG tablet 2020-01-15 09:10:05 Ye s 800mg Q.[id number] Take 800 mg by mouth 3 (three) times a day with meals. [facility] Avery pregabalin (LYRICA) 75 MG capsule 2020-01-15 09:10:05 Yes 75mg QD Take 75 mg by mouth daily. [facility] rosuvastatin (Crestor) 20 mg tablet 2020-01-15 00:00:0 0 2021-01-14 23:59:00 No Hyperlipidemia, unspecified hyperlipidemia type 20mg QD Take 1 tablet (20 mg total) by mouth daily. [facility] insulin ASPART (NovoLOG Flexpen U-100 Insulin) 100 unit/mL ( 3 mL) insulin pen 2020-01-15 00:00:00 2020-04-14 23:59:00 No Type 2 d iabetes mellitus with nephropathy (HCC) 5U Q.[id number] Inject 5 Units un bobby the skin 3 (three) times a day with meals for 90 days. [facility]very Levemir FlexTouch U-100 Insuln 100 unit/mL (3 mL) insulin pe n 2020-01-15 00:00:00 2020-04-14 23:59:00 No Type 2 diabe polo mellitus with nephropathy (HCC) 5U QD Inject 5 Units under the skin daily for 90 days . [facility] potassium chloride (K-DUR) 20 MEQ CR tablet 2020-01-09 00:00:00 Yes [facility] clopidogrel (PLAVIX) 75 mg tablet 2019-11-25 17:15:29 2019 00:00:00 No 75mg QD Take 75 mg by mouth daily. [facility] clopidogreL (PLAVIX) 75 mg tablet 2019-11-25 00:00:00 2020 23:59:00 No 75mg QD Take 1 tablet (75 mg total) by mouth reva ly. [facility] apixaban (ELIQUIS) 2.5 mg tablet 2019-11-25 00:00:00 2020-11 23:59:00 No 2.5mg Q.5D Take 1 tablet (2.5 mg total) by mouth 2 (two) t imes a day. [facility] amIODarone (PACERONE) 200 MG tablet 2019-11-11 00:00:0 0 2020-11-10 23:59:00 No 200mg QD Take 1 tablet (200 mg total) by mouth da dixon. [facility]ón Avery tamsulosin (FLOMAX) 0.4 mg capsule 2019-11-11 00:00:00 202 23:59:00 No .4mg QD Take 1 capsule (0.4 mg total) by mouth d aily for 30 days. [facility] sodium bicarbonate 650 mg tablet 2019-11-11 00:00:00 2019-11 23:59:00 No 1300mg QD Take 2 tablets (1,300 mg total) by mouth daily for 30 days. [facility] aspirin (ECOTRIN) 81 MG enteric coated tablet 20 30-10-29 16:45:58 2019-11-10 00:00:00 No 81mg Take 81 mg by mouth. [facility]very docusate sodium 100 mg capsule 2019-11-10 16:45:58 2019-11-10 00 :00:00 No 100mg Q24H Take 100 mg by mouth daily as needed. [facility]very potassium chloride (KLOR-CON) 10 MEQ CR tablet 2 16:45:58 2019-11-10 00:00:00 No 10meq Take 10 mEq by mouth. [facility]ón Avery midodrine (PROAMATINE) 10 MG tablet 2019-11-10 00:00:0 0 2019-12-10 23:59:00 No 10mg Q.[id number] Take 1 tablet (10 mg total) by mouth 3 (three) times a day for 30 days. [facility] fludrocortisone (FLORINEF) 0.1 mg tablet 2019-10 00:00:00 2019-12-10 23:59:00 No .1mg QD Take 1 tablet (0.1 mg total) by mouth daily for 30 days. [facility] apixaban (ELIQUIS) 2.5 mg tablet 2019-11-10 00:00:00 2019-11 00:00:00 No 2.5mg Q.5D Take 1 tablet (2.5 mg total) by mouth 2 (two) t imes a day. [facility]ón Avery bacitracin ointment tube 2019-11-10 00:00:00 2019-11-24 23:59:00 No Q.5D Apply topically 2 (two) times a day for 14 days. [facility] Avery lisinopril (PRINIVIL) 10 mg tablet 2019-09-25 09:55:21 202 00:00:00 No 10mg QD Take 10 mg by mouth daily. [facility] gabapentin (NEURONTIN) 400 mg capsule 2019-09-25 09:36 :40 2019-09-25 00:00:00 No 400mg Q.25D Take 400 mg by mouth 4 (four) times a da y. [facility] lisinopril (PRINIVIL) 40 mg tablet 2019-09-25 00:00:00 00:00:00 No 40mg QD Take 1 tablet (40 mg total) by mouth reva ly. [facility] rosuvastatin (CRESTOR) 20 MG tablet 2019-08-14 00:00:0 0 2020-01-15 00:00:00 No Hyperlipidemia, unspecified hyperlipidemia type 20mg QD Take 1 tablet (20 mg total) by mouth daily. [facility] lisinopril (PRINIVIL) 40 mg tablet 2019-06-24 00:00:00 00:00:00 No History of chronic CHF 40mg QD Take 1 tablet (40 mg total) by mouth daily. [facility] omeprazole (PriLOSEC) 40 MG capsule 2019-05-21 00:00:00 Yes [facility] pregabalin (LYRICA) 75 MG capsule 2019-05-21 00:00:00 2019 00:00:00 No 75mg QD Take 75 mg by mouth daily. [facility] ranolazine (RANEXA) 500 MG 12 hr ER tablet 04-18 00:00:00 2019-08-14 00:00:00 No [facility] rosuvastatin (CRESTOR) 10 MG tablet 2019-04-17 00:00:0 0 2019-08-14 00:00:00 No Ramón vilchis BUMETanide (BUMEX) 2 MG tablet 2019-04-17 00:00:00 2019-06-24 00 :00:00 No [place] [place] lisinopril (PRINIVIL) 10 mg tablet 2019-04-17 00:00:00 201 04-23-12 00:00:00 No 10mg QD Take 10 mg by mouth daily. [facility] RENVELA 800 mg tablet 2019-04-02 00:00:00 2019-06-24 00:00:00 No [facility]ón Avery carvedilol (COREG) 25 MG tablet 2019-04-01 00:00:00 00:00:00 No 25mg Q.5D Take 25 mg by mouth 2 (two) times a day with me als. [facility]ón Avery LEVEMIR FLEXTOUCH U-100 INSULN 100 unit/mL (3 mL) insulin pe n 2019-03-21 00:00:00 2020-01-15 00:00:00 No 5U QD Inject 5 Un its under the skin daily. [facility]ón Avery carvedilol (COREG) 25 MG tablet 2018-11-13 11:23:28 Yes 25mg Take 25 mg by mouth 2 (two) times daily with breakfast and dinner. [facility] gabapentin (NEURONTIN) 300 MG capsule 2018-11-13 09:54:30 Yes 300mg Q.5D Take 300 mg by mouth 2 (two) times daily. [facility] lisinopril (PRINIVIL,ZESTRIL) 5 MG tablet 2018-11-13 09:54:30 Yes 10mg QD Take 10 mg by mouth daily . [facility] aspirin 81 MG EC tablet 2018-11-13 09:54:30 Yes 81mg QD Take 81 mg by mouth daily. [facility] amLODIPine (NORVASC) 2.5 MG tablet 2018-11-13 09:54:30 Yes 2.5mg QD Take 2.5 mg by mouth daily. [facility] potassium chloride SA (K-DUR,KLOR-CON) 20 MEQ tablet 2 09:54:30 Yes 20meq QD Take 20 mEq by mouth daily. [facility] amLODIPine (NORVASC) 5 mg tablet 2018-10-09 00:00:00 2019-06 00:00:00 No 5mg Take 5 mg by mouth. Godwin Avery DIGOX 125 mcg tablet 2015-11-23 00:00:00 Yes 1{tbl} Take 1 tablet by mouth every evening Every other day. [facility] digOXIN (LANOXIN) 125 mcg (0.125 mg) tablet 2015 00:00:00 2019-08-14 00:00:00 No 125ug QD Take 125 mcg by mouth daily. [facility]ón Avery furosemide (LASIX) 20 MG tablet 2015-11-08 00:00:00 Yes 40mg QD Take 40 mg by mouth daily . [facility] furosemide (LASIX) 80 mg tablet 2015-11-08 00:00:00 00:00:00 No 80mg QD Take 80 mg by mouth daily. [facility] Avery escitalopram oxalate (LEXAPRO) 10 MG tablet 2015-11-04 00:00:00 Yes 1{tbl} QD Take 1 tablet by mouth daily. [facility] escitalopram (LEXAPRO) 10 MG tablet 2015-11-04 00:00:0 0 2019-08-14 00:00:00 No 1{tbl} Take 1 tablet by mouth. [facility] Avery clopidogrel (PLAVIX) 75 mg tablet 2015-10-26 00:00:00 Yes 1{tbl} QD Take 1 tablet by mouth daily. [facility] clopidogrel (PLAVIX) 75 mg tablet 2015-10-26 00:00:00 2019 00:00:00 No 75mg QD Take 75 mg by mouth daily. [facility] Avery TANZEUM 30 mg/0.5 mL PnIj 2015-10-22 00:00:00 Yes 1{each} Q7D Inject 1 each subcutaneously once a week. [facility] albiglutide (TANZEUM) 30 mg/0.5 mL pen injector 2015-10-22 00:00:00 2019-10-02 00:00:00 No 1{each} Q1W Inject 1 each under the skin ev ashish 7 days. [facility]ón Avery TRADJENTA 5 mg Tab 2015-10-15 00:00:00 Yes 1{tbl} QD Take 1 tablet by mouth daily. [facility] atorvastatin (LIPITOR) 10 MG tablet 2015-10-15 00:00:00 Yes 1{tbl} QD Take 1 tablet by mouth daily. [facility] atorvastatin (LIPITOR) 10 MG tablet 2015-10-15 00:00:0 0 2019-08-14 00:00:00 No 1{tbl} Take 1 tablet by mouth. [facility]ón Avery linaGLIPtin (TRADJENTA) 5 mg tablet 2015-10-15 00:00:0 0 2019-06-24 00:00:00 No 1{tbl} Take 1 tablet by mouth. Ramón Avery losartan (COZAAR) 100 MG tablet 2015-08-23 00:00:00 Yes 25mg QD Take 25 mg by mouth daily. [facility] glimepiride (AMARYL) 2 MG tablet 2015-08-23 00:00:00 Yes 1{tbl} QD Take 1 tablet by mouth daily. [facility] glimepiride (AMARYL) 2 MG tablet 2015-08-23 00:00:00 2019-06 00:00:00 No 1{tbl} Take 1 tablet by mouth. H tova Avery Vital Signs Vital Name Observation Time Observation Value Comments Source Systolic blood pressure 2020-01-15 09:08:00 127 mm[Hg] [facility] Diastolic blood pressure 2020-01-15 09:08:00 77 mm[Hg] [facility] Heart rate 2020-01-15 09:08:00 86 /min [facility] Body height 2020-01-15 09:08:00 188 cm [facility] Body weight 2020-01-15 09:08:00 85.821 kg [facility]very BMI 2020-01-15 09:08:00 24.29 kg/m2 [facility] Oxygen saturation in Arterial blood by Pulse oximetry 01-14 09:08:00 96 /min [facility] Avery Respiratory rate 2019-11-10 12:02:21 18 /min Charly ton [facility] Body temperature 2019-11-10 12:00:59 36.17 Ivette Hous ton [facility] Procedures Procedure Date / Time Performed Performing Clinician [facility] DURABLE MEDICAL EQUIPMENT 2019-11-10 13:24:19 Susan Correa POC GLUCOSE 2019-11-10 12:01:00 Kade Solorzano Met [facility] POC GLUCOSE 2019-11-10 07:25:00 Kade Solorzano [facility] BASIC METABOLIC PANEL 2019-11-10 03:23:00 Yovany Pantoja Zoroastrian MAGNESIUM LEVEL 2019-11-10 03:23:00 Yovany Pantoja Meth odist ESTIMATED GFR 2019-11-10 03:23:00 Yovany Pantoja Meth odist HC COMPLETE BLD COUNT W/AUTO DIFF 2019-11-10 02:20:00 Kaylin Pantoja Zoroastrian POC GLUCOSE 2019-11-09 21:04:00 Kade Solorzano Met [facility]odist POC GLUCOSE 2019-11-09 17:12:00 Kade Solorzano Met [facility] CORTISOL LEVEL, RANDOM 2019-11-09 13:24:00 Kade Solorzano Zoroastrian CORTISOL LEVEL, RANDOM 2019-11-09 12:38:00 Kade Solorzano Zoroastrian POC GLUCOSE 2019-11-09 12:10:00 Kade Solorzano Met [facility]odist ADRENOCORTICOTROPIC HORMONE 2019-11-09 10:42:00 Kade Solorzano Zoroastrian CORTISOL LEVEL, RANDOM 2019-11-09 10:42:00 Kade Solorzano Zoroastrian POC GLUCOSE 2019-11-09 07:49:00 Kade Solorzano Met hodist BASIC METABOLIC PANEL 2019-11-09 04:08:00 Yovany Pantoja Zoroastrian MAGNESIUM LEVEL 2019-11-09 04:08:00 Yovany Pantoja Meth odist HC COMPLETE BLD COUNT W/AUTO DIFF 2019-11-09 04:08:00 Kaylin Pantoja Zoroastrian CORTISOL LEVEL, AM 2019-11-09 04:08:00 Kade Solorzano Zoroastrian ESTIMATED GFR 2019-11-09 04:08:00 Kade Solorzano Met hodist POC GLUCOSE 2019-11-08 21:06:00 Kade Solorzano Met hodist POC GLUCOSE 2019-11-08 18:25:00 Kade Solorzano Met hodist POC GLUCOSE 2019-11-08 12:41:00 Kade Solorzano Met hodist BASIC METABOLIC PANEL 2019-11-08 09:10:00 Yovany Pantoja Zoroastrian MAGNESIUM LEVEL 2019-11-08 09:10:00 Yovany Pantoja Meth odkyra HC COMPLETE BLD COUNT W/AUTO DIFF 2019-11-08 09:10:00 Kaylin Pantoja ESTIMATED GFR 2019-11-08 09:10:00 Yovany Pantoja Meth odist POC GLUCOSE 2019-11-08 08:22:00 Kade Solorzano Met [facility] URINE CULTURE 2019-11-08 05:26:00 Harrison Huang Meth odkyra URINALYSIS SCREEN AND MICROSCOPY, WITH REFLEX TO CULTURE 202 04:10:00 Harrison Huang Zoroastrian POC GLUCOSE 2019-11-07 21:42:00 Kade Solrozano Met [facility] POC GLUCOSE 2019-11-07 18:07:00 Kade Solorzano Met [facility]ist TTE LIMITED, WO CONTRAST, W DOPPLER ([id number]) 2019-11-07 15:35 :00 Mark Hua Zoroastrian POC GLUCOSE 2019-11-07 14:00:00 Jj Sagastume Zoroastrian POC GLUCOSE 2019-11-07 07:56:00 Jj Sagastume Zoroastrian BASIC METABOLIC PANEL 2019-11-07 02:55:00 Isidro Steele HC COMPLETE BLD COUNT W/AUTO DIFF 2019-11-07 02:55:00 Isidro Steele ESTIMATED GFR 2019-11-07 02:55:00 Isidro Steele Zoroastrian POC GLUCOSE 2019-11-06 21:10:00 Jj Sagastume Zoroastrian POC GLUCOSE 2019-11-06 17:26:00 Jj Sagastume Zoroastrian POC GLUCOSE 2019-11-06 12:09:00 Jj Sagastume Zoroastrian POC GLUCOSE 2019-11-06 08:34:00 Jj Sagastume BASIC METABOLIC PANEL 2019-11-06 04:00:00 Isidro Steele HEPATIC FUNCTION PANEL 2019-11-06 04:00:00 AnumanIsidro huang ESTIMATED GFR 2019-11-06 04:00:00 AnIsidro portillo HC COMPLETE BLD COUNT W/AUTO DIFF 2019-11-06 02:10:00 Isidro Steele POC GLUCOSE 2019-11-05 21:08:00 Jj Sagastume POC GLUCOSE 2019-11-05 18:18:00 Jj Sagastume POC GLUCOSE 2019-11-05 18:15:00 Jj Sagastume POC GLUCOSE 2019-11-05 11:40:00 Jj Sagastume POC GLUCOSE 2019-11-05 07:56:00 Jj Sagastume BASIC METABOLIC PANEL 2019-11-05 03:26:00 AnIsidro portillo ESTIMATED GFR 2019-11-05 03:26:00 Isidro Steele HC COMPLETE BLD COUNT W/AUTO DIFF 2019-11-05 01:35:00 AnIsidro portillo POC GLUCOSE 2019-11-04 21:28:00 Jj Sagastume POC GLUCOSE 2019-11-04 17:41:00 Jj Sagastume POC GLUCOSE 2019-11-04 16:01:00 Jj Sagastume POC GLUCOSE 2019-11-04 11:38:00 Jj Sagastume POC GLUCOSE 2019-11-04 07:34:00 Jj Sagastume COMPREHENSIVE METABOLIC PANEL 2019-11-04 04:00:00 Francois Steele MAGNESIUM LEVEL 2019-11-04 04:00:00 AnumanIsidro huang ESTIMATED GFR 2019-11-04 04:00:00 Isidro Steele HC COMPLETE BLD COUNT W/AUTO DIFF 2019-11-04 02:25:00 Isidro Steele POC GLUCOSE 2019-11-03 21:01:00 Jj Sagastume POC GLUCOSE 2019-11-03 17:29:00 Jj Sagastume POC GLUCOSE 2019-11-03 12:13:00 Jj Sagastume POC GLUCOSE 2019-11-03 07:39:00 Jj Sagastume COMPREHENSIVE METABOLIC PANEL 2019-11-03 04:00:00 Francois Steele MAGNESIUM LEVEL 2019-11-03 04:00:00 AnIsidro portillo ESTIMATED GFR 2019-11-03 04:00:00 AnumanIsidro huang HC COMPLETE BLD COUNT W/AUTO DIFF 2019-11-03 03:10:00 Isidro Steele POC GLUCOSE 2019-11-02 21:15:00 Jj Sagastume POC GLUCOSE 2019-11-02 17:22:00 Jj Sagastume POC GLUCOSE 2019-11-02 11:22:00 Jj Sagastume POC GLUCOSE 2019-11-02 08:13:00 Jj Sagastume HC COMPLETE BLD COUNT W/AUTO DIFF 2019-11-02 05:40:00 Isidro Steele HEPATITIS B SURFACE ANTIGEN 2019-11-02 04:00:00 Brooklyn Ulrich COMPREHENSIVE METABOLIC PANEL 2019-11-02 04:00:00 Francois Steele MAGNESIUM LEVEL 2019-11-02 04:00:00 AnIsidro portillo ESTIMATED GFR 2019-11-02 04:00:00 Brooklyn Ulrich POC GLUCOSE 2019-11-01 21:05:00 Jj Sagastume POC GLUCOSE 2019-11-01 17:41:00 Jj Sagastume POC GLUCOSE 2019-11-01 12:21:00 Jj Sagastume POC GLUCOSE 2019-11-01 07:56:00 Jj Sagastume CBC WITH PLATELET AND DIFFERENTIAL 2019-11-01 03:45:00 Pat Blackburn COMPREHENSIVE METABOLIC PANEL 2019-11-01 03:45:00 Matilde Blackburn MAGNESIUM LEVEL 2019-11-01 03:45:00 Pat Blackburn ethodist ESTIMATED GFR 2019-11-01 03:45:00 Jj Sagastume POC GLUCOSE 2019-10-31 21:48:00 Jj Sagastume POC GLUCOSE 2019-10-31 21:06:00 Jj Sagastume POC GLUCOSE 2019-10-31 17:03:00 Jj Sagastume POC GLUCOSE 2019-10-31 13:11:00 Jj Sagastume Zoroastrian POC GLUCOSE 2019-10-31 08:02:00 Jj Sagastume CBC WITH PLATELET AND DIFFERENTIAL 2019-10-31 05:00:00 Silvestre Goodman MAGNESIUM LEVEL 2019-10-31 04:00:00 Silvestre Goodman thodist DIGOXIN LEVEL 2019-10-31 04:00:00 Pat Blackburn ethodist COMPREHENSIVE METABOLIC PANEL 2019-10-31 04:00:00 Matilde Blackburn ESTIMATED GFR 2019-10-31 04:00:00 Silvestre Goodman Me thodist POC GLUCOSE 2019-10-30 21:18:00 Jj Sagastume POC GLUCOSE 2019-10-30 18:09:[address] ABDOMEN PELVIS W WO CONTRAST 2019-10-30 16:05:21 Elizabeth Blackburn LACTIC ACID LEVEL 2019-10-30 13:51:00 Pat Blackburn AMYLASE LEVEL 2019-10-30 13:51:00 Pat Blackburn ethodist LIPASE LEVEL 2019-10-30 13:51:00 Pat Blackburn ethodist POC GLUCOSE 2019-10-30 12:22:00 Jj Sagastumeist POC GLUCOSE 2019-10-30 08:12:00 Jj Sagastume BASIC METABOLIC PANEL 2019-10-30 03:11:00 Olivia Blanco tyrell Zoroastrian MAGNESIUM LEVEL 2019-10-30 03:11:00 Olivia Blanco ESTIMATED GFR 2019-10-30 03:11:00 Olivia Blanco HEPATIC FUNCTION PANEL 2019-10-30 03:11:00 Olivia Blanco HC COMPLETE BLD COUNT W/AUTO DIFF 2019-10-30 02:40:00 Lewis POC GLUCOSE 2019-10-29 20:28:00 Jj Sagastume POC GLUCOSE 2019-10-29 16:58:00 Jj Sagastume POC GLUCOSE 2019-10-29 12:57:00 Jj Sagastume POC GLUCOSE 2019-10-29 10:22:00 Jj Sagastume POC GLUCOSE 2019-10-29 08:18:00 Jj Sagastume COMPREHENSIVE METABOLIC PANEL 2019-10-29 04:00:00 Matilde Blackburn MAGNESIUM LEVEL 2019-10-29 04:00:00 Pat Blackburn ethodist DIGOXIN LEVEL 2019-10-29 04:00:00 Lorrie Nichols Meth odist PHOSPHORUS LEVEL 2019-10-29 04:00:00 Yash Stephen ESTIMATED GFR 2019-10-29 04:00:00 Jj Sagastume HC COMPLETE BLD COUNT W/AUTO DIFF 2019-10-29 02:30:00 Pat Blackburn STRONGYLOIDES AB IGG KENNETH 2019-10-29 02:30:00 Meron Saunders POC GLUCOSE 2019-10-28 21:13:00 Jj Sagastume POC GLUCOSE 2019-10-28 18:42:00 Jj Sagastume POC GLUCOSE 2019-10-28 16:44:00 Jj Sagastume POC GLUCOSE 2019-10-28 12:22:[address] HEAD WO CONTRAST 2019-10-28 10:39:40 Zayda Sheehan BLOOD CULTURE, AEROBIC & ANAEROBIC 2019-10-28 08:40:00 Pat Blackburn POC GLUCOSE 2019-10-28 08:39:00 Jj Sagastume BLOOD CULTURE, AEROBIC & ANAEROBIC 2019-10-28 08:20:00 Pat Blackburn HEMOGLOBIN & HEMATOCRIT 2019-10-28 08:20:00 Lorrie Nichols Zoroastrian COMPREHENSIVE METABOLIC PANEL 2019-10-28 04:00:00 Matilde Blackburn MAGNESIUM LEVEL 2019-10-28 04:00:00 Pat Blackburn ethodist ESTIMATED GFR 2019-10-28 04:00:00 Jj Sagastume HC COMPLETE BLD COUNT W/AUTO DIFF 2019-10-28 02:05:00 Pat Blackburn EEG AWAKE/ASLEEP LESS THAN 41 MIN 2019-10-27 22:09:29 Jayy Sheehan POC GLUCOSE 2019-10-27 21:13:00 Jj Sagastume POC GLUCOSE 2019-10-27 18:16:00 Jj Sagastume NM HEPATOBILIARY 2019-10-27 18:01:[address] ANGIOGRAM NECK W WO CONTRAST 2019-10-27 15:17:[address] ANGIOGRAM HEAD W WO CONTRAST 2019-10-27 15:16:[address] STROKE BRAIN WO CONTRAST 2019-10-27 14:58:38 Zayda Sheehan POC GLUCOSE 2019-10-27 11:28:00 Jj Sagastume POC GLUCOSE 2019-10-27 07:47:00 Jj Sagastume HC COMPLETE BLD COUNT W/AUTO DIFF 2019-10-27 03:50:00 Pat Blackburn COMPREHENSIVE METABOLIC PANEL 2019-10-27 03:50:00 Matilde Blackburn MAGNESIUM LEVEL 2019-10-27 03:50:00 Pat Blackburn ethodist ESTIMATED GFR 2019-10-27 03:50:00 Jj Sagastume POC GLUCOSE 2019-10-26 21:20:00 Jj Sagastume POC GLUCOSE 2019-10-26 18:13:00 Landon Jj Melgar Zoroastrian POC GLUCOSE 2019-10-26 15:00:00 Landon Jj Melgar Zoroastrian POC GLUCOSE 2019-10-26 12:31:00 Landon Jj Melgar Zoroastrian POC GLUCOSE 2019-10-26 08:26:00 Landon Jj Avery BASIC METABOLIC PANEL 2019-10-26 04:06:00 LandonJj Uriel Avery ESTIMATED GFR 2019-10-26 04:06:00 DruchrisosmanJj HC COMPLETE BLD COUNT W/AUTO DIFF 2019-10-26 03:25:00 Jj Casper POC GLUCOSE 2019-10-25 21:27:00 DrulauraJj POC GLUCOSE 2019-10-25 18:26:00 LandonJj POC GLUCOSE 2019-10-25 12:10:00 Jj Sagastume POC GLUCOSE 2019-10-25 09:24:00 LatiaosmanJj Zoroastrian POC GLUCOSE 2019-10-25 08:06:00 LatiaosmanjJ ECG PRE/POST OP 2019-10-25 06:52:13 Nabor Hoffmann COMPREHENSIVE METABOLIC PANEL 2019-10-25 03:30:00 Jj Sagastume HC COMPLETE BLD COUNT W/AUTO DIFF 2019-10-25 03:30:00 Jj Casper ESTIMATED GFR 2019-10-25 03:30:00 Jj Sagastume POC GLUCOSE 2019-10-24 21:36:00 LatiaosmanJj POC GLUCOSE 2019-10-24 18:42:00 Jj Sagastume XR CHEST 1 VW PORTABLE 2019-10-24 15:42:52 Nabor Hoffmann POC GLUCOSE 2019-10-24 15:38:00 Jj Sagastume ECG PRE/POST OP 2019-10-24 15:21:59 Nabor Hoffmann EP AICD EVALUATION 2019-10-24 15:03:47 Keysha Gotti Zoroastrian POTASSIUM LEVEL 2019-10-24 08:16:00 Jj Sagastume AST (SGOT) 2019-10-24 08:16:00 Jj Sagastume BASIC METABOLIC PANEL 2019-10-24 07:57:00 Howard Chengto n Zoroastrian ESTIMATED GFR 2019-10-24 07:57:00 Howard Cheng Meth odist ESTIMATED GFR 2019-10-24 07:53:00 Jj Sagastume POC PANEL 2019-10-24 07:53:00 Jj Sagastume COMPREHENSIVE METABOLIC PANEL 2019-10-24 03:10:00 Matilde Doran MAGNESIUM LEVEL 2019-10-24 03:10:00 Brook Doran CBC WITH PLATELET AND DIFFERENTIAL 2019-10-24 03:10:00 Brook Doran ESTIMATED GFR 2019-10-24 03:10:00 Brook Doran MANUAL DIFFERENTIAL 2019-10-24 03:10:00 Brook Doran POC GLUCOSE 2019-10-23 21:28:00 Jj Sagastume POC GLUCOSE 2019-10-23 17:14:00 Jj Sagastume POC GLUCOSE 2019-10-23 11:27:00 Jj Sagastume POC GLUCOSE 2019-10-23 07:53:00 Jj Sagastume COMPREHENSIVE METABOLIC PANEL 2019-10-23 03:09:00 Matilde Doran MAGNESIUM LEVEL 2019-10-23 03:09:00 Brook Doran HC COMPLETE BLD COUNT W/AUTO DIFF 2019-10-23 03:09:00 Brook Doran PHOSPHORUS LEVEL 2019-10-23 03:09:00 Yash Stephen hodist ESTIMATED GFR 2019-10-23 03:09:00 Rolando Feliz Nm thodist POC GLUCOSE 2019-10-22 20:58:00 Jj Sagastume POC GLUCOSE 2019-10-22 17:32:00 Jj Sagastume POC GLUCOSE 2019-10-22 11:17:00 Jj Sagastume POC GLUCOSE 2019-10-22 07:42:00 Jj Sagastume COMPREHENSIVE METABOLIC PANEL 2019-10-22 02:51:00 Matilde Doran MAGNESIUM LEVEL 2019-10-22 02:51:00 Brook Doran ESTIMATED GFR 2019-10-22 02:51:00 Solo Browning thodist PARTIAL THROMBOPLASTIN TIME (PTT) 2019-10-22 02:30:00 Austin Browning HC COMPLETE BLD COUNT W/AUTO DIFF 2019-10-22 02:30:00 Brook Doran POC GLUCOSE 2019-10-21 19:50:00 Jj Sagastume POC GLUCOSE 2019-10-21 17:25:00 Jj Sagastume POC GLUCOSE 2019-10-21 11:58:00 Jj Sagastume CBC WITH PLATELET AND DIFFERENTIAL 2019-10-21 10:55:00 Brook Doran MANUAL DIFFERENTIAL 2019-10-21 10:55:00 Brook Doran COMPREHENSIVE METABOLIC PANEL 2019-10-21 10:50:00 Matilde Doran MAGNESIUM LEVEL 2019-10-21 10:50:00 Brook Doran ESTIMATED GFR 2019-10-21 10:50:00 Brook Doran POC GLUCOSE 2019-10-21 07:55:00 Jj Sagastume PARTIAL THROMBOPLASTIN TIME (PTT) 2019-10-21 02:50:00 Jj Casper POC GLUCOSE 2019-10-20 20:42:00 Jj Sagastume MRI CHOLANGIOGRAM WO CONTRAST 2019-10-20 19:12:00 Cailin Campbell POC GLUCOSE 2019-10-20 17:12:00 Jj Sagastume LINE/DRAIN REMOVAL 2019-10-20 14:36:49 Umang Maguire [facility] Zoroastrian TTE LIMITED W CONTRAST, W DOPPLER ([id number]) 2019-10-20 13:30:0 0 Jamir Murillo Zoroastrian POC GLUCOSE 2019-10-20 10:55:00 Jj Sagastume Zoroastrian POC GLUCOSE 2019-10-20 07:09:00 Jj Sagastume Zoroastrian PARTIAL THROMBOPLASTIN TIME (PTT) 2019-10-20 04:00:00 Jamir Murillo Zoroastrian CBC WITH PLATELET AND DIFFERENTIAL 2019-10-20 04:00:00 Agcyndiel liardBriana Zoroastrian BASIC METABOLIC PANEL 2019-10-20 04:00:00 Briana Smith rese Ramón Zoroastrian MAGNESIUM LEVEL 2019-10-20 04:00:00 Aguillchelo Brianaelinor Mccollumrese H tova Zoroastrian PHOSPHORUS LEVEL 2019-10-20 04:00:00 AgBriana mckee Zoroastrian ESTIMATED GFR 2019-10-20 04:00:00 Aguillchelo Briana Patrese H ounabeel Zoroastrian MANUAL DIFFERENTIAL 2019-10-20 04:00:00 AguiBriana linares se Zoroastrian HEPATIC FUNCTION PANEL 2019-10-20 04:00:00 AgBriana mckee Zoroastrian POC GLUCOSE 2019-10-19 20:46:00 Jj Sagastume Zoroastrian POC GLUCOSE 2019-10-19 16:52:00 Jj Sagastume Zoroastrian POC GLUCOSE 2019-10-19 10:53:00 Jj Sagastume Zoroastrian PARTIAL THROMBOPLASTIN TIME (PTT) 2019-10-19 07:10:00 Kenyon Mayer Zoroastrian POC GLUCOSE 2019-10-19 07:06:00 Jj Sagastume Zoroastrian CBC WITH PLATELET AND DIFFERENTIAL 2019-10-19 04:50:00 Juan Cortés COMPREHENSIVE METABOLIC PANEL 2019-10-19 04:50:00 Juan Cortés MAGNESIUM LEVEL 2019-10-19 04:50:00 Juan Cortés PHOSPHORUS LEVEL 2019-10-19 04:50:00 Juan Cortés PARTIAL THROMBOPLASTIN TIME (PTT) 2019-10-19 04:50:00 Jj Casper DIGOXIN LEVEL 2019-10-19 04:50:00 Ryder Guzman Met hodist ESTIMATED GFR 2019-10-19 04:50:00 Ryder Guzman Met hodist POC GLUCOSE 2019-10-18 21:06:00 Jj Sagastume Zoroastrian POC GLUCOSE 2019-10-18 17:23:00 Jj Sagastume POC GLUCOSE 2019-10-18 10:41:00 Jj Sagastume POC GLUCOSE 2019-10-18 07:02:00 Jj Sagastume COMPREHENSIVE METABOLIC PANEL 2019-10-18 04:00:00 Juan Cortés CBC WITH PLATELET AND DIFFERENTIAL 2019-10-18 04:00:00 Joseph Millan MAGNESIUM LEVEL 2019-10-18 04:00:00 Solo Millan Meth odist PHOSPHORUS LEVEL 2019-10-18 04:00:00 Solo Millan Met hodist PARTIAL THROMBOPLASTIN TIME (PTT) 2019-10-18 04:00:00 Jj Casper ESTIMATED GFR 2019-10-18 04:00:00 Jj Sagastume POC GLUCOSE 2019-10-17 20:57:00 Jj Sagastume POC GLUCOSE 2019-10-17 16:38:00 Jj Sagastume POC GLUCOSE 2019-10-17 11:32:00 Jj Sagastume POC GLUCOSE 2019-10-17 07:10:00 Jj Sagastume TYPE AND SCREEN 2019-10-17 04:30:00 Solo Millan Meth odkyra COMPREHENSIVE METABOLIC PANEL 2019-10-17 04:00:00 Juan Cortés MAGNESIUM LEVEL 2019-10-17 04:00:00 Juan Cortés PHOSPHORUS LEVEL 2019-10-17 04:00:00 Juan Cortés VANCOMYCIN LEVEL, RANDOM 2019-10-17 04:00:00 Solo Browning ESTIMATED GFR 2019-10-17 04:00:00 Jj Sagastume PARTIAL THROMBOPLASTIN TIME (PTT) 2019-10-17 03:30:00 Jj Casper CBC WITH PLATELET AND DIFFERENTIAL 2019-10-17 03:30:00 Juan Cortés VENOUS BLOOD GAS 2019-10-17 03:30:00 Juan Cortés POC GLUCOSE 2019-10-16 21:01:00 Jj Sagastume POC GLUCOSE 2019-10-16 16:30:00 Jj Sagastume HEMOGLOBIN & HEMATOCRIT 2019-10-16 16:26:00 Umang Maguire BASIC METABOLIC PANEL 2019-10-16 16:26:00 Solo Browning ESTIMATED GFR 2019-10-16 16:26:00 Solo Browning Nm thodist IONIZED CALCIUM 2019-10-16 16:26:00 Solo Browning Nm thodist HEMODIALYSIS 2019-10-16 11:33:24 Khang Chavira Me thodist US HEPATIC 2019-10-16 11:00:00 Isidro Steele POC GLUCOSE 2019-10-16 10:42:00 Jj Sagastume POC GLUCOSE 2019-10-16 07:21:00 Jj Sagastume COMPREHENSIVE METABOLIC PANEL 2019-10-16 04:00:00 Juan Cortés MAGNESIUM LEVEL 2019-10-16 04:00:00 Juan Cortés PHOSPHORUS LEVEL 2019-10-16 04:00:00 Juan Cortés ESTIMATED GFR 2019-10-16 04:00:00 Solo Browning Me thodist HC COMPLETE BLD COUNT W/AUTO DIFF 2019-10-16 03:55:00 Sridhar Cortés O2 SATURATION, VENOUS 2019-10-16 03:55:00 Juan Cortés PARTIAL THROMBOPLASTIN TIME (PTT) 2019-10-16 03:55:00 Jamir Murillo POC GLUCOSE 2019-10-15 20:29:00 Jj Sagastume PARTIAL THROMBOPLASTIN TIME (PTT) 2019-10-15 18:08:00 Austin Browning POC GLUCOSE 2019-10-15 16:49:00 Jj Sagastume PARTIAL THROMBOPLASTIN TIME (PTT) 2019-10-15 12:15:00 Jj Casper BLOOD CULTURE, AEROBIC & ANAEROBIC 2019-10-15 10:45:00 Juan Cortés POC GLUCOSE 2019-10-15 10:40:00 Jj Sagastume BLOOD CULTURE, AEROBIC & ANAEROBIC 2019-10-15 10:14:00 Juan Cortés POC GLUCOSE 2019-10-15 07:13:00 Jj Sagastume XR CHEST 1 VW PORTABLE 2019-10-15 05:12:40 Juan Cortés TROPONIN 2019-10-15 05:02:00 Dev Loyd HC COMPLETE BLD COUNT W/AUTO DIFF 2019-10-15 04:45:00 Sridhar Cortés O2 SATURATION, VENOUS 2019-10-15 04:45:00 Juan Cortés PARTIAL THROMBOPLASTIN TIME (PTT) 2019-10-15 04:45:00 Kaylin Jarrell SMEAR REVIEW 2019-10-15 04:45:00 Solo Browning thodi COMPREHENSIVE METABOLIC PANEL 2019-10-15 04:00:00 Juan Cortés MAGNESIUM LEVEL 2019-10-15 04:00:00 Juan Cortés PHOSPHORUS LEVEL 2019-10-15 04:00:00 Juan Cortésto n Zoroastrian LDH 2019-10-15 04:00:00 Juan Cortés ESTIMATED GFR 2019-10-15 04:00:00 Solo Browning Nm thodist TROPONIN 2019-10-14 20:50:00 Briana Smith LACTIC ACID LEVEL 2019-10-14 20:50:00 Briana Smith BASIC METABOLIC PANEL 2019-10-14 20:50:00 Briana Smith B NATRIURETIC PEPTIDE 2019-10-14 20:50:00 Briana Smith ESTIMATED GFR 2019-10-14 20:50:00 Briana Smith O2 SATURATION, VENOUS 2019-10-14 20:50:00 Briana Smith ECG 12-LEAD 2019-10-14 20:45:04 Briana Smith BASIC METABOLIC PANEL 2019-10-14 18:33:00 Khang Chavira IONIZED CALCIUM 2019-10-14 18:33:00 Khang Chavira Me thodist MAGNESIUM LEVEL 2019-10-14 18:33:00 Khang Chavira Me thodist PHOSPHORUS LEVEL 2019-10-14 18:33:00 Khang Chavira M ethodist ESTIMATED GFR 2019-10-14 18:33:00 Khang Chavira Me thodist POC GLUCOSE 2019-10-14 17:01:00 Jj Sagastume POC GLUCOSE 2019-10-14 10:46:00 Jj Sagastume POC GLUCOSE 2019-10-14 07:13:00 Jj Sagastume XR CHEST 1 VW PORTABLE 2019-10-14 05:39:49 Juan Cortés PARTIAL THROMBOPLASTIN TIME (PTT) 2019-10-14 04:30:00 Austin Browning HC COMPLETE BLD COUNT W/AUTO DIFF 2019-10-14 04:30:00 Sridhar Cortés COMPREHENSIVE METABOLIC PANEL 2019-10-14 04:30:00 Juan Cortés MAGNESIUM LEVEL 2019-10-14 04:30:00 Juan Cortés PHOSPHORUS LEVEL 2019-10-14 04:30:00 Juan Cortés n Zoroastrian LDH 2019-10-14 04:30:00 Juan Cortés O2 SATURATION, VENOUS 2019-10-14 04:30:00 Juan Cortés ESTIMATED GFR 2019-10-14 04:30:00 Solo Browning Nm thodist POC GLUCOSE 2019-10-13 21:06:00 Jj Sagastume IONIZED CALCIUM 2019-10-13 18:20:00 Khang Chavira Nm thodist POC GLUCOSE 2019-10-13 16:48:00 Jj Sagastume BASIC METABOLIC PANEL 2019-10-13 16:25:00 Khang Chavira Zoroastrian MAGNESIUM LEVEL 2019-10-13 16:25:00 Khang Chavira Nm thodist PHOSPHORUS LEVEL 2019-10-13 16:25:00 Khang Chavira ethodist ESTIMATED GFR 2019-10-13 16:25:00 Khang Chavira Nm thodist IONIZED CALCIUM 2019-10-13 16:25:00 Khang Chavira Nm thodist HEMOGLOBIN & HEMATOCRIT 2019-10-13 15:00:00 Solo Browning POC GLUCOSE 2019-10-13 10:51:00 Jj Sagastume XR CHEST 1 VW PORTABLE 2019-10-13 09:20:00 Juan Cortés POC GLUCOSE 2019-10-13 07:24:00 Jj Sagastume PARTIAL THROMBOPLASTIN TIME (PTT) 2019-10-13 04:00:00 Jamir Murillo HC COMPLETE BLD COUNT W/AUTO DIFF 2019-10-13 04:00:00 Jj Casper O2 SATURATION, VENOUS 2019-10-13 04:00:00 Jj Sagastume IONIZED CALCIUM 2019-10-13 03:18:00 Jj Sagastume BASIC METABOLIC PANEL 2019-10-13 03:17:00 Jj Sagastume MAGNESIUM LEVEL 2019-10-13 03:17:00 Jj Sagastume PHOSPHORUS LEVEL 2019-10-13 03:17:00 Jj Sagastume ESTIMATED GFR 2019-10-13 03:17:00 Jj Sagastume POC GLUCOSE 2019-10-12 21:01:00 Jj Sagastume IONIZED CALCIUM 2019-10-12 17:00:00 Khang Chavira Nm thodist POTASSIUM LEVEL 2019-10-12 17:00:00 Khang Chavira Me thodist MAGNESIUM LEVEL 2019-10-12 17:00:00 Khang Chavira Me thodist PHOSPHORUS LEVEL 2019-10-12 17:00:00 Khang Chavira M ethodist BASIC METABOLIC PANEL 2019-10-12 17:00:00 Khang Chavira Zoroastrian HC COMPLETE BLD COUNT W/AUTO DIFF 2019-10-12 17:00:00 Khang Chavira ESTIMATED GFR 2019-10-12 17:00:00 Khang Chavira Nm thodist POC GLUCOSE 2019-10-12 10:42:00 Jj Sagastume POC GLUCOSE 2019-10-12 07:16:00 Jj Sagastume XR CHEST 1 VW PORTABLE 2019-10-12 06:10:31 Juan Cortés COMPREHENSIVE METABOLIC PANEL 2019-10-12 04:00:00 Alexandr Hayward LDH 2019-10-12 04:00:00 Alexandr Hayward Zoroastrian MAGNESIUM LEVEL 2019-10-12 04:00:00 Alexandr Hayward Zoroastrian PHOSPHORUS LEVEL 2019-10-12 04:00:00 Alexandr Hayward on Zoroastrian PARTIAL THROMBOPLASTIN TIME (PTT) 2019-10-12 04:00:00 PrevMegan sanches PROTHROMBIN TIME WITH INR 2019-10-12 04:00:00 PrevilorMegan ESTIMATED GFR 2019-10-12 04:00:00 Alexandr Hayward BILIRUBIN DIRECT 2019-10-12 04:00:00 Alexandr Hayward on Zoroastrian IONIZED CALCIUM 2019-10-12 04:00:00 Jj Sagastume HC COMPLETE BLD COUNT W/AUTO DIFF 2019-10-12 03:50:00 Karl Hayward O2 SATURATION, VENOUS 2019-10-12 03:50:00 Juan Cortés PARTIAL THROMBOPLASTIN TIME (PTT) 2019-10-11 23:15:00 Jj Casper POC GLUCOSE 2019-10-11 20:59:00 Jj Sagastume POC GLUCOSE 2019-10-11 17:01:00 Jj Sagastume HC COMPLETE BLD COUNT W/AUTO DIFF 2019-10-11 17:00:00 Khang Chavira IONIZED CALCIUM 2019-10-11 16:52:00 Khang Chavira Me thodist POTASSIUM LEVEL 2019-10-11 16:52:00 Khang Chavira Me thodist MAGNESIUM LEVEL 2019-10-11 16:52:00 Khang Chavira Me thodist PHOSPHORUS LEVEL 2019-10-11 16:52:00 Khang Chavira ethodist BASIC METABOLIC PANEL 2019-10-11 16:52:00 Khang Chavira ESTIMATED GFR 2019-10-11 16:52:00 Khang Chavira Nm thodist POC GLUCOSE 2019-10-11 10:31:00 Jj Sagastume POC GLUCOSE 2019-10-11 07:15:00 Jj Sagastume XR CHEST 1 VW PORTABLE 2019-10-11 06:15:56 Juan Cortés HC COMPLETE BLD COUNT W/AUTO DIFF 2019-10-11 03:35:00 Karl Hayward COMPREHENSIVE METABOLIC PANEL 2019-10-11 03:35:00 Alexandr Hayward IONIZED CALCIUM 2019-10-11 03:35:00 Alexandr Hayward Zoroastrian LDH 2019-10-11 03:35:00 Alexandr Hayward Zoroastrian MAGNESIUM LEVEL 2019-10-11 03:35:00 Alexandr Hayward Zoroastrian PHOSPHORUS LEVEL 2019-10-11 03:35:00 Alexandr Hayward Zoroastrian PARTIAL THROMBOPLASTIN TIME (PTT) 2019-10-11 03:35:00 Jamir Murillo O2 SATURATION, VENOUS 2019-10-11 03:35:00 Juan Cortés ESTIMATED GFR 2019-10-11 03:35:00 Alexandr Hayward Zoroastrian BILIRUBIN DIRECT 2019-10-11 03:35:00 Alexandr Hayward on Zoroastrian POC GLUCOSE 2019-10-10 20:52:00 Jj Sagastume BASIC METABOLIC PANEL 2019-10-10 16:20:00 Khang Chavira Zoroastrian PHOSPHORUS LEVEL 2019-10-10 16:20:00 Khang Chavira M ethodist MAGNESIUM LEVEL 2019-10-10 16:20:00 Khang Chavira Me thodist IONIZED CALCIUM 2019-10-10 16:20:00 Khang Chavira Me thodist ESTIMATED GFR 2019-10-10 16:20:00 Khang Chavira Me thodist POC GLUCOSE 2019-10-10 16:06:00 Jj Sagastumeist POC GLUCOSE 2019-10-10 10:31:00 Jj Sagastume O2 SATURATION, VENOUS 2019-10-10 09:00:00 Juan Cortésist POC GLUCOSE 2019-10-10 07:06:00 Jj Sagastume XR CHEST 1 VW PORTABLE 2019-10-10 05:25:47 Juan Cortés PARTIAL THROMBOPLASTIN TIME (PTT) 2019-10-10 03:30:00 Jamir Murillo HC COMPLETE BLD COUNT W/AUTO DIFF 2019-10-10 03:30:00 Karl Hayward COMPREHENSIVE METABOLIC PANEL 2019-10-10 03:30:00 Alexandr Haywardist IONIZED CALCIUM 2019-10-10 03:30:00 Alexandr Hayward Zoroastrian LDH 2019-10-10 03:30:00 Alexandr Hayward Zoroastrian MAGNESIUM LEVEL 2019-10-10 03:30:00 Alexandr Hayward Zoroastrian PHOSPHORUS LEVEL 2019-10-10 03:30:00 Alexandr Hayward on Zoroastrian ESTIMATED GFR 2019-10-10 03:30:00 Alexandr Hayward Zoroastrian BILIRUBIN DIRECT 2019-10-10 03:30:00 Alexandr Hayward on Zoroastrian BASIC METABOLIC PANEL 2019-10-09 21:26:00 Rolando Feliz Zoroastrian MAGNESIUM LEVEL 2019-10-09 21:26:00 Rolando Feliz Nm thodist PHOSPHORUS LEVEL 2019-10-09 21:26:00 Rolando Feliz ethodist IONIZED CALCIUM 2019-10-09 21:26:00 Rolando Feliz Nm thodist ESTIMATED GFR 2019-10-09 21:26:00 Rolando Feliz Nm thodist PARTIAL THROMBOPLASTIN TIME (PTT) 2019-10-09 21:19:00 Francois Guzman POC GLUCOSE 2019-10-09 20:53:00 Jj Sagastume POC GLUCOSE 2019-10-09 17:01:00 Jj Sagastume O2 SATURATION, VENOUS 2019-10-09 16:20:00 Brook Doran POC GLUCOSE 2019-10-09 13:10:00 Jj Sagastume BASIC METABOLIC PANEL 2019-10-09 12:10:00 Jamir Murillo MAGNESIUM LEVEL 2019-10-09 12:10:00 Jamir Murillo PHOSPHORUS LEVEL 2019-10-09 12:10:00 Jamir Murillo IONIZED CALCIUM 2019-10-09 12:10:00 Jamir Murillo ESTIMATED GFR 2019-10-09 12:10:00 Kapil Montana Meth odist POC GLUCOSE 2019-10-09 10:39:00 Jj Sagastume PARTIAL THROMBOPLASTIN TIME (PTT) 2019-10-09 08:30:00 Jj Casper POC GLUCOSE 2019-10-09 07:25:00 Jj Sagastume XR CHEST 1 VW PORTABLE 2019-10-09 05:48:44 Juan Cortés HC COMPLETE BLD COUNT W/AUTO DIFF 2019-10-09 03:20:00 Karl Hayward COMPREHENSIVE METABOLIC PANEL 2019-10-09 03:20:00 Alexandr Hayward LDH 2019-10-09 03:20:00 Alexandr Hayward Zoroastrian MAGNESIUM LEVEL 2019-10-09 03:20:00 Alexandr Hayward Zoroastrian PHOSPHORUS LEVEL 2019-10-09 03:20:00 Alexandr Hayward on Zoroastrian IONIZED CALCIUM 2019-10-09 03:20:00 Aleaxndr Hayward Zoroastrian ESTIMATED GFR 2019-10-09 03:20:00 Alexandr Hayward Zoroastrian BILIRUBIN DIRECT 2019-10-09 03:20:00 Alexandr Hayward on Zoroastrian O2 SATURATION, VENOUS 2019-10-09 03:20:00 Ryder Guzman on Zoroastrian POC GLUCOSE 2019-10-08 21:22:00 Jj Sagastume ECG PRE/POST OP 2019-10-08 20:33:09 Ramez King Meth odist CV SELECTIVE CORONARY ANGIOGRAPHY 2019-10-08 19:49:03 Jj Casper ACTIVATED CLOTTING TIME 2019-10-08 19:18:00 Jj Sagastume POC GLUCOSE 2019-10-08 16:25:00 Jj Sagastume BASIC METABOLIC PANEL 2019-10-08 11:40:00 Jamir Murillo MAGNESIUM LEVEL 2019-10-08 11:40:00 Jamir Murillo Zoroastrian PHOSPHORUS LEVEL 2019-10-08 11:40:00 Jamir Murillo IONIZED CALCIUM 2019-10-08 11:40:00 Jamir Murillo ESTIMATED GFR 2019-10-08 11:40:00 Jamir Murillo POC GLUCOSE 2019-10-08 10:38:00 Jj Sagastume POC GLUCOSE 2019-10-08 07:16:00 Jj Sagastume XR CHEST 1 VW PORTABLE 2019-10-08 06:15:13 Juan Cortés O2 SATURATION, VENOUS 2019-10-08 04:00:00 Jj Sagastume COMPREHENSIVE METABOLIC PANEL 2019-10-08 03:45:00 Alexandr Hayward LDH 2019-10-08 03:45:00 Alexandr Hayward Zoroastrian MAGNESIUM LEVEL 2019-10-08 03:45:00 Alexandr Hayward Zoroastrian PHOSPHORUS LEVEL 2019-10-08 03:45:00 Alexandr Hayward on Zoroastrian IONIZED CALCIUM 2019-10-08 03:45:00 Alexandr Hayward Zoroastrian ESTIMATED GFR 2019-10-08 03:45:00 Alexandr Hayward Zoroastrian BILIRUBIN DIRECT 2019-10-08 03:45:00 Alexandr Hayward on Zoroastrian O2 SATURATION, VENOUS 2019-10-08 03:25:00 Solo Browning Zoroastrian PARTIAL THROMBOPLASTIN TIME (PTT) 2019-10-08 03:25:00 Jj Casper HC COMPLETE BLD COUNT W/AUTO DIFF 2019-10-08 03:25:00 Karl Hayward PARTIAL THROMBOPLASTIN TIME (PTT) 2019-10-07 21:50:00 Jj Casper POC GLUCOSE 2019-10-07 20:42:00 Jj Sagastume POC GLUCOSE 2019-10-07 16:38:00 Jj Sagastume BASIC METABOLIC PANEL 2019-10-07 12:35:00 Khang Chavira Zoroastrian IONIZED CALCIUM 2019-10-07 12:35:00 Khang Chavira Me thodist MAGNESIUM LEVEL 2019-10-07 12:35:00 Khang Chavira Me thodist PHOSPHORUS LEVEL 2019-10-07 12:35:00 Khang Chaivra M ethodist ESTIMATED GFR 2019-10-07 12:35:00 Khang Chavira Me thodist O2 SATURATION, VENOUS 2019-10-07 12:35:00 Bryson Patel Zoroastrian PARTIAL THROMBOPLASTIN TIME (PTT) 2019-10-07 12:35:00 Jamir Murillo POC GLUCOSE 2019-10-07 11:09:00 Jj Sagastume TROPONIN 2019-10-07 09:34:00 WaitsRolando XR CHEST 1 VW PORTABLE 2019-10-07 08:29:00 Muna Beltran POC GLUCOSE 2019-10-07 07:13:00 Jj Sagastume PARTIAL THROMBOPLASTIN TIME (PTT) 2019-10-07 06:42:00 Austin Browning VANCOMYCIN LEVEL, RANDOM 2019-10-07 04:00:00 Kamini, Stevan Lopez ston Zoroastrian BASIC METABOLIC PANEL 2019-10-07 04:00:00 Kamini, Stevan teresa Zoroastrian MAGNESIUM LEVEL 2019-10-07 04:00:00 Kamini, Stevan Melgar Meth odist PHOSPHORUS LEVEL 2019-10-07 04:00:00 Kamini, Stevan Melgar Met hodkyra PARTIAL THROMBOPLASTIN TIME (PTT) 2019-10-07 04:00:00 Kamini, Heena Avery ESTIMATED GFR 2019-10-07 04:00:00 Jj Sagastume HEPATIC FUNCTION PANEL 2019-10-07 04:00:00 Jj Sagastume HC COMPLETE BLD COUNT W/AUTO DIFF 2019-10-07 03:45:00 Kamini, Heena Avery PROTHROMBIN TIME WITH INR 2019-10-07 03:45:00 Stevan Suárezton Zoroastrian O2 SATURATION, VENOUS 2019-10-07 03:45:00 Solo Browning TTE COMPLETE, WO CONTRAST, W DOPPLER ([id number]) 2019-10-07 02:55:00 Stevan Suárez AEROBIC CULTURE 2019-10-06 23:50:00 Solo Browning Nm thodist ANAEROBIC CULTURE 2019-10-06 23:50:00 Solo Browning GRAM STAIN 2019-10-06 23:50:00 Solo Browning Nm thodi ARTERIAL BLOOD GAS 2019-10-06 23:00:00 Solo Browning PROTEIN, MISC FLUID 2019-10-06 23:00:00 Solo Browning LDH, MISC FLUID 2019-10-06 23:00:00 Solo Browning Nm thodist CELL COUNT AND DIFFERENTIAL, BODY FLUID 2019-10-06 23:00:00 Ceferinoc heSolo ibrahim PH, MISC FLUID 2019-10-06 23:00:00 Solo Browning Me thodist TROPONIN 2019-10-06 23:00:00 Solo Browning Me thodist XR CHEST 1 VW PORTABLE 2019-10-06 22:55:00 Solo Browning THORACENTESIS 2019-10-06 22:46:08 Solo Browning Me thodist XR CHEST 1 VW PORTABLE 2019-10-06 20:37:49 Stevan Suárez on Zoroastrian O2 SATURATION, VENOUS 2019-10-06 20:04:00 Jj Sagastume HC COMPLETE BLD COUNT W/AUTO DIFF 2019-10-06 20:04:00 Jj Casper COMPREHENSIVE METABOLIC PANEL 2019-10-06 20:04:00 Jj Sagastume MAGNESIUM LEVEL 2019-10-06 20:04:00 Jj Sagastume PHOSPHORUS LEVEL 2019-10-06 20:04:00 Jj Sagastume IONIZED CALCIUM 2019-10-06 20:04:00 Jj Sagastume LACTIC ACID LEVEL 2019-10-06 20:04:00 Jj Sagastume PROTHROMBIN TIME WITH INR 2019-10-06 20:04:00 Naila Sagastume PARTIAL THROMBOPLASTIN TIME (PTT) 2019-10-06 20:04:00 Jj Casper ESTIMATED GFR 2019-10-06 20:04:00 Jj Sagastume TROPONIN 2019-10-06 20:04:00 Jj Sagastume POC GLUCOSE 2019-10-06 20:01:00 Jj Sagastume ECG 12-LEAD 2019-10-06 19:57:06 Stevan Suárez Meth odist CV INTRA AORTIC BALLOON PUMP REMOVAL 2019-10-06 18:05:00 Bryson Patel POC GLUCOSE 2019-10-06 17:01:00 Jj Sagastume CO INSERT CATH,ART,PERCUT,SHORTTERM 2019-10-06 16:36:12 Stevan Suárez Zoroastrian LACTIC ACID LEVEL, SEPSIS - NOW AND REPEAT 2X EVERY 3 HOURS 2019-10-06 15:42:00 Stevan Suárez O2 SATURATION, VENOUS 2019-10-06 15:42:00 Nawaf Padgett HEMOGLOBIN & HEMATOCRIT 2019-10-06 15:42:00 Nawaf Padgett TROPONIN 2019-10-06 15:42:00 Jj Sagastume INSERT LINE 2019-10-06 15:05:15 Sha Yanez Nm thodist LACTIC ACID LEVEL, SEPSIS - NOW AND REPEAT 2X EVERY 3 HOURS 2019-10-06 13:26:00 Stevan Suárez POC GLUCOSE 2019-10-06 12:58:00 Jj Sagastume US GALLBLADDER 2019-10-06 12:04:30 Stevan Suárez odkyra O2 SATURATION, VENOUS 2019-10-06 11:36:00 Bryson Patel PROTHROMBIN TIME WITH INR 2019-10-06 11:35:00 Michelle Ramos TROPONIN 2019-10-06 11:34:00 Stevan Suárez odkyra TROPONIN 2019-10-06 11:33:00 Michelle Ramos LACTIC ACID LEVEL, SEPSIS - NOW AND REPEAT 2X EVERY 3 HOURS 2019-10-06 11:33:00 Stevan Suárez Zoroastrian DIGOXIN LEVEL 2019-10-06 11:33:00 Stevan Suárez Meth odkyra HEPATIC FUNCTION PANEL 2019-10-06 11:33:00 Jj Sagastume THYROID STIMULATING HORMONE 2019-10-06 11:33:00 Glenn Sagastume XR CHEST 1 VW PORTABLE 2019-10-06 11:20:00 Stevan Suárez on Zoroastrian ECG 12-LEAD 2019-10-06 10:16:02 Amanda Finch odist POC GLUCOSE 2019-10-06 10:07:[address] ABDOMEN PELVIS WO CONTRAST 2019-10-06 09:35:43 Joyce Ramos RESPIRATORY PATHOGEN PANEL 2019-10-06 09:00:00 LandonPop connie Avery BLOOD CULTURE, AEROBIC & ANAEROBIC 2019-10-06 08:57:00 Kamini Stevan Avery GRAM STAIN 2019-10-06 08:55:00 Jelani Serra Meth odist BLOOD CULTURE, AEROBIC & ANAEROBIC 2019-10-06 08:55:00 Jj Batista CELL COUNT AND DIFFERENTIAL, BODY FLUID 2019-10-06 08:55:00 Jelani Serra BLOOD CULTURE, AEROBIC & ANAEROBIC 2019-10-06 08:45:00 Viral ergJj XR CHEST 1 VW PORTABLE 2019-10-06 08:45:00 Maximino Charles POC GLUCOSE 2019-10-06 08:32:00 Jj Sagastume ECG 12-LEAD 2019-10-06 08:23:02 Jj Sagastume ARTERIAL BLOOD GAS 2019-10-06 08:20:00 Maximino Charles M ethodist POC GLUCOSE 2019-10-06 07:37:00 Jj Sagastume LACTIC ACID LEVEL 2019-10-06 06:46:00 Maximino Charles Me thodist POC GLUCOSE 2019-10-06 06:14:00 Jj Sagastume ECG 12-LEAD 2019-10-06 06:09:29 Jj Sagastume POC GLUCOSE 2019-10-06 04:01:00 Jj Sagastume VITAMIN D 25 HYDROXY LEVEL 2019-10-06 04:00:00 Bhargavi Valentine HEPATIC FUNCTION PANEL 2019-10-06 04:00:00 Lucia Aguilar BASIC METABOLIC PANEL 2019-10-06 04:00:00 Lucia Aguilar THYROID STIMULATING HORMONE 2019-10-06 04:00:00 Lucia Aguilar CBC HEMOGRAM 2019-10-06 04:00:00 Lucia Aguilar on Zoroastrian ESTIMATED GFR 2019-10-06 04:00:00 Lucia Aguilar on Zoroastrian T4, FREE 2019-10-06 04:00:00 Lucia Aguilar on Zoroastrian MAGNESIUM LEVEL 2019-10-06 04:00:00 Lucia Aguilar on Zoroastrian POC GLUCOSE 2019-10-06 00:29:00 Jj Sagastume XR ABDOMEN 1 VW PORTABLE 2019-10-05 23:31:00 Lucia Aguilar Zoroastrian POC GLUCOSE 2019-10-05 20:39:00 Jj Sagastume POC GLUCOSE 2019-10-05 17:59:00 Jj Sagastume Zoroastrian POC GLUCOSE 2019-10-05 11:25:00 Jj Sagastume POC GLUCOSE 2019-10-05 07:54:00 Jj Sagastume CBC WITH PLATELET AND DIFFERENTIAL 2019-10-05 06:15:00 Kezia Hua MANUAL DIFFERENTIAL 2019-10-05 06:15:00 Mark Hua BASIC METABOLIC PANEL 2019-10-05 04:00:00 Mark Hua Zoroastrian MAGNESIUM LEVEL 2019-10-05 04:00:00 Mark Huaist PHOSPHORUS LEVEL 2019-10-05 04:00:00 Mark Hua ESTIMATED GFR 2019-10-05 04:00:00 Mark Hua POC GLUCOSE 2019-10-04 21:06:00 Jj Sagastume Zoroastrian POC GLUCOSE 2019-10-04 16:45:00 Jj Sagastume Zoroastrian POC GLUCOSE 2019-10-04 11:53:00 Jj Sagastume Zoroastrian POC GLUCOSE 2019-10-04 08:18:00 Jj Sagastume BASIC METABOLIC PANEL 2019-10-04 05:45:00 Mark Hua Zoroastrian MAGNESIUM LEVEL 2019-10-04 05:45:00 Mark Hua Zoroastrian PHOSPHORUS LEVEL 2019-10-04 05:45:00 Mark Hua HC COMPLETE BLD COUNT W/AUTO DIFF 2019-10-04 05:45:00 Edgar Hua ESTIMATED GFR 2019-10-04 05:45:00 Mark Hua T4, FREE 2019-10-04 05:45:00 Mark Hua THYROID STIMULATING HORMONE 2019-10-04 05:45:00 Mark Hua Patrick baez Ramón Avery VITAMIN D 25 HYDROXY LEVEL 2019-10-04 00:00:00 Bhargavi Valentine Smitha lisa Ramón Avery CT ANGIOGRAM ABDOMINAL AORTA AND BILATERAL ILIOFEMORAL RUNOFF W WO CONTRAST 2019-10-03 22:14:10 Deon Villarreal POC GLUCOSE 2019-10-03 21:03:00 Jj Sagastume ECG 12-LEAD 2019-10-03 20:52:40 Brook Doran POC GLUCOSE 2019-10-03 17:37:00 Jj Sagastume NICOTINE AND COTININE, SERUM 2019-10-03 11:32:00 Deepak Daniels POC GLUCOSE 2019-10-03 11:09:00 Jj Sagastume HEMODIALYSIS 2019-10-03 09:52:20 Sarmad Mckinney Meth odist POC GLUCOSE 2019-10-03 07:53:00 Jj Sagastume HC COMPLETE BLD COUNT W/AUTO DIFF 2019-10-03 05:30:00 Edgar Hua B NATRIURETIC PEPTIDE 2019-10-03 05:30:00 Mark Hua BASIC METABOLIC PANEL 2019-10-03 04:00:00 Mark Hua MAGNESIUM LEVEL 2019-10-03 04:00:00 Mark Hua PHOSPHORUS LEVEL 2019-10-03 04:00:00 Mark Hua ESTIMATED GFR 2019-10-03 04:00:00 Mark Hua POC GLUCOSE 2019-10-02 20:00:00 Jj Sagastume ECG 12-LEAD 2019-10-02 13:53:38 Mark Hua HEPATITIS B SURFACE ANTIGEN 2019-10-02 13:43:00 Rolando Feliz HEMODIALYSIS 2019-10-02 12:40:38 Rolando Feliz Nm thodist XR CHEST 1 VW PORTABLE 2019-10-02 12:39:00 Mark Hua POC GLUCOSE 2019-10-02 11:41:00 Jj Sagastume CV RIGHT HEART CATH 2019-10-02 10:55:50 Jj Sagastume CV NON TUNNELED CATHETER INSERTION 2019-10-02 10:55:50 Jj Batista ESTIMATED GFR 2019-10-02 07:47:00 Jj Sagastume POC PANEL 2019-10-02 07:47:00 Jj Sagastume ECG 12-LEAD 2019-09-25 09:02:57 Jj Sagastume HC COMPLETE BLD COUNT W/AUTO DIFF 2019-09-25 08:34:00 Jj Casper COMPREHENSIVE METABOLIC PANEL 2019-09-25 08:34:00 Jj Sagastume B NATRIURETIC PEPTIDE 2019-09-25 08:34:00 Jj Sagastume LIPID PANEL 2019-09-25 08:34:00 Jj Sagastume URIC ACID LEVEL 2019-09-25 08:34:00 Jj Sagastume MAGNESIUM LEVEL 2019-09-25 08:34:00 Jj Sagastume ESTIMATED GFR 2019-09-25 08:34:00 Jj Sagastume CV TREADMILL STRESS TEST 2019-09-03 15:06:[address] HEAD WO CONTRAST 2019-09-03 13:13:[address] CHEST WO CONTRAST ABDOMEN WO CONTRAST PELVIS WO CONTRAST 2019-09-03 13:13:23 Jj Sagastume US RENAL 2019-09-03 11:17:00 Jj Sagastume XR CHEST 2 VW 2019-09-03 10:36:18 Jj Sagastume XR PANOREX 2019-09-03 10:35:56 Jj Sagastume US CAROTID DUPLEX BILATERAL 2019-09-03 10:00:00 Glenn Sagastume PV PHYSIOLOGIC ARTERIAL LOWER EXTREMITY COMPLETE 2019-09-03 09:00:00 Jj Sagastume SIX MINUTE WALK W/ PULSE OXIMETRY 2019-09-02 08:36:09 Jj Casper SPIROMETRY, DIFFUSION 2019-09-02 07:56:43 Jj Sagastume ECG 12-LEAD 2019-08-14 08:20:58 Jj Sagastume ABORH - TRANSPLANT 2019-08-14 08:10:00 Jj Sagastume on Zoroastrian URINE CULTURE 2019-08-14 07:55:00 Jj Sagastume CBC WITH PLATELET AND DIFFERENTIAL 2019-08-14 07:55:00 Jj Batista COMPREHENSIVE METABOLIC PANEL 2019-08-14 07:55:00 Jj Sagastume B NATRIURETIC PEPTIDE 2019-08-14 07:55:00 Jj Sagastume HEMOGLOBIN A1C 2019-08-14 07:55:00 Jj Sagastume LIPID PANEL 2019-08-14 07:55:00 Jj Sagastume PROTHROMBIN TIME WITH INR 2019-08-14 07:55:00 Naila Sagastume PARTIAL THROMBOPLASTIN TIME (PTT) 2019-08-14 07:55:00 Jj Casper THYROID STIMULATING HORMONE 2019-08-14 07:55:00 Glenn Sagastume T3 2019-08-14 07:55:00 Jj Sagastume T4 2019-08-14 07:55:00 Jj Sagastume T4, FREE 2019-08-14 07:55:00 Jj Sagastume SYPHILIS TOTAL ANTIBODY 2019-08-14 07:55:00 Jj Sagastume PREALBUMIN LEVEL 2019-08-14 07:55:00 Jj Sagastume MAGNESIUM LEVEL 2019-08-14 07:55:00 Jj Sagastume PHOSPHORUS LEVEL 2019-08-14 07:55:00 Jj Sagastume URIC ACID LEVEL 2019-08-14 07:55:00 Jj Sagastume LDH 2019-08-14 07:55:00 Jj Sagastume HEPATITIS ACUTE PANEL 2019-08-14 07:55:00 Jj Sagastume HEPATITIS B SURFACE ANTIBODY 2019-08-14 07:55:00 Audrey Sagastume HEPATITIS B CORE ANTIBODY TOTAL 2019-08-14 07:55:00 Jj Sagastume HEPATITIS A ANTIBODY TOTAL 2019-08-14 07:55:00 Pop Sagastume CYTOMEGALOVIRUS AB, IGG 2019-08-14 07:55:00 Jj Sagastume CYTOMEGALOVIRUS AB, IGM 2019-08-14 07:55:00 Jj Sagastume TOXOPLASMA GONDII ANTIBODY, IGG 2019-08-14 07:55:00 Jj Sagastume TOXOPLASMA IGM AB 2019-08-14 07:55:00 Jj Sagastume TB T-SPOT 2019-08-14 07:55:00 Jj Sagastume FERRITIN LEVEL 2019-08-14 07:55:00 Jj Sagastume PROSTATE SPECIFIC ANTIGEN 2019-08-14 07:55:00 Naila Sagastume MICROALBUMIN, URINE, RANDOM 2019-08-14 07:55:00 Glenn Sagastume URINALYSIS SCREEN AND MICROSCOPY, WITH REFLEX TO CULTURE 202 07:55:00 Jj Sagastume TYPE AND SCREEN 2019-08-14 07:55:00 Jj Sagastume ALVAREZ-GIBSON VIRUS ANTIBODY TEST 2019-08-14 07:55:00 Jj Valles HIV AG/AB COMBINATION 2019-08-14 07:55:00 Jj Sagastume DIGOXIN LEVEL 2019-08-14 07:55:00 Jj Sagastume NICOTINE AND COTININE, SERUM 2019-08-14 07:55:00 Audrey Sagastume DRUG MCDONNELL 9, SER/RAMO, SCRN W/RFLX TO CONF 2019-08-14 07:55:00 Jj Sagastume ESTIMATED GFR 2019-08-14 07:55:00 Jj Sagastume PROTEIN, URINE, RANDOM 2019-08-14 07:55:00 Jj Sagastume LOW RESOLUTION FULL TYPING BY SSO 2019-08-14 07:55:00 Jj Casper SINGLE ANTIGEN BEADS 2019-08-14 07:55:00 Jj Sagastume stobrii Avery HLA AUTOLOGOUS CROSSMATCH 2019-08-14 07:55:00 Naila Sagastume TTE COMPLETE, WO CONTRAST, W DOPPLER ([id number]) 2019-07-04 16:0 0:03 Jj Sagastume ECG 12-LEAD 2019-06-24 13:55:56 Jj Sagastume Plan of Care Planned Activity Planned Date Details Comments Source Future Scheduled Test 2021-12-19 00:00:00 Lipid panel (proce dure) [code = 68430720] [facility] [employer] [facility] Future Scheduled Test 2020-04-13 00:00:00 INFLUENZA VACCINE (#1) [code = INFLUENZA VACCINE (#1)] [facility] [employer] [facility] Future Scheduled Test 2020-03-13 00:00:00 INFLUENZA VACCINE [code = INFLUENZA VACCINE] [facility] Future Scheduled Test 2018 00:00:00 COLONOSCOPY SCREEN ING [code = COLONOSCOPY SCREENING] [facility] Future Scheduled Test 2018 00:00:00 SHINGLES VACCINES (#1) [code = SHINGLES VACCINES (#1)] [facility] Future Scheduled Test 2018-07-14 00:00:00 MEDICARE ANNUAL WE LLNESS (YEAR 2 or FIRST YEAR if no IPPE) [code = MEDICARE ANNUAL WELLNESS (YEAR 2 or FIRST YEAR if no IPPE)] [facility] Future Scheduled Test 2016-11-22 00:00:00 Hemoglobin A1c vandana surement (procedure) [code = 08767845] [facility] Future Scheduled Test 1978 00:00:00 DIABETIC EYE EXAM [code = DIABETIC EYE EXAM] [facility] Future Scheduled Test 1978 00:00:00 Diabetic foot exam ination (regime/therapy) [code = 022375700] [facility] Future Scheduled Test 1978 00:00:00 Urine screening fo r protein (procedure) [code = 679964085] [facility] Future Scheduled Test 1978 00:00:00 DIABETES: RETINAL EYE EXAM [code = DIABETES: RETINAL EYE EXAM] [facility] Scheduled Test 1978 00:00:00 DIABETIC FOOT EXAM [code = DIABETIC FOOT EXAM] [facility] Scheduled Test 1974 00:00:00 PNEUMOCOCCAL VACCI NE 0-64 YRS (1 of 1 - PPSV23) [code = PNEUMOCOCCAL VACCINE 0-64 YRS (1 of 1 - PPSV23)] [facility] Future Scheduled Test 1968 00:00:00 Screening for blanquita gnant neoplasm of colon (procedure) [code = 246765166] [facility] Encounters Start Date/Time End Date/Time Encounter Type Admission Type Attendi [facility] Care Department Encounter ID Source 2020-01-26 00:00:00 2020-01-26 00:00:00 Outpatient MACHO PITT NABOR [facility] [id number] [facility] 2020-01-15 00:00:00 2020-01-15 00:00:00 Outpatient [facility] [id number] [facility] 2019-12-10 00:00:00 2019-12-10 00:00:00 Outpatient PROSPER QUAKER H [facility] [id number] [facility] 2019-12-02 00:00:00 2019-12-02 00:00:00 Outpatient [facility] [id number] [facility] 2019-12-02 00:00:00 2019-12-02 00:00:00 Outpatient [facility] [id number] [facility] 2019-11-25 00:00:00 2019-11-25 00:00:00 Outpatient JJ BATISTA [facility] [id number] [facility] 2019-11-17 00:00:00 2019-11-17 00:00:00 Outpatient [facility] [id number] [facility] 2019-10-02 00:00:00 2019-11-10 00:00:00 Inpatient KADE SOLORZANO [facility] [id number] [facility] 2019-09-03 00:00:00 2019-09-03 00:00:00 Outpatient TRACHTENB ERG, JJ [facility] [id number] [facility] 2019-09-03 00:00:00 2019-09-03 00:00:00 Outpatient TRACHTENB ERG, JJ [facility] [id number] [facility] 2019-09-03 00:00:00 2019-09-03 00:00:00 Outpatient TRACHTENB ERG, JJ [facility] [id number] [facility] 2019-09-03 00:00:00 2019-09-03 00:00:00 Outpatient TRACHTENB ERG, JJ [facility] [id number] [facility] 2019-09-03 00:00:00 2019-09-03 00:00:00 Outpatient TRACHTENB ERG, JJ [facility] [id number] [facility] 2019-09-03 00:00:00 2019-09-03 00:00:00 Outpatient TRACHTENB ERG, JJ [facility] [id number] [facility] 2019-09-03 00:00:00 2019-09-03 00:00:00 Outpatient TRACHTENB ERG, JJ [facility] [id number] [facility] 2019-09-02 00:00:00 2019-09-02 00:00:00 Outpatient TRACHTENB ERG, JJ [facility] [id number] [facility] 2019-04-17 08:56:28 2019-04-17 12:25:38 Office Visit Yu Chacon [facility] [id number] Results Test Description Test Time Test Comments Results Result Comments Source CTA ABD/PEL/RUN OFF 2020-06-13 19:06:00 [facility] 1970 Sex: M [place] [id number] [place] [address] Patient Name: RICHAR POTTS MR #: [id number] : 1970 Age/Sex: 49/M Req #: [id number] Adm Physician: STEVIE STAPLES MD Ordered by: LOUIS CARRANZA MD Report #: [id number] Location: MED/SURG3 Room/Bed: [facility] Procedure: [id number] CT/CTA ABD/PEL/RUN OFF Exam Date: 06/13/20 Exam Time: 1517 REPORT STATUS: Signed EXAM: CTA Abdomen and Pelvis and Lower Extremity, WITH Contrast. INDICATION: pad COMPARISON: None. TECHNIQUE: Multidetector [address] scanning with 2 mm cuts of the abdomen, pelvis and bilateral thighs after administration of 100 cc IV of Omnipaque 350. Coronal and sagittal multiplanar, MIP thin and thick cuts, and 3-D volume- rendering reformations were obtained. In addition, delay images of the lower extremities below the knee were obtained. IV CONTRAST: 150 mL of Omnipaque 350 ORAL CONTRAST: None COMPLICATIONS: None FINDINGS: Potential study limitations: None. VASCULAR WITH ADVANCED 3-D OFF-LINE POSTPROCESSING: The abdominal aorta is normal in course. There is no acute aortic pathology. No aneurysmal dilatation. Moderate atherosclerotic burden is mild to moderate narrowing of the infrarenal abdominal aorta by circumferential noncalcified plaque. The celiac axis, SMA, and SHAKEEL are patent. Mild to moderate mixed plaque at the distal SMA. Superior pole accessory right renal artery and main right renal artery are patent with moderate atherosclerotic burden. Single left renal artery. Moderate noncalcified plaque. Question linear hypodensity (approximately 2.4 cm) which may represent a dissection flap, possibly chronic. Otherwise, the vessel is patent. PELVIS VESSELS: Bilateral common, external, and internal iliac arteries are patent with associated moderate atherosclerotic calcifications without significant stenosis. RIGHT LOWER EXTREMITY: Right common femoral, profundus femoral, superficial femoral, and popliteal arteries are patent. There is a patent trifurcation with both anterior and posterior tibial arteries supply the foot. LEFT LOWER EXTREMITY: Left common femoral, profundus femoral, superficial femoral, and popliteal arteries are patent. There is a patent trifurcation with both anterior and posterior tibial arteries supply the foot. Peroneal artery demonstrates runoff to the mid calf. NON-VASCULAR FINDINGS: LOWER CHEST: Moderate right pleural effusion with adjacent compressive atelectasis. Trace left pleural effusion. Moderate cardiomegaly with cardiac leads. ABDOMEN: Cholelithiasis without CT evidence of acute cholecystitis. Nonspecific stranding of the perirectal fat. The liver, spleen, and pancreas appear normal. The adrenal glands appear normal. Both kidneys are normal in size, shape, and density. There is no abnormal mass or hydronephrosis. PELVIS: There is no significant retroperitoneal adenopathy. No free fluid or free air within the abdomen or pelvis. The urinary bladder appears normal. BONES: No acute osseous abnormalities. IMPRESSION: 1. Left peroneal artery with runoff to the mid calf. Otherwise left anterior and posterior tibial arteries patent with runoff to the foot. 2. Patent 3 vessel runoff of the right lower extremity. 3. Moderate mixed plaque the left renal artery with a apparent linear hypodensity which may represent undermined plaque versus dissection, possibly chronic. 4. Diffuse atherosclerosis. No aneurysmal dilatation of the abdominal aorta. 5. Moderate right pleural effusion with compressive atelectasis. 6. No definite erosive changes of the left great toe, but evaluation is limited due to technique. Consider MRI for further evaluation if clinical concern for osteomyelitis. Signed by: Carlos Mancera MD on 06/13/2020 7:30 PM Dictated By: CARLOS MANCERA MD 29 COPY TO: LOUIS CARRANZA MD TOES RIGHT MIN 2 VIEWS 2020-06-11 17:29:00 [facility] 1970 Sex: M [place] [address] Patient Name: RICHAR POTTS MR #: [id number] : 1970 Age/Sex: 49/M Req #: [id number] Adm Physician: Ordered by: BRIAN BRENNAN MD Report #: [id number] Location: Room/Bed: Procedure: [id number] DX/TOES RIGHT MIN 2 VIEWS Exam Date: 06/11/20 Exam Time: 1704 REPORT STATUS: Signed Exam: TOES RIGHT MIN 2 VIEWS History: Infected toe Comparison: None. Findings: No displaced fractures. No acute osseous abnormality, specifically no focal osseous destruction or periosteal reaction. No joint malalignment or dislocation. Mild degenerative changes at the first MTP joint. Diffuse soft tissue swelling of the great toe with subcutaneous emphysema along the plantar surface, may represent wound/ulcer. Impression: 1. No acute osseous abnormality to suggest osteomyelitis. 2. Diffuse soft tissue swelling of the great toe with subcutaneous emphysema along the plantar surface, may represent wound/ulcer. Signed by: Dr. Ruben Gresham M.D. on 06/11/2020 5:33 PM Dictated By: RUBEN GRESHAM MD 32 Transcribed By: TRA on 06/11/201732 COPY TO: BRIAN BRENNAN MD Wheelchair Armests, Adjustable Height, Desk Length 2019-10-14 0 14:31:44 Test Item SUPPLIER NAME (test code = 6415) XMED SUPPLIER PHONE (test code = 6416) [phone] ORDER STATUS (test code = 6417) Delivery Successful DELIVERY NOTE (test code = 6419) REQUESTED DELIVEY DATE (test code = 6420) 11/10/2019 ITEM DESCRIPTION (test code = 6423) Swing-Away Foot Rests Qty: 1 ACTUAL DELIVERY DATE (test code = 6422) 11/10/2019 [facility] [id number] 12:01:55* Test Item Value Reference Range Interpretation Comments POC glucose (test code = 14467-4) 103 mg/dL 65-99 H Cosmetologist Apprentice Name: Sierra Cota ID: [id number]: [facility] Notified bander and cellophaner machine Interpretation (test code = 99527-9) Abnormal [facility] metabolic [id number] 03:57:31* Test Item Value Reference Range Interpretation Comments Sodium (test code = 2951-2) 138 135- 148 mEq/L Potassium (test code = 2823-3) 3.8 3.5- 5.0 mEq/L Chloride (test code = 2075-0) 97 98- 112 mEq/L L CO2 (test code = 2027-9) 30 24- 31 mEq/L Anion gap (test code = 68646-2) 11@ANIO 7- 15 mEq/L BUN (test code = 3094-0) 35 mg/dL 6-20 H Creatinine (test code = 2160-0) 9.71 mg/dL 0.7-1.2 H Glucose (test code = 2345-7) 179 mg/dL 65-99 H Calcium (test code = 29625-6) 8.6 mg/dL 8.3-10.2 Lab Interpretation (test code = 92241-7) Abnormal [facility] [id number] 03:57:31* Test Item Value Reference Range Interpretation Comments Magnesium (test code = 55971-1) 2.3 mg/dL 1.6-2.6 [facility] MethodistEstimated [id number] 03:57:31* Test Item Value Reference Range Interpretation Comments Estimated GFR (test code = 5488) 6 mL/min/1.73 m2 A Catergory Units InterpretationG1 >=90 Normal or highG2 60-89 Mildly qmsmtsfpnW6c 45-59 Mildly to moderately ypqsdbqxmY0w 30-44 Moderately to severely decreasedG4 15-29 Severely decreasedG5 <15 Kidney failureThe eGFR was calculated using the Chronic Kidney Disease Epidemiology Collaboration (CKD-EPI) equation. Interpretation is based on recommendations of the National Kidney Foundation-Kidney Disease Outcomes Quality Initiative (NKF-KDOQI) published in 2014. Lab Interpretation (test code = 64884-8) Abnormal [facility] MethodistCBC with platelet and kqmihfmzxggt7435-45-28 03:19:11* Test Item Value Reference Range Interpretation Comments WBC (test code = 60301-5) 11.17 4.50- 11.00 k/uL H RBC (test code = 29693-3) 3.05 m/uL 4.4-6 L HGB (test code = 718-7) 9.0 g/dL 14-18 L HCT (test code = 4544-3) 30.1 % 41-51 L MCV (test code = 787-2) 98.7 fL 82-100 MCH (test code = 785-6) 29.5 pg 27-34 MCHC (test code = 786-4) 29.9 g/dL 31-37 L RDW - SD (test code = 31549-3) 63.6 fL 37-55 H MPV (test code = 21544-3) 11.0 fL 8.8-13.2 Platelet count (test code = 45045-4) 173 150- 400 k/uL Nucleated RBC (test code = 61982-0) 0.00 /100 WBC Neutrophils (test code = 01211-3) 73.4 % 39-69 H Lymphocytes (test code = 46681-1) 14.1 % 25-45 L Monocytes (test code = 62264-5) 7.3 % 0-10 Eosinophils (test code = 67223-6) 4.1 % 0-5 Basophils (test code = 13090-8) 0.5 % 0-1 Immature granulocytes (test code = 92124-4) 0.6 % 0-1 "Immature granulocytes" (promyelocytes, myelocytes, metamyelocytes) Lab Interpretation (test code = 70463-2) Abnormal [facility] MethodistCortisol level, [id number] 16:08:13* Test Item Value Reference Range Interpretation Comments Cortisol, random (test code = 2143-6) 19 ug/dL Reference Ranges are not established for non-timed Cortisol levels.Reference Range for Timed Cortisol: 6 - 10 AM 6 - 18 ug/dl 4 - 8 PM 3 - 11 ug/dl [facility] MethodistAdrenocorticotropic [id number] 13:08:10* Test Item Value Reference Range Interpretation Comments Adrenocorticotropic hormone (test code = 35850-8) 35.3 pg/mL 7.2- 63.3 [facility] MethodistUrine jzcpcik0734-08-28 08:22:47* Test Item Value Reference Range Interpretation Comments Urine culture isolate (test code = 96224-8) No growth after 24 hour s Specimen InformationSpecimen Source: UrineSpecimen Site: Catheterized [facility] MethodistCortisol level, [id number] 05:25:29* Test Item Value Reference Range Interpretation Comments Cortisol, AM (test code = 9813-7) 5 ug/dL 6-18 L Lab Interpretation (test code = 25243-5) Abnormal [facility] MethodistUrinalysis screen and microscopy, with reflex to culture 2019-11-08 08:26:17* Test Item Value Reference Range Interpretation Comments Specimen site (test code = 5515642) Catheterized Color, UA (test code = 5778-6) Dark Yellow Appearance, UA (test code = 5767-9) Clear Specific gravity, UA (test code = 5811-5) 1.013 1.001-1.035 pH, UA (test code = 5803-2) 8.0 5.0-8.5 Protein, UA (test code = 57250-1) 2+ Negative A Glucose, UA (test code = 01015-0) 2+ Negative A Ketones, UA (test code = 2514-8) Negative Negative Bilirubin, UA (test code = 5770-3) Negative Negative Blood, UA (test code = 5794-3) Small Negative A Nitrite, UA (test code = 5802-4) Negative Negative Urobilinogen, UA (test code = 00652-4) <2.0 <2.0 Leukocyte esterase, UA (test code = 5799-2) Trace Negative A WBC, UA (test code = 5821-4) 16 0- 1 /HPF H RBC, UA (test code = 03336-8) 6 0- 5 /HPF H Bacteria, UA (test code = 88497-8) Few None seen Yeast, UA (test code = 99398-2) Few A Yeast with pseudohyphae, UA (test code = 60094-9) None seen Sperm, UA (test code = 8248-7) Moderate A Lab Interpretation (test code = 92399-2) [facility]normal [facility] or Follow Up (w Contrast if needed)2019-11-07 16:57:00Interface, Radiology Results In - 11/07/2019 4:58 PM CDT Echocardiography Report [address]Name: RICHAR POTTS Pat.ID: [id number] .Date: 11/07/2019 Refer.MD: KADE SOLORZANO MD Exam Time: 3:34:00 PM Study Type:Routine Echo Height: 74in Weight: 164lb BSA: 2 m2 Age: 2 1970,49Y Sex: MALE BP: 108/70 HR: 89 bpm Sonogrphr: KAYY Neal Pat. Stat.:Inpatient Room: [address] Study Status:Final Echo Event ID:[id number] Order ID: [id number] Reason for Study:LVEF History / Clinical:Arrhythmias, Congestive Heart Failure, CoronaryArtery Disease, Diabetes, Hyperlipidemia, Hypertension, Shortness ofBreathProcedures: Portable, 2D Echo,Colorflow Doppler LimitedRace: C S UMMARY: Technically limited study (consider u ltrasound enhancing agent).Mild-moderate LV systolic dysfunction with regional w all motionabnormalities present.Low normal RV systolic function.LVEF appears imp roved compared with prior study dated October 20, 2019. --------FINDINGS: LV: LV size is enlarg ed grossly. LV EF is mild to moderately depressed. Septal motion is par adoxical secondary to cardiac surgery. Regional wall motion abnormaliti es present. Estimated EF is 40-44%.RV: RV size is normal. A pacem kate wire is seen in the RV. RV systolic function is lower limits of no rmal.LA: LA volume is moderately enlarged.RA: RA volume is normal. A pacemaker wire is seen.AO: Aortic root diameter is normal.QUINTON: No pe ricardial effusion.AV: Aortic valve not well seen.MV: Mild mitral an nular calcification. A trace of mitral regurgitation. PV: Pulmoni c valve not well seen.TV: No structural TV abnormalities noted. A trace of tricuspid regurgitation Other: Insufficient TR jet to estimate PA s ystolic pressure. MEASUREMENTS: 2DParasternal Long Rochelle Ao An 2.4 cm LA Ds 4.6 cm Ao Rtd 3. 3 cm Index 1.7 cm/m2 RWT 0.32 IVS d 1.1 cm LV Mass 201 g (122-174) LVIDd 5.4 cm Index 2.7 cm/m2 LVM Index 100 g /m2 LVPWd 0.86 cm LVOT 2 cm LA Sng Plane LA Area 24 cm2 (8.8-23.4) LA Vol 87 ml Index 44 ml/m 2 LA LngAx 5.7 cm RA Sng Plane RA Vol 38 ml Index 19 ml/m2 RA LngAx 5 cm RA Area 15 cm2 (8.3-19.5)LVOT LVOT Area 3.1 cm2 DOPPLERLVOT Stroke Vol LVOT TVI 21 cm HR 135 bpm LVOT LVOT SV 66 ml LVOT CO 8.9 l/min SVi 33 ml/m2 LVOT CI 4.4 l/m/m2 --------- WALL MOTION: RESTI NG WALL MOTION:Basal Inferoseptal, Basal Inferior martinez are akinetic. BasalInfe rolateral, Mid Inferoseptal, Mid Inferior, Mid Inferolateral wallsare hypokineti c. Apical Septal, Apical Inferior martinez are mildlyhypokinetic. Normal wall mo tion in all other martinez.Wall Index = 1.5Signed 11/07/2019 04:57 Delfin Renner MethodistHepatic function [id number] 05:18:44* Test Item Value Reference Range Interpretation Comments Albumin (test code = 1751-7) 1.6 g/dL 3.5-5 L Total bilirubin (test code = 1974-) 0.5 mg/dL 0-1.2 Bilirubin direct (test code = 1967-7) 0.3 mg/dL 0-0.3 Alkaline phosphatase (test code = 6768-6) 179 U/L 40-129 H Protein (test code = 2885-2) 6.3 g/dL 6.3-8.3 - 4.6- 7.0 g/dL1 week 4.4-7.6 g/dL7 months-1year 5.1-7.3 g/dL1-2 years 5.6-7.5 g/dL>3 years 6.0-8.0 g/sM88-284 6.3-8.3 g/dL ALT (test code = 1742-6) 24 U/L 5-50 AST (test code = 1919-8) 38 U/L 10-50 Lab Interpretation (test code = 23851-4) Abnormal [facility] MethodistComprehensive metabolic [id number] 05:21:03* Test Item Value Reference Range Interpretation Comments Sodium (test code = 2951-2) 137 135- 148 mEq/L Potassium (test code = 2823-3) 3.2 3.5- 5.0 mEq/L L Chloride (test code = 5-0) 96 98- 112 mEq/L L CO2 (test code = 2027-9) 27 24- 31 mEq/L Anion gap (test code = 92302-5) 14@ANIO 7- 15 mEq/L BUN (test code = 3094-0) 34 mg/dL 6-20 H Creatinine (test code = 2160-0) 10.11 mg/dL 0.7-1.2 H Glucose (test code = 2345-7) 178 mg/dL 65-99 H Calcium (test code = 36493-2) 8.7 mg/dL 8.3-10.2 Protein (test code = 2885-2) 6.6 g/dL 6.3-8.3 -Manderson 4.6- 7.0 g/dL1 week 4.4-7.6 g/dL7 months-1year 5.1-7.3 g/dL1-2 years 5.6-7.5 g/dL>3 years 6.0-8.0 g/gZ88-601 6.3-8.3 g/dL Albumin (test code = 1751-7) 1.7 g/dL 3.5-5 L A/G ratio (test code = 1759-0) 0.3 0.7-3.8 L Alkaline phosphatase (test code = 6768-6) 198 U/L 40-129 H AST (test code = 0-8) 35 U/L 10-50 ALT (test code = 1742-6) 19 U/L 5-50 Total bilirubin (test code = 1974-) 0.6 mg/dL 0-1.2 Lab Interpretation (test code = 87845-4) Abnormal [facility] MethodistBlood culture, aerobic & ijbatkpsf6598-12-86 11:33:05* Test Item Value Reference Range Interpretation Comments Blood culture isolate (test code = 600-7) No growth after 5 days of incubation. Specimen InformationSpecimen Source: BloodSpecimen Site: Antecubital, right [facility] MethodistHepatitis B surface [id number] 08:07:38* Test Item Value Reference Range Interpretation Comments Hepatitis B surface Ag (test code = 5195-3) Non-reactive Non-reacti ve [facility] MethodistStrongyloides Ab IgG [id number] 23:41:59* Test Item Value Reference Range Interpretation Comments Strongyloides Ab (test code = 8034-1) 0.8 <=0.9 IV INTERPRETIVE INFORMATION: Strongyloides Ab, IgG by KENNETH 0.9 IV or less....... Negative - No significant level of Strongyloides IgG antibody detected. 1.0 IV................Equivocal - The Strongyloides IgG antibody result is borderline and therefore inconclusive. Recommend retesting the patient in 2-4 weeks, if clinically indicated. 1.1 IV or greater ... Positive - IgG antibodies to Strongyloides detected, which may suggest current or past infection.False-positive results may occur with prior exposure to other helminth infections. Testing low-prevalence populations may also result in false-positive results.Performed by [facility],[address] [place] [id number] bcw.[employer], Ashok Moreno MD, Lab. Director [facility] ZoroastrianDigoxin [id number] 05:54:51* Test Item Value Reference Range Interpretation Comments Digoxin (test code = 16271-6) 1.2 ng/mL 0.8-2 For valid Digoxin results, at least 6 hours should elapse between time of last dose and collection of blood.Otherwise, result may be false high.Therapeutic Range:0.8 - 2.0 ng/mL Ramón AveryCT Abdomen Pelvis W Wo [id number] 17:52:28Hm Interface, Radiology Results 10/30/2019 5:55 PM CDTEXAMINATION: CT ABDOMEN PELVIS W WO CONTRASTCLINICAL HISTORY: Nausea vomitingTECHNIQUE: Helical CT of the abdomen and pelvis was obtained pre- and post administration of iodinated contrast. Sagittal and coronal computerized reformatted images were also obtained. CT scans are performed using radiation dose reduction techniques. Technical factors are evaluated and adjusted to ensure appropriate moderation of exposure. Automated dose management technology is applied to adjust radiation exposure while achieving a diagnostic quality image.COMPARISON: October 06 0, HIDA scan dated October 27, 2019.IMPRESSION:Lower Chest: Small right pleural ef fusion and bibasilar atelectasis.Abdomen:Liver: There is small volume perihepati c ascites. Liver is normal in contour without mass.Gallbladder/Biliary: There is cholelithiasis with gallbladder wall thickening and pericholecystic inflammatory change compatible with acute cholecystitis as was demonstrated on the prior HIDA scan.Spleen: Normal in size.Pancreas: Unremarkable.Adrenal Glands: There is a 1.3 cm right adrenal myelolipoma.Kidneys: Unremarkable.Vascular: The abdominal aorta is normal in caliber.Nodes: No regional adenopathy.Bowel: Peritoneal sudha ter is present without associated fluid collection. Moderate rectosigmoid stool burden. Bowel is unobstructed. Appendix is normal in appearance.Ascites/fluid co llections: None.Pelvis:Lymphovascular: No pelvic adenopathy. Reproductive orga ns: Unremarkable.Bladder: UnremarkableOther: None.Musculoskeletal: No suspiciou s osseous lesions. SUMMARY:1.Acute cholecystitis. [facility]-[id number] MethodistAmylase [id number] 14:23:07* Test Item Value Reference Range Interpretation Comments Amylase (test code = 1798-8) 44 U/L 28-100 [facility] MethodistLipase [id number] 14:23:07* Test Item Value Reference Range Interpretation Comments Lipase (test code = 3040-3) 40 U/L 13-60 [facility] MethodistLactic acid [id number] 14:17:05* Test Item Value Reference Range Interpretation Comments Lactic acid (test code = 04256-3) 1.0 mmol/L 0.5-2.2 [facility] MethodistPhosphorus [id number] 04:40:06* Test Item Value Reference Range Interpretation Comments Phosphorus (test code = 2777-1) 6.2 mg/dL 2.4-4.5 H Lab Interpretation (test code = 61542-5) Abnormal Melgar MethodistCT Head Wo [id number] 10:44:42Hm Interface, Radiology Results 10/28/2019 10:47 AM CDTEXAMINATION: CT HEAD WO CONTRASTCLINICAL HISTORY: Neuro deficit(s) subacute, acute CVA suspected. Follow-upCOMPARISON: CT brain from yesterday.TECHNIQUE: Noncontrast enhanced images of the brain were obtained from the skull base to the vertex. Both soft tissue and bone reconstruction algorithms were performed. CT scans are perfor med using radiation dose reduction techniques. Technical factors are evaluated a nd adjusted to ensure appropriate moderation of exposure. Automated dose managem ent technology is applied to adjust radiation exposure while achieving a diagnos tic quality image.FINDINGS:Artifacts obscure some details.There are no new areas of cytotoxic or vasogenic edema to suggest recent infarct. There is no evidence of acute hyperdense hemorrhage. The brain and extra axial region are stable. Th ere is calcification in the martinez of some of the arteries. There are minimal non specific white matter changes.There is nonspecific increased bone density.IMPRES CHICHO:No definite acute intracranial abnormality identified.[id number] [facility] MethodistHemoglobin & [id number] 08:54:06* Test Item Value Reference Range Interpretation Comments HGB (test code = 718-7) 9.9 g/dL 14-18 L HCT (test code = 4544-3) 32.8 % 41-51 L Lab Interpretation (test code = 37887-5) Abnormal [facility] MethodistEEG (routine)2019-10-28 08:11:32EEG RECORDING SLEEP/COMA Date of Service:10/27/19 Awake Recordings: There is no well defined occipital dominant rhythm.18-22 Hz activity was present in all regions. 1.5-3 Hz and 5-6 Hz activity was present in all regions. Diphasic and Triphasic sharp wave discharges were recorded over the fronto-central regions. Sleep Recording: No sleep was recorded. Hyperventilation: Was not performed. Photic Stimulation: No abnormality elicited. Impression: The findings are consistent with a diffuse disturbance in brain function which is most likely metabolic or ischemic hypoxic in etiology. No seizures occurred. ICD-10 Code: R56.9 Gabe Gary MDFeanika, Clinical Neurophysiology I reviewed the entire EEG and agree with the above findings. Luis F Whitaker, MD [facility] MethodistElectrophysiology [id number] 07:04:01 ELECTROPHYSIOLOGY SERVICE OPERATIVE REPORT PREPROCEDURE DIAGNOSES:1. Ischemic cardiomyopathy, LVEF 30%, QRS 152ms2. S/P VT/VF arrest3. ESRD, peritoneal dialysis POSTPROCEDURE DIAGNOSIS:1. Status post successful implant of a resynchronized implantable cardioverter-defibrillator pacemaker and leads. TITLE OF PROCEDURES:1. Implant of a resynchronized implantable cardioverter-defibrillator and leads2. Coronary sinus venography.3. LV lead placement via the coronary sinus.4. Conscious sedation. ATTENDING SURGEON: Dr. Nabor Hoffmann ASSISTING SURGEON: Dr. Beltran Guerra, Clinical Cardiac Electrophysiology fellow ANESTHESIA: Conscious sedation COMPLICATIONS: None. INDICATIONS:The patient is a 49 y.o. male with history of ICMP, s/p CABG X 4 (2014), ESRD on PD, hypertension, diabetes mellitus II. LVEF 30%, QRS was 152ms. Patient had a VT arrest with external defibrillation 10/06/2019. Referred for implant of a BOILER INSTALLER-D for prevention of sudden cardiac arrest. The patient has been on guideline-directed medical therapy at maximally tolerated doses for over 3 months. DOCUMENTATION OF INFORMED CONSENT:Prior to the procedure we had discussed in detail the risks, benefits, and alternatives to implant of an implantable cardioverter-defibrillator and leads and leads. In particular, the risks discussed included but were not limited to the risks of , bleeding, perforation, infection, pain, painful shocks, inappropriate shocks, lead dislodgement, device or lead malfunction, failure or recall as well as the need for future battery change surgeries. All questions were fully answered and they wished to proceed. DETAILS:After written informed consent was obtained in the fasting, non-sedated state, the patient was brought to the cardiac ca theterization laboratory. The patient was prepped and draped in the usual steri le fashion. The patient was given routine IV sedation using Versed and fentanyl . Intravenous antibiotics were administered prior to the incision. The delto-p ectoral incision site was infiltrated with 1% lidocaine. The skin was incised wi th a #10 scalpel. Blunt and electrosurgical dissection was carried out to the le angelita of the pre-pectoral fascia with careful attention paid to hemostasis. Once a dequate hemostasis was confirmed within the pocket, venous access was obtained.T he cephalic vein was accessed via cut down technique and one puncture of the Sub clavian vein outside the ribcage was made using a modified Salinger technique an d guided by fluoroscopy. Through these, three J-tipped wires were introduced and their course through the venous system was confirmed by their presence under fl uoroscopy in the inferior vena. Using peel-away sheaths, we delivered first a ri ght ventricle lead, second CS lead and then a right atrial lead. RV VENTRICULAR? LEAD:A 7 Citizen [place] peel away sheath was brought to the field and placed into the ve nous system via over the wire technique. The right ventricular lead was placed i nto the RV apical location. Adequate sensing and threshold parameters were obtai katy. The lead was attached via active fixation. There was no evidence of diaphra gmatic stimulation at 10 V output. The peel away sheath was removed, and the tony d collar was advanced to the pectoral muscle and sutured with Ethibond suture. T ug testing of this lead confirmed stability of the lead and the length of the le ad's slack was assessed as optimal with fluoroscopy. CS LEADThe coronary sinus w as now cannulated with the coronary sinus outer guide sheath over an AL2 inner g uide over the Glidewire. Once cannulated, a balloon catheter was advanced into the coronary sinus and occlusive balloon angiography was performed in the JANET an d MILLER projections. This demonstrated the optimal vein branch. The active fixat ion quadripolar pacing lead was delivered over Whisper wire to the optimal locat ion within this branch. Lead characteristics at this location were confirmed. High-output pacing was used to determine the diaphragmatic capture threshold. T he sheath was peeled away without dislodging lead. Lead characteristics were re confirmed. Lead was sutured to the pectoralis fascia with 0 Ethibond suture.RIG HT ATRIAL LEAD:A 7 Citizen [place] peel away sheath was brought to the field and placed i nto the venous system via over the wire technique. The right atrial lead was ramo osmar via this sheath into the RA appendage location. Adequate sensing and thresho ld parameters were obtained. The lead was attached via active fixation. There wa s no evidence of diaphragmatic stimulation at 10 V output. The peel away sheath was removed, and the lead collar was advanced to the pectoral muscle and sutured with Ethibond suture. Tug testing of this lead confirmed stability of the lead and the length of the lead's slack was assessed as optimal with fluoroscopy. ?? A submuscular pocket was formed above the Pectoralis major muscle. The pocket wa s copiously irrigated with antibiotic-containing solution. The lead tips for all leads were cleaned and dried thoroughly. The leads were attached to the appropr iate ports on the pulse generator. Tug testing was performed on all connections. The device and leads were placed within an antibacterial envelope (Cangaru@) and then in the pocket such that the coiled redundant leads were posterior to the pulse generator. At that point we did a DFT test:Defibrillation threshold testin g was now performed. A 20J shock on the peak of the T-wave after a drivetrain o f 8 beats at 360ms failed to induce VF. Shock impedence 49 ohms. We noticed the the CS lead was dislodged and had to reposition the lead. After repositioning t he CS lead the pocket was copiously irrigated with antibiotic-containing solutio n again and the lead was reconnected to appropriate port on the generator. The d evice and leads were placed within an antibacterial envelope (Cangaru@) and then in the pocket such that the coiled redundant leads were posterior to the pulse generator. The pocket was closed with 2 layers of continuous suture using 2-0 V icryl. Dermabond was applied to the wound followed by a pressure dressing. ESTIM ATED BLOOD LOSS: 20 ml. IMPLANTED MATERIALS: FINAL DIAGNOSIS:Status post succes sful implant of a resynchronized implantable cardioverter-defibrillator pacemake r and leads. PLAN:The patient will receive routine post-procedure chest x-ray, 1 2-lead EKG, and intravenous antibiotics. The device will be interrogated in the morning and patient will be enrolled in remote monitoring. INabor, was present and personally performed the entire procedure. Ramón PALMA Hepatobiliary (HIDA Scan)2019-10-27 18:03:42Hm Interface, Radiology Results 10/27/2019 6:06 PM CDTPROCEDURE: [facility] (HIDA SCAN)INDICATION: Abdominal pain.TECHNIQUE: The patient was injected with 5 mCi of Tc-99m Choletec, IV. Dynamic planar images of the abdomen were acquired for 1 hour. Post morphine imaging was obtained, per protocol.FINDINGS: Tracer is seen within small bowel by one hour. The gallbladder was not visualized.IMPRESSION:1. Acute cholecystitis and/or cystic duct obstruction.2. Patent common bile duct.[facility]-[id number] MethodistCTA Head W Wo Contrast 2019-10-27 15:35:15Hm Interface, Radiology Results 10/27/2019 3:38 PM CDTEXAMINATION: CT ANGIOGRAM HEAD W WO CONTRASTCLINICAL HISTORY: strokeCOMPARISON: CT brain dated October 27, 2019TECHNIQUE: Imaging of the intracranial circulation was obtained from the skull base to the vertex during the arterial phase of enhancement. Postprocessing was performed with MIP multiplanar and 3D reconstructed images. CT imaging was performed with iterative reconstruction technique and/or automated exposure control to reduce radiation dose.FINDINGS:There are no gross brain parenchymal abnormalities. There is no midline shift, hydrocephalus or extra-axial fluid collection.The right transverse and sigmoid sinuses are hypoplastic.Soft tissue shows no evidence of laceration or hematoma.The left vertebral artery is dominant. The right vertebral artery is hypoplastic with multifocal moderate stenosis. There is moderate narrowing of the bilateral posterior cerebral arteries, distally.The middle cerebral arteries are patent with focal moderate narrowing of the proximal left superior M2 segment. There is mild narrowing of the right middle cerebral artery. No severe narrowing or occlusion. The anterior cerebral yasmine rahat are patent. There is a patent anterior communicating artery.There are some calcifications in the carotid siphons of mild narrowing, bilaterally.There is no air-fluid level in the sinuses. Osseous calvarium is intact.IMPRESSION:There is multifocal atherosclerosis with mild to moderate stenoses as detailed above. No severe narrowing or major vessel occlusion identified.[facility]-[id number] MethodistCTA Neck W Wo [id number] 15:29:22Hm Interface, Radiology Results 10/27/2019 3:32 PM CDTEXAMINATION: CT ANGIOGRAM NECK W WO CONTRASTCLINICAL HISTORY: strokeCOMPARISON: None.TECHNIQUE:Neck CTA with multi-planar MIP and volumetric rendering (3D) after bolus intravenous iodinated contrast administration was performed.All CT images were acquired using low-dose technique with automated exposure control.FINDINGS:Postsurgical changes related to CABG. Arteriosclerosis of the [...] V1 and V2 junction. Dominant left vertebral artery.Arteriosclerosis of the right carotid bifurcation resulting in approximately 25% narrowing by NASCET criteria.Arteriosclerosis of the left carotid bifurcation proximal left internal carotid artery resulting in approximately 40% narrowing of the distal left common carotid artery and approximately 25% narrowing of the proximal left internal carotid artery.Poor dentition with multiple absent teeth and dental caries. Limited evaluation of the neck demonstrates no evidence of abnormal mass or collection. No suspicious osseous lesion.See dedicated CTA head report for intracranial findings.IMPRESSION:1. 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 Arteriosclerosis of the bilateral carotid bifurcations and proximal internal carotid arteries, advanced for age, without hemodynamically s ignificant stenosis.3. Patency of the left subclavian artery stent.[id number] [facility] MethodistCT Stroke Brain Wo [id number] 15:09:25Hm Interface, Radiology Results - 10/27/2019 3:12 PM CDTEXAMINATION: CT STROKE BRAIN WO CONTRASTCLINICAL HISTORY: strokeCOMPARISON: CT head dated September 03, 2019TECHNIQUE: Noncontrast head CT performed using radiation dose reduction techniques. Technical factors are evaluated and adjusted to ensure appropriate moderation of exposure. Automated dose management technology is applied to adjust radiation exposure while achieving a diagnostic quality image. FINDIN GS:No evidence of hemorrhage, mass lesion, or midline shift. Weldon-white matter d ifferentiation is preserved with no evidence of acute territorial infarction.Bernard tricles, sulci, and cisterns are age-appropriate in size and configuration. No e xtra-axial fluid collection.Visualized paranasal sinuses and mastoid air cells a re clear. Bones, orbits, and soft tissues are unremarkable.IMPRESSION:Unremarkab le head CT with no acute intracranial abnormality.These findings were discussed with Nurse Ritchie at 3:05 P.M. on 10/27/2019, who verbalized understanding.1WT- [id number] and approved by resident care director/fellow: Rock Peralta M.D.I, Jose Mike MD, personally reviewed the images and resident's/fellow's f indings and agree with the final report.[facility] MethodistECG Pre/Post Js-[id number] 17:10:57* Test Item Value Reference Range Interpretation Comments Ventricular rate (test code = 253) 87 Atrial rate (test code = 255) 87 CO interval (test code = 266) 178 QRSD interval (test code = 260) 136 QT interval (test code = 264) 404 QTC interval (test code = 265) 486 P axis 1 (test code = 267) 35 QRS axis 1 (test code = 268) 33 T wave axis (test code = 270) 31 EKG impression (test code = 273) Atrial-sensed ventric ular-paced rhythm-Abnormal ECG-In automated comparison with ECG of 24-OCT-2019 15:21,-Vent. rate has increased BY 11 BPM-Electronically Signed By Padmini Guevara MD ([id number]) on 5:10:56 PM [facility] MethodistXR Chest 1 Vw [id number] 15:45:52Hm Interface, Radiology Results Incoming - 10/24/2019 3:48 PM CDTEXAMINATION: XR CHEST 1 VW PORTABLECLINICAL HISTORY: pneumothoraxCOMPARISON: Single view chest from 10/15/2019IMPRESSION:An AP radiograph of the chest was submitted for inte rpretation.Interval placement of a left-sided AICD. There is no evidence of left -sided pneumothorax.Pulmonary edema. Low lung volumes and bibasilar atelectasis. Trace bilateral pleural effusions.No new focal areas of consolidation. No midli ne shift.The mediastinal contours and cardiac silhouette are unchanged. Mild car diomegaly. The patient is status post median sternotomy.Osteopenia. A vascular s tent is seen superior to the aortic knob. Interval removal of a Treynor-Darcy cathet er and right-sided non tunneled central venous catheter.[facility]-[id number] MethodistAST (SGOT)2019-10-24 08:51:39* Test Item Value Reference Range Interpretation Comments AST (test code = 1920-8) 36 U/L 10-50 [facility] MethodistPotassium [id number] 08:51:38* Test Item Value Reference Range Interpretation Comments Potassium (test code = 2823-3) 3.6 3.5- 5.0 mEq/L [facility] MethodistPOC [id number] 07:56:58* Test Item Value Reference Range Interpretation Comments POC sodium (test code = 2947-0) 137 mmol/L 135-148 POC potassium (test code = 6298-4) 3.5 mmol/L 3.5-5 POC chloride (test code = 2069-3) 98 mmol/L 99-109 L POC CO2 (test code = 29413-8) 27 mmol/L 24-31 POC glucose (test code = 2339-0) 163 mg/dL 65-99 H POC BUN (test code = 6299-2) 30 mg/dL 8-24 H POC creatinine (test code = 78673-1) 10.2 mg/dl 0.7-1.2 H POC hematocrit (test code = 4544-3) 40 % 41-51 L POC anion gap (test code = 3376144) 16 mmol/L 8-20 Cosmetologist Apprentice Name: Jojo LynnjonathanSmith ID: [id number] Lab Interpretation (test code = 83435-4) Abnormal [facility] MethodistManual sgrtvbklevtu3245-22-76 07:18:41* Test Item Value Reference Range Interpretation Comments Manual differential (test code = 63362-6) PERFORMED Neutrophils (test code = 57330-5) 71.0 % 39-69 H Lymphocytes (test code = 45770-4) 13.0 % 25-45 L Monocytes (test code = 49136-8) 7.0 % 0-10 Eosinophils (test code = 67256-6) 7.0 % 0-5 H Basophils (test code = 28422-9) 0.0 % 0-1 Metamyelocytes (test code = 740-1) 1 % Myelocytes (test code = 749-2) 1 % Promyelocytes (test code = 783-1) 0 % Platelet slide review (test code = 71269-9) Mamie adequate Anisocytosis (test code = 702-1) Moderate Polychromasia (test code = 13804-5) Moderate Ovalocytes (test code = 774-0) Moderate Chasity cells (test code = 7790-9) Moderate A CEDRIC (test code = CEDRIC) Unable to perform testing, jayy correa is HEMOLYZED. Recollect requested for K,AST (tests). NOTIFIED CAINXavi GAN/Linda9Riog 10/24/2019 07:00 BY DB. Lab Interpretation (test code = 45593-8) Abnormal Ophir MethodistPartial thromboplastin time, lrrkppwed4053-17-65 03:20:16* Test Item Value Reference Range Interpretation Comments PTT (test code = 28475-6) 41.2 23.0- 36.0 sec H PTT therapeutic range for unfractionated heparin is61.0-112.0 seconds which corresponds to Anti-Xa0.3-0.7 U/ml. Lab Interpretation (test code = 49717-7) Abnormal Ophir MethodistMRI Cholangiogram wo sytuzdmz5671-37-47 20:17:21Hm Interface, Radiology Results - 10/20/2019 8:20 PM CDTEXAMINATION: MRI CHOLANGIOGRAM WO CONTRASTCLINICAL HISTORY: abnormal liver test evaluate CBD for stoneTECHNIQUE: Multiplanar multisequence MR images of the abdomen were ob tained without contrast. The lack of intravenous contrast reduces the sensitivit y of detecting solid organ disease. MRCP images were obtained with 3-D reconstr uctions on the acquisition scanner under concurrent supervision.COMPARISON: Ult rasound of the liver from 10/16/[address] from 10/06/2019 IMPRESSION: Liver: Live r demonstrates relative decreased T2 signal suggesting iron deposition. Unenhanc ed liver is otherwise unremarkable. No mass is identified in the unenhanced live r. Gallbladder/Biliary: Gallbladder is distended with wall thickening and intral uminal irregularity likely from cholecystitis. Gallbladder malignancy is not exc luded. Common bile duct is not dilated measuring 4 mm. There is no evidence of choledocholithiasis.Spleen: The spleen is not enlarged. Pancreas: Pancreas is m ildly atrophic.Adrenal Glands: The adrenal glands are unremarkable.Kidneys: No h ydronephrosis or nephrolithiasis. Vascular: The abdominal aorta is nonaneurysmal .Nodes: No enlarged retroperitoneal or mesenteric lymphadenopathy.Bowel: No john l obstruction or inflammatory changes.Ascites/fluid collections: There is small upper abdominal ascites. Bone marrow:No suspicious marrow signal abnormality galileo ntified.Other: There is giidf-hr-nprjewhf right pleural effusion.Summary:1.No ev idence of choledocholithiasis. Common bile duct is not dilated measuring 4 mm.2. Cholelithiasis. Moderate gallbladder wall thickening and intraluminal irregulari ty, which may be related to chronic cholecystitis. Surgical consultation is advi sed.3.Additional findings as noted above. [id number] MethodistTransthoracic Echocardiogram Limited or Follow Up (w Contrast if needed)2019-10-20 17:42:00Interface, Radiology Results In - 10/20/2019 5:43 PM CDT Echocardiography Report [id number] [place] [address] Pat.Name: RICHAR POTTS Pat.ID: [id number] .Date: 10/20/2019 Refer.MD: JAMIR MURILLO MDExam Time: 12:04:00 PM Study Type:Routine Echo Height: 74in Weight: 175lb BSA: 2.06 m2 Age: 2 1970,49Y Sex: MALE BP: 110/56 HR: 79 bpm Sonogrphr: Catalina Stewart RDCS Pat. Stat.:Inpatient Room: [address] Study Status:Final Echo Event ID:[id number] Order ID: [id number] Reason for Study:Follow up EF after PCIHistory / Clinical:Arrhythmias, Congestive Heart Failure, CoronaryArtery Disease, Diabetes, Hyperlipidemia, Hypertension, Shortness ofBreathProcedures: Portable, Intravenous Lumason Contrast, 2D Echo,ColorflowDoppler LimitedRace: C SUMMARY: Moderate to severe LV systolic dysfunction.Mild RV systolic function.Elevated LV filling pressure.LVEF is slightly improved compared with study from October 07, 2019. FINDINGS: ---------LV: LV size is cagflafg-fc-njucgpyp enlarged (indexed LVEDV). Biplane LV ejection fraction= [...] martinez are hypokinetic. Regional wall motion abnormalities present.RV: RV size is normal. RV sys tolic function is mildly depressed.LA: LA volume is mildly enlarged.RA: RA size is normal.AO: Aortic root diameter is normal.QUINTON: No quinton cardial effusion.SVn: Inferior vena cava is normal. Normal collapse of IVC during inspiration is consistent with normal RA pressure.AV: No structural AV abnormalities noted.MV: No structural MV abnormalities noted . Mild mitral regurgitation. PV: Pulmonic valve not well seen.TV: Tricuspid valve not well seen.Tsai: LV filling pressure is elevated.O ther: Insufficient TR jet to estimate PA systolic pressure. MEASUREMENTS: 2DParasternal Long Rochelle Ao An 2 cm LVPWd 0.95 cm Ao Rtd 3.3 cm Index 1.6 cm /m2 LA Ds 4.1 cm IVSd 0.88 cm RWT 0.37 LVIDd 5.1 cm Index 2.5 cm/m2 LV Mass 167 g (122-174) LVIDs 4.1 cm LVM Index 81 g/m2 LV%fs 20 % LVOT 2 cm LV EF Biplane LVEDV 211 ml (65-193) Index 102 ml/m2 LV CI 2.3 l/m/m2 LVESV 144 ml Index 70 ml/m2 LV SV 67 ml LV EF 32 % (63-77) HR 70 bpm LV CO 4.7 l/min LA Sng Plane LA Area 22 cm2 (8.8-23.4) LA Vol 75 ml Index 37 ml/m2 LA LngAx 6 cm LVOT LVOT Area 3.1 cm2 WALL MOTION: RESTING WALL MOTION:Basal Inferoseptal, Basal Inferior, Mid Inferior , Mid Inferolateral,Apical Inferior, Apical Lateral martinez are akinetic. Basal A nterior,Basal Anteroseptal, Basal Inferolateral, Basal Anterolateral, MidAnterio r, Mid Anteroseptal, Mid Inferoseptal, Mid Anterolateral,Apical Anterior, Apical Septal, Apical martinez are hypokinetic. Wall Index = 2.4Signed 10/20/2019 05:42 Keo Le MethodistLine/Drain Menlqgu8533-70-85 14:36:49 Umang Maguire 10/20/2019 2:38 PMLine/Drain RemovalDate/Time: 0 2:37 PMPerformed by: Umang MaguireAuthorized by: Jj Sagastume MD Pre-procedure details: Line or drain removed: Dialysis catheter Indicat ion(s) for removal: Treatment completed Patient position: TrendelenburgRemova l procedure: Number of people performing procedure: 2 Catheter intact?: Yes Insertion site: No redness Breath held: Yes Valsalva performed: performed Pressure applied to site?: Yes Number of minutes pressure applied: 10 D ressing applied:: Adhesive bandage and 4x4 sterile gauze Estimated blood loss (mL): 0 Specimen(s): None Complications: None Attending physician: Jamir Murillo Resident performing procedure: Umang Maguire Patient tolerance of procedure: Patient tolerated the procedure well with no immediate complicatio yuni Ophir MethodistType and vxgxpn4271-57-61 06:51:00* Test Item Value Reference Range Interpretation Comments ABO grouping (test code = 883-9) A Rh type (test code = 13616-0) POS Antibody screen (gel) (test code = 890-4) NEG Ophir MethodistVancomycin level, qgxofy8738-08-37 05:06:00* Test Item Value Reference Range Interpretation Comments Vancomycin, random (test code = 80148-3) 18.9 ug/mL Ophir MethodistVenous blood whn6113-00-23 04:02:43* Test Item Value Reference Range Interpretation Comments pH, venous (test code = 2746-6) 7.36 7.32-7.42 pCO2, venous (test code = 2020-4) 39 45- 51 mmHg L pO2, venous (test code = 2705-2) 65 25- 40 mmHg H Base excess, venous (test code = 1927-3) -3 meq/L -2-2 L O2 saturation, venous (test code = 2711-0) 92 % 40-70 H Bicarbonate, venous (test code = 31889-6) 21.5 mmol/L 21-28 Lab Interpretation (test code = 55395-1) Abnormal Ophir MethodistIonized kkdmbae8484-91-15 16:59:59* Test Item Value Reference Range Interpretation Comments pH (test code = 2753-2) 7.39 Ionized calcium (test code = 1994-0) 1.03 mmol/L 1.11-1.32 L Lab Interpretation (test code = 24827-5) Abnormal Ophir MethodistUS Coysnat4127-30-45 14:18:19Hm Interface, Radiology Results - 10/16/2019 2:21 PM CSTEXAMINATION: US HEPATICCLINICAL HISTORY: elevated LFTsCOMPARISON: 10/06/2019FINDINGS:IMPRESSION:Liver echotexture is within normal limits. Numerous gallstones are seen in the gallbladder. The gallbladder wall is thickened to at least 4 cm. In the appropriate clinical setting, findings would be compatible with acute cholecystitis. Common bile duct is 6 mm. Flow in the main portal vein is patent and hepatopetal.[facility]-[id number] Ophir MethodistO2 saturation, pqgmen9951-37-38 04:30:23* Test Item Value Reference Range Interpretation Comments Hemoglobin, venous, syringe (test code = 21732-1) 11.4 g/dL 14-1 8 L O2 saturation, venous (test code = 2711-0) 79 % 40-70 H Lab Interpretation (test code = 67972-6) Abnormal Ramón MethodistECG 12 stwf3168-60-95 17:44:26* Test Item Value Reference Range Interpretation Comments Ventricular rate (test code = 253) 97 Atrial rate (test code = 255) 97 CO interval (test code = 266) 174 QRSD interval (test code = 260) 132 QT interval (test code = 264) 392 QTC interval (test code = 265) 497 P axis 1 (test code = 267) 39 QRS axis 1 (test code = 268) -38 T wave axis (test code = 270) 128 EKG impression (test code = 273) Normal sinus rhythm-N onspecific intraventricular block- Melgar LuizSusanmear quuppa7121-24-87 10:54:31* Test Item Value Reference Range Interpretation Comments Platelet slide review (test code = 86881-8) Mkd decreased A Anisocytosis (test code = 702-1) Moderate Polychromasia (test code = 49614-1) Moderate Lab Interpretation (test code = 19161-3) Abnormal Ophir DbkkehdibXnsqogqb3236-88-23 05:47:03* Test Item Value Reference Range Interpretation Comments Troponin (test code = 18948-3) 0.704 ng/mL 0-0.04 H In patients suspected of having a myocardial infarction, along with all other appropriate clinical measures and actions including ECG and other diagnostics as appropriate, measure Ultra TnI at 0 hrs and at 3 hrs.Myocardial infarction VERY LIKELYThe 0 hr TnI level is > 0.10 ng/mL Arash cardial infarction LIKELYThe 0 hr TnI level is > 0.04 ng/mL and 3 hr level is increased or decreased by at least 0.020 ng/mL Myocardi al infarction VERY UNLIKELYBoth the 0 hr and 3 hr TnI levels <= 0.04 ng/mL(within normal limits) OR 0 hr is > 0.04 ng/mL and 3 hr is increased OR decreased by less than 0.020 ng/mL Lab Interpretation (test code = 54162-0) Abnormal Melgar LrzwjrpolTYO7973-87-12 05:43:37* Test Item Value Reference Range Interpretation Comments LDH (test code = 91169-9) 376 U/L 87-225 H Lab Interpretation (test code = 93389-4) Abnormal Ophir MethodistB natriuretic vepdmyy7522-06-53 21:51:33* Test Item Value Reference Range Interpretation Comments BNP (test code = 57243-1) 3506 pg/mL 0-100 H Lab Interpretation (test code = 69720-0) Abnormal Ophir MethodistCath lab cldsvrbzz2308-76-57 11:34:31Successful placement of femoral IABP. Ophir MethodistBilirubin nhswxe2940-13-57 04:54:21* Test Item Value Reference Range Interpretation Comments Bilirubin direct (test code = 1968-7) 0.6 mg/dL 0-0.3 H Lab Interpretation (test code = 59117-0) Abnormal Ophir MethodistProthrombin time with IJN3052-47-87 04:31:26* Test Item Value Reference Range Interpretation Comments Prothrombin time (test code = 5902-2) 15.3 11.5- 14.5 sec H INR (test code = 87858-3) 1.2 Th e International Normalized Ratio (INR) is a therapeutic monitoring tool for patients who are stable on oral anticoagulant therapy. An INR of 2.0-3.0 is suggested for deep vein thrombosis/pulmonary embolism. Lab Interpretation (test code = 63759-4) Abnormal Ophir MethodistAnaerobic vqffiql2456-47-15 08:15:48* Test Item Value Reference Range Interpretation Comments Anaerobic culture isolate (test code = 552) No anaerobic organis ms isolated. Specimen InformationSpecimen Source: Ple ural fluidSpecimen Site: Pleural Ramón MethodistAerobic aezxqch7501-46-43 06:14:01* Test Item Value Reference Range Interpretation Comments Aerobic culture isolate (test code = 498) No growth after 3 days. Specimen InformationSpecimen Source: Pleural fluidSpecimen Site: Pleural Ramón MethodistCath lab lgndkgkbz7581-98-66 11:31:32 PCI to the LM-LCx with 3.0 x 12 mm Xience OPAL, proximally dilated to 3.25 mm. POBA of the ISR segment of the mid LCx. Patent PERALTA-LAD and SVG-RCA. FINDINGS: LM: Distal LM 30% lesion. LAD: Proximal occlusion 100% LCx: Proximal LCX lesion 90%, mid LCX 80% ISR RCA: Diffuse disease with complete occlusion. Grafts: PERALTA - LAD: Patent SVG-RCA: Patent with diffuse disease and luminal irregularities Radial-OM: 100% occludedLast SVG graft : 100% occluded Subclavian stent patent CONCLUSION:- Total of four grafts: Patent PERALTA-LAD and SVG-RCA. Two other grafts occluded- Patent Subclavian stent without jailing of the PERALTA. - Proximal LCX lesion stented , PTCA of mid LCX stent ISR. See full op report for details. PROCEDURE DETAILS:ATTENDING: Dr. Bonilla EQUIPMENT/ANTICOAGULATION: Left Common Femoral Jzmzro6Is Sheath 6Fr SheathJL4 Catheter JR4 Catheter Chicho Blue coronary wire XB 3.5 Guide catheter PROCEDURAL DETAILS: The patient was brought to the cardiac catheterization laboratory in a fasting state. Informed consent was obtained prior to procedure. Left groin was prepped and draped in the usual sterile fash ion. Intravenous Midazolam and Fentanyl were administered for conscious sedation . Skin was infiltrated with 1% lidocaine for local anesthesia. Arterial access w as obtained using modified Seldinger technique. 4Fr. sheath was inserted into th e Left common femoral artery. Selective coronary angiogram was performed thereaf ter in a standard fashion using JL4 and JR4 catheters. We identified a new les ion in the LM-proximal LCx as well as significant ISR in the mid LCx. Attending: Dr. Daljit Bonilla Interventional Fellow: Ramez King MD EQUIPMENT/ANTICOAGULA TION: Left Common Femoral Erunjo5L Sheath XB 3.5 Guide Catheter Chicho Blue coron piedad wire Anticoagulation: Angiomax bolus and Infusion with ACT >250 sec prior to procedure PROCEDURAL DETAILS: The LMT was engaged with the XB 3.5 Guide Catheter and a Chicho Blue coronary wire was advanced into the distal LCx. The lesion in the proximal and mid LCx was pre-dilated with a 2.5 x 12 mm semi- compliant balloon at 14 brielle and we then stented the LM-prox LCx with a 3.0 x 12 mm Xience OPAL. We used the SDS of this to further perform angioplasty of the ISR segment of the mid LCx. We then post-dilated the LM portion of the stent with a 3.25 mm NC balloon. Final angiography revealed no evidence of dissection or perforation; there was SETH 3 flow and 10% residual stenosis. HEMOSTASIS: Progl galileo Closure Device ADDITIONAL POST-PROCEDURE MEDICATIONS: PLAN: 1. ASA 81mg reva ly2. Clopidogrel 75mg daily . 3. Cardiac medical therapy and aggressive risk fac tor modification. Cardiac rehabilitation. 4. Transferred in stable condition5. I f eventually put on oral anticoagulant then d/c the aspirin and continue oral an ticoagulant and plavix. Ophir MethodistActivated clotting wqes5240-37-14 19:25:42* Test Item Value Reference Range Interpretation Comments Activated clotting time (test code = 5298) 393 96- 152 sec H Cosmetologist Apprentice Name: Palomo Coronel LDevice ID: [id number] Lab Interpretation (test code = 77307-7) Abnormal Ophir MethodistEchocardiogram complete w contrast and 3D if bjpuxm9955-60-65 13:37:00Interface, Radiology Results In - 10/07/2019 1:38 PM [facility] Echocardiography Report [id number] [place] [address] Pat.Name: RICHAR POTTS Pat.ID: [id number] .Date: 10/07/2019 Refer.MD: JJ SAGASTUME MDExkayla Time: 1:50:00 AM Study Type:Routine Echo Height: 74in Weight: 195lb BSA: 2.15 m2 Age: 2 1970,49Y Sex: MALE BP: 124/67 HR: 100 bpm Sonogrphr: Shirley Arreola RDCS Pat. Stat.:Inpatient Room: [address] Study Status:Final Echo Event ID:[id number] Order ID: [id number] Reason for Study:r/o cardiogenic shockProcedures: 2D Echo, Colorflow Doppler, Portable, StatRace: C SUMMARY: LV EF is sever dorothy depressed and appears worse than last dated 06/2019 Possible new posterior w all motion abnormality FINDINGS: LV: LV size is mildly enlarged. LV EF is severely depressed. Septal motion is paradoxical secondary to LBBB or conduction abnormality. Estimated EF is 25-29%. Basal Inferoseptal, B josefa Inferolateral, Mid Inferoseptal, Mid Inferolateral martinez are erica etic. Basal Anterior, Basal Anteroseptal, Basal Inferior, Basal Otoniel lateral, Mid Anterior, Mid Anteroseptal, Mid Inferior, Mid An terolateral, Apical Anterior, Apical Septal, Apical Inferior, Apical Lateral, Apical martinez are hypokinetic.RV: RV size is mildly enlarged. A pa cemaker wire is seen in the RV. RV systolic function is moderately dep ressed.LA: LA volume is mild to moderately enlarged.RA: RA size is n ormal.AO: Aortic root diameter is normal.QUINTON: No pericardial effusion .AV: No structural AV abnormalities noted.MV: Dilated annulus with p oor coaptation. Mild mitral regurgitation. PV: Pulmonic valve not well seen.TV: No structural TV abnormalities noted. Mild tricuspid regurgitation Tsai: Diastolic dysfunction Grade II (Moderate): Impaired relaxation with elevated LV filling pressures.Other: Estimated PA sy stolic pressure is 55-60 mmHg, assuming a mean RAP of 10-15 mmHg.---- MEASUREMENTS: - 2DParasternal Long Rochelle Ao An 2.1 cm LVPWd 0.72 cm Ao Rtd 3.1 cm Index 1.5 cm/m2 RWT 0.25 IVSd 0.97 cm LV Mass 184 g (122-174) LVIDd 5.7 cm Index 2.7 cm/m2 LVM Index 86 g/m2 LVIDs 4.7 cm LVOT 2.1 cm LV%fs 18 % LA Sng Plane LA Area 24 cm2 (8.8-23.4) LA Vol 81 ml Index 38 ml/m2 LA LngAx 5.8 cm LVOT LVOT Area 3.4 cm2 WALL MOTION: RESTING WALL MOTION:Basal Inferoseptal, Basal Inferolateral, Mi d Inferoseptal, MidInferolateral martinez are akinetic. Basal Anterior, Basal Ante roseptal,Basal Inferior, Basal Anterolateral, Mid Anterior, Mid Anteroseptal,Mid Inferior, Mid Anterolateral, Apical Anterior, Apical Septal,Apical Inferior, Ap ical Lateral, Apical martinez are hypokinetic. Wall Index = 2.2Signed 10/07/2019 0 1:37 PMSu Lanre Vogt M.D.[facility] CenterGram gwyqm4437-32-36 11:57:52Gram stain isolateOccasional WBC'sNo organisms seen Comment: Specimen Informatio nSpecimen Source: Pleural fluidSpecimen Site: Pleural [facility] CenterCell count and differential, body czbxh2770-09-89 06:23:59* Test Item Value Reference Range Interpretation Comments [facility] fluid type (test code = 86444-0) Pleural Color, fluid (test code = 6824-7) Pale yellow Appearance, fluid (test code = 9335-1) Slightly hazy RBC, fluid (test code = 46950-9) SEE COMMENT /CMM 1+ (0 - 500 RBC/CMM) Nucleated cells, fluid (test code = 70565-7) 89 /CMM Fluid mononuclear cell (test code = 1407) See Diff Neutrophils, fluid (test code = 76129-6) 62 % Lymphocytes, fluid (test code = 82433-1) 26 % Mesothelial cells, fluid (test code = 42467-7) 3 % Macrophages, fluid (test code = 74068-1) 8 % Plasma cells, fluid (test code = 64607-0) 1 % [facility] uhkgj7138-44-37 01:19:11* Test Item Value Reference Range Interpretation Comments Fluid type (test code = 55303-3) Pleural Protein, fluid (test code = 2881-1) 1.3 g/dL The reference interval(s) and other method performance specifications have not been established for this body fluid. The test results must be integrated into the clinical context for interpretation.This test has been modified from the manufacturers instructions. The performance characteristics were determined by [facility] in a manner consistent with CLIA requirements. This test has not been cleared or approved by the U.S. Food and Drug Administration. CEDRIC (test code = CEDRIC) TROP results called to and r ead back by JUDI WHYTE/MMWT10 at 10/07/2019 00:45 by [facility]. [facility]Atl[facility], yszpy1134-05-14 00:25:43* Test Item Value Reference Range Interpretation Comments Protein (test code = 2885-2) 6.3 g/dL 6.3-8.3 Tnccoyd6405.6-7.0 g/dL1 eker3397.4-7.6 g/dL7 months-8wykn846.1-7.3 g/dL1-2 zkniu606.6-7.5 g/dL>3 wvxfe012.0-8.0 g/cT43-2352562.3-8.3 g/dL aRmón [facility]verySeymour Hospital sgldz2619-87-79 00:25:22* Test Item Value Reference Range Interpretation Comments Fluid type (test code = 40230-8) Pleural LDH, fluid (test code = 34563-6) 60 U/L The reference interval(s) and other method performance specifications have not been established for this body fluid. The test results must be integrated into the clinical context for interpretation.This test has been modified from the manufacturers instructions. The performance characteristics were determined by [facility] in a manner consistent with CLIA requirements. This test has not been cleared or approved by the U.S. Food and Drug Administration. diane Talbot vselj7814-21-69 23:54:03* Test Item Value Reference Range Interpretation Comments Fluid type (test code = 27161-0) Pleural pH, fluid (test code = 2748-2) 8.00 Reference ranges are not established for Miscellanous specimens. [facility] CenteristArterial blood hew3562-81-09 23:43:02* Test Item Value Reference Range Interpretation Comments pH, arterial (test code = 2744-1) 7.38 7.35-7.45 pCO2, arterial (test code = 2019-8) 38 35- 45 mmHg pO2, arterial (test code = 2703-7) 151 80- 90 mmHg H Bicarbonate, arterial (test code = 1960-4) 21.9 mmol/L 21-28 Base excess, arterial (test code = 1925-7) -2 -2 - 2 mEq- L O2 saturation, arterial (test code = 2708-6) 99 % 95-100 Lab Interpretation (test code = 26550-5) Abnormal [facility] CenterHddtzhxixOhwhiwuvtnjnl2724-70-26 22:46:08Solo Browning MD 10/06/2019 10:47 PMThoracentesisDate/Time: 10/06/2019 10:46 PMPerformed by: Solo Browning, [facility] HOSPITALuthorized by: Solo Browning MD Consent: Consent obtained: Written Consent given by: Spouse Risks discussed: Bleeding Alternatives discussed: No treatmentUniversal protocol: Procedure explained and questions answered to patient or proxy's satisfaction: yes Patient identity confirmed: Verbally with patientSedation: Sedation type: Narc oticAnesthesia (see MAR for exact dosages): Anesthesia method: Local infiltra tion Local anesthetic: Lidocaine 1% w/o epiProcedure details: Patient positi on: L lateral decubitus Location: R lateral Intercostal space: 7th Punctur e method: Tuwa-wkw-jlpzhb catheter Ultrasound guidance: yes Indwelling cath eter placed: no Needle gauge: 14 Catheter size: 8 Fr Number of attempts: 1 Fluid removed amount: 1100 cc Fluid sent for: Aerobic, anaerobic, pH, LDH and cell count and differential Drainage characteristics: ClearPost-procedure details: Chest x-ray performed: yes Patient tolerance of procedure: Tamiko ated well, no immediate complicationsOphir MethodistNicotine and cotinine, mknsn2512-80-14 20:20:42* Test Item Value Reference Range Interpretation Comments Nicotine (test code = 3853-9) <2.0 0-1.9 Cotinine (test code = 00857-0) <2.0 0-1.9 This test was developed and its performance characteristics determined by the Department of Pathology and Genomic Medicine, [facility]. Serum nicotine and metabolite cotinine are tested by HPLC tandem mass spectrometry. It has not been cleared or approved by FDA. The laboratory is regulated under CLIA as qualified to perform high-complexity testing. This test is used for clinical purposes. It should not be regarded as investigational or for research. Ophir MethodistArterial Line Dolkiixbi3413-98-00 16:36:12DeStevan ruano MD 10/06/2019 4:38 PMArterial Line InsertionDate/Time: 10/06/2019 4:36 PMPerformed by: Stevan Suárez MDAuthorized by: Nawaf Padgett MD Consent: Consent obtained: Verbal Consent given by: Patient Risks discussed: Bleeding, pain, infection and repeat procedureIndications: Indications: hemodynamic monitoring Pre-procedure details: Skin preparation: 2% Chlorh exidineSedation: Sedation type: Moderate (conscious) sedationAnesthesia (see MAR for exact dosages): Anesthesia method: Local infiltration Local anesthet ic: Lidocaine 1% w/o epiProcedure details: Location: R femoral Needle gauge : 20 G Placement technique: Seldinger Ultrasound guidance: yes Number of attempts: 5 or morePost-procedure details: CMS: NormalComments: Due to ba d vasculature unable to pass the guidewire. No post procedure complications [facility] Healthcare CenterVitamin D 25 hydroxy vhsmc4882-42-07 16:31:07* Test Item Value Reference Range Interpretation Comments Vitamin D, 25-hydroxy (test code = 1989-3) 10.7 ng/mL 30-150 L This assay reports the sum of 25-hydroxy vitamin D3 and 25-hydroxy vitamin D2. Reference range:0-17 years:Deficiency: less than 20ng/mLOptimum level: greater than or equal to 20 ng/mL.18 years and older:Deficiency: less than 20ng/mLInsufficiency: 20-29 ng/mLOptimum Level: 30-80 ng/mLThe assay reportable range is 3.4 155.9 ng/mL. Levels higher than 150 ng/mL may be associated with toxicity.If toxicity is clinically suspected and the reported result is >155.9 ng/mL,contact lab for alternative methods to obtain a definitive level.If separate quantitation of 25-hydroxy vitamin D3 and 25-hydroxy vitamin D2 is needed, please contact lab for alternative methods. Lab Interpretation (test code = 33133-5) Abnormal [facility] MethodistLactic acid level, SEPSIS - Now and repeat 2x every 3 hours 2019-10-06 16:13:54* Test Item Value Reference Range Interpretation Comments Lactic acid (test code = 08120-7) 1.6 mmol/L 0.5-2.2 [facility] MethodistPA [id number] 15:05:15Sha Yanez MD 10/06/2019 3:13 PMPA CatheterDate/Time: 10/06/2019 3:08 PMPerformed by: Sha Yanez MDAuthorized by: Nawaf Padgett MD Consent: Written consent obtained.Risks and benefits: risks, benefits and alternatives were discussedConsent given by: spousePatient understanding: patient states understanding of the procedure being performedPatient consent: the patient's understanding of the procedure matches consent givenProcedure consent: procedure consent matches procedure scheduledRelevant documents: relevant documents pre sent and verifiedTest results: test results available and properly labeledSite m arked: the operative site was markedImaging studies: imaging studies availableRe quired items: required blood products, implants, devices, and special equipment availablePatient identity confirmed: arm band and hospital-assigned identificati on numberTime out: Immediately prior to procedure a "time out" was called to ck sulma the correct patient, procedure, equipment, clinical support specialist and site/side marke d as required.Preparation: Patient was prepped and draped in the usual sterile f ashion.Indications: hemodynamic monitoringLocation: Left internal jugular vein.A nesthesia: local infiltration Anesthesia:Local Anesthetic: lidocaine 1% without epinephrineAnesthetic total: 3 mL Sedation:Patient sedated: no Needle gauge: 20S eldinger technique: Seldinger technique usedNumber of attempts: 1Post-procedure: line sutured and dressing appliedPost-procedure CMS: unchanged and normalPatient tolerance: Patient tolerated the procedure well with no immediate complication sComments: Procedure led by Dr. Padgett who was present at all times. [facility] pathogen [id number] 13:39:19Respiratory pathogen panelNegative for all pathogens tested:Negative for AdenovirusNegative for Coronavirus WMS6Dwctnwnj for Coronavirus GX08Xpywqdwr for Coronavirus 229ENegative for Coronavirus DC06Aqtxphex for Human MetapneumovirusNegative for Rhinovirus/EnterovirusNegative for Influenza ANegative for Influenza A/H1N egative for Influenza A/K1Atecnymg for Influenza A/H1-2009Negative for Influenza BNegative for Parainfluenza Virus 1Negative for Parainfluenza Virus 2Negative f or Parainfluenza Virus 3Negative for Parainfluenza Virus 4Negative for Respirato ry Syncytial VirusNegative for Bordetella pertussisNegative for Chlamydophila pn eumoniaeNegative for Mycoplasma pneumoniaeThis real-time PCR assay detects the p resence of nucleic acids (RNA or DNA) for the respiratory pathogens listed. A r esult of "Not-detected" does not exclude the possibility of the presence of one or more pathogens at concentrations less than the detectable limits of the assay . Comment: Specimen InformationSpecimen Source: NaresSpecimen Site: Not specifie d [facility] MethodistThyroid stimulating hormone 2019-10-06 12:27:56* Test Item Value Reference Range Interpretation Comments TSH (test code = 3016-3) 4.13 0.27- 4.20 uIU/mL [facility] [id number] 12:06:13Hm Interface, Radiology Results 10/06/2019 12:09 PM CSTEXAMINATION: US GALLBLADDERCLINICAL HISTORY: 49 years Male r o cholecystitisCOMPARISON: N one.FINDINGS:Gallbladder: Multiple small gallstones and sludge in the gallbladde r. No gallbladder wall thickening or pericholecystic fluid.CBD: 0.5 cmPortal ve in: The portal vein demonstrates normal hepatopedal flow. The portal vein measur es 1.5 cm.IMPRESSION:Cholelithiasis without sonographic evidence of cholecystiti s.[facility]-[id number] MethodistCT Abdomen Pelvis Wo [id number] 09:43:58Hm Interface, Radiology Results 10/06/2019 9:47 AM CSTEXAMINATION: CT ABDOMEN PELVIS WO CONTRASTCLINICAL HISTORY: Abd pain fever abscess suspectedCOMPARISON: 10/03/2019TECHNIQUE: Multiple axial CT images of the Abdomen and pelvis were obtained Without IV contrast limiting evaluation . Sagittal and coronal reconstructions were done. Radiation dose reduction technique used for this study.CT imaging was performed with iterative reconstruction technique and/or automated exposure control to reduce radiation dose.FINDINGS:HEPATOBILIARY: No acute focal abnormality.GALLBLADDER: Cholelithiasis with stable gallbladder wall thickening and small amount of gallbladder air.SPLEEN: No splenomegaly.PANCREAS: Unremarkable within the limitations of a noncontrast exam.ADRENALS: No adrenal nodules.KIDNEYS: No stones or hydronephrosis.PERITONEUM/RETROPERITONEUM: Peritoneal catheter in stable position. Trace free fluid present likely related to peritoneal dialysis. No free air or loculated fluid collections. No hematomaABDOMINAL AORTA/IVC: Severe atherosclerosis of the abdominal aorta and its branches without aneurysm.GI TRACT: The bowel demonstrate no distention or wall thickening. There are no signs of appendicitis.No signs of diverticulitis.PELVIC ORGANS/ BLADDER: Contrast present within the urinary bladder. Other pelvic organs witho ut acute abnormality.BONES AND SOFT TISSUES: No acute abnormality.VISUALIZED LO WER CHEST: Stable moderate right and trace left pleural effusion with some atele ctasis of the right lower lobe. Heart is enlarged with significant atheroscleros is of coronary arteries.IMPRESSION:No loculated fluid collections to suggest abs cess.Small amount of free fluid in the abdomen and pelvis.Gallbladder findings s imilar to the prior exam.[facility]-[id number] Ramón MethodistT4, [id number] 05:22:39* Test Item Value Reference Range Interpretation Comments T4, free (test code = 3024-7) 1.1 ng/dL 0.9-1.7 [facility] MethodistCBC [id number] 04:49:09* Test Item Value Reference Range Interpretation Comments WBC (test code = 31354-8) 9.17 4.50- 11.00 k/uL RBC (test code = 50765-6) 3.92 m/uL 4.4-6 L HGB (test code = 718-7) 11.7 g/dL 14-18 L HCT (test code = 4544-3) 39.1 % 41-51 L MCV (test code = 787-2) 99.7 fL 82-100 MCH (test code = 785-6) 29.8 pg 27-34 MCHC (test code = 786-4) 29.9 g/dL 31-37 L RDW - SD (test code = 83732-8) 57.3 fL 37-55 H MPV (test code = 16360-7) 11.2 fL 8.8-13.2 Platelet count (test code = 06443-1) 149 150- 400 k/uL L Nucleated RBC (test code = 75757-9) 0.00 /100 WBC Lab Interpretation (test code = 12133-4) Abnormal [facility] MethodistXR Abdomen 1 Vw [id number] 23:56:09Hm Interface, Radiology Results Incoming - 10/05/2019 11:59 PM CSTEXAMINATION: XR ABDOMEN 1 VW PORTABLECLINICAL HISTORY: Nausea vomitingCOMPARISON: No prior sIMPRESSION:1.Pelvic catheter noted. Bowel gas pattern nonspecific. Right pleura l effusion.[facility]-[id number] MethodistCTA Abdominal Aorta And Bilateral Iliofemoral Runoff W Wo Gycvjuhh2206-05-87 22:53:33Hm Interface, Radiology Results - 10/03/2019 10:56 PM CSTEXAMINATION: CT ANGIOGRAM ABDOMINAL AORTA AND BILATERAL ILIOFEMORAL RUNOFF W WO CONTRASTCLINICAL HISTORY: eval for aortoiliac diseaseTECHNIQUE: Multiple CT angiographic images of the abdomen, pelvis, and bilateral lower extremities were obtained during intravenous administration of iodinated contrast. Multiple computerized reformatted images as well as 3-D volume rendered images were also obtained. Precontrast images of the abdomen were also obtained.Automatic exposure control or iterative reconstruction techniques used to reduce dose.COMPARISON: 09/03/2019IMPRESSIO N:Abdomen: Moderate right and small left pleural effusions with compressive atel ectasis. There is also interlobular septal thickening and mild groundglass sugge sting edema.Due to CTA technique, solid organs of upper abdomen are not fully as sessed. Large gallstone is noted measuring 2.5 cm. Circumferential enhancement o f the gallbladder wall with wall thickening, with small amount of air in the gal lbladder as well as pneumobilia. Ascites is also seen. Findings are nonspecific although if indicated, ultrasound may be useful for further assessment of the ga llbladder.Pelvis: Bowel gas pattern nonobstructive.CTA: Aortoiliac segments cont ain extensive calcified plaques. No significant aortic stenosis. Left common sabine ac artery proximal ncnx-gw-otwgtfbd stenosis noted. Extensive plaques along the external iliac arteries which are patent.Celiac axis and SMA appear patent proxi jing. Small caliber and stenotic right renal artery proximally. Left renal yasmine ry also appear to show extensive disease in its midportion. Bilateral lower extr emity runoff:Right lower extremity:Common femoral artery and profunda femoral ar seble are patent. SFA show multiple tandem stenoses especially in the Shaun's ca nal segment, where high-grade stenosis could be seen just above the popliteal se gment which appears to receive prominent collaterals. The trifurcation is patent although prominent calcified plaques involving the posterior tibial artery is n oted throughout. There is three-vessel runoff into the distal calf.Left lower ex tremity: Common femoral artery and profunda femoral artery are patent. SFA show multiple tandem stenoses especially in the Shaun's canal segment, where modera te stenosis could be seen just above the popliteal segment. Several tendon steno ses are also seen in the proximal popliteal artery. The trifurcation is patent a lthough prominent calcified plaques involving the posterior tibial artery is not ed throughout. There is three-vessel runoff into the distal calf. SUMMARY:Extens thiago peripheral artery disease. In the right lower extremity there is high-grade stenosis of the SFA at Shaun's canal segment. In the left lower extremity and t here are tandem stenoses that are moderate grade involving the distal SFA and pr oximal popliteal artery.Other vascular abnormalities involving renal arteries ar e as noted.Gallbladder wall thickening and gallstone with pneumobilia presumably from prior sphincterotomy. However finding should be correlated clinically and if indicated ultrasound may be useful for further assessment.[facility]-[id number] [facility] lab bmwcdmzcr1690-62-98 09:56:56Hemodynamics:1. Elevated right sided pressure with mRA 20 mmHg. 2. Elevated pulmonary artery pressure with mPA 58 mmHg, PCWP 34 mmHg, TPG 24 mmHg, DPG 16 mmHg 3. Reduced CO (3.1 & 3.5 L/min) and CI (1.4 & 1.6 L/min/m2) via Thermo and Ishmael, respectively. 4. SVR 2006 Dynesseccm?? at BP 120/86 (MAP 97 mmHg). Conclusion:1. Elevated right and left sided fillings pressures with pre-and post-capillary pulmonary hypertension and reduced cardiac index. 2. R IJ Trialysis catheter secured at 12 cm. Recommendation:1. Aggressive volume removal with HD and medical optimization. Ramón AveryCv invasive peripheral vascular procedure 2019-10-03 09:56:56Hemodynamics:1. Elevated right sided pressure with mRA 20 mmHg. 2. Elevated pulmonary artery pressure with mPA 58 mmHg, PCWP 34 mmHg, TPG 24 mmHg, DPG 16 mmHg 3. Reduced CO (3.1 & 3.5 L/min) and CI (1.4 & 1.6 L/min/m2) via Thermo and Ishmael, respectively. 4. SVR 2006 Dynesseccm?? at BP 120/86 (MAP 97 mmHg). Conclusion:1. Elevated right and left sided fillings pressures with pre-and post-capillary pulmonary hypertension and reduced cardiac index. 2. R IJ Trialysis catheter secured at 12 cm. Recommendation:1. Aggress thiago volume removal with HD and medical optimization. Ramón Avery- XR HIP W/PEL UNI 2+V [id number] 13:17:00 Name: RICHAR POTTS [facility] : 1970 Age/S:49 /M [address] [facility] Unit#:[id number] Loc: [place] [address] Phys: Bruce Dale NP Dis Date: PHONE #: [phone] Status: REG ER FAX #: [phone] Exam Date: 09/28/2019 Reason: PAIN EXAMS: CPT CODE: [id number] XR HIP W/PEL UNI 2+[place] [address] CLINICAL HISTORY: PAIN TECHNIQUE: Neutral and frog leg AP views of the left hip COMPARISON: None FINDINGS: No acute fracture. Left hip joint is not dislocated. Visualized bony pelvis is intact. Bony trabecular pattern is unremarkable. Atherosclerotic vascular calcification. Regional soft tissues are unremarkable. IMPRESSION: No acute fracture or dislocation of the left hip. LOCATION: LP at 1317 Reported and signed by: Dee Villegas D.O. CC: Qing Aleman MD; Allie Rodas; Bruce Dale NP Technologist: Lurdes Vasquezrpt Data: 09/28/2019 (1317) [email or web address] Orig Print D/T: S: 09/28/2019 (0730) PAGE 1 Signed Report - XR FEMUR MIN 2 VWS [id number] 13:16:00 Name: RICHAR POTTS [facility] : 1970 Age/S:49 /M [address] [facility] Unit#:[id number] Loc: [place] [address] Phys: Bruce Dale NP Dis Date: PHONE #: [phone] Status: REG ER FAX #: [phone] Exam Date: 09/28/2019 Reason: PAIN EXAMS: CPT CODE: [id number] XR FEMUR MIN [address] [place] [address] CLINICAL HISTORY: PAIN TECHNIQUE: AP and lateral views of the left femur COMPARISON: None FINDINGS: No acute fracture. Bony trabecular pattern is unremarkable. No cortical destruction or periosteal reaction. Hip and knee joints do not appear dislocated. Atherosclerotic vascular calcification. Regional soft tissues are unremarkable. IMPRESSION: No acute fracture or dislocation of the left femur. LOCATION: LP at 1316 Reported and signed by: Dee Villegas D.O. CC: Qing Aleman MD; Allie Rodas; Bruce Dale NP Technologist: Lurdes Byrnes Trnrafal Data: 09/28/2019 (1316) [email or web address] Orig Print D/T: S: 09/28/2019 (9887) PAGE 1 Signed Report Pv physiologic arterial lower extremity complete w [id number] 00:44:00Interface, Radiology Results In - 09/04/2019 12:44 AM [facility] Vascular Diagnostic Laboratory Physiologic Arterial Leg Report [id number] [facility], [facility] [address], [place] [id number] Pat.Name: RICHAR POTTS.ID: [id number] .Date: 09/03/2019 Refer.MD: JJ SAGASTUME MD Exam Time: 7:30:00 AM Study Type:Physiologic Leg Height: 74in Weight: 190lb BSA: 2.13 m2 Age: 2 1970,48Y Sex: MALE Sonogrphr: Dolores Pineda RVT Pat. Stat.:Outpatient Tape Vol: SHER, CPT - 4: 83197 Echo Event ID:[id number] Order ID: [id number] Reason for Study:Heart transplant evaluation. History of diabetes,ESRD and HTN. Procedures: Ankle/brachial pressures, Digit pressures, Non-imagingcontinuous wave Doppler, PPG waveform tracing, Segmental pressuresRace: C SUMMARY: ---------DOPPLER SIGNALS: DOPPLER SIGNALS ARTERY RIGHT LEFT Common Femoral Abnormal Abnormal Superficial Femoral Abnormal Abnormal Poplite al Abnormal Abnormal Posterior Tibial Abnormal Abnormal Dorsalis Pedis Abnorma l Abnormal SEGMENTAL PRESSURE (mmHg): RIGHT LEFT Brac hial 119 124 High Thigh Unable to tolerate Mary ble to tolerate Low Thigh Non-compressible Non-c ompressible Calf Non-compressible Non-compressib le Ankle DP 88 103 Ankle PT 170 Non-compressible Great Toe 60 73 ANKLE/BRACHIAL INDEX: RIGHT LEFT Dorsalis Pedis 0.71 0.83Posterior Tibial 1.37 Non-Compressible TOE/BRACHIAL INDEX: RIGHT LEFT 0.48 0.59PRELIMINARY FINDINGS:1. Analog waveforms are abnormal suggestive of bilateral aorto-iliacdisease.2. Ankle/brachial indices on the right is suggest thiago of arterial wallcalcinosis and the left were unable to be obtained due tonon -compressible arteries. 3. Toe/brachial indices fall into the mild category, lay aterally. PHYSICIAN INTERPRETATION:1. Analog waveforms are abnormal suggestive o f bilateral aorto-iliacdisease.2. Ankle/brachial indices on the right is suggest thiago of arterial wallcalcinosis and the left were unable to be obtained due tonon -compressible arteries. 3. Toe/brachial indices fall into the mild category, lay aterally. FINDINGS: Signed 09/04/2019 12:44 Vandana Malloy MD, [facility] Methodunm car[facility] hospitalUS [id number] 14:18:05Hm Interface, Radiology Results 09/03/2019 2:21 PM CSTEXAMINATION: US RENALCLINICAL HISTORY: N18.6 End stage renal disease, Z99.2 Dependence on renal dialysis, Renal failure chronic (kidney disease)COMPARISON: None.IMPRESSION: The kidneys are normal in size and demonstrate increased echogenicity compatible with renal parenchymal disease. There is no evidence of renal mass, calculi, or hydronephrosis.The right kidney measures 12.0 x 5.2 x 5.5 cm.The left kidney measures 12.8 x 4.9 x 4.6 cm.The urinary bladder is underdistended.There is a moderate amount of ascites adjacent to the bladder. There is also a right pleural effusion.[facility]-[id number] and approved by resident care director/fellow: Rob Payne, Rosie Marion MD, personally reviewed the images and resident's/fellow's findings and agree with the final report.[facility] Methodunm [facility] hospitalCT Chest Wo Contrast Abdomen Wo Contrast Pelvis Wo [id number] 13:35:45Hm Interface, Radiology Results 09/03/2019 1:38 PM CSTEXAMINATION: CT CHEST WO CONTRAST ABDOMEN WO CONTRAST PELVIS WO CONTRASTCLINICAL HISTORY: Z01.818 Encounter for other preprocedural examination, I25.5 Ischemic cardiomyopathy, heart transplant evalTECHNIQUE: Multiple axial images of the chest, abdomen, and pelvis were obtained without intravenous contrast. The lack of intravenous contrast reduces the sensitivity of detecting solid organ disease. CT imaging was performed with iterative reconstruction technique and/or automated exposure control to reduce radiation dose.COMPARISON: NoneFINDINGS:CHEST:Lungs and airways: No acute airspace disease or suspicious pulmonary nodules. Minimal atelectasis is present in the dependent lungs. There is mild interlobular septal thickening.Pleura: Trace left and moderate right pleural effusions are present.Mediastinum and lymph nodes: No lymphadenopathy. Cardiovascular: Prior coronary artery bypass grafting. A left subclavian stent is in place. There are multifocal vascular calcifications. Four-chamber cardiomegaly.ABDOMEN:Liver: The liver is normal. No focal mass.Gallbladder: Cholelithiasis without CT evidence of acute cholecysti tis.Spleen: The spleen is not enlarged.Pancreas: The pancreas is unremarkable.Ad renal Glands: A right adrenal myelolipoma measures 1.5 cm.Kidneys: There is a pr ominent lobulation versus partially exophytic lesion measuring 2.6 cm with solid attenuation involving the upper pole of the left kidney (see for example image 128 series 2). Renal cortical thinning is present.Vascular: Moderate aortic and branch vessel irregular calcifications are present.Nodes: No enlarged retroperi toneal or mesenteric lymphadenopathy.Bowel: No bowel obstruction or acute inflam matory changes. The appendix is normal.Ascites/fluid collections: A small amount of ascites is present. A peritoneal catheter is in place.PELVIS:Free fluid exte nds into the pelvis. MUSCULOSKELETAL: Scattered degenerative osseous changes are present. Prior median sternotomy.IMPRESSION:1.Mild pulmonary edema with trace l eft and moderate right pleural effusions.2.Four-chamber cardiomegaly with extens thiago vascular calcifications and prior coronary artery bypass grafting.3.Prominen t lobulation versus renal mass involves the upper pole of the left kidney. Recom mend renal ultrasound, renal mass protocol CT, or abdominal MRI with and without contrast material for further evaluation.4.Small ascites with peritoneal cathet er in place.5.Additional chronic and incidental findings as detailed above.[facility]-2 [id number] ZoroastrianUs carotid [id number] 12:12:00Interface, Radiology Results In - 09/03/2019 12:13 PM [facility] Vascular Ultrasound Laboratory Carotid Artery Duplex Report [id number] [address] For quality assurance representative purposes, the categorization of the degree of the stenosis of this exam is based on criteria described in the IAC carotid stenosis grading white paper( www.intersocietal.org /Vascular) and Lashay Romero., Michael Keller., et al. Carotid artery stenosis: weldon-s sandoval and Doppler US diagnosis--Society of Radiologists in Ultrasound Consensus C onference. Radiology. 2003 Nov; 229(2):340-6. Pat.Name: RICHAR POTTS Pat.ID: [id number] .Date: 09/03/2019 Refer.MD: JJ BATISTA MD Exam Time: 8:22:00 AM Study Type:Carotid Height: 74in Weight: 190lb BSA: 2.13 m2 Age: 2 1970,48Y Sex: MALE Sonogrphr: Dolores Pineda RVT Pat. Stat.:Outpatient Tape Vol: [place], CPT - 4: 84572 Echo Event ID:[id number] Order ID: [id number] Reason for Study:Heart transplant evaluation. History of diabetes,ESRD and HTN. Procedures: Colorflow, Grayscale/2D, Pulsed wave DopplerRace: C SUMMARY: PHYSICAL ASSESSMENT Blood Pulses Carotid Pressure Carotid T emporal BruitRight 119/79 + + 0Left 124/81 + + 0CAROTID ARTERY SCANRIGHT: There is hard plaque in the distal common carotid artery.There is irregular, hard and calcified plaque noted in the bulbextending into the proximal internal and external carotid artery.Colorflow is mildly disturbed in the proximal internal and externalcarotid arteries. Vert ebral artery flow is antegrade. LEFT: There is scattered hard plaque in the c ommon carotid artery.There is irregular, hard and calcified plaque noted in the bulbextending into the proximal internal and external carotid artery.Colorflow i s mildly disturbed in the proximal internal carotid artery.Vertebral artery flow is antegrade. PRELIMINARY FINDINGS1. <50% stenosis of the right bulb and internal carotid artery. 2. 50-69% stenosis of the left bulb and internal carotid artery withratio of 2.3. 3. >50% stenosis of the right external carotid artery. 4. Antegrade vertebral artery flow, bilaterally. PHYSICIAN INTERPRETATION Bilateral carotid duplex examination demonstrated atheroscleroticplaques in the bulbs/ CCAs. 50-69% stenosis of the left bulb and internal carotid artery withratio of 2.3. <50% stenosis of the right bulb and internal carotid artery. >50% stenosis of the right external carotid artery. -------FINDINGS: Carotid Findings: Right Left Verteb.Flw Antegrade Antegrade Subclavian Biphasic Biph asic MEASUREMENTS: DOPPLERLeft CCA Dist C CA Dist PSV 56.6 cm/s CCA Dist EDV 19.6 cm/sLeft CCA Prox CCA P manohar PSV 60.1 cm/s CCA Prox EDV 18.5 cm/sLeft ICA Dist ICA Dist PSV 80.3 cm/s ICA Dist EDV 37.5 cm/sLeft ICA Mid ICA Mid PSV 86.8 cm/s ICA Mid EDV 38.7 cm/sLeft ICA Prox ICA Prox PSV 1 23 cm/s ICA Prox EDV 44.8 cm/sLeft ECA Prox ECA Prox PSV 130 c m/s ECA Prox EDV 17.3 cm/sLeft SCA Prox SCA Prox PSV 133 cm/s Left Vertebral Vertebral PSV 28.3 cm/s Vertebral EDV 12.1 cm/sRight CCA Dist CCA Dist PSV 56.6 cm/s CCA Dist EDV 19.3 cm /sRight CCA Mid CCA Mid PSV 60.4 cm/s CCA Mid EDV 19.9 cm/sRi ght CCA Prox CCA Prox PSV 67.4 cm/s CCA Prox EDV 11.7 cm/sRight ICA Dist ICA Dist PSV 71.5 cm/s ICA Dist EDV 32.8 cm/sRight ICA Mid ICA Mid PSV 90.4 cm/s ICA Mid EDV 27.5 cm/sRight ICA Prox ICA Prox PSV 99.2 cm/s ICA Prox EDV 41.3 cm/sRight ECA Prox ECA Prox PSV 192 cm/s ECA Prox EDV 39.3 cm/sRight SCA Prox SCA Prox PSV 88.8 cm/s Right Vertebral Vertebral PSV 21.7 cm/s Vertebral EDV 5.48 cm/sLeft CCA Mid CCA Mid PSV 53.8 cm/s CCA Mid EDV 14.9 cm/sRight ICA/CCA Ratio ICA/CCA PSV 1.64 Left ICA/CCA Ratio ICA/CCA PSV 2.29 Signed 09/03/2019 12:12 PMYves Malloy MD, RPVIOphir MethodistXR [id number] 10:43:37Hm Interface, Radiology Results 09/03/2019 10:46 AM CSTEXAMINATION: XR PANOREXCLINICAL HISTORY: Z01.818 Encounter for other preprocedural examination, I25.5 Ischemic cardiomyopathy, heart transplant evalCOMPARISON: NoneIMPRESSIO N:Single Panorex view provided.Patient is partially edentulous.Large dental cavi ties are noted along the remaining mandibular premolars bilaterally, including p ossible small periapical lucency on the left. If further care differentiation is clinically desired, macular facial CT could be performed for additional diagnos tic detail.Several dental restorations are noted along the left maxillary inciso rs and right maxillary first molar.Temporal mandibular joints are in normal osse ous anatomic alignment.[id number] MethodistXR Chest 2 [id number] 10:37:31Hm Interface, Radiology Results 09/03/2019 10:40 AM CSTEXAMINATION: XR CHEST 2 VWCLINICAL HISTORY: Z01.818 Encounter for other preprocedural examination, I25.5 Ischemic cardiomyopathy, Shortness of breathCOMPARISON: None.IMPRESSION:1.Lungs are clear.2.Normal heart size. Poststernotomy.3.No acute osseous abnormality.[id number] Zoroastrian Six minute walk w/ pulse [id number] 08:36:09* Test Item Value Reference Range Interpretation Comments Heart Rate at Rest (test code = 5603) 89 1/min SPO2 at Rest (test code = 5604) 97 % Supplemental O2 at Rest (test code = 5607) 0 L/min Heart Rate after 1 minute (test code = 5608) 94 1/min SPO2 after 1 minute (test code = 5609) 98 % Supplemental O2 after 1 minute (test code = 5612) 0 L/min Heart Rate after 2 minutes (test code = 5613) 97 1/min SPO2 after 2 minutes (test code = 5614) 95 % Supplemental O2 after 2 minutes (test code = 5617) 0 L/min Heart Rate after 3 minutes (test code = 5618) 101 1/min SPO2 after 3 minutes (test code = 5619) 92 % Supplemental O2 after 3 minutes (test code = 5622) 0 L/min Heart Rate after 4 minutes (test code = 5623) 102 1/min SPO2 after 4 minutes (test code = 5624) 93 % Supplemental O2 after 4 minutes (test code = 5627) 0 L/min Heart Rate after 5 minutes (test code = 5628) 113 1/min SPO2 after 5 minutes (test code = 5629) 97 % Supplemental O2 after 5 minutes (test code = 5632) 0 L/min Six Minute Walk Distance in m (test code = 5633) 392 m 538.9 5-844.95 Heart Rate after 6 minutes (test code = 5634) 105 1/min Highest Heart Rate (test code = 5635) 113 1/min SPO2 after 6 minutes (test code = 5636) 93 % Lowest SpO2 (test code = 5637) 89 % BP Systolic after 6 minutes (test code = 5639) 101 mmHg BP Diastolic after 6 minutes (test code = 5640) 61 mmHg Supplemental O2 after 6 minutes (test code = 5641) 0 L/min Lap Count (test code = 5642) 9 Six Minute Walk Distance Predicted (test code = 5645) 692 Ramón MethodistS[facility]rom[facility], [id number] 07:56:43* Test Item Value Reference Range Interpretation Comments FEV1 Pre (test code = 5348) 1.84 L 3.46-5.18 FEV1/FVC % Pre (test code = 5361) 73.73 % 68.06-87.41 FVC Pre (test code = 5354) 2.5 L 4.56-6.59 PEF Pre (test code = 5367) 7.02 L/s 8-13.04 FEF 25-75% Pre (test code = 5547) 1.3 L/s 2.02-5.5 DLCO Pre (test code = 5423) 7.9 24.02- 39.95 ml/(min*mmHg) DL/VA Pre (test code = 5437) 2.82 3.18- 5.58 ml/(min*mmHg*L ) VA SB Pre (test code = 5444) 2.8 L 6.03-8.76 DLCOc Pre (test code = 5430) 8.89 24.02- 39.95 ml/(min*mmHg ) KCOc SB Pre (test code = 5535) 3.17 3.18- 5.58 ml/(min*mmHg *L) Hb Pre (test code = 5540) 11.2 g(Hb)/dL R0.5IN Pre (test code = 5514) 1.83 3.06- 3.06 cmH2O*s/L FRCpl Pre (test code = 5388) 2.21 L 2.71-4.69 RV Pre (test code = 5402) 1.51 L 1.62-2.97 TLC Pre (test code = 5416) 4.1 L 6.58-8.89 RV % TLC Pre (test code = 5409) 36.81 % 24.48-42.44 VC Pre (test code = 5374) 2.59 L 4.56-6.59 ERV Pre (test code = 5381) 0.7 L 1.4-1.4 IC Pre (test code = 5395) 1.89 L 3.86-3.86 sR0.5IN Pre (test code = 5521) 4.69 cmH2O*s Raw Pre (test code = 5507) 2.53 3.06- 3.06 cmH2O*s/L sGaw Predicted (test code = 5528) 0.15 0.08- 0.08 1/(cmH2O* s) FEV1 Predicted (test code = 5302) 4.32 FEV1 LLN (test code = 5347) 3.46 FEV1 % Pre of Predicted (test code = 5308) 42.7 % FVC Predicted (test code = 5307) 5.58 FVC LLN (test code = 5353) 4.56 FVC % Pre of Predicted (test code = 5355) 44.9 % FEV1/FVC % Predicted (test code = 5359) 78 FEV1/FVC % LLN (test code = 5360) 68 FEV1/FVC % Pre of Predicted (test code = 5362) 94.8 % FEF 25-75% Predicted (test code = 5546) 3.76 FEF 25-75% LLN (test code = 5545) 2.02 FEF 25-75% % Pre of Predicted (test code = 5548) 34.7 % PEF Predicted (test code = 5310) 10.52 PEF LLN (test code = 5366) 8 PEF % Pre of Predicted (test code = 5368) 66.8 % VC Predicted (test code = 5372) 5.58 VC LLN (test code = 5373) 4.56 VC % Pre of Predicted (test code = 5375) 46.5 % ERV Predicted (test code = 5379) 1.4 ERV LLN (test code = 5380) 1.4 ERV % Pre of Predicted (test code = 5382) 50.1 % FRCpl % Predicted (test code = 5386) 3.7 FRCpl % LLN (test code = 5387) 2.71 FRCpl % Pre of Predicted (test code = 5389) 59.7 % IC Predicted (test code = 5393) 3.86 IC LLN (test code = 5394) 3.86 IC % Pre of Predicted (test code = 5396) 48.9 % RV Predicted (test code = 5400) 2.3 RV LLN (test code = 5401) 1.62 RV % Pre of Predicted (test code = 5403) 65.6 % RV % TLC Predicted (test code = 5407) 33 RV % TLC LLN (test code = 5408) 24 RV % TLC % Pre of Predicted (test code = 5410) 110 % TLC Predicted (test code = 5414) 7.74 TLC LLN (test code = 5415) 6.58 TLC % Pre of Predicted (test code = 5417) 53 % Raw Predicted (test code = 5505) 3.06 Raw LLN (test code = 5506) 3.06 Raw % Pre of Predicted (test code = 5508) 82.7 % R0.5IN Predicted (test code = 5512) 3.06 R0.5IN LLN (test code = 5513) 3.06 R0.5IN % Pre of Predicted (test code = 5515) 59.9 % sGaw Predicted (test code = 5526) 0.08 sGaw LLN (test code = 5527) 0.08 sGaw % Pre of Predicted (test code = 5529) 185 % DLCO Predicted (test code = 5421) 31.99 DLCO LLN (test code = 5422) 24.02 DLCO % Pre of Predicted (test code = 5424) 24.7 % DLCOc Predicted (test code = 5428) 31.99 DLCOc LLN (test code = 5429) 24.02 DLCOc % Pre of Predicted (test code = 5431) 27.8 % DL/VA Predicted (test code = 5435) 4.38 DL/VA LLN (test code = 5436) 3.18 DL/VA % Pre of Predicted (test code = 5438) 64.3 % KCOc SB Predicted (test code = 5533) 4.38 KCOc SB LLN (test code = 5534) 3.18 KCOc SB % Pre of Predicted (test code = 5536) 72.4 % VA SB Predicted (test code = 5442) 7.4 VA SB LLN (test code = 5443) 6.03 VA SB % Pre of Predicted (test code = 5445) 37.9 % [facility] METABOLIC [id number] 14:11:00* Test Item Value Reference Range Interpretation Comments SODIUM (test code = NA) 138 mmol/L 136-145 N POTASSIUM (test code = K) 4.1 mmol/L 3.5-5.1 N CHLORIDE (test code = CL) 102.0 mmol/L 98-107 N CARBON DIOXIDE (test code = CO2) 27.0 mmol/L 21-32 N ANION GAP (test code = GAP) 13.1 10-20 N GLUCOSE (test code = GLU) 186 mg/dL 74-106 H BLOOD UREA NITROGEN (test code = BUN) 50 mg/dL 7-18 H GLOMERULAR FILTRATION RATE (test code = GFR) 4 mL/min >=60 Estimated GFR by using Modified MDRD formula.Chronic kidney disease is defined as either kidney damageor GFR <60 mL/min/1.73 m2 for >3 months. CREATININE (test code = CREAT) 12.50 mg/dL 0.7-1.3 H BUN/CREATININE RATIO (test code = BUN/CREA) 4.0 10-20 L CALCIUM (test code = CA) 8.1 mg/dL 8.5-10.1 L BASIC METABOLIC [id number] 14:08:00* Test Item Value Reference Range Interpretation Comments SODIUM (test code = NA) 138 mmol/L 136-145 N POTASSIUM (test code = K) 4.1 mmol/L 3.5-5.1 N CHLORIDE (test code = CL) 102.0 mmol/L 98-107 N CARBON DIOXIDE (test code = CO2) mmol/L 21-32 ANION GAP (test code = GAP) 10-20 GLUCOSE (test code = GLU) mg/dL 74-106 BLOOD UREA NITROGEN (test code = BUN) mg/dL 7-18 GLOMERULAR FILTRATION RATE (test code = GFR) mL/min >=60 CREATININE (test code = CREAT) mg/dL 0.7-1.3 BUN/CREATININE RATIO (test code = BUN/CREA) 10-20 CALCIUM (test code = CA) 8.1 mg/dL 8.5-10.1 L CBC W/AUTO [id number] 14:03:00* Test Item Value Reference Range Interpretation Comments WHITE BLOOD CELL (test code = WBC) 7.9 K/mm3 4.5-12.5 N RED BLOOD CELL (test code = RBC) 3.84 mill/mm3 4.0-5.8 L HEMOGLOBIN (test code = HGB) 10.9 gram/dL 13.0-17.5 L HEMATOCRIT (test code = HCT) 35.9 % 42.0-52.0 L MEAN CELL VOLUME (test code = MCV) 93.5 fL 80-98 N MEAN CELL HGB (test code = MCH) 28.4 picogram 27.0-33.0 N MEAN CELL HGB CONCETRATION (test code = MCHC) 30.4 gram/dL 33.0-36. 0 L RED CELL DISTRIBUTION WIDTH (test code = RDW) 15.7 % 11.6-16. 2 N RED CELL DISTRIBUTION WIDTH SD (test code = RDW-SD) 53.5 fL 37 .0-51.0 H PLATELET COUNT (test code = PLT) 193 K/mm3 150-450 N MEAN PLATELET VOLUME (test code = MPV) 10.9 fL 6.7-11.0 N NEUTROPHIL % (test code = NT%) 67.7 % 39.0-69.0 N IMMATURE GRANULOCYTE % (test code = IG%) 0.4 % 0.0-5.0 N LYMPHOCYTE % (test code = LY%) 18.5 % 25.0-55.0 L MONOCYTE % (test code = MO%) 5.7 % 0.0-10.0 N EOSINOPHIL % (test code = EO%) 6.7 % 0.0-5.0 H BASOPHIL % (test code = BA%) 1.0 % 0.0-1.0 N NUCLEATED RBC % (test code = NRBC%) 0.0 % 0-0 N NEUTROPHIL # (test code = NT#) 5.33 K/mm3 1.8-7.7 N IMMATURE GRANULOCYTE # (test code = IG#) 0.03 x10 3/uL 0-0.03 N LYMPHOCYTE # (test code = LY#) 1.46 K/mm3 1.0-5.0 N MONOCYTE # (test code = MO#) 0.45 K/mm3 0-0.8 N EOSINOPHIL # (test code = EO#) 0.53 K/mm3 0.0-0.5 H BASOPHIL # (test code = BA#) 0.08 K/mm3 0.0-0.2 N NUCLEATED RBC # (test code = NRBC#) 0.00 K/mm3 0.0-0.1 N MANUAL DIFF REQUIRED (test code = MDIFF) NO MYOCARD IMAGING, MULTI, PHARM, [id number] 16:09:00PT not on dialysis as of 11/24/2015.FINAL REPORT PROCEDURE: MYOCARDIAL PERFUSION SPECT IMAGING (Rest/Stress)CPT CODE: 09436 INDICATION: Evaluate extent of known CAD, chest discomfort CARDIOVASCULAR PROFILE:CAD History: Known CAD, previous coronary stents, ACBSymptoms: Chest discomfortRisk Factors: Diabetes, hypertension, tobacco use, ESRDBMI: 24Medications: Aspirin, amlodipine, carvedilol, Plavix, furosemide, lisinopril STRESS PROTOCOL:Pharmacologic stress was achieved with a 10-second intravenous infusion of regadenoson 0.4 mg. The radiopharmaceutical was administered 30 seconds after the start of the regadenoson infusion. IMAGING PROTOCOL:10.7 mCi of Tc-99m sestamibi was injected intravenously at rest, and gated SPECT images were obtained. Then, 32.8 mCi of Tc-99m sestamibi was injected intravenously at peak stress, and gated SPECT images were obtained. REST FINDINGS:HR: 82/minBP: 137/88 mmHgPrelim. EKG: Normal sinus rhythm, inferolateral T-wave inversions.Perfusion: There is a moderate severity perfusion defect of the basal to apical inferior, and basal anterior segment(s).LV Volume: Increased.RV Volume: Normal. STRESS FINDINGS:HR: 81/min (47% of MPHR)BP: 152/89 mmHgPrelim. EKG: Stable ST depression and T wave inversion in inferolateral leads.Symptoms: Shortness of breath (treatment not required).Perfusion: There is a marked severity perfusion defect of the basal to apical inferior segment(s). There is a moderate severity perfusion defect of the basal to apical anterior segments. Wall Motion: Severe inferior wall hypokinesis, otherwise global hypokinesis (LVEF 29%).LV Volume: Increased from rest by 36 mL. IMPRESSION:1. Abnormal study.2. Abnormal myocardial perfusion. There is a large size, marked severity, partially reversible perfusion abnormality in the basal to apical inferior LV. There is a large size, moderate severity, partially reversible perfusion abnormality in the basal to apical anterior segments.3. Severely decreased LVEF of 29% with severe inferior wall h ypokinesis, all remaining segments moderately hypokinetic.4. Normal extracardiac tracer distribution.5. There is no prior study for comparison. Signed: Jeff Espinoza MDReport Verified Date/Time: 02/12/2019 16:09:14 Reading Location: [address] Reading Room [id number] 11:43:00* Test Item Value Reference Range Interpretation Comments PROSTATE SPECIFIC ANTIGEN (BEAKER) (test code = 844) 0.3 ng/mL 0 .0-4.0 CHEST SINGLE (PORTABLE)2018-06-24 02:15:00 [place] [address] Patient Name: RICHAR POTTS MR #: [id number] : 1970 Age/Sex: 47/M Req #: [id number] Adm Physician: Ordered by: IZZY OLVERA MD Report #: [id number] Location: ER Room/Bed: Procedure: [id number] DX/CHEST SINGLE (PORTABLE) Exam Date: 06/24/18 Exam Time: 0115 REPORT STATUS: Signed EXAMINATION: CHEST SINGLE (PORTABLE) INDICATION: Weakness. C OMPARISON: None FINDINGS: AP view TUBES and LINES: None. LUNGS: Lungs are well inflated. Lungs are clear. There is no evidence of pneumonia or pulmonary edema. PLEURA: No pleural effusion or pneumothorax. HEART AND MEDIASTINUM: The cardiomediastinal silhouette is unremarkable. CABG clips. BONES AND SOFT TISSUES: No acute osseous lesion. Median st ernotomy wires. Soft tissues are unremarkable. UPPER ABDOMEN: No free air under the diaphragm. IMPRESSION: No acute thoracic abnormality. Signed by: DR. Chris Lowry MD on 06/24/2018 2:17 AM Dictated By: CHRIS LOWRY MD 6 T ranscribed By: TRA on 06/24/18216 COPY TO: IZZY OLVERA MD POCT-GLUCOSE [id number] 11:03:00* Test Item Value Reference Range Interpretation Comments POC-GLUCOSE METER (BEAKER) (test code = 1538) 214 mg/dL 70-110 H TESTED AT [facility] [address] [facility] [address] [id number] 04:35:00* Test Item Value Reference Range Interpretation Comments ACTIVATED CLOTTING TIME (BEAKER) (test code = 441) 147 sec TESTED AT [facility] [address] [facility] [address] BASIC METABOLIC [id number] 03:38:00* Test Item Value Reference Range Interpretation Comments SODIUM (BEAKER) (test code = 381) 135 meq/L 136-145 L POTASSIUM (BEAKER) (test code = 379) 4.0 meq/L 3.5-5.1 CHLORIDE (BEAKER) (test code = 382) 102 meq/L 98-107 CO2 (BEAKER) (test code = 355) 20 meq/L 22-29 L BLOOD UREA NITROGEN (BEAKER) (test code = 354) 52 mg/dL 7-21 H CREATININE (BEAKER) (test code = 358) 12.47 mg/dL 0.57-1.25 H GLUCOSE RANDOM (BEAKER) (test code = 652) 213 mg/dL 70-105 H CALCIUM (BEAKER) (test code = 697) 7.3 mg/dL 8.4-10.2 L EGFR (BEAKER) (test code = 1092) mL/min/1.73 sq m INSUFFICIENT CLINICAL DATA TO CALCULATE ESTIMATED GFR. CBC (HEMOGRAM ONLY)2018-01-29 03:16:00* Test Item Value Reference Range Interpretation Comments WHITE BLOOD CELL COUNT (BEAKER) (test code = 775) 14.1 K/ L 3.5- 10.5 H RED BLOOD CELL COUNT (BEAKER) (test code = 761) 3.27 M/ L 4.63-6 .08 L HEMOGLOBIN (BEAKER) (test code = 410) 9.6 GM/DL 13.7-17.5 L HEMATOCRIT (BEAKER) (test code = 411) 30.3 % 40.1-51.0 L MEAN CORPUSCULAR VOLUME (BEAKER) (test code = 753) 92.7 fL 79. 0-92.2 H MEAN CORPUSCULAR HEMOGLOBIN (BEAKER) (test code = 751) 29.4 pg 25.7-32.2 MEAN CORPUSCULAR HEMOGLOBIN CONC (BEAKER) (test code = 752) 31.7 GM/DL 32.3-36.5 L RED CELL DISTRIBUTION WIDTH (BEAKER) (test code = 412) 17.0 % 11.6-14.4 H PLATELET COUNT (BEAKER) (test code = 756) 274 K/CU MM 150-450 MEAN PLATELET VOLUME (BEAKER) (test code = 754) 10.1 fL 9.4-12 .4 NUCLEATED RED BLOOD CELLS (BEAKER) (test code = 413) 0 /100 WBC 0 -0 [id number] 03:10:00* Test Item Value Reference Range Interpretation Comments ACTIVATED CLOTTING TIME (BEAKER) (test code = 441) 142 sec TESTED AT [place] [id number] 02:01:00* Test Item Value Reference Range Interpretation Comments ACTIVATED CLOTTING TIME (BEAKER) (test code = 441) 153 sec TESTED AT [place] [id number] 00:24:00* Test Item Value Reference Range Interpretation Comments ACTIVATED CLOTTING TIME (BEAKER) (test code = 441) 153 sec TESTED AT [place] [id number] 22:56:00* Test Item Value Reference Range Interpretation Comments ACTIVATED CLOTTING TIME (BEAKER) (test code = 441) 186 sec TESTED AT [place] [id number] POCT-GLUCOSE [id number] 21:50:00* Test Item Value Reference Range Interpretation Comments POC-GLUCOSE METER (BEAKER) (test code = 1538) 140 mg/dL 70-110 H TESTED AT [place] [id number] 20:34:00* Test Item Value Reference Range Interpretation Comments ACTIVATED CLOTTING TIME (BEAKER) (test code = 441) 230 sec TESTED AT [place] [id number] 20:34:00* Test Item Value Reference Range Interpretation Comments ACTIVATED CLOTTING TIME (BEAKER) (test code = 441) 186 sec TESTED AT [place] [id number] [id number] 20:34:00* Test Item Value Reference Range Interpretation Comments ACTIVATED CLOTTING TIME (BEAKER) (test code = 441) 384 sec TESTED AT [facility] [address] [facility] [address] BASIC METABOLIC [id number] 08:56:00* Test Item Value Reference Range Interpretation Comments SODIUM (BEAKER) (test code = 381) 137 meq/L 136-145 POTASSIUM (BEAKER) (test code = 379) 3.8 meq/L 3.5-5.1 CHLORIDE (BEAKER) (test code = 382) 97 meq/L 98-107 L CO2 (BEAKER) (test code = 355) 27 meq/L 22-29 BLOOD UREA NITROGEN (BEAKER) (test code = 354) 44 mg/dL 7-21 H CREATININE (BEAKER) (test code = 358) 12.38 mg/dL 0.57-1.25 H GLUCOSE RANDOM (BEAKER) (test code = 652) 283 mg/dL 70-105 H CALCIUM (BEAKER) (test code = 697) 7.7 mg/dL 8.4-10.2 L EGFR (BEAKER) (test code = 1092) mL/min/1.73 sq m INSUFFICIENT CLINICAL DATA TO CALCULATE ESTIMATED GFR. CBC (HEMOGRAM ONLY)2018-01-28 08:13:00* Test Item Value Reference Range Interpretation Comments WHITE BLOOD CELL COUNT (BEAKER) (test code = 775) 14.9 K/ L 3.5- 10.5 H RED BLOOD CELL COUNT (BEAKER) (test code = 761) 3.74 M/ L 4.63-6 .08 L HEMOGLOBIN (BEAKER) (test code = 410) 11.0 GM/DL 13.7-17.5 L HEMATOCRIT (BEAKER) (test code = 411) 35.9 % 40.1-51.0 L MEAN CORPUSCULAR VOLUME (BEAKER) (test code = 753) 96.0 fL 79. 0-92.2 H MEAN CORPUSCULAR HEMOGLOBIN (BEAKER) (test code = 751) 29.4 pg 25.7-32.2 MEAN CORPUSCULAR HEMOGLOBIN CONC (BEAKER) (test code = 752) 30.6 GM/DL 32.3-36.5 L RED CELL DISTRIBUTION WIDTH (BEAKER) (test code = 412) 17.1 % 11.6-14.4 H PLATELET COUNT (BEAKER) (test code = 756) 312 K/CU MM 150-450 MEAN PLATELET VOLUME (BEAKER) (test code = 754) 9.9 fL 9.4-12 .4 NUCLEATED RED BLOOD CELLS (BEAKER) (test code = 413) 0 /100 WBC 0 -0 BASIC METABOLIC [id number] 12:14:00* Test Item Value Reference Range Interpretation Comments SODIUM (BEAKER) (test code = 381) 140 meq/L 136-145 POTASSIUM (BEAKER) (test code = 379) 2.9 meq/L 3.5-5.1 L CHLORIDE (BEAKER) (test code = 382) 100 meq/L 98-107 CO2 (BEAKER) (test code = 355) 27 meq/L 22-29 BLOOD UREA NITROGEN (BEAKER) (test code = 354) 47 mg/dL 7-21 H CREATININE (BEAKER) (test code = 358) 10.36 mg/dL 0.57-1.25 H GLUCOSE RANDOM (BEAKER) (test code = 652) 225 mg/dL 70-105 H CALCIUM (BEAKER) (test code = 697) 7.6 mg/dL 8.4-10.2 L EGFR (BEAKER) (test code = 1092) mL/min/1.73 sq m INSUFFICIENT CLINICAL DATA TO CALCULATE ESTIMATED GFR. [id number] 11:40:00* Test Item Value Reference Range Interpretation Comments PARTIAL THROMBOPLASTIN TIME (BEAKER) (test code = 760) 35.9 seconds 22.5-36.0 PROTHROMBIN TIME/[id number] 11:38:00* Test Item Value Reference Range Interpretation Comments PROTIME (BEAKER) (test code = 759) 14.8 seconds 11.7-14.7 H INR (BEAKER) (test code = 370) 1.2 <=5.9 RECOMMENDED COUMADIN/WARFARIN INR THERAPY RANGESSTANDARD DOSE: 2.0 - 3.0 Inclu opal: PROPHYLAXIS for venous thrombosis, systemic embolization; TREATMENT for bernard ous thrombosis and/or pulmonary embolus.HIGH RISK: Target INR is 2.5-3.5 for pat ients with mechanical heart valves.CBC (HEMOGRAM ONLY)2017-12-14 11:31:00* Test Item Value Reference Range Interpretation Comments WHITE BLOOD CELL COUNT (BEAKER) (test code = 775) 13.6 K/ L 3.5- 10.5 H RED BLOOD CELL COUNT (BEAKER) (test code = 761) 3.51 M/ L 4.63-6 .08 L HEMOGLOBIN (BEAKER) (test code = 410) 10.1 GM/DL 13.7-17.5 L HEMATOCRIT (BEAKER) (test code = 411) 31.9 % 40.1-51.0 L MEAN CORPUSCULAR VOLUME (BEAKER) (test code = 753) 90.9 fL 79. 0-92.2 MEAN CORPUSCULAR HEMOGLOBIN (BEAKER) (test code = 751) 28.8 pg 25.7-32.2 MEAN CORPUSCULAR HEMOGLOBIN CONC (BEAKER) (test code = 752) 31.7 GM/DL 32.3-36.5 L RED CELL DISTRIBUTION WIDTH (BEAKER) (test code = 412) 15.4 % 11.6-14.4 H PLATELET COUNT (BEAKER) (test code = 756) 255 K/CU MM 150-450 MEAN PLATELET VOLUME (BEAKER) (test code = 754) 9.8 fL 9.4-12 .4 NUCLEATED RED BLOOD CELLS (BEAKER) (test code = 413) 0 /100 WBC 0 -0 AB SPECIFICITY CLASS [id number] 09:26:00* Test Item Value Reference Range Interpretation Comments DATE OF SERUM (BEAKER) (test code = 2288) [id number] SERUM # (BEAKER) (test code = 2290) [id number] AB SPECIFICITY CLASS II (BEAKER) (test code = 2430) See Scanned Rep ort AB SPECIFICITY CLASS [id number] 09:26:00* Test Item Value Reference Range Interpretation Comments DATE OF SERUM (BEAKER) (test code = 2288) [id number] SERUM # (BEAKER) (test code = 2290) [id number] AB SPECIFICITY CLASS I (BEAKER) (test code = 2429) FLOW PRA CLASS I AND [id number] 13:05:00* Test Item Value Reference Range Interpretation Comments DATE OF SERUM (BEAKER) (test code = 2288) [id number] SERUM # (BEAKER) (test code = 2290) [id number] FLOW PRA CLASS I AND II (test code = 2421) See Scanned Report AB SPECIFICITY CLASS [id number] 13:19:00* Test Item Value Reference Range Interpretation Comments DATE OF SERUM (BEAKER) (test code = 2289) [id number] SERUM # (BEAKER) (test code = 2290) [id number] AB SPECIFICITY CLASS I (BEAKER) (test code = 2429) See Scanned Repo rt FLOW PRA CLASS I AND [id number] 15:51:00* Test Item Value Reference Range Interpretation Comments DATE OF SERUM (BEAKER) (test code = 2289) [id number] SERUM # (BEAKER) (test code = 2290) [id number] FLOW PRA CLASS I AND II (test code = 2421) See Scanned Report AB SPECIFICITY CLASS [id number] 12:29:00* Test Item Value Reference Range Interpretation Comments DATE OF SERUM (BEAKER) (test code = 2289) [id number] SERUM # (BEAKER) (test code = 2290) 154207 AB SPECIFICITY CLASS II (BEAKER) (test code = 2430) See Scanned Rep ort AB SPECIFICITY CLASS [id number] 12:29:00* Test Item Value Reference Range Interpretation Comments DATE OF SERUM (BEAKER) (test code = 2289) [id number] SERUM # (BEAKER) (test code = 2290) [id number] AB SPECIFICITY CLASS I (BEAKER) (test code = 2429) HEPATITIS B SURFACE [id number] 15:23:00* Test Item Value Reference Range Interpretation Comments HEPATITIS B SURFACE ANTIBODY (BEAKER) (test code = 647) < mIU/mL <8.0 FLOW PRA CLASS I AND [id number] 11:49:00* Test Item Value Reference Range Interpretation Comments DATE OF SERUM (BEAKER) (test code = 228) [id number] SERUM # (BEAKER) (test code = 2290) [id number] FLOW PRA CLASS I AND II (test code = 2421) See Scanned Report AB SPECIFICITY CLASS [id number] 10:51:00* Test Item Value Reference Range Interpretation Comments AB SPECIFICITY CLASS II (BEAKER) (test code = 2430) See Scanned Rep ort AB SPECIFICITY CLASS [id number] 10:51:00* Test Item Value Reference Range Interpretation Comments AB SPECIFICITY CLASS I (BEAKER) (test code = 2429) See Scanned Repo rt FLOW PRA CLASS I AND [id number] 12:48:00* Test Item Value Reference Range Interpretation Comments DATE OF SERUM (BEAKER) (test code = 2289) [id number] SERUM # (BEAKER) (test code = 2290) [id number] FLOW PRA CLASS I AND II (test code = 2421) See Scanned Report FLOW PRA CLASS I AND [id number] 15:31:00* Test Item Value Reference Range Interpretation Comments DATE OF SERUM (BEAKER) (test code = 2289) [id number] SERUM # (BEAKER) (test code = 2290) [id number] FLOW PRA CLASS I AND II (test code = 2421) See Scanned Report
--- OUTSIDE RECORDS SUMMARY | 2020-06-17 18:12 | XMS REPORT | Continuity of Care Document ---
Author Author [facility] t Organization [facility] t Address [address] [place] [address] Phone Unavailable Care Team Providers Care Topographic Computator Name Role Phone BerthaBlayne clarkder PCP Jayy STAPLES Attphys Unavailable Gloria OLIVAREZ, Evens Attphys Unavailable Shun EID, Bryce Tomlin Attphys [phone] Loi Cortés MD Attphys Spangler Rey OLIVAREZ Attphys Unavailable Prosper EID PhD, SJorge Lawrence Attphys Landon EID, Jj Attphys Provider, Unknown Attphys Unavailable Ashly SHELLFISH GROWER-C, Corinne Garcia Attphys [phone] Carloz Solorzano MD Attphys Lanette EID, Bryce Terrazas Attphys Salena Pineda NP, Kirsten Chopra Attphys [phone] Catalino Coleman Attphys Unavailable Clark EID, Aslam Attphys Chad EID, RJorge Daljit [...] HUMANXavi MEDICAREHUMANA O GOLD PLUS [id number] 2018 00:00:00 [facility] Problems Condition Name Condition Details Condition Category [...] Ad ded automatically from request for surgery [id number] Ramón Avery History of posttraumatic stress disorder [...] (coronary artery disease) Disease Active 2018-01-28 00:00:00 [facility] Abnormal cardiovascular stress test Abnormal cardiovascular stre ss test Disease Active 2017-12-14 00:00:00 Godwin Avery 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 with type 2 diabetes mellitus Disease Active 2017-02-03 00:00:00 [facility] ESRD (end stage renal disease) on dialysis ESRD (end s tage renal disease) on dialysis Disease Active 2017-02-03 00:00:00 John ston [facility] Patient awaiting renal transplant Patient awaiting renal transpl ant Disease Active 2017-02-03 00:00:00 Godwin Deeist Proliferative diabetic retinopathy witho ut macular edema associated with type 2 diabetes mellitus Proliferative diabetic retinopathy witho ut macular edema associated with type 2 diabetes mellitus Disease Active 2015-11-28 00:00: 00 [facility] Coronary artery disease involving [place] coronary artery of [place] heart without angina pectoris Coronary artery disease involving [place] coronary artery of [place] heart without angina pectoris Disease Active 2015-11-28 [...] Known Allergies DA Active U 2016-05-19 00:00:00 [facility] Family History Family Member Diagnosis Comments Start Date Stop Date Source Natural brother Diabetes [facility] Natural brother Unremarkable [facility] Natural father Diabetes [facility] Natural father Heart disease [facility] Natural father Hypertension [facility] Natural father Diabetes [facility] Natural father Heart attack [facility] Natural father Hypertension [facility] Natural mother Diabetes [facility] Natural mother Heart disease [facility] Natural mother Hypertension [facility] Natural mother Stroke [facility] Natural mother Diabetes [facility] Natural mother Heart attack [facility] Natural mother Hypertension [facility] Natural sister Diabetes [facility] Social History Social Habit Start Date Stop Date Quantity Comments Source History SDOH Alcohol Std Drinks [facility] History SDOH Alcohol Binge [facility] Tobacco use and exposure 2020-01-15 00:00:00 2020-01-15 00:00:00 Genie ma used [facility] Alcohol intake 2020-01-15 00:00:00 2020-01-15 00:00:00 Lifetime non-drinker (finding) [facility] History of tobacco use 2019-06-27 00:00:00 Current smoker [facility] History SDOH Alcohol Frequency 2019-06-24 00:00:00 2019-06-24 00:00:0 0 1 [facility] Cigarettes smoked current (pack per day) - Reported 00:00:00 2018-11-13 00:00:00 [facility] Cigarette pack-years 2018-11-13 00:00:00 2018-11-13 00:00:00 [facility] Tobacco Comment 2016-12-07 00:00:00 2016-12-07 00:00:00 09/28 [facility] Smoking Status Start Date Stop Date Source Former smoker 2020-01-15 00:00:00 [facility] Ordered Medication Name Filled Medication Name Start Date Stop Da te Current Medication? Ordering Clinician Indication Dosage Frequency Signature (SIG) Comments Components Source insulin ASPART (NovoLOG Flexpen U-100 Insulin) 100 unit/mL ( 3 mL) insulin pen 2020-01-15 11:07:06 2020-01-15 00:00:00 No 5U [id number] Inject 5 Units under the skin 3 (three) times a day with meals. Ramón Avery sevelamer (RENAGEL) 800 MG tablet 2020-01-15 09:10:05 Ye s 800mg Q.[id number] Take 800 mg by mouth 3 (three) [...] d iabetes mellitus with nephropathy (HCC) 5U Q.[id number] Inject 5 Units un bobby the skin [...] 2019-11-10 00:00:0 0 2019-12-10 23:59:00 No 10mg Q.[id number] Take 1 tablet (10 mg total) by [...] (two) times daily with breakfast and dinner. [facility] gabapentin (NEURONTIN) 300 MG capsule 2018-11-13 09:54:30 Yes 300mg Q.5D Take 300 mg by mouth 2 (two) times daily. [facility] lisinopril (PRINIVIL,ZESTRIL) 5 MG tablet 2018-11-13 09:54:30 Yes 10mg QD Take 10 mg by mouth daily . [facility] aspirin 81 MG EC tablet 2018-11-13 09:54:30 Yes 81mg QD Take 81 mg by mouth daily. [facility] amLODIPine (NORVASC) 2.5 MG tablet 2018-11-13 09:54:30 Yes 2.5mg QD Take 2.5 mg by mouth daily. [facility] potassium chloride SA (K-DUR,KLOR-CON) 20 MEQ tablet 2 09:54:30 Yes 20meq QD Take 20 mEq by mouth daily. [facility] amLODIPine (NORVASC) 5 mg tablet 2018-10-09 00:00:00 2019-06 00:00:00 No 5mg Take 5 mg by mouth. Godwin Avery DIGOX 125 mcg tablet 2015-11-23 00:00:00 Yes 1{tbl} Take 1 tablet by mouth every evening Every other day. [facility] digOXIN (LANOXIN) 125 mcg (0.125 mg) tablet 2015 00:00:00 2019-08-14 00:00:00 No 125ug QD Take 125 mcg by mouth daily. Ramón Avery furosemide (LASIX) 20 MG tablet 2015-11-08 00:00:00 Yes 40mg QD Take 40 mg by mouth daily . [facility] furosemide (LASIX) 80 mg tablet 2015-11-08 00:00:00 00:00:00 No 80mg QD Take 80 mg by mouth daily. Ramón Avery escitalopram oxalate (LEXAPRO) 10 MG tablet 2015-11-04 00:00:00 Yes 1{tbl} QD Take 1 tablet by mouth daily. [facility] escitalopram (LEXAPRO) 10 MG tablet 2015-11-04 00:00:0 0 2019-08-14 00:00:00 No 1{tbl} Take 1 tablet by mouth. Ramón Avery clopidogrel (PLAVIX) 75 mg tablet 2015-10-26 00:00:00 Yes 1{tbl} QD Take 1 tablet by mouth daily. [facility] clopidogrel (PLAVIX) 75 mg tablet 2015-10-26 00:00:00 2019 00:00:00 No 75mg QD Take 75 mg by mouth daily. Ramón Avery TANZEUM 30 mg/0.5 mL PnIj 2015-10-22 00:00:00 Yes 1{each} Q7D Inject 1 each subcutaneously once a week. [facility] albiglutide (TANZEUM) 30 mg/0.5 mL pen injector 2015-10-22 00:00:00 2019-10-02 00:00:00 No 1{each} Q1W Inject 1 each under the skin ev ashish 7 days. Ramón Avery TRADJENTA 5 mg Tab 2015-10-15 00:00:00 Yes 1{tbl} QD Take 1 tablet by mouth daily. [facility] atorvastatin (LIPITOR) 10 MG tablet 2015-10-15 00:00:00 Yes 1{tbl} QD Take 1 tablet by mouth daily. [facility] atorvastatin (LIPITOR) 10 MG tablet 2015-10-15 00:00:0 0 2019-08-14 00:00:00 No 1{tbl} Take 1 tablet by mouth. Ramón Avery linaGLIPtin (TRADJENTA) 5 mg tablet 2015-10-15 00:00:0 0 2019-06-24 00:00:00 No 1{tbl} Take 1 tablet by mouth. Ramón Avery losartan (COZAAR) 100 MG tablet 2015-08-23 00:00:00 Yes 25mg QD Take 25 mg by mouth daily. [facility] glimepiride (AMARYL) 2 MG tablet 2015-08-23 00:00:00 Yes 1{tbl} QD Take 1 tablet by mouth daily. [facility] glimepiride (AMARYL) 2 MG tablet 2015-08-23 [...] rate 2019-11-10 12:02:21 18 /min Charly ton Voodoo Body temperature 2019-11-10 12:00:59 36.17 Ivette Hous ton [facility] Procedures Procedure Date / Time Performed Performing Clinician [facility] e DURABLE MEDICAL EQUIPMENT 2019-11-10 13:24:19 Susan Correa POC GLUCOSE 2019-11-10 12:01:00 Kade Solorzano Met hodist POC GLUCOSE 2019-11-10 07:25:00 Kade Solorzano Met hodist BASIC METABOLIC PANEL 2019-11-10 03:23:00 Yovany Pantoja Voodoo MAGNESIUM LEVEL 2019-11-10 03:23:00 Yovany Pantoja Meth odist ESTIMATED GFR 2019-11-10 03:23:00 Yovany Pantoja Meth odist HC COMPLETE BLD COUNT W/AUTO DIFF 2019-11-10 02:20:00 Kaylin Pantoja Voodoo POC GLUCOSE 2019-11-09 21:04:00 Kade Solorzano Met hodist POC GLUCOSE 2019-11-09 17:12:00 Kade Solorzano Met hodist CORTISOL LEVEL, RANDOM 2019-11-09 13:24:00 Kade Solorzano Voodoo CORTISOL LEVEL, RANDOM 2019-11-09 12:38:00 Kade Solorzano Voodoo POC GLUCOSE 2019-11-09 12:10:00 Kade Solorzano Met hodist ADRENOCORTICOTROPIC HORMONE 2019-11-09 10:42:00 Kade Solorzano Voodoo CORTISOL LEVEL, RANDOM 2019-11-09 10:42:00 Kade Solorzano Voodoo POC GLUCOSE 2019-11-09 07:49:00 Kade Solorzano Met hodist BASIC METABOLIC PANEL 2019-11-09 04:08:00 Yovany Pantoja Voodoo MAGNESIUM LEVEL 2019-11-09 04:08:00 Yovany Pantoja Meth odist HC COMPLETE BLD COUNT W/AUTO DIFF 2019-11-09 04:08:00 Kaylin Pantoja Voodoo CORTISOL LEVEL, AM 2019-11-09 04:08:00 Kade Solorzano Voodoo ESTIMATED GFR 2019-11-09 04:08:00 Kade Solorzano Met hodist POC GLUCOSE 2019-11-08 21:06:00 Kade Solorzano Met hodist POC GLUCOSE 2019-11-08 18:25:00 Kade Solorzano Met hodist POC GLUCOSE 2019-11-08 12:41:00 Kade Solorzano Met hodist BASIC METABOLIC PANEL 2019-11-08 09:10:00 Yovany Pantoja Voodoo MAGNESIUM LEVEL 2019-11-08 09:10:00 Yovany Pantoja Meth odkyra HC COMPLETE BLD COUNT W/AUTO DIFF 2019-11-08 09:10:00 Kaylin Pantoja ESTIMATED GFR 2019-11-08 09:10:00 Yovany Pantoja Meth odist POC GLUCOSE 2019-11-08 08:22:00 Kade Solorzano Met hodist URINE CULTURE 2019-11-08 05:26:00 Harrison Huang Meth odkyra URINALYSIS SCREEN AND MICROSCOPY, WITH REFLEX TO CULTURE 202 04:10:00 Harrison Huang Voodoo POC GLUCOSE 2019-11-07 21:42:00 Kade Solorzano Met hodist POC GLUCOSE 2019-11-07 18:07:00 Kade Solorzano Met hodist TTE LIMITED, WO CONTRAST, W DOPPLER ([id number]) 2019-11-07 15:35 :00 Mark Hua Voodoo POC GLUCOSE 2019-11-07 14:00:00 Jj Sagastume Voodoo POC GLUCOSE 2019-11-07 07:56:00 Jj Sagastume Voodoo BASIC METABOLIC PANEL 2019-11-07 02:55:00 Isidro Steele HC COMPLETE BLD COUNT W/AUTO DIFF 2019-11-07 02:55:00 Isidro Steele ESTIMATED GFR 2019-11-07 02:55:00 Isidro Steele Voodoo POC GLUCOSE 2019-11-06 21:10:00 Jj Sagastume Voodoo POC GLUCOSE 2019-11-06 17:26:00 Jj Sagastume Voodoo POC GLUCOSE 2019-11-06 12:09:00 Jj Sagastume Voodoo POC GLUCOSE 2019-11-06 08:34:00 Jj Sagastume BASIC [...] Sagastume POC GLUCOSE 2019-10-31 13:11:00 Jj Sagastume Voodoo POC GLUCOSE 2019-10-31 08:02:00 Jj Sagastume CBC [...] METABOLIC PANEL 2019-10-30 03:11:00 Olivia Blanco tyrell Voodoo MAGNESIUM LEVEL 2019-10-30 03:11:00 Olivia Blanco ESTIMATED [...] HEMOGLOBIN & HEMATOCRIT 2019-10-28 08:20:00 Lorrie Nichols Voodoo COMPREHENSIVE METABOLIC PANEL 2019-10-28 04:00:00 Matilde Blackburn [...] POC GLUCOSE 2019-10-26 18:13:00 Landon Jj Melgar Voodoo POC GLUCOSE 2019-10-26 15:00:00 Landon Jj Melgar Voodoo POC GLUCOSE 2019-10-26 12:31:00 Landon Jj Melgar Voodoo POC GLUCOSE 2019-10-26 08:26:00 Landon Jj Avery BASIC METABOLIC PANEL 2019-10-26 04:06:00 LandonJj Uriel Avery ESTIMATED GFR 2019-10-26 04:06:00 DruchrisosmanJj HC COMPLETE BLD COUNT W/AUTO DIFF 2019-10-26 03:25:00 Jj Casper POC GLUCOSE 2019-10-25 21:27:00 DrulauraJj POC GLUCOSE 2019-10-25 18:26:00 LandonJj POC GLUCOSE 2019-10-25 12:10:00 Jj Sagastume POC GLUCOSE 2019-10-25 09:24:00 LatiaosmanJj Voodoo POC GLUCOSE 2019-10-25 08:06:00 LatiaosmanJj ECG PRE/POST OP 2019-10-25 06:52:13 Nabor Hoffmann [...] EP AICD EVALUATION 2019-10-24 15:03:47 Keysha Gotti Voodoo POTASSIUM LEVEL 2019-10-24 08:16:00 Jj Sagastume AST (SGOT) 2019-10-24 08:16:00 Jj Sagastume BASIC METABOLIC PANEL 2019-10-24 07:57:00 Howard Chengto n Voodoo ESTIMATED GFR 2019-10-24 07:57:00 Howard Cheng Meth [...] hodist ESTIMATED GFR 2019-10-23 03:09:00 Rolando Feliz Pa thodist POC GLUCOSE 2019-10-22 20:58:00 Jj Sagastume [...] Sagastume LINE/DRAIN REMOVAL 2019-10-20 14:36:49 Umang Maguire [place] [facility] TTE LIMITED W CONTRAST, W DOPPLER ([id number]) 2019-10-20 13:30:0 0 Jamir Murillo Voodoo POC GLUCOSE 2019-10-20 10:55:00 Jj Sagastume Voodoo POC GLUCOSE 2019-10-20 07:09:00 Jj Sagastume Voodoo PARTIAL THROMBOPLASTIN TIME (PTT) 2019-10-20 04:00:00 Jamir Murillo Voodoo CBC WITH PLATELET AND DIFFERENTIAL 2019-10-20 04:00:00 Agcyndiel liardBriana Voodoo BASIC METABOLIC PANEL 2019-10-20 04:00:00 Briana Smith rese Ramón Voodoo MAGNESIUM LEVEL 2019-10-20 04:00:00 Aguillchelo Brianaelinor Mcclolumrese H tova Voodoo PHOSPHORUS LEVEL 2019-10-20 04:00:00 AgBriana mckee Voodoo ESTIMATED GFR 2019-10-20 04:00:00 Aguillchelo Briana Patrese H ounabeel Voodoo MANUAL DIFFERENTIAL 2019-10-20 04:00:00 AguiBriana linares se Voodoo HEPATIC FUNCTION PANEL 2019-10-20 04:00:00 AgBriana mckee Voodoo POC GLUCOSE 2019-10-19 20:46:00 Jj Sagastume Voodoo POC GLUCOSE 2019-10-19 16:52:00 Jj Sagastume Voodoo POC GLUCOSE 2019-10-19 10:53:00 Jj Sagastume Voodoo PARTIAL THROMBOPLASTIN TIME (PTT) 2019-10-19 07:10:00 Kenyon Mayer Voodoo POC GLUCOSE 2019-10-19 07:06:00 jJ Sagastume Voodoo CBC WITH PLATELET AND DIFFERENTIAL 2019-10-19 04:50:00 Juan Cortés COMPREHENSIVE METABOLIC PANEL 2019-10-19 04:50:00 Juan Cortés MAGNESIUM LEVEL 2019-10-19 04:50:00 Juan Cortés PHOSPHORUS LEVEL 2019-10-19 04:50:00 Juan Cortés PARTIAL THROMBOPLASTIN TIME (PTT) 2019-10-19 04:50:00 Jj Casper DIGOXIN LEVEL 2019-10-19 04:50:00 Ryder Guzman Met hodist ESTIMATED GFR 2019-10-19 04:50:00 Ryder Guzman Met hodist POC GLUCOSE 2019-10-18 21:06:00 Jj Sagastume Voodoo POC GLUCOSE 2019-10-18 17:23:00 Jj Sagastume POC [...] Browning ESTIMATED GFR 2019-10-16 16:26:00 Solo Browning Pa thodist IONIZED CALCIUM 2019-10-16 16:26:00 Solo Browning Pa thodist HEMODIALYSIS 2019-10-16 11:33:24 Khang Chavira Me [...] 04:00:00 Juan Cortés MAGNESIUM LEVEL 2019-10-15 04:00:00 uJan Cortés PHOSPHORUS LEVEL 2019-10-15 04:00:00 Juan Cortésto n Voodoo LDH 2019-10-15 04:00:00 Juan Cortés ESTIMATED GFR 2019-10-15 04:00:00 Solo Browning Pa thodist TROPONIN 2019-10-14 20:50:00 Briana Smith LACTIC [...] PHOSPHORUS LEVEL 2019-10-14 04:30:00 Juan Cortés n Voodoo LDH 2019-10-14 04:30:00 Juan Cortés O2 SATURATION, VENOUS 2019-10-14 04:30:00 Juan Cortés ESTIMATED GFR 2019-10-14 04:30:00 Solo Browning Pa thodist POC GLUCOSE 2019-10-13 21:06:00 Jj Sagastume IONIZED CALCIUM 2019-10-13 18:20:00 Khang Chavira Pa thodist POC GLUCOSE 2019-10-13 16:48:00 Jj Sagastume BASIC METABOLIC PANEL 2019-10-13 16:25:00 Khang Chavira Voodoo MAGNESIUM LEVEL 2019-10-13 16:25:00 Khang Chavira Pa thodist PHOSPHORUS LEVEL 2019-10-13 16:25:00 Khang Chavira ethodist ESTIMATED GFR 2019-10-13 16:25:00 Khang Chavira Pa thodist IONIZED CALCIUM 2019-10-13 16:25:00 Khang Chavira Pa thodist HEMOGLOBIN & HEMATOCRIT 2019-10-13 15:00:00 Solo [...] Sagastume IONIZED CALCIUM 2019-10-12 17:00:00 Khang Chavira Pa thodist POTASSIUM LEVEL 2019-10-12 17:00:00 Khang Chavira Me thodist MAGNESIUM LEVEL 2019-10-12 17:00:00 Khang Chavira Me thodist PHOSPHORUS LEVEL 2019-10-12 17:00:00 Khang Chavira M ethodist BASIC METABOLIC PANEL 2019-10-12 17:00:00 Khang Chavira Voodoo HC COMPLETE BLD COUNT W/AUTO DIFF 2019-10-12 17:00:00 Khang Chavira ESTIMATED GFR 2019-10-12 17:00:00 Khang Chavira Pa thodist POC GLUCOSE 2019-10-12 10:42:00 Jj Sagastume POC GLUCOSE 2019-10-12 07:16:00 Jj Sagastume XR CHEST 1 VW PORTABLE 2019-10-12 06:10:31 Juan Cortés COMPREHENSIVE METABOLIC PANEL 2019-10-12 04:00:00 Alexandr Hayward LDH 2019-10-12 04:00:00 Alexandr Hayward Voodoo MAGNESIUM LEVEL 2019-10-12 04:00:00 Alexandr Hayward Voodoo PHOSPHORUS LEVEL 2019-10-12 04:00:00 Alexandr Hayward on Voodoo PARTIAL THROMBOPLASTIN TIME (PTT) 2019-10-12 04:00:00 PrevMegan sanches PROTHROMBIN TIME WITH INR 2019-10-12 04:00:00 PrevilorMegan ESTIMATED GFR 2019-10-12 04:00:00 Alexandr Hayward BILIRUBIN DIRECT 2019-10-12 04:00:00 Alexandr Hayward on Voodoo IONIZED CALCIUM 2019-10-12 04:00:00 Jj Sagastume HC [...] Chavira ESTIMATED GFR 2019-10-11 16:52:00 Khang Chavira Pa thodist POC GLUCOSE 2019-10-11 10:31:00 Jj Sagastume POC GLUCOSE 2019-10-11 07:15:00 Jj Sagastume XR CHEST 1 VW PORTABLE 2019-10-11 06:15:56 Juan Cortés HC COMPLETE BLD COUNT W/AUTO DIFF 2019-10-11 03:35:00 Karl Hayward COMPREHENSIVE METABOLIC PANEL 2019-10-11 03:35:00 Alexandr Hayward IONIZED CALCIUM 2019-10-11 03:35:00 Alexandr Hayward Voodoo LDH 2019-10-11 03:35:00 Alexandr Hayward Voodoo MAGNESIUM LEVEL 2019-10-11 03:35:00 Alexandr Hayward Voodoo PHOSPHORUS LEVEL 2019-10-11 03:35:00 Alexandr Hayward Voodoo PARTIAL THROMBOPLASTIN TIME (PTT) 2019-10-11 03:35:00 Jamir Murillo O2 SATURATION, VENOUS 2019-10-11 03:35:00 Juan Cortés ESTIMATED GFR 2019-10-11 03:35:00 Alexandr Hayward Voodoo BILIRUBIN DIRECT 2019-10-11 03:35:00 Alexandr Hayward on Voodoo POC GLUCOSE 2019-10-10 20:52:00 Jj Sagastume BASIC METABOLIC PANEL 2019-10-10 16:20:00 Khang Chavira Voodoo PHOSPHORUS LEVEL 2019-10-10 16:20:00 Khang Chavira M [...] Haywardist IONIZED CALCIUM 2019-10-10 03:30:00 Alexandr Hayward Voodoo LDH 2019-10-10 03:30:00 Alexandr Hayward Voodoo MAGNESIUM LEVEL 2019-10-10 03:30:00 Alexandr Hayward Voodoo PHOSPHORUS LEVEL 2019-10-10 03:30:00 Alexandr Hayward on Voodoo ESTIMATED GFR 2019-10-10 03:30:00 Alexandr Hayward Voodoo BILIRUBIN DIRECT 2019-10-10 03:30:00 Alexandr Hayward on Voodoo BASIC METABOLIC PANEL 2019-10-09 21:26:00 Rolando Feliz Voodoo MAGNESIUM LEVEL 2019-10-09 21:26:00 Rolando Feliz Pa thodist PHOSPHORUS LEVEL 2019-10-09 21:26:00 Rolando Feliz ethodist IONIZED CALCIUM 2019-10-09 21:26:00 Rolando Feliz Pa thodist ESTIMATED GFR 2019-10-09 21:26:00 Rolando Feliz Pa thodist PARTIAL THROMBOPLASTIN TIME (PTT) 2019-10-09 21:19:00 [...] Alexandr Hayward LDH 2019-10-09 03:20:00 Alexandr Hayward Voodoo MAGNESIUM LEVEL 2019-10-09 03:20:00 Alexandr Hayward Voodoo PHOSPHORUS LEVEL 2019-10-09 03:20:00 Alexandr Hayward on Voodoo IONIZED CALCIUM 2019-10-09 03:20:00 Alexandr Hayward Voodoo ESTIMATED GFR 2019-10-09 03:20:00 Alexandr Hayward Voodoo BILIRUBIN DIRECT 2019-10-09 03:20:00 Alexandr Hayward on Voodoo O2 SATURATION, VENOUS 2019-10-09 03:20:00 Ryder Guzman on Voodoo POC GLUCOSE 2019-10-08 21:22:00 Jj Sagastume ECG PRE/POST OP 2019-10-08 20:33:09 Ramez King Meth odist CV SELECTIVE CORONARY ANGIOGRAPHY 2019-10-08 19:49:03 Jj Casepr ACTIVATED CLOTTING TIME 2019-10-08 19:18:00 Jj Sagastume POC GLUCOSE 2019-10-08 16:25:00 Jj Sagastume BASIC METABOLIC PANEL 2019-10-08 11:40:00 Jamir Murillo MAGNESIUM LEVEL 2019-10-08 11:40:00 Jamir Murillo Voodoo PHOSPHORUS LEVEL 2019-10-08 11:40:00 Jamir Murillo IONIZED CALCIUM 2019-10-08 11:40:00 Jamir Murillo ESTIMATED GFR 2019-10-08 11:40:00 Jamir Murillo POC GLUCOSE 2019-10-08 10:38:00 Jj Sagastume POC GLUCOSE 2019-10-08 07:16:00 Jj Sagastume XR CHEST 1 VW PORTABLE 2019-10-08 06:15:13 Juan Cortés O2 SATURATION, VENOUS 2019-10-08 04:00:00 Jj Sagastume COMPREHENSIVE METABOLIC PANEL 2019-10-08 03:45:00 Alexnadr Hayward LDH 2019-10-08 03:45:00 Alexandr Hayward Voodoo MAGNESIUM LEVEL 2019-10-08 03:45:00 Alexandr Hayward Voodoo PHOSPHORUS LEVEL 2019-10-08 03:45:00 Alexandr Hayward on Voodoo IONIZED CALCIUM 2019-10-08 03:45:00 Alexandr Hayward Voodoo ESTIMATED GFR 2019-10-08 03:45:00 Alexandr Hayward Voodoo BILIRUBIN DIRECT 2019-10-08 03:45:00 Alexandr Hayward on Voodoo O2 SATURATION, VENOUS 2019-10-08 03:25:00 Solo Browning Voodoo PARTIAL THROMBOPLASTIN TIME (PTT) 2019-10-08 03:25:00 Jj Casper HC COMPLETE BLD COUNT W/AUTO DIFF 2019-10-08 03:25:00 Karl Hayward PARTIAL THROMBOPLASTIN TIME (PTT) 2019-10-07 21:50:00 Jj Casper POC GLUCOSE 2019-10-07 20:42:00 Jj Sagastume POC GLUCOSE 2019-10-07 16:38:00 Jj Sagastume BASIC METABOLIC PANEL 2019-10-07 12:35:00 Khang Chavira Voodoo IONIZED CALCIUM 2019-10-07 12:35:00 Khang Chavira Me thodist MAGNESIUM LEVEL 2019-10-07 12:35:00 Khang Chavira Me thodist PHOSPHORUS LEVEL 2019-10-07 12:35:00 Khang Chavira M ethodist ESTIMATED GFR 2019-10-07 12:35:00 Khang Chavira Me thodist O2 SATURATION, VENOUS 2019-10-07 12:35:00 Bryson Patel Voodoo PARTIAL THROMBOPLASTIN TIME (PTT) 2019-10-07 12:35:00 Jamir Murillo POC GLUCOSE 2019-10-07 11:09:00 Jj Sagastume TROPONIN 2019-10-07 09:34:00 WaitsRolando XR CHEST 1 VW PORTABLE 2019-10-07 08:29:00 Muna Beltran POC GLUCOSE 2019-10-07 07:13:00 Jj Sagastume PARTIAL THROMBOPLASTIN TIME (PTT) 2019-10-07 06:42:00 Austin Browning VANCOMYCIN LEVEL, RANDOM 2019-10-07 04:00:00 Kamini, Stevan Lopez ston Voodoo BASIC METABOLIC PANEL 2019-10-07 04:00:00 Kamini, Stevan teresa Voodoo MAGNESIUM LEVEL 2019-10-07 04:00:00 Kamini, Stevan Melgar Meth odist PHOSPHORUS LEVEL 2019-10-07 04:00:00 Kamini, Stevan Melgar Met hodkyra PARTIAL THROMBOPLASTIN TIME (PTT) 2019-10-07 04:00:00 Kamini, Heena Avery ESTIMATED GFR 2019-10-07 04:00:00 Jj Sagastume HEPATIC FUNCTION PANEL 2019-10-07 04:00:00 Jj Sagastume HC COMPLETE BLD COUNT W/AUTO DIFF 2019-10-07 03:45:00 Kamini, Heena Avery PROTHROMBIN TIME WITH INR 2019-10-07 03:45:00 Stevan Suárezton Voodoo O2 SATURATION, VENOUS 2019-10-07 03:45:00 Solo Browning TTE COMPLETE, WO CONTRAST, W DOPPLER ([id number]) 2019-10-07 02:55:00 Stevan Suárez AEROBIC CULTURE 2019-10-06 23:50:00 Solo Browning Pa thodist ANAEROBIC CULTURE 2019-10-06 23:50:00 Solo Browning GRAM STAIN 2019-10-06 23:50:00 Solo Browning Pa thodi ARTERIAL BLOOD GAS 2019-10-06 23:00:00 Solo Browning PROTEIN, MISC FLUID 2019-10-06 23:00:00 Solo Browning LDH, MISC FLUID 2019-10-06 23:00:00 Solo Browning Pa thodist CELL COUNT AND DIFFERENTIAL, BODY FLUID 2019-10-06 23:00:00 Ceferinoc heSolo ibrahim PH, MISC FLUID 2019-10-06 23:00:00 Solo Browning Me thod[facility] TROPONIN 2019-10-06 23:00:00 Solo Browning [facility] XR CHEST 1 VW PORTABLE 2019-10-06 22:55:00 Solo Browning THORACENTESIS 2019-10-06 22:46:08 Solo Browning [facility] XR CHEST 1 VW PORTABLE 2019-10-06 20:37:49 Stevan Suárez on [facility] O2 SATURATION, VENOUS 2019-10-06 20:04:00 Jj Sagastume [...] Patel POC GLUCOSE 2019-10-06 17:01:00 Jj Sagastume DE INSERT CATH,ART,PERCUT,SHORTTERM 2019-10-06 16:36:12 Stevan Suárez [facility] LACTIC ACID LEVEL, SEPSIS - NOW AND REPEAT 2X EVERY 3 HOURS 2019-10-06 15:42:00 Stevan Suárez O2 SATURATION, VENOUS 2019-10-06 15:42:00 Nawaf Padgett HEMOGLOBIN & HEMATOCRIT 2019-10-06 15:42:00 Nawaf Padgett TROPONIN 2019-10-06 15:42:00 Jj Sagastume INSERT LINE 2019-10-06 15:05:15 Sha Yanez Pa [facility] LACTIC ACID LEVEL, SEPSIS - NOW [...] EVERY 3 HOURS 2019-10-06 11:33:00 Stevan Suárez [facility] DIGOXIN LEVEL 2019-10-06 11:33:00 Stevan Suárez Meth odkyra HEPATIC FUNCTION PANEL 2019-10-06 11:33:00 Jj Sagastume THYROID STIMULATING HORMONE 2019-10-06 11:33:00 Glenn Sagastume XR CHEST 1 VW PORTABLE 2019-10-06 11:20:00 Stevan Suárez [facility] ECG 12-LEAD 2019-10-06 10:16:02 Amanda Finch odist [...] CBC HEMOGRAM 2019-10-06 04:00:00 Lucia Aguilar [facility] ESTIMATED GFR 2019-10-06 04:00:00 Lucia Aguilar [facility] T4, FREE 2019-10-06 04:00:00 Lucia Aguilar [facility] MAGNESIUM LEVEL 2019-10-06 04:00:00 Lucia Aguilar [facility] POC GLUCOSE 2019-10-06 00:29:00 Jj Sagastume XR ABDOMEN 1 VW PORTABLE 2019-10-05 23:31:00 Lucia Aguilar [facility] POC GLUCOSE 2019-10-05 20:39:00 Jj Sagastume POC GLUCOSE 2019-10-05 17:59:00 Jj Sagastume [facility] POC GLUCOSE 2019-10-05 11:25:00 Jj Sagastume POC GLUCOSE 2019-10-05 07:54:00 Jj Sagastume CBC WITH PLATELET AND DIFFERENTIAL 2019-10-05 06:15:00 Kezia Hua MANUAL DIFFERENTIAL 2019-10-05 06:15:00 Mark Hua BASIC METABOLIC PANEL 2019-10-05 04:00:00 Mark Hua [facility] MAGNESIUM LEVEL 2019-10-05 04:00:00 Mark Huaist PHOSPHORUS LEVEL 2019-10-05 04:00:00 Mark Hua ESTIMATED GFR 2019-10-05 04:00:00 Mark Hua POC GLUCOSE 2019-10-04 21:06:00 Jj Sagastume [facility] POC GLUCOSE 2019-10-04 16:45:00 Jj Sagastume [facility] POC GLUCOSE 2019-10-04 11:53:00 Jj Sagastume [facility] POC GLUCOSE 2019-10-04 08:18:00 Jj Sagastume BASIC METABOLIC PANEL 2019-10-04 05:45:00 Mark uHa Voodoo MAGNESIUM LEVEL 2019-10-04 05:45:00 Mark Hua V[facility]oo PHOSPHORUS LEVEL 2019-10-04 05:45:00 Mark Hua HC [...] Rolando Feliz HEMODIALYSIS 2019-10-02 12:40:38 Rolando Feliz Pa thodist XR CHEST 1 VW PORTABLE 2019-10-02 [...] - TRANSPLANT 2019-08-14 08:10:00 Jj Sagastume on Voodoo URINE CULTURE 2019-08-14 07:55:00 Jj Sagastume CBC [...] NICOTINE AND COTININE, SERUM 2019-08-14 07:55:00 Audrey aSgastume DRUG MCDONNELL 9, SER/RAMO, SCRN W/RFLX TO CONF 2019-08-14 07:55:00 Jj Sagastume ESTIMATED GFR 2019-08-14 07:55:00 Jj Sagastume PROTEIN, URINE, RANDOM 2019-08-14 07:55:00 Jj Sagastume LOW RESOLUTION FULL TYPING BY SSO 2019-08-14 07:55:00 Jj Casper SINGLE ANTIGEN BEADS 2019-08-14 07:55:00 Jj Sagastume stobrii Avery HLA AUTOLOGOUS CROSSMATCH 2019-08-14 07:55:00 Naila Sagastume TTE COMPLETE, WO CONTRAST, W DOPPLER ([id number]) 2019-07-04 16:0 0:03 Jj Sagastume ECG 12-LEAD 2019-06-24 13:55:56 Jj Sagastume Plan of Care Planned Activity Planned Date Details Comments Source Future Scheduled Test 2021-12-19 00:00:00 Lipid panel (proce dure) [code = 07380815] [facility] Future [facility]uled Test 2020-04-13 00:00:00 INFLUENZA VACCINE (#1) [code = INFLUENZA VACCINE (#1)] [facility] Future Scheduled Test 2020-03-13 00:00:00 INFLUENZA VACCINE [code = INFLUENZA VACCINE] [facility] Future Scheduled Test 2018 00:00:00 COLONOSCOPY SCREEN ING [code = COLONOSCOPY SCREENING] [facility] Future Scheduled Test 2018 00:00:00 SHINGLES VACCINES (#1) [code = SHINGLES VACCINES (#1)] [facility] Future Scheduled Test 2018-07-14 00:00:00 MEDICARE ANNUAL WE LLNESS (YEAR 2 or FIRST YEAR if no IPPE) [code = MEDICARE ANNUAL WELLNESS (YEAR 2 or FIRST YEAR if no IPPE)] [facility] Future Scheduled Test 2016-11-22 00:00:00 Hemoglobin A1c vandana surement (procedure) [code = 35203580] [facility] Future Scheduled Test 1978 00:00:00 DIABETIC EYE EXAM [code = DIABETIC EYE EXAM] [facility] Future Scheduled Test 1978 00:00:00 Diabetic foot exam ination (regime/therapy) [code = 533123728] [facility] Future Scheduled Test 1978 00:00:00 Urine screening fo r protein (procedure) [code = 105381369] [facility] Future Scheduled Test 1978 00:00:00 DIABETES: RETINAL EYE EXAM [code = DIABETES: RETINAL EYE EXAM] [facility] Scheduled Test 1978 00:00:00 DIABETIC FOOT EXAM [code = DIABETIC FOOT EXAM] [facility] Scheduled Test 1974 00:00:00 PNEUMOCOCCAL VACCI NE 0-64 YRS (1 of 1 - PPSV23) [code = PNEUMOCOCCAL VACCINE 0-64 YRS (1 of 1 - PPSV23)] [facility] Future Scheduled Test 1968 00:00:00 Screening for blanquita gnant neoplasm of colon (procedure) [code = 197881645] [facility] Encounters Start Date/Time End Date/Time Encounter Type Admission Type Attendi [facility] Care Department Encounter ID Source 2020-01-26 00:00:00 2020-01-26 00:00:00 Outpatient MACOH PITT NABOR [facility] [id number] [facility] 2020-01-15 00:00:00 2020-01-15 00:00:00 Outpatient [facility] [id number] [facility] 2019-12-10 00:00:00 2019-12-10 00:00:00 Outpatient [facility]COP[facility] [id number] [facility] 2019-12-02 00:00:00 2019-12-02 00:00:00 Outpatient [facility] [id number] [facility] 2019-12-02 00:00:00 2019-12-02 00:00:00 Outpatient [facility] [id number] [facility] 2019-11-25 00:00:00 2019-11-25 00:00:00 Outpatient JJ BATISTA [facility] [id number] [facility] 2019-11-17 00:00:00 2019-11-17 00:00:00 Outpatient [facility] [id number] [facility] 2019-10-02 00:00:00 2019-11-10 00:00:00 Inpatient KADE SOLORZANO [facility] [id number] [facility] 2019-09-03 00:00:00 2019-09-03 00:00:00 Outpatient TRACHTENB ERG, JJ [facility] [id number] [facility] 2019-09-03 00:00:00 2019-09-03 00:00:00 Outpatient TRACHTENB ERG, JJ [facility] [id number] [facility] 2019-09-03 00:00:00 2019-09-03 00:00:00 Outpatient TRACHTENB ERG, JJ [facility] [id number] [facility] 2019-09-03 00:00:00 2019-09-03 00:00:00 Outpatient TRACHTENB ERG, JJ [facility] [id number] [facility] 2019-09-03 00:00:00 2019-09-03 00:00:00 Outpatient TRACHTENB ERG, JJ [facility] [id number] [facility] 2019-09-03 00:00:00 2019-09-03 00:00:00 Outpatient TRACHTENB ERG, JJ [facility] [id number] [facility] 2019-09-03 00:00:00 2019-09-03 00:00:00 Outpatient TRACHTENB ERG, JJ [facility] [id number] [facility] 2019-09-02 00:00:00 2019-09-02 00:00:00 Outpatient TRACHTENB ERG, JJ [facility] [id number] [facility] 2019-04-17 08:56:28 2019-04-17 12:25:38 Office Visit Yu Chacon [facility] [id number] Results Test Description Test Time Test Comments Results Result Comments Source CTA ABD/PEL/RUN OFF 2020-06-13 19:06:00 [facility] 1970 Sex: M [place] [id number] [place] [address] Patient Name: RICHAR POTTS MR #: [id number] : 1970 Age/Sex: 49/M Req #: [id number] Adm Physician: STEVIE STAPLES MD Ordered by: LOUIS CARRANZA MD Report #: [id number] Location: MED/SURG3 Room/Bed: [facility] Procedure: [id number] CT/CTA ABD/PEL/RUN OFF Exam Date: 06/13/20 Exam [...] RIGHT MIN 2 VIEWS 2020-06-11 17:29:00 [facility] 1970 Sex: [place] [address] Patient Name: RICHAR POTTS MR #: [id number] : 1970 Age/Sex: 49/M Req #: [id number] Adm Physician: Ordered by: BRIAN BRENNAN MD Report #: [id number] Location: Room/Bed: Procedure: [id number] DX/TOES RIGHT MIN 2 VIEWS Exam Date: [...] XMED SUPPLIER PHONE (test code = 6416) [phone] ORDER STATUS (test code = 6417) Delivery Successful DELIVERY NOTE (test code = 6419) REQUESTED DELIVEY DATE (test code = 6420) 11/10/2019 ITEM DESCRIPTION (test code = 6423) Swing-Away Foot Rests Qty: 1 ACTUAL DELIVERY DATE (test code = 6422) 11/10/2019 [facility] zhpezfi0828-71-69 12:01:55* Test Item Value Reference Range Interpretation Comments POC glucose (test code = 11038-2) 103 mg/dL 65-99 H Gel Coater Name: Sierra Cota ID: [id number]: [facility] Notified inspector integrated circuits Interpretation (test code = 00524-8) Abnormal [facility] metabolic gaspg7802-61-83 03:57:31* Test Item Value Reference Range Interpretation Comments Sodium (test code = 2951-2) 138 135- 148 mEq/L Potassium (test code = 2823-3) 3.8 3.5- 5.0 mEq/L Chloride (test code = 2075-0) 97 98- 112 mEq/L L CO2 (test code = 2027-9) 30 24- 31 mEq/L Anion gap (test code = 04937-1) 11@ANIO 7- 15 mEq/L BUN (test code = 3094-0) 35 mg/dL 6-20 H Creatinine (test code = 2160-0) 9.71 mg/dL 0.7-1.2 H Glucose (test code = 2345-7) 179 mg/dL 65-99 H Calcium (test code = 72884-9) 8.6 mg/dL 8.3-10.2 Lab Interpretation (test code = 23784-1) Abnormal [facility] MethodistMagnesium nstsw2753-46-20 03:57:31* Test Item Value Reference Range Interpretation Comments Magnesium (test code = 33710-3) 2.3 mg/dL 1.6-2.6 [facility] MethodistEstimated TWF8168-96-08 03:57:31* Test Item Value Reference Range Interpretation Comments Estimated GFR (test code = 5488) 6 mL/min/1.73 m2 A Catergory Units InterpretationG1 >=90 Normal or highG2 60-89 Mildly wkycrxpyeD4n 45-59 Mildly to moderately uchapysicL4o 30-44 Moderately to severely decreasedG4 15-29 Severely decreasedG5 <15 Kidney failureThe eGFR was calculated using the Chronic Kidney Disease Epidemiology Collaboration (CKD-EPI) equation. Interpretation is based on recommendations of the National Kidney Foundation-Kidney Disease Outcomes Quality Initiative (NKF-KDOQI) published in 2014. Lab Interpretation (test code = 77342-2) Abnormal [facility] MethodistCBC with platelet and roypnfirwpjx3280-33-87 03:19:11* Test Item Value Reference Range Interpretation Comments WBC (test code = 59596-8) 11.17 4.50- 11.00 k/uL H RBC (test code = 90689-0) 3.05 m/uL 4.4-6 L HGB (test code = 718-7) 9.0 g/dL 14-18 L HCT (test code = 4544-3) 30.1 % 41-51 L MCV (test code = 787-2) 98.7 fL 82-100 MCH (test code = 785-6) 29.5 pg 27-34 MCHC (test code = 786-4) 29.9 g/dL 31-37 L RDW - SD (test code = 19241-4) 63.6 fL 37-55 H MPV (test code = 84207-6) 11.0 fL 8.8-13.2 Platelet count (test code = 94040-7) 173 150- 400 k/uL Nucleated RBC (test code = 59569-1) 0.00 /100 WBC Neutrophils (test code = 84376-0) 73.4 % 39-69 H Lymphocytes (test code = 15465-3) 14.1 % 25-45 L Monocytes (test code = 91060-6) 7.3 % 0-10 Eosinophils (test code = 89077-8) 4.1 % 0-5 Basophils (test code = 63998-0) 0.5 % 0-1 Immature granulocytes (test code = 67467-1) 0.6 % 0-1 "Immature granulocytes" (promyelocytes, myelocytes, metamyelocytes) Lab Interpretation (test code = 24233-9) Abnormal [facility] MethodistCortisol level, tmwgab1772-37-61 16:08:13* Test Item Value Reference Range Interpretation Comments Cortisol, random (test code = 2143-6) 19 ug/dL Reference Ranges are not established for non-timed Cortisol levels.Reference Range for Timed Cortisol: 6 - 10 AM 6 - 18 ug/dl 4 - 8 PM 3 - 11 ug/dl [facility] MethodistAdrenocorticotropic oyhkmia7486-81-72 13:08:10* Test Item Value Reference Range Interpretation Comments Adrenocorticotropic hormone (test code = 85822-8) 35.3 pg/mL 7.2- 63.3 [facility] MethodistUrine wblsoth7421-22-68 08:22:47* Test Item Value Reference Range Interpretation Comments Urine culture isolate (test code = 90382-8) No growth after 24 hour s Specimen InformationSpecimen Source: UrineSpecimen Site: Catheterized [facility] MethodistCortisol level, PD8950-22-52 05:25:29* Test Item Value Reference Range Interpretation Comments Cortisol, AM (test code = 9813-7) 5 ug/dL 6-18 L Lab Interpretation (test code = 42532-1) Abnormal [facility] MethodistUrinalysis screen and microscopy, with reflex to culture 2019-11-08 08:26:17* Test Item Value Reference Range Interpretation Comments Specimen site (test code = 8346986) Catheterized Color, UA (test code = 5778-6) Dark Yellow Appearance, UA (test code = 5767-9) Clear Specific gravity, UA (test code = 5811-5) 1.013 1.001-1.035 pH, UA (test code = 5803-2) 8.0 5.0-8.5 Protein, UA (test code = 26453-8) 2+ Negative A Glucose, UA (test code = 00311-6) 2+ Negative A Ketones, UA (test code = 2514-8) Negative Negative Bilirubin, UA (test code = 5770-3) Negative Negative Blood, UA (test code = 5794-3) Small Negative A Nitrite, UA (test code = 5802-4) Negative Negative Urobilinogen, UA (test code = 36004-0) <2.0 <2.0 Leukocyte esterase, UA (test code = 5799-2) Trace Negative A WBC, UA (test code = 5821-4) 16 0- 1 /HPF H RBC, UA (test code = 60141-7) 6 0- 5 /HPF H Bacteria, UA (test code = 75158-8) Few None seen Yeast, UA (test code = 11066-0) Few A Yeast with pseudohyphae, UA (test code = 85930-0) None seen Sperm, UA (test code = 8248-7) Moderate A Lab Interpretation (test code = 87866-2) Abnormal [facility] Limited or Follow Up (w Contrast if needed)2019-11-07 16:57:00Interface, Radiology Results In - 11/07/2019 4:58 PM CDT Echocardiography Report [address]Name: RICHAR POTTS Pat.ID: [id number] .Date: 11/07/2019 Refer.MD: KADE SOLORZANO MD Exam Time: 3:34:00 PM Study Type:Routine Echo Height: 74in Weight: 164lb BSA: 2 m2 Age: 2 1970,49Y Sex: MALE BP: 108/70 HR: 89 bpm Sonogrphr: KAYY Neal Pat. Stat.:Inpatient Room: [address] Study Status:Final Echo Event ID:[id number] Order ID: [id number] Reason for Study:LVEF History / Clinical:Arrhythmias, Congestive [...] PA s ystolic pressure. MEASUREMENTS: 2DParasternal Long [place] Ao An 2.4 cm LA Ds 4.6 [...] 1.5Signed 11/07/2019 04:57 Delfin Renner MethodistHepatic function xctey9430-70-36 05:18:44* Test Item Value Reference Range Interpretation [...] 5.1-7.3 g/dL1-2 years 5.6-7.5 g/dL>3 years 6.0-8.0 g/aH28-201 6.3-8.3 g/dL ALT (test code = 1742-6) 24 U/L 5-50 AST (test code = 1919-8) 38 U/L 10-50 Lab Interpretation (test code = 02416-4) Abnormal [facility] MethodistComprehensive metabolic etots6686-93-46 05:21:03* Test Item Value Reference Range Interpretation Comments Sodium (test code = 2951-2) 137 135- 148 mEq/L Potassium (test code = 2823-3) 3.2 3.5- 5.0 mEq/L L Chloride (test code = 5-0) 96 98- 112 mEq/L L CO2 (test code = 2027-9) 27 24- 31 mEq/L Anion gap (test code = 14818-5) 14@ANIO 7- 15 mEq/L BUN (test code = 3094-0) 34 mg/dL 6-20 H Creatinine (test code = 2160-0) 10.11 mg/dL 0.7-1.2 H Glucose (test code = 2345-7) 178 mg/dL 65-99 H Calcium (test code = 49178-7) 8.7 mg/dL 8.3-10.2 Protein (test code = 2885-2) 6.6 g/dL 6.3-8.3 -Warren 4.6- 7.0 g/dL1 week 4.4-7.6 g/dL7 months-1year 5.1-7.3 g/dL1-2 years 5.6-7.5 g/dL>3 years 6.0-8.0 g/iP58-690 6.3-8.3 g/dL Albumin (test code = 1751-7) 1.7 g/dL 3.5-5 L A/G ratio (test code = 1759-0) 0.3 0.7-3.8 L Alkaline phosphatase (test code = 6768-6) 198 U/L 40-129 H AST (test code = 0-8) 35 U/L 10-50 ALT (test code = 1742-6) 19 U/L 5-50 Total bilirubin (test code = 1974-) 0.6 mg/dL 0-1.2 Lab Interpretation (test code = 72230-4) Abnormal [facility] MethodistBlood culture, aerobic & ghcdfyxoq5285-53-87 11:33:05* Test Item Value Reference Range Interpretation Comments Blood culture isolate (test code = 600-7) No growth after 5 days of incubation. Specimen InformationSpecimen Source: BloodSpecimen Site: Antecubital, right [facility] MethodistHepatitis B surface tnuvmvg7460-28-93 08:07:38* Test Item Value Reference Range Interpretation Comments Hepatitis B surface Ag (test code = 5195-3) Non-reactive Non-reacti ve [facility] MethodistStrongyloides Ab IgG FHNCO4355-16-35 23:41:59* Test Item Value Reference Range Interpretation [...] may also result in false-positive results.Performed by [facility] (NIH),[address] [place] [address] men.Zostel, Ashok Moreno MD, Lab. Director [facility] VoodooDigoxin lgcwg4881-94-11 05:54:51* Test Item Value Reference Range Interpretation Comments Digoxin (test code = 12125-4) 1.2 ng/mL 0.8-2 For valid Digoxin results, at least 6 hours should elapse between time of last dose and collection of blood.Otherwise, result may be false high.Therapeutic Range:0.8 - 2.0 ng/mL Ramón AveryCT Abdomen Pelvis W Wo Acukxypd9037-44-12 17:52:28Hm Interface, Radiology Results 10/30/2019 5:55 PM [...] No suspiciou s osseous lesions. SUMMARY:1.Acute cholecystitis. [facility]-[id number] MethodistAmylase hswzx9892-77-54 14:23:07* Test Item Value Reference Range Interpretation Comments Amylase (test code = 1798-8) 44 U/L 28-100 [facility] MethodistLipase cvvtl3788-69-05 14:23:07* Test Item Value Reference Range Interpretation Comments Lipase (test code = 3040-3) 40 U/L 13-60 [facility] MethodistLactic acid skkgp1232-54-70 14:17:05* Test Item Value Reference Range Interpretation Comments Lactic acid (test code = 07539-6) 1.0 mmol/L 0.5-2.2 [facility] MethodistPhosphorus hkuvm3850-87-78 04:40:06* Test Item Value Reference Range Interpretation Comments Phosphorus (test code = 2777-1) 6.2 mg/dL 2.4-4.5 H Lab Interpretation (test code = 73270-1) Abnormal Melgar MethodistCT Head Wo Gnpssnlf6372-25-25 10:44:42Hm Interface, Radiology Results 10/28/2019 10:47 AM [...] bone density.IMPRES CHICHO:No definite acute intracranial abnormality identified.HMSL-[id number] [facility] MethodistHemoglobin & pqhcvbwoxy7559-95-32 08:54:06* Test Item Value Reference Range Interpretation Comments HGB (test code = 718-7) 9.9 g/dL 14-18 L HCT (test code = 4544-3) 32.8 % 41-51 L Lab Interpretation (test code = 31504-9) Abnormal [facility] MethodistEEG (routine)2019-10-28 08:11:32EEG RECORDING SLEEP/COMA Date of [...] findings. Luis F Whitaker, MD [facility] MethodistElectrophysiology rmpqrzyri1520-95-00 07:04:01 ELECTROPHYSIOLOGY SERVICE OPERATIVE REPORT PREPROCEDURE DIAGNOSES:1. [...] defibrillation 10/06/2019. Referred for implant of a SETTLEMENT CLERK-D for prevention of sudden cardiac arrest. The [...] right atrial lead. RV VENTRICULAR? LEAD:A 7 [place]agu[place] peel away sheath was brought to the [...] 0 Ethibond suture.RIG HT ATRIAL LEAD:A 7 [place] peel away sheath was brought to the [...] and/or cystic duct obstruction.2. Patent common bile duct.[facility]-[id number] MethodistCTA Head W Wo Contrast 2019-10-27 15:35:15Hm [...] No severe narrowing or major vessel occlusion identified.[facility]-[id number] MethodistCTA Neck W Wo Vhsvscqp9595-40-63 15:29:22Hm Interface, Radiology Results 10/27/2019 3:32 PM [...] stenosis.3. Patency of the left subclavian artery stent.HMTW-[id number] [facility] MethodistCT Stroke Brain Wo Rotcwdpt5685-91-50 15:09:25Hm Interface, Radiology Results - 10/27/2019 3:12 [...] 3:05 P.M. on 10/27/2019, who verbalized understanding.1WT- [id number] and approved by residential lawn specialist/fellow: Rock Peralta M.D.I, Jose Mike MD, personally reviewed the images and resident's/fellow's f indings and agree with the final report.[facility] MethodistECG Pre/Post Sp-Rsfvexyi4267-02-14 17:10:57* Test Item Value Reference Range Interpretation Comments Ventricular rate (test code = 253) 87 Atrial rate (test code = 255) 87 DE interval (test code = 266) 178 QRSD [...] 11 BPM-Electronically Signed By Padmini Guevara MD ([id number]) on 5:10:56 PM [facility] MethodistXR Chest 1 Vw Hdrqqeox3784-64-50 15:45:52Hm Interface, Radiology Results Incoming - 10/24/2019 [...] the aortic knob. Interval removal of a [place] cathet er and right-sided non tunneled central venous catheter.[facility]-[id number] MethodistAST (SGOT)2019-10-24 08:51:39* Test Item Value Reference Range Interpretation Comments AST (test code = 1920-8) 36 U/L 10-50 [facility] MethodistPotassium pcztp2271-60-61 08:51:38* Test Item Value Reference Range Interpretation Comments Potassium (test code = 2823-3) 3.6 3.5- 5.0 mEq/L [facility] MethodistPOC ztkai7515-46-76 07:56:58* Test Item Value Reference Range Interpretation Comments POC sodium (test code = 2947-0) 137 mmol/L 135-148 POC potassium (test code = 6298-4) 3.5 mmol/L 3.5-5 POC chloride (test code = 2069-3) 98 mmol/L 99-109 L POC CO2 (test code = 88640-1) 27 mmol/L 24-31 POC glucose (test code = 2339-0) 163 mg/dL 65-99 H POC BUN (test code = 6299-2) 30 mg/dL 8-24 H POC creatinine (test code = 65380-4) 10.2 mg/dl 0.7-1.2 H POC hematocrit (test code = 4544-3) 40 % 41-51 L POC anion gap (test code = 3164755) 16 mmol/L 8-20 Gel Coater Name: Jojo LynnjonathanSmith ID: [id number] Lab Interpretation (test code = 18327-2) Abnormal [facility] MethodistManual jmfpwdkstllk7001-84-79 07:18:41* Test Item Value Reference Range Interpretation Comments Manual differential (test code = 62886-7) PERFORMED Neutrophils (test code = 35294-4) 71.0 % 39-69 H Lymphocytes (test code = 46436-6) 13.0 % 25-45 L Monocytes (test code = 39927-7) 7.0 % 0-10 Eosinophils (test code = 95533-1) 7.0 % 0-5 H Basophils (test code = 17448-5) 0.0 % 0-1 Metamyelocytes (test code = 740-1) 1 % Myelocytes (test code = 749-2) 1 % Promyelocytes (test code = 783-1) 0 % Platelet slide review (test code = 29019-3) Mamie adequate Anisocytosis (test code = 702-1) Moderate Polychromasia (test code = 09090-0) Moderate Ovalocytes (test code = 774-0) Moderate Chasity cells (test code = 7790-9) Moderate A CEDRIC (test code = CEDRIC) Unable to perform testing, jayy correa is HEMOLYZED. Recollect requested for K,AST (tests). NOTIFIED CAINXavi GAN/Linda9Rigo 10/24/2019 07:00 BY DB. Lab Interpretation (test code = 23655-8) Abnormal [facility] MethodistPartial thromboplastin time, tmegqseyb9684-70-91 03:20:16* Test Item Value Reference Range Interpretation Comments PTT (test code = 94612-7) 41.2 23.0- 36.0 sec H PTT therapeutic range for unfractionated heparin is61.0-112.0 seconds which corresponds to Anti-Xa0.3-0.7 U/ml. Lab Interpretation (test code = 34725-4) Abnormal [facility] MethodistMRI Cholangiogram wo eehwifqp1131-07-77 20:17:21Hm Interface, Radiology Results - 10/20/2019 8:20 [...] marrow signal abnormality galileo ntified.Other: There is ybeyh-iq-nhuyyqta right pleural effusion.Summary:1.No ev idence of choledocholithiasis. Common bile duct is not dilated measuring 4 mm.2. Cholelithiasis. Moderate gallbladder wall thickening and intraluminal irregulari ty, which may be related to chronic cholecystitis. Surgical consultation is advi sed.3.Additional findings as noted above. XTA-[id number]-[id number] MethodistTransthoracic Echocardiogram Limited or Follow Up (w Contrast if needed)2019-10-20 17:42:00Interface, Radiology Results In - 10/20/2019 5:43 PM CDT Echocardiography Report [address] [place] [address] Pat.Name: RICHAR POTTS Pat.ID: [id number] .Date: 10/20/2019 Refer.MD: JAMIR MURILLO MDExam Time: 12:04:00 PM Study Type:Routine Echo Height: 74in Weight: 175lb BSA: 2.06 m2 Age: 2 1970,49Y Sex: MALE BP: 110/56 HR: 79 bpm Sonogrphr: Catalina Stewart RDCS Pat. Stat.:Inpatient Room: [address] Study Status:Final Echo Event ID:[id number] Order ID: [id number] Reason for Study:Follow up EF after PCIHistory / Clinical:Arrhythmias, Congestive Heart Failure, CoronaryArtery Disease, Diabetes, Hyperlipidemia, Hypertension, Shortness ofBreathProcedures: Portable, Intravenous Lumason Contrast, 2D Echo,ColorflowDoppler LimitedRace: C SUMMARY: Moderate to severe LV systolic dysfunction.Mild RV systolic function.Elevated LV filling pressure.LVEF is slightly improved compared with study from October 07, 2019. FINDINGS: ---------LV: LV size is bvjtyjzt-au-esavabzs enlarged (indexed LVEDV). Biplane LV ejection fraction= [...] estimate PA systolic pressure. MEASUREMENTS: 2DParasternal Long [place] Ao An 2 cm LVPWd 0.95 cm [...] = 2.4Signed 10/20/2019 05:42 Keo Le MethodistLine/Drain Vqsyytu2014-08-39 14:36:49 Umang Maguire 10/20/2019 2:38 PMLine/Drain RemovalDate/Time: [...] procedure well with no immediate complicatio yuni [facility] MethodistType and zzllii3529-11-22 06:51:00* Test Item Value Reference Range Interpretation Comments ABO grouping (test code = 883-9) A Rh type (test code = 00091-2) POS Antibody screen (gel) (test code = 890-4) NEG [facility] MethodistVancomycin level, godywa9809-36-85 05:06:00* Test Item Value Reference Range Interpretation Comments Vancomycin, random (test code = 10430-0) 18.9 ug/mL [facility] MethodistVenous blood pbw8441-56-51 04:02:43* Test Item Value Reference Range Interpretation [...] 40-70 H Bicarbonate, venous (test code = 54339-2) 21.5 mmol/L 21-28 Lab Interpretation (test code = 05858-1) Abnormal [facility] MethodistIonized zyqgewu7832-64-40 16:59:59* Test Item Value Reference Range Interpretation Comments pH (test code = 2753-2) 7.39 Ionized calcium (test code = 1994-0) 1.03 mmol/L 1.11-1.32 L Lab Interpretation (test code = 91497-6) Abnormal [facility] MethodistUS Kkqeryf3797-44-89 14:18:19Hm Interface, Radiology Results - 10/16/2019 2:21 [...] the main portal vein is patent and hepatopetal.[facility]-[id number] Spangler MethodistO2 saturation, [id number] 04:30:23* Test Item Value Reference Range Interpretation Comments Hemoglobin, venous, syringe (test code = 47924-7) 11.4 g/dL 14-1 8 L O2 saturation, venous (test code = 2711-0) 79 % 40-70 H Lab Interpretation (test code = 35765-3) Abnormal Ramón MethodistECG 12 [id number] 17:44:26* Test Item Value Reference Range Interpretation Comments Ventricular rate (test code = 253) 97 Atrial rate (test code = 255) 97 DE interval (test code = 266) 174 QRSD [...] sinus rhythm-N onspecific intraventricular block- Melgar LuizSusanmear ypmazm3942-24-72 10:54:31* Test Item Value Reference Range Interpretation Comments Platelet slide review (test code = 06671-1) Mkd decreased A Anisocytosis (test code = 702-1) Moderate Polychromasia (test code = 56795-9) Moderate Lab Interpretation (test code = 79384-6) Abnormal Spangler TsyqswsehBplfszax7291-97-55 05:47:03* Test Item Value Reference Range Interpretation Comments Troponin (test code = 90295-0) 0.704 ng/mL 0-0.04 H In patients suspected [...] 0.020 ng/mL Lab Interpretation (test code = 78777-0) Abnormal Melgar XjkrlrbevQDG1191-63-27 05:43:37* Test Item Value Reference Range Interpretation Comments LDH (test code = 54150-1) 376 U/L 87-225 H Lab Interpretation (test code = 27941-2) Abnormal Spangler MethodistB natriuretic khdgoop6370-08-76 21:51:33* Test Item Value Reference Range Interpretation Comments BNP (test code = 17454-3) 3506 pg/mL 0-100 H Lab Interpretation (test code = 47994-7) Abnormal Spangler MethodistCath lab yorclfqfd4206-21-27 11:34:31Successful placement of femoral IABP. Spangler MethodistBilirubin gifsvc9674-85-53 04:54:21* Test Item Value Reference Range Interpretation Comments Bilirubin direct (test code = 1968-7) 0.6 mg/dL 0-0.3 H Lab Interpretation (test code = 94275-4) Abnormal Spangler MethodistProthrombin time with ANV7120-32-87 04:31:26* Test Item Value Reference Range Interpretation Comments Prothrombin time (test code = 5902-2) 15.3 11.5- 14.5 sec H INR (test code = 35019-5) 1.2 Th e International Normalized Ratio (INR) is a therapeutic monitoring tool for patients who are stable on oral anticoagulant therapy. An INR of 2.0-3.0 is suggested for deep vein thrombosis/pulmonary embolism. Lab Interpretation (test code = 41716-1) Abnormal Spangler MethodistAnaerobic rscbaon2713-58-55 08:15:48* Test Item Value Reference Range Interpretation Comments Anaerobic culture isolate (test code = 552) No anaerobic organis ms isolated. Specimen InformationSpecimen Source: Ple ural fluidSpecimen Site: Pleural Ramón MethodistAerobic pltrers0293-45-62 06:14:01* Test Item Value Reference Range Interpretation Comments Aerobic culture isolate (test code = 498) No growth after 3 days. Specimen InformationSpecimen Source: Pleural fluidSpecimen Site: Pleural Ramón MethodistCath lab vrvsdujkz3813-92-54 11:31:32 PCI to the LM-LCx with 3.0 [...] DETAILS:ATTENDING: Dr. Bonilla EQUIPMENT/ANTICOAGULATION: Left Common Femoral Bdklks5Jv Sheath 6Fr SheathJL4 Catheter JR4 Catheter Chicho [...] King MD EQUIPMENT/ANTICOAGULA TION: Left Common Femoral Mweukt0Y Sheath XB 3.5 Guide Catheter Chicho Blue [...] and continue oral an ticoagulant and plavix. Spangler MethodistActivated clotting vdlo5496-32-25 19:25:42* Test Item Value Reference Range Interpretation Comments Activated clotting time (test code = 5298) 393 96- 152 sec H Gel Coater Name: Palomo Coronel LDevice ID: [id number] Lab Interpretation (test code = 65576-9) Abnormal Spangler MethodistEchocardiogram complete w contrast and 3D if srvrlu3288-66-02 13:37:00Interface, Radiology Results In - 10/07/2019 1:38 PM [facility] Echocardiography Report [address] [place] [address] Pat.Name: RICHAR POTTS Pat.ID: [id number] .Date: 10/07/2019 Refer.MD: JJ SAGASTUME MDExkayla Time: 1:50:00 AM Study Type:Routine Echo Height: 74in Weight: 195lb BSA: 2.15 m2 Age: 2 1970,49Y Sex: MALE BP: 124/67 HR: 100 bpm Sonogrphr: Shirley Arreola RDCS Pat. Stat.:Inpatient Room: [address] Study Status:Final Echo Event ID:[id number] Order ID: [id number] Reason for Study:r/o cardiogenic shockProcedures: 2D Echo, [...] of 10-15 mmHg.---- MEASUREMENTS: - 2DParasternal Long [place] Ao An 2.1 cm LVPWd 0.72 cm [...] 2.2Signed 10/07/2019 0 1:[address] HospitalG[facility] kzlps5746-18-91 11:57:52Gram stain isolateOccasional WBC'sNo organisms seen Comment: Specimen Informatio nSpecimen Source: Pleural fluidSpecimen Site: Pleural [facility] AzleCell count and differential, body kcgzl8850-33-92 06:23:59* Test Item Value Reference Range Interpretation Comments [facility] fluid type (test code = 43151-8) Pleural Color, fluid (test code = 6824-7) Pale yellow Appearance, fluid (test code = 9335-1) Slightly hazy RBC, fluid (test code = 53104-0) SEE COMMENT /CMM 1+ (0 - 500 RBC/CMM) Nucleated cells, fluid (test code = 66999-8) 89 /CMM Fluid mononuclear cell (test code = 1407) See Diff Neutrophils, fluid (test code = 65893-2) 62 % Lymphocytes, fluid (test code = 66199-1) 26 % Mesothelial cells, fluid (test code = 60274-9) 3 % Macrophages, fluid (test code = 30022-3) 8 % Plasma cells, fluid (test code = 09942-9) 1 % [facility] tkguz3577-77-02 01:19:11* Test Item Value Reference Range Interpretation Comments Fluid type (test code = 52600-5) Pleural Protein, fluid (test code = 2881-1) 1.3 g/dL The reference interval(s) and other method performance specifications have not been established for this body fluid. The test results must be integrated into the clinical context for interpretation.This test has been modified from the manufacturers instructions. The performance characteristics were determined by [facility] in a manner consistent with CLIA requirements. This test has not been cleared or approved by the U.S. Food and Drug Administration. CEDRIC (test code = CEDRIC) TROP results called to and r ead back by JUDI WHYTE/MMWT10 at 10/07/2019 00:45 by [facility]. [facility]ler [facility], kdkwx3312-71-73 00:25:43* Test Item Value Reference Range Interpretation Comments Protein (test code = 2885-2) 6.3 g/dL 6.3-8.3 Cbdzbyv1147.6-7.0 g/dL1 ptnh7656.4-7.6 g/dL7 months-3yoow948.1-7.3 g/dL1-2 tvodq364.6-7.5 g/dL>3 pkifr807.0-8.0 g/lK26-1904439.3-8.3 g/dL [facility] nqzgc4689-19-53 00:25:22* Test Item Value Reference Range Interpretation Comments Fluid type (test code = 34012-4) Pleural LDH, fluid (test code = 56791-6) 60 U/L The reference interval(s) and other method performance specifications have not been established for this body fluid. The test results must be integrated into the clinical context for interpretation.This test has been modified from the manufacturers instructions. The performance characteristics were determined by [facility] in a manner consistent with CLIA requirements. This test has not been cleared or approved by the U.S. Food and Drug Administration. diane Talbot wavyu4590-80-35 23:54:03* Test Item Value Reference Range Interpretation Comments Fluid type (test code = 11428-5) Pleural pH, fluid (test code = 2748-2) 8.00 Reference ranges are not established for Miscellanous specimens. [facility] CenteristArterial blood xsp8281-30-67 23:43:02* Test Item Value Reference Range Interpretation [...] % 95-100 Lab Interpretation (test code = 72128-2) Abnormal [facility] HospitalQupxriffqLzpvblkfrbajj5401-76-51 22:46:08Solo Browning MD 10/06/2019 10:47 PMThoracentesisDate/Time: 10/06/2019 10:46 PMPerformed by: Solo Browning, [facility] HOSPITALuthorized by: Solo Browning MD Consent: Consent [...] lateral Intercostal space: 7th Punctur e method: Mycx-rrt-omrysq catheter Ultrasound guidance: yes Indwelling cath eter placed: no Needle gauge: 14 Catheter size: 8 Fr Number of attempts: 1 Fluid removed amount: 1100 cc Fluid sent for: Aerobic, anaerobic, pH, LDH and cell count and differential Drainage characteristics: ClearPost-procedure details: Chest x-ray performed: yes Patient tolerance of procedure: Tamkio ated well, no immediate complicationsSpangler MethodistNicotine and cotinine, ukvvh3751-53-41 20:20:42* Test Item Value Reference Range Interpretation Comments Nicotine (test code = 3853-9) <2.0 0-1.9 Cotinine (test code = 22097-6) <2.0 0-1.9 This test was developed and its performance characteristics determined by the Department of Pathology and Genomic Medicine, [facility]. Serum nicotine and metabolite cotinine are tested by HPLC tandem mass spectrometry. It has not been cleared or approved by FDA. The laboratory is regulated under CLIA as qualified to perform high-complexity testing. This test is used for clinical purposes. It should not be regarded as investigational or for research. Spangler MethodistArterial Line Xvbimqlso6884-68-45 16:36:12DeStevan ruano MD 10/06/2019 4:38 PMArterial Line [...] pass the guidewire. No post procedure complications [facility] HospitalVitamin D 25 hydroxy aeecy7734-41-12 16:31:07* Test Item Value Reference Range Interpretation [...] alternative methods. Lab Interpretation (test code = 51997-3) Abnormal Melgar MethodistLactic acid level, SEPSIS - Now and repeat 2x every 3 hours 2019-10-06 16:13:54* Test Item Value Reference Range Interpretation Comments Lactic acid (test code = 53776-6) 1.6 mmol/L 0.5-2.2 Melgar MethodistPA Hoqrxlzs2393-06-29 15:05:15Sha Yanez MD 10/06/2019 3:13 PMPA CatheterDate/Time: [...] ck sulma the correct patient, procedure, equipment, applications support engineer and site/side marke d as required.Preparation: Patient [...] Padgett who was present at all times. [facility] pathogen lzxbk9566-64-70 13:39:19Respiratory pathogen panelNegative for all pathogens tested:Negative for AdenovirusNegative for Coronavirus ROZ3Ftlwmmxu for Coronavirus VF43Merqmffa for Coronavirus 229ENegative for Coronavirus CN51Kdnfrkng for Human MetapneumovirusNegative for Rhinovirus/EnterovirusNegative for Influenza ANegative for Influenza A/H1N egative for Influenza A/U0Gukjlfge for Influenza A/H1-2009Negative for Influenza BNegative for [...] InformationSpecimen Source: NaresSpecimen Site: Not specifie d [facility] MethodistThyroid stimulating hormone 2019-10-06 12:27:56* Test Item Value Reference Range Interpretation Comments TSH (test code = 3016-3) 4.13 0.27- 4.20 uIU/mL [facility] Twqgohnqjgy8325-75-99 12:06:13Hm Interface, Radiology Results 10/06/2019 12:09 PM CSTEXAMINATION: US GALLBLADDERCLINICAL HISTORY: 49 years Male r o cholecystitisCOMPARISON: N one.FINDINGS:Gallbladder: Multiple small gallstones and sludge in the gallbladde r. No gallbladder wall thickening or pericholecystic fluid.CBD: 0.5 cmPortal ve in: The portal vein demonstrates normal hepatopedal flow. The portal vein measur es 1.5 cm.IMPRESSION:Cholelithiasis without sonographic evidence of cholecystiti s.[facility]-[id number] MethodistCT Abdomen Pelvis Wo Prlxxfro9340-95-28 09:43:58Hm Interface, Radiology Results 10/06/2019 9:47 AM [...] pelvis.Gallbladder findings s imilar to the prior exam.[facility]-[id number] Ramón MethodistT4, ugxa2979-22-78 05:22:39* Test Item Value Reference Range Interpretation Comments T4, free (test code = 3024-7) 1.1 ng/dL 0.9-1.7 Spangler MethodistCBC kjfyiuoi7339-25-90 04:49:09* Test Item Value Reference Range Interpretation Comments WBC (test code = 29736-5) 9.17 4.50- 11.00 k/uL RBC (test code = 82751-8) 3.92 m/uL 4.4-6 L HGB (test code = 718-7) 11.7 g/dL 14-18 L HCT (test code = 4544-3) 39.1 % 41-51 L MCV (test code = 787-2) 99.7 fL 82-100 MCH (test code = 785-6) 29.8 pg 27-34 MCHC (test code = 786-4) 29.9 g/dL 31-37 L RDW - SD (test code = 73397-5) 57.3 fL 37-55 H MPV (test code = 23343-1) 11.2 fL 8.8-13.2 Platelet count (test code = 14386-7) 149 150- 400 k/uL L Nucleated RBC (test code = 23048-5) 0.00 /100 WBC Lab Interpretation (test code = 20525-9) Abnormal Melgar MethodistXR Abdomen 1 Vw Oolqdeug1885-31-70 23:56:09Hm Interface, Radiology Results Incoming - 10/05/2019 11:59 PM CSTEXAMINATION: XR ABDOMEN 1 VW PORTABLECLINICAL HISTORY: Nausea vomitingCOMPARISON: No prior sIMPRESSION:1.Pelvic catheter noted. Bowel gas pattern nonspecific. Right pleura l effusion.[facility]-[id number] MethodistCTA Abdominal Aorta And Bilateral Iliofemoral Runoff W Wo Rosvxtwx2175-20-51 22:53:33Hm Interface, Radiology Results - 10/03/2019 10:56 [...] stenosis. Left common sabine ac artery proximal xuxi-wl-eprhjrcw stenosis noted. Extensive plaques along the external [...] indicated ultrasound may be useful for further assessment.[facility]-[id number] [facility] lab dqorplkhw6023-51-59 09:56:56Hemodynamics:1. Elevated right sided pressure with mRA [...] Ramón Avery- XR HIP W/PEL UNI 2+V TO6578-60-07 13:17:00 Name: RICHAR POTTS [facility] : 1970 Age/S:49 /M [address] [facility] Unit#:[id number] Loc: [place] [address] Phys: Bruce Dale NP Dis Date: PHONE #: [phone] Status: REG ER FAX #: [phone] Exam Date: 09/28/2019 Reason: PAIN EXAMS: CPT CODE: [id number] XR HIP W/PEL UNI 2+[place] [address] CLINICAL HISTORY: PAIN TECHNIQUE: Neutral and frog [...] (1317) [email or web address] Orig Print D/T: S: 09/28/2019 (7730) PAGE 1 Signed Report - XR FEMUR MIN 2 VWS DU0496-67-92 13:16:00 Name: RICHAR POTTS [facility] : 1970 Age/S:49 /M [address] [facility] Unit#:[id number] Loc: [place] [address] Phys: Bruce Dale NP Dis Date: PHONE #: [phone] Status: REG ER FAX #: [phone] Exam Date: 09/28/2019 Reason: PAIN EXAMS: CPT CODE: [id number] XR FEMUR MIN [address] [place] [address] CLINICAL HISTORY: PAIN TECHNIQUE: AP and lateral [...] (1316) [email or web address] Orig Print D/T: S: 09/28/2019 (6602) PAGE 1 Signed Report Pv physiologic arterial lower extremity complete w sze9736-91-49 00:44:00Interface, Radiology Results In - 09/04/2019 12:44 AM [facility] Vascular Diagnostic Laboratory Physiologic Arterial Leg Report [address] [facility] [address], [place] [id number] Pat.Name: RICHAR POTTS.ID: [id number] .Date: 09/03/2019 Refer.MD: JJ SAGASTUME MD Exam Time: 7:30:00 AM Study Type:Physiologic Leg Height: 74in Weight: 190lb BSA: 2.13 m2 Age: 2 1970,48Y Sex: MALE Sonogrphr: Dolores Pineda RVT Pat. Stat.:Outpatient Tape Vol: SHER, CPT - 4: 34487 Echo Event ID:[id number] Order ID: [id number] Reason for Study:Heart transplant evaluation. History of [...] FINDINGS: Signed 09/04/2019 12:44 Vandana Malloy MD, [facility] Methodlovelace medical centerUS Kzzol8417-47-17 14:18:05Hm Interface, Radiology Results 09/03/2019 2:21 PM [...] bladder. There is also a right pleural effusion.[facility]-[id number] and approved by residential lawn specialist/fellow: Rob Payne, Rosie Marion MD, personally reviewed the images and resident's/fellow's findings and agree with the final report.Spangler Methodlovelace medical centerCT Chest Wo Contrast Abdomen Wo Contrast Pelvis Wo Ujyjwohb7608-75-32 13:35:45Hm Interface, Radiology Results 09/03/2019 1:38 PM [...] place.5.Additional chronic and incidental findings as detailed above.[facility]-2 [id number] VoodooUs carotid asjbgm4888-39-50 12:12:00Interface, Radiology Results In - 09/03/2019 12:13 PM [facility] Vascular Ultrasound Laboratory Carotid Artery Duplex Report [address] [address] For housing quality standard inspector purposes, the categorization of the degree of the stenosis of this exam is based on criteria described in the IAC carotid stenosis grading white paper( www.intersocietal.org /Vascular) and Lashay Romero., Michael Keller., et al. Carotid artery stenosis: weldon-s sandoval and Doppler US diagnosis--Society of Radiologists in Ultrasound Consensus C onference. Radiology. 2003 Nov; 229(2):340-6. Pat.Name: RICHAR POTTS Pat.ID: [id number] .Date: 09/03/2019 Refer.MD: JJ BATISTA MD Exam Time: 8:22:00 AM Study Type:Carotid Height: 74in Weight: 190lb BSA: 2.13 m2 Age: 2 1970,48Y Sex: MALE Sonogrphr: Dolores Pineda RVT Pat. Stat.:Outpatient Tape Vol: W[place], CPT - 4: 17387 Echo Event ID:[id number] Order ID: [id number] Reason for Study:Heart transplant evaluation. History of [...] 2.29 Signed 09/03/2019 12:12 PMYves Malloy MD, RPVISpangler MethodistXR Pyqrwpx0332-21-95 10:43:37Hm Interface, Radiology Results 09/03/2019 10:46 AM [...] joints are in normal osse ous anatomic alignment.HMWB-7ID7026V3AZjonqpk MethodistXR Chest 2 Eq8946-35-04 10:37:31Hm Interface, Radiology Results 09/03/2019 10:40 AM CSTEXAMINATION: XR CHEST 2 VWCLINICAL HISTORY: Z01.818 Encounter for other preprocedural examination, I25.5 Ischemic cardiomyopathy, Shortness of breathCOMPARISON: None.IMPRESSION:1.Lungs are clear.2.Normal heart size. Poststernotomy.3.No acute osseous abnormality.HMTW-4XU7112HF9Fahzlrj Voodoo Six minute walk w/ pulse gxvbkxju6933-74-73 08:36:09* Test Item Value Reference Range Interpretation [...] (test code = 5645) 692 Ramón MethodistSpirometry, cxefvaqcc6743-01-35 07:56:43* Test Item Value Reference Range Interpretation [...] Predicted (test code = 5445) 37.9 % [facility] METABOLIC PWNRO6175-99-80 14:11:00* Test Item Value Reference Range Interpretation [...] CA) 8.1 mg/dL 8.5-10.1 L BASIC METABOLIC CIQPI7509-77-28 14:08:00* Test Item Value Reference Range Interpretation [...] CA) 8.1 mg/dL 8.5-10.1 L CBC W/AUTO VPOR1899-89-61 14:03:00* Test Item Value Reference Range Interpretation [...] = MDIFF) NO MYOCARD IMAGING, MULTI, PHARM, USQIG6441-73-34 16:09:00PT not on dialysis as of 11/24/2015.FINAL REPORT PROCEDURE: MYOCARDIAL PERFUSION SPECT IMAGING (Rest/Stress)CPT CODE: 47019 INDICATION: Evaluate extent of known CAD, chest [...] MDReport Verified Date/Time: 02/12/2019 16:09:14 Reading Location: [address] Reading Room 6354-46-59 11:43:00* Test Item Value Reference Range Interpretation Comments PROSTATE SPECIFIC ANTIGEN (BEAKER) (test code = 844) 0.3 ng/mL 0 .0-4.0 CHEST SINGLE (PORTABLE)2018-06-24 02:15:00 [place] [address] Patient Name: RICHAR POTTS MR #: [id number] : 1970 Age/Sex: 47/M Req #: [id number] Adm Physician: Ordered by: IZZY OLVERA MD Report #: [id number] Location: ER Room/Bed: Procedure: [id number] DX/CHEST SINGLE (PORTABLE) Exam Date: 06/24/18 Exam [...] 06/24/18216 COPY TO: IZZY OLVERA MD POCT-GLUCOSE XCNVF5074-68-52 11:03:00* Test Item Value Reference Range Interpretation Comments POC-GLUCOSE METER (BEAKER) (test code = 1538) 214 mg/dL 70-110 H TESTED AT [facility] [address] [facility] [address] ESTG-QKE4984-17-19 04:35:00* Test Item Value Reference Range Interpretation Comments ACTIVATED CLOTTING TIME (BEAKER) (test code = 441) 147 sec TESTED AT [facility] [address] [facility] [address] BASIC METABOLIC NBKXX0705-02-91 03:38:00* Test Item Value Reference Range Interpretation [...] = 413) 0 /100 WBC 0 -0 GLXS-EJM3664-54-19 03:10:00* Test Item Value Reference Range Interpretation Comments ACTIVATED CLOTTING TIME (BEAKER) (test code = 441) 142 sec TESTED AT [place] [address] KRKF-[id number] 02:01:00* Test Item Value Reference Range Interpretation Comments ACTIVATED CLOTTING TIME (BEAKER) (test code = 441) 153 sec TESTED AT [place] [address] EZYQ-PCN3112-99-19 00:24:00* Test Item Value Reference Range Interpretation Comments ACTIVATED CLOTTING TIME (BEAKER) (test code = 441) 153 sec TESTED AT [place] [address] DYST-RSJ6948-65-18 22:56:00* Test Item Value Reference Range Interpretation Comments ACTIVATED CLOTTING TIME (BEAKER) (test code = 441) 186 sec TESTED AT [place] [address] POCT-GLUCOSE YJCNM7721-03-21 21:50:00* Test Item Value Reference Range Interpretation Comments POC-GLUCOSE METER (BEAKER) (test code = 1538) 140 mg/dL 70-110 H TESTED AT [place] [address] DVSB-[id number] 20:34:00* Test Item Value Reference Range Interpretation Comments ACTIVATED CLOTTING TIME (BEAKER) (test code = 441) 230 sec TESTED AT [place] [address] SHHO-[id number] 20:34:00* Test Item Value Reference Range Interpretation Comments ACTIVATED CLOTTING TIME (BEAKER) (test code = 441) 186 sec TESTED AT [place] [address] [id number]-[id number] 20:34:00* Test Item Value Reference Range Interpretation Comments ACTIVATED CLOTTING TIME (BEAKER) (test code = 441) 384 sec TESTED AT [facility] [address] [facility] [address] BASIC METABOLIC PPOMJ7235-25-00 08:56:00* Test Item Value Reference Range Interpretation [...] 0 /100 WBC 0 -0 BASIC METABOLIC FTBXK4814-96-77 12:14:00* Test Item Value Reference Range Interpretation [...] INSUFFICIENT CLINICAL DATA TO CALCULATE ESTIMATED GFR. BHCK2712-77-18 11:40:00* Test Item Value Reference Range Interpretation Comments PARTIAL THROMBOPLASTIN TIME (BEAKER) (test code = 760) 35.9 seconds 22.5-36.0 PROTHROMBIN TIME/TDY4780-32-44 11:38:00* Test Item Value Reference Range Interpretation [...] /100 WBC 0 -0 AB SPECIFICITY CLASS [id number] 09:26:00* Test Item Value Reference Range Interpretation Comments DATE OF SERUM (BEAKER) (test code = 2288) 775024 SERUM # (BEAKER) (test code = 2290) 810122 AB SPECIFICITY CLASS II (BEAKER) (test code = 2430) See Scanned Rep ort AB SPECIFICITY CLASS [id number] 09:26:00* Test Item Value Reference Range Interpretation Comments DATE OF SERUM (BEAKER) (test code = 2288) 214520 SERUM # (BEAKER) (test code = 2290) 007689 AB SPECIFICITY CLASS I (BEAKER) (test code = 2429) FLOW PRA CLASS I AND [id number] 13:05:00* Test Item Value Reference Range Interpretation Comments DATE OF SERUM (BEAKER) (test code = 2288) 912282 SERUM # (BEAKER) (test code = 2290) 984072 FLOW PRA CLASS I AND II (test code = 2421) See Scanned Report AB SPECIFICITY CLASS [id number] 13:19:00* Test Item Value Reference Range Interpretation Comments DATE OF SERUM (BEAKER) (test code = 2289) 299833 SERUM # (BEAKER) (test code = 2290) 8359934 AB SPECIFICITY CLASS I (BEAKER) (test code = 2429) See Scanned Repo rt FLOW PRA CLASS I AND [id number] 15:51:00* Test Item Value Reference Range Interpretation Comments DATE OF SERUM (BEAKER) (test code = 2289) 511310 SERUM # (BEAKER) (test code = 2290) 021988 FLOW PRA CLASS I AND II (test code = 2421) See Scanned Report AB SPECIFICITY CLASS [id number] 12:29:00* Test Item Value Reference Range Interpretation Comments DATE OF SERUM (BEAKER) (test code = 2289) 269662 SERUM # (BEAKER) (test code = 2290) 110455 AB SPECIFICITY CLASS II (BEAKER) (test code = 2430) See Scanned Rep ort AB SPECIFICITY CLASS [id number] 12:29:00* Test Item Value Reference Range Interpretation Comments DATE OF SERUM (BEAKER) (test code = 2289) 514073 SERUM # (BEAKER) (test code = 2290) 019987 AB SPECIFICITY CLASS I (BEAKER) (test code = 2429) HEPATITIS B SURFACE [id number] 15:23:00* Test Item Value Reference Range Interpretation Comments HEPATITIS B SURFACE ANTIBODY (BEAKER) (test code = 647) < mIU/mL <8.0 FLOW PRA CLASS I AND [id number] 11:49:00* Test Item Value Reference Range Interpretation Comments DATE OF SERUM (BEAKER) (test code = 228) 114315 SERUM # (BEAKER) (test code = 2290) 582010 FLOW PRA CLASS I AND II (test code = 2421) See Scanned Report AB SPECIFICITY CLASS [id number] 10:51:00* Test Item Value Reference Range Interpretation Comments AB SPECIFICITY CLASS II (BEAKER) (test code = 2430) See Scanned Rep ort AB SPECIFICITY CLASS [id number] 10:51:00* Test Item Value Reference Range Interpretation Comments AB SPECIFICITY CLASS I (BEAKER) (test code = 2429) See Scanned Repo rt FLOW PRA CLASS I AND [id number] 12:48:00* Test Item Value Reference Range Interpretation Comments DATE OF SERUM (BEAKER) (test code = 2289) 807425 SERUM # (BEAKER) (test code = 2290) 85164 FLOW PRA CLASS I AND II (test code = 2421) See Scanned Report FLOW PRA CLASS I AND [id number] 15:31:00* Test Item Value Reference Range Interpretation Comments DATE OF SERUM (BEAKER) (test code = 2289) 512289 SERUM # (BEAKER) (test code = 2290) 98499 FLOW PRA CLASS I AND II (test code = 2421) See Scanned Report
== END 2020-06-17 16:36 | disposition home or self-care (01) | DRG 299 ==
LOC: ER 17:30 → ERHOLD 18:14 → MED/SURG3 20:06 → OBSVTOIN 06-12 07:13 → MED/SURG3 06-15 12:16
PROVIDERS: ADMIT Family Medicine; ATTEND Family Medicine
PROC: 3E1M39Z Irrigation of Peritoneal Cavity using Dialysate, Percutaneous Approach (ICD-10-PCS; principal; 2020-06-12)
DX: E11.52 Type 2 diabetes mellitus with diabetic peripheral angiopathy with gangrene (principal); N18.6 End stage renal disease; I13.2 Hypertensive heart and chronic kidney disease with heart failure and with stage 5 chronic kidney disease, or end stage renal disease; I50.22 Chronic systolic (congestive) heart failure; E11.22 Type 2 diabetes mellitus with diabetic chronic kidney disease; L97.519 Non-pressure chronic ulcer of other part of right foot with unspecified severity; E11.621 Type 2 diabetes mellitus with foot ulcer; E78.5 Hyperlipidemia, unspecified; E11.40 Type 2 diabetes mellitus with diabetic neuropathy, unspecified; Z79.4 Long term (current) use of insulin; E11.319 Type 2 diabetes mellitus with unspecified diabetic retinopathy without macular edema; Z99.2 Dependence on renal dialysis; I25.10 Atherosclerotic heart disease of native coronary artery without angina pectoris; Z95.1 Presence of aortocoronary bypass graft; Z95.820 Peripheral vascular angioplasty status with implants and grafts; I89.1 Lymphangitis; Z86.74 Personal history of sudden cardiac arrest; E83.59 Other disorders of calcium metabolism; Z91.14 Patient's other noncompliance with medication regimen; E87.5 Hyperkalemia; Z95.5 Presence of coronary angioplasty implant and graft; Z95.810 Presence of automatic (implantable) cardiac defibrillator; E83.39 Other disorders of phosphorus metabolism; Z11.59 Encounter for screening for other viral diseases; D63.8 Anemia in other chronic diseases classified elsewhere
CPT/HCPCS: 36415; 75635; 80048; 80053; 80061; 82948; 83036; 83735; 84100; 85025; 85610; 86140; 86704; 86705; 86706; 87040; 87340; 90732; 93925; 99251; 99284; G0378; J0692; J0696; J1644; J1815; J1817; J2270; J2405; J2550; J3370; J7040; J7050; Q9967